=== PATIENT | male | born 1960 | race Caucasian/White ===

== ENCOUNTER 2019-01-27 18:14 | Inpatient (IN) | payer BC ==
[~2019-01-27] VITALS: Ht 188 cm; Wt 82.7 kg
[2019-01-27 20:55] VITALS: BP 95/54; PULSE 89; RESP 18
[2019-01-27 20:58] VITALS: PULSE 92
[2019-01-27 21:07] VITALS: Ht 188 cm; Wt 82.7 kg
--- NOTE | 2019-01-27 23:58 | HP ---
Date/Time of Note Date/Time of Note DATE: 01/27/19 TIME: 23:58 Assessment/Plan VTE Prophylaxis Pharmacological prophylaxis: heparin Lines/Catheters IV Catheter Type (from Nrs): Peripheral IV Assessment/Plan Assessment/Plan 58-year-old male with history of diabetes presents with abdominal pain, diarrhea, rectal bleeding presented to an outside hospital with CT showing possible colon lesion/mass PLAN GI consult for colonoscopy Consider additional abdominal imaging FOBT PPI Insulin for diabetes HPI/ROS Admit Date/Time Admit Date/Time Jan 27, 2019 at 20:38 Hx of Present Illness 58-year-old Farsi speaking male with history of type 1 diabetes who initially presented on outside hospital for abdominal pain, diarrhea, and rectal bleeding. He was transferred to [facility] for insurance reasons. At the outside facility CT shows possible colon mass/lesion. Note that part of the information was gathered from talking to patient's daughter. Patient was supposed to fly back to ER on a daily, but was canceled. He needed to be convinced to stay here by his daughter. Currently patient looks comfortable. PMH/Family/Social Past Medical History Medications Current Medications Sodium Chloride 1,000 ml @ 100 mls/hr Q10H IV ; Start 01/27/19 at 23:43; Status UNV IV Flush (NS 3 ml) 3 ml PER PROTOCOL IV ; Start 01/28/19 at 00:00; Status UNV Ondansetron HCl (Zofran Inj) 4 mg Q6H PRN IV NAUSEA/VOMITING; Start 01/28/19 at 00:00; Status UNV Acetaminophen (Tylenol Tab) 650 mg Q6H PRN PO .PAIN 1-3 OR TEMP; Start 01/28/19 at 00:00; Status UNV Acetaminophen/ Hydrocodone Bitart ([place] (5/325)) 1 tab Q6H PRN PO .PAIN 4-6; Start 01/28/19 at 00:00; Status UNV Zolpidem Tartrate (Ambien) 10 mg QHS PRN PO .INSOMNIA; Start 01/28/19 at 00:00; Status UNV Famotidine (Pepcid Iv) 20 mg Q12 IV ; Start 01/28/19 at 09:00; Status UNV Albuterol/ Ipratropium (Duoneb) 3 ml Q2H RESP THERAPY PRN HHN SHORTNESS OF BREATH; Start 01/28/19 at 00:00; Status UNV Miscellaneous Information (* Miscellaneous Pharmacy Order) Discontinue current oral sulfonylur... ONCE ONCE XX ; Start 01/28/19 at 00:00; Stop 01/28/19 at 00:01; Status UNV Diagnostic Test (Pha) (Accu-Chek) 1 ea XX ; Start 01/28/19 at 02:00; Status UNV Miscellaneous Information (* Miscellaneous Pharmacy Order) HYPOGLYCEMIA PROTOCOL w... ONCE ONCE XX ; Start 01/28/19 at 00:00; Stop 01/28/19 at 00:01; Status UNV Insulin Aspart (Novolog Insulin Pen) NOVOLOG *MILD* ALGORI... Q6 SC ; Start 01/28/19 at 00:00; Status UNV Miscellaneous Information (* Miscellaneous Pharmacy Order) Discontinue all previ... ONCE ONCE XX ; Start 01/28/19 at 00:00; Stop 01/28/19 at 00:01; Status UNV Coded Allergies: No Known Allergy (Unverified , 01/27/19) Social History Smoking Status: Current every day smoker Exam/Review of Systems Vital Signs Vitals Vital Signs Date Temp Pulse Resp B/P (MAP) Pulse Ox O2 O2 Flow FiO2 Time Delivery Rate 01/27/19 92 20:58 01/27/19 99.8 18 95/54 (68) 98 Room Air 20:55 Exam Exam Past Medical History: see hpi Past Surgical History Past Surgical Hx: other (see hpi) Family History Significant Family History: no pertinent family hx Social History Alcohol Use: other Smoking Status: Unknown if ever smoked Drug Use: other Medications Exam Eyes: PERRL ENMT: mucosa pink and moist Respiratory: normal air movement Cardiovascular: nl pulses Gastrointestinal: soft Extremities: normal pulses WALDO ROGERS MD Jan 27, 2019 23:58
[2019-01-28] VITALS (11 sets, daily range): BP systolic 90–109; BP diastolic 50–68; PULSE 66–86; RESP 18–20
[2019-01-28] MEDS ORDERED: GLUCOSE GEL 15 GRAM TUBE PO PRN ×2
[2019-01-28] MEDS ORDERED: GLUCOSE GEL 15 GRAM TUBE BUCCAL PRN
[2019-01-28] MEDS ORDERED: NACL 0.9% 3 ML SYG IV SCH
[2019-01-28] MEDS ORDERED: ONDANSETRON 4 MG INJ IV PRN
[2019-01-28] MEDS ORDERED: ALBUTEROL/IPRATROPIUM (NEB) 3 ML AMP HHN PRN
[2019-01-28] MEDS ORDERED: HYDROCODONE/APAP (5/325) TAB PO PRN
[2019-01-28] MEDS ORDERED: GLUCAGON 1 MG INJ IM PRN
[2019-01-28] MEDS ORDERED: DEXTROSE 50% 50 ML SYRINGE IV PRN ×2
[2019-01-28] MEDS: SOD CHLORIDE 0.9% 1,000 ML IV SCH ×3 (00:05→21:51)
[2019-01-28] MEDS: ZOLPIDEM 5 MG TAB PO PRN ×2 (00:34→21:54)
[2019-01-28] MEDS: ACETAMINOPHEN 325 MG TAB PO PRN (01:03)
[2019-01-28] MEDS: INSULIN ASPART [NOVOLOG] 3 ML PEN SC SCH ×5 (01:05→21:56)
[2019-01-28] MEDS: ACCU-CHEK XX SCH (02:00)
[2019-01-28] MEDS: FAMOTIDINE 20 MG INJ IV SCH ×2 (09:55→21:51)
--- NOTE | 2019-01-28 11:02 | PN ---
Date/Time of Note Date/Time of Note DATE: 01/28/19 TIME: 10:58 Assessment/Plan VTE Prophylaxis SCD applied (from Nsg): Yes Pharmacological prophylaxis: NA/contraindicated Pharm contraindication: bleeding Lines/Catheters IV Catheter Type (from Nrsg): Peripheral IV Assessment/Plan Hospital Course 1. Abdominal pain with diarrhea and rectal bleeding secondary to colon mass Mass was detected on CT abdomen at outside hospital GI consultation obtained for colonoscopy Clear diet for now 2. Diabetes Sugars currently elevate A1c at 6.7 Start Lantus and continue sliding scale Home regimen unknown 3. Acute versus chronic kidney disease Baseline unknown Continue IV fluids for now and monitor Prophylaxis: SCDs Result Diagram: 01/28/190 01/28/19 0040 Results 24hrs Laboratory Tests Test 01/28/19 00:40 01/28/19 06:20 White Blood Count 10.5 Red Blood Count 3.38 L Hemoglobin 8.1 L Hematocrit 26.7 L Mean Corpuscular Volume 79.0 L Mean Corpuscular Hemoglobin 24.0 L Mean Corpuscular Hemoglobin Concent 30.3 L Red Cell Distribution Width 16.2 H Platelet Count 326 Mean Platelet Volume 9.5 Immature Granulocytes % 0.500 H Neutrophils % 70.0 Lymphocytes % 21.6 Monocytes % 7.0 Eosinophils % 0.7 Basophils % 0.2 Nucleated Red Blood Cells % 0.0 Immature Granulocytes # 0.050 H Neutrophils # 7.3 Lymphocytes # 2.3 Monocytes # 0.7 Eosinophils # 0.1 Basophils # 0.0 Nucleated Red Blood Cells # 0.0 Sodium Level 137 Potassium Level 5.1 Chloride Level 106 Carbon Dioxide Level 23 Anion Gap 8 Blood Urea Nitrogen 16 Creatinine 1.44 H Est Glomerular Filtrat Rate mL/min 50 L Glucose Level 245 H Bedside Glucose 248 H 240 H Hemoglobin A1c 6.7 H Calcium Level 9.1 Total Bilirubin 0.1 L Direct Bilirubin 0.00 Indirect Bilirubin 0.1 Aspartate Amino Transf (AST/SGOT) 11 L Alanine Aminotransferase (ALT/SGPT) 17 Alkaline Phosphatase 81 Total Protein 6.3 Albumin 3.2 L Globulin 3.10 Albumin/Globulin Ratio 1.03 Triglycerides Level 136 Cholesterol Level 137 LDL Cholesterol, Calculated 92 HDL Cholesterol 18 L Cholesterol/HDL Ratio 7.6 Carcinoembryonic Antigen 2.2 Subjective 24 Hr Interval Summary Gastrointestinal: pain Exam/Review of Systems Exam Vitals Vital Signs Date Temp Pulse Resp B/P (MAP) Pulse Ox O2 O2 Flow FiO2 Time Delivery Rate 01/28/19 66 08:17 01/28/19 97.7 20 90/50 (63) 100 07:11 01/27/19 Room Air 20:55 Constitutional: alert, oriented Respiratory: clear to auscultation Cardiovascular: regular rate and rhythm Gastrointestinal: soft; No distended Musculoskeletal: nl extremities to inspection Results Results 24hrs Laboratory Tests Test 01/28/19 00:40 01/28/19 06:20 White Blood Count 10.5 Red Blood Count 3.38 L Hemoglobin 8.1 L Hematocrit 26.7 L Mean Corpuscular Volume 79.0 L Mean Corpuscular Hemoglobin 24.0 L Mean Corpuscular Hemoglobin Concent 30.3 L Red Cell Distribution Width 16.2 H Platelet Count 326 Mean Platelet Volume 9.5 Immature Granulocytes % 0.500 H Neutrophils % 70.0 Lymphocytes % 21.6 Monocytes % 7.0 Eosinophils % 0.7 Basophils % 0.2 Nucleated Red Blood Cells % 0.0 Immature Granulocytes # 0.050 H Neutrophils # 7.3 Lymphocytes # 2.3 Monocytes # 0.7 Eosinophils # 0.1 Basophils # 0.0 Nucleated Red Blood Cells # 0.0 Sodium Level 137 Potassium Level 5.1 Chloride Level 106 Carbon Dioxide Level 23 Anion Gap 8 Blood Urea Nitrogen 16 Creatinine 1.44 H Est Glomerular Filtrat Rate mL/min 50 L Glucose Level 245 H Bedside Glucose 248 H 240 H Hemoglobin A1c 6.7 H Calcium Level 9.1 Total Bilirubin 0.1 L Direct Bilirubin 0.00 Indirect Bilirubin 0.1 Aspartate Amino Transf (AST/SGOT) 11 L Alanine Aminotransferase (ALT/SGPT) 17 Alkaline Phosphatase 81 Total Protein 6.3 Albumin 3.2 L Globulin 3.10 Albumin/Globulin Ratio 1.03 Triglycerides Level 136 Cholesterol Level 137 LDL Cholesterol, Calculated 92 HDL Cholesterol 18 L Cholesterol/HDL Ratio 7.6 Carcinoembryonic Antigen 2.2 Medications Medication Current Medications Sodium Chloride 1,000 ml @ 100 mls/hr Q10H IV Last administered on 01/28/19at 09:56; Admin Dose 100 MLS/HR; Start 01/27/19 at 23:43 IV Flush (NS 3 ml) 3 ml PER PROTOCOL IV ; Start 01/28/19 at 00:00 Ondansetron HCl (Zofran Inj) 4 mg Q6H PRN IV NAUSEA/VOMITING; Start 01/28/19 at 00:00 Acetaminophen (Tylenol Tab) 650 mg Q6H PRN PO .PAIN 1-3 OR TEMP Last administered on 01/28/19at 01:03; Admin Dose 650 MG; Start 01/28/19 at 00:00 Acetaminophen/ Hydrocodone Bitart ([place] (5/325)) 1 tab Q6H PRN PO .PAIN 4-6; Start 01/28/19 at 00:00 Zolpidem Tartrate (Ambien) 10 mg QHS PRN PO .INSOMNIA Last administered on 01/28/19at 00:34; Admin Dose 10 MG; Start 01/28/19 at 00:00 Famotidine (Pepcid Iv) 20 mg Q12 IV Last administered on 01/28/19at 09:55; Admin Dose 20 MG; Start 01/28/19 at 09:00 Albuterol/ Ipratropium (Duoneb) 3 ml Q2H RESP THERAPY PRN HHN SHORTNESS OF BREATH; Start 01/28/19 at 00:00 Diagnostic Test (Pha) (Accu-Chek) 1 ea 02 XX ; Start 01/28/19 at 02:00 Insulin Aspart (Novolog Insulin Pen) NOVOLOG *MILD* ALGORI... Q6 SC Last administered on 01/28/19at 06:29; Admin Dose 3 UNIT; Start 01/28/19 at 00:00 Miscellaneous Information 1 ea NOTE XX ; Start 01/28/19 at 00:00 Glucose (Glutose) 15 gm Q15M PRN PO DECREASED GLUCOSE; Start 01/28/19 at 00:00 Glucose (Glutose) 22.5 gm Q15M PRN PO DECREASED GLUCOSE; Start 01/28/19 at 00:00 Dextrose (D50w Syringe) 25 ml Q15M PRN IV DECREASED GLUCOSE; Start 01/28/19 at 00:00 Dextrose (D50w Syringe) 50 ml Q15M PRN IV DECREASED GLUCOSE; Start 01/28/19 at 00:00 Glucagon (Glucagen) 1 mg Q15M PRN IM DECREASED GLUCOSE; Start 01/28/19 at 00:00 Glucose (Glutose) 15 gm Q15M PRN BUCCAL DECREASED GLUCOSE; Start 01/28/19 at 00:00 TIKI JIM Jan 28, 2019 11:02
[2019-01-28] MEDS: INSULIN GLARGINE [LANTus] (100 UNITS/ML) SYG SC SCH (12:49)
--- NOTE | 2019-01-28 13:51 | CONS ---
Assessment/Plan Assessment/Plan Hospital Course (Demo Recall) Summary Assessment and Plan: Assessment: Abdominal pain Intermittent diarrhea x1 month Abnormal imaging on noncontrast CT from [place] -Wall thickening of the hepatic flexure and transverse colon findings are suspicious for underlying mass -CEA negative Unintentional weight loss (30-40 lbs over 5 months) Microcytic hyperchromic anemia CAD- Plavix currently on hold DM Renal insufficiency Previous abdominal surgery Plan: Clear liquid diet Plan for endoscopic evaluation Wednesday Plan to start prep tomorrow Endoscopy - risks/benefits/alternatives/indications of procedure and sedation/anesthesia discussed with patient who states understanding and gives informed consent to proceed. Patient seen in collaboration with Dr. Foss CC: MAE FOSS ; Consultation Date/Type/Reason Admit Date/Time Jan 27, 2019 at 20:38 Date of Consultation: Jan 28, 2019 Type of Consult GI Reason for Consultation Abdominal pain/diarrhea/abnormal imaging Date/Time of Note DATE: 01/28/19 TIME: 13:33 Hx of Present Illness This is a 58 year old male with PMH of DM, type 2, CAD who presented to [facility] for abdominal pain and intermittent diarrhea. Pt states pain began about 2 months ago, leaves or aggravated by anything in particular, with intermittent diarrhea for the past month. Patient also notes a 30-40 pound weight loss, unintentionally over the past 5 months. [address] [facility] patient had a CT scan abdomen/pelvis without contrast in at the hepatic flexure of the colon and transverse colon, there is a focal wall thickening and adjacent fat stranding. Findings are suspicious for an underlying mass. Infection is less likely but not excluded. There are several adjacent tiny lymph nodes which are subcentimeter. Findings appear unchanged compared with 12/28/18. The right colon demonstrates stool and gas the appendix is not definitely visualized. The small bowel loops are nondilated. Stomach demonstrates some fluid. Answer to [facility] for further evaluation. Currently patient appears comfortable he is on a clear liquid diet tolerating well he denies nausea/vomiting, hematemesis, hematochezia a stool for OB has been ordered. Given CT findings we will plan to proceed with colonoscopy on Wednesday reviewed risk/benefits with patient and patient's fianc both verbalized understanding agreeable to procedure. Review of Systems: [A 12 system, review was conducted and is negative except as noted in the HPI or here.] Past Medical History Medications Current Medications Sodium Chloride 1,000 ml @ 100 mls/hr Q10H IV Last administered on 01/28/19at 09:56; Admin Dose 100 MLS/HR; Start 01/27/19 at 23:43 IV Flush (NS 3 ml) 3 ml PER PROTOCOL IV ; Start 01/28/19 at 00:00 Ondansetron HCl (Zofran Inj) 4 mg Q6H PRN IV NAUSEA/VOMITING; Start 01/28/19 at 00:00 Acetaminophen (Tylenol Tab) 650 mg Q6H PRN PO .PAIN 1-3 OR TEMP Last administered on 01/28/19at 01:03; Admin Dose 650 MG; Start 01/28/19 at 00:00 Acetaminophen/ Hydrocodone Bitart ([place] (5/325)) 1 tab Q6H PRN PO .PAIN 4-6; Start 01/28/19 at 00:00 Zolpidem Tartrate (Ambien) 10 mg QHS PRN PO .INSOMNIA Last administered on 01/28/19at 00:34; Admin Dose 10 MG; Start 01/28/19 at 00:00 Famotidine (Pepcid Iv) 20 mg Q12 IV Last administered on 01/28/19at 09:55; Admin Dose 20 MG; Start 01/28/19 at 09:00 Albuterol/ Ipratropium (Duoneb) 3 ml Q2H RESP THERAPY PRN HHN SHORTNESS OF BREATH; Start 01/28/19 at 00:00 Diagnostic Test (Pha) (Accu-Chek) 1 ea 02 XX ; Start 01/28/19 at 02:00 Insulin Aspart (Novolog Insulin Pen) NOVOLOG *MILD* ALGORI... Q6 SC Last administered on 01/28/19at 12:50; Admin Dose 3 UNIT; Start 01/28/19 at 00:00 Miscellaneous Information 1 ea NOTE XX ; Start 01/28/19 at 00:00 Glucose (Glutose) 15 gm Q15M PRN PO DECREASED GLUCOSE; Start 01/28/19 at 00:00 Glucose (Glutose) 22.5 gm Q15M PRN PO DECREASED GLUCOSE; Start 01/28/19 at 00:00 Dextrose (D50w Syringe) 25 ml Q15M PRN IV DECREASED GLUCOSE; Start 01/28/19 at 00:00 Dextrose (D50w Syringe) 50 ml Q15M PRN IV DECREASED GLUCOSE; Start 01/28/19 at 00:00 Glucagon (Glucagen) 1 mg Q15M PRN IM DECREASED GLUCOSE; Start 01/28/19 at 00:00 Glucose (Glutose) 15 gm Q15M PRN BUCCAL DECREASED GLUCOSE; Start 01/28/19 at 00:00 Insulin Glargine (Lantus) 15 units DAILY@0800 SC Last administered on 01/28/19at 12:49; Admin Dose 15 UNITS; Start 01/28/19 at 12:00 Allergies: Coded Allergies: No Known Allergy (Unverified , 01/27/19) Social History Smoking Status: Current every day smoker Exam/Review of Systems Exam Vitals Vital Signs Date Temp Pulse Resp B/P (MAP) Pulse Ox O2 O2 Flow FiO2 Time Delivery Rate 01/28/19 77 12:03 01/28/19 98.5 18 90/55 (67) 100 11:21 01/27/19 Room Air 20:55 Exam PHYSICAL EXAMINATION: GENERAL: Well developed, well nourished, alert & oriented x 3, in no acute distress SKIN: Midline scar EYES: Pupils equal reactive to light, no discharge. EARS/NOSE AND THROAT: Ears normal, nose normal, oropharynx normal NECK: Supple, no masses CHEST: Inspection within normal limits. CARDIOVASCULAR: Heart: Regular rate and rhythm RESPIRATORY: Lungs clear to auscultation GASTROINTESTINAL AND LIVER: Abdomen: Soft, non tenderness, non-distended, no hernias, no masses, no organomegaly, no ascites, no guarding, no rebound tenderness, normoactive bowel sounds. Rectal: Deferred. EXTREMITIES: No cyanosis, clubbing or edema. Results Result Diagram: 01/28/193901/28/19 0040 Results 24hrs Laboratory Tests Test 01/28/19 00:40 01/28/19 06:20 01/28/19 12:47 White Blood Count 10.5 Red Blood Count 3.38 L Hemoglobin 8.1 L Hematocrit 26.7 L Mean Corpuscular Volume 79.0 L Mean Corpuscular Hemoglobin 24.0 L Mean Corpuscular Hemoglobin Concent 30.3 L Red Cell Distribution Width 16.2 H Platelet Count 326 Mean Platelet Volume 9.5 Immature Granulocytes % 0.500 H Neutrophils % 70.0 Lymphocytes % 21.6 Monocytes % 7.0 Eosinophils % 0.7 Basophils % 0.2 Nucleated Red Blood Cells % 0.0 Immature Granulocytes # 0.050 H Neutrophils # 7.3 Lymphocytes # 2.3 Monocytes # 0.7 Eosinophils # 0.1 Basophils # 0.0 Nucleated Red Blood Cells # 0.0 Sodium Level 137 Potassium Level 5.1 Chloride Level 106 Carbon Dioxide Level 23 Anion Gap 8 Blood Urea Nitrogen 16 Creatinine 1.44 H Est Glomerular Filtrat Rate mL/min 50 L Glucose Level 245 H Bedside Glucose 248 H 240 H 252 H Hemoglobin A1c 6.7 H Calcium Level 9.1 Total Bilirubin 0.1 L Direct Bilirubin 0.00 Indirect Bilirubin 0.1 Aspartate Amino Transf (AST/SGOT) 11 L Alanine Aminotransferase (ALT/SGPT) 17 Alkaline Phosphatase 81 Total Protein 6.3 Albumin 3.2 L Globulin 3.10 Albumin/Globulin Ratio 1.03 Triglycerides Level 136 Cholesterol Level 137 LDL Cholesterol, Calculated 92 HDL Cholesterol 18 L Cholesterol/HDL Ratio 7.6 Carcinoembryonic Antigen 2.2 Medications Medication Current Medications Sodium Chloride 1,000 ml @ 100 mls/hr Q10H IV Last administered on 01/28/19at 09:56; Admin Dose 100 MLS/HR; Start 01/27/19 at 23:43 IV Flush (NS 3 ml) 3 ml PER PROTOCOL IV ; Start 01/28/19 at 00:00 Ondansetron HCl (Zofran Inj) 4 mg Q6H PRN IV NAUSEA/VOMITING; Start 01/28/19 at 00:00 Acetaminophen (Tylenol Tab) 650 mg Q6H PRN PO .PAIN 1-3 OR TEMP Last administered on 01/28/19at 01:03; Admin Dose 650 MG; Start 01/28/19 at 00:00 Acetaminophen/ Hydrocodone Bitart ([place] (5/325)) 1 tab Q6H PRN PO .PAIN 4-6; Start 01/28/19 at 00:00 Zolpidem Tartrate (Ambien) 10 mg QHS PRN PO .INSOMNIA Last administered on at 00:34; Admin Dose 10 MG; Start 01/28/19 at 00:00 Famotidine (Pepcid Iv) 20 mg Q12 IV Last administered on 01/28/19at 09:55; Admin Dose 20 MG; Start 01/28/19 at 09:00 Albuterol/ Ipratropium (Duoneb) 3 ml Q2H RESP THERAPY PRN HHN SHORTNESS OF BREATH; Start 01/28/19 at 00:00 Diagnostic Test (Pha) (Accu-Chek) 1 ea 02 XX ; Start 01/28/19 at 02:00 Insulin Aspart (Novolog Insulin Pen) NOVOLOG *MILD* ALGORI... Q6 SC Last administered on 01/28/19at 12:50; Admin Dose 3 UNIT; Start 01/28/19 at 00:00 Miscellaneous Information 1 ea NOTE XX ; Start 01/28/19 at 00:00 Glucose (Glutose) 15 gm Q15M PRN PO DECREASED GLUCOSE; Start 01/28/19 at 00:00 Glucose (Glutose) 22.5 gm Q15M PRN PO DECREASED GLUCOSE; Start 01/28/19 at 00:00 Dextrose (D50w Syringe) 25 ml Q15M PRN IV DECREASED GLUCOSE; Start 01/28/19 at 00:00 Dextrose (D50w Syringe) 50 ml Q15M PRN IV DECREASED GLUCOSE; Start 01/28/19 at 00:00 Glucagon (Glucagen) 1 mg Q15M PRN IM DECREASED GLUCOSE; Start 01/28/19 at 00:00 Glucose (Glutose) 15 gm Q15M PRN BUCCAL DECREASED GLUCOSE; Start 01/28/19 at 00:00 Insulin Glargine (Lantus) 15 units DAILY@0800 SC Last administered on 01/28/19at 12:49; Admin Dose 15 UNITS; Start 01/28/19 at 12:00 ЕЛЕНА SIERRA Jan 28, 2019 13:46
[2019-01-29] VITALS (13 sets, daily range): BP systolic 90–115; BP diastolic 52–72; PULSE 70–108; RESP 17–20
[2019-01-29] MEDS: ACCU-CHEK XX SCH (02:00)
[2019-01-29] MEDS: SOD CHLORIDE 0.9% 1,000 ML IV SCH (05:29)
[2019-01-29] MEDS: INSULIN ASPART [NOVOLOG] 3 ML PEN SC SCH ×6 (05:30→20:26)
[2019-01-29] MEDS: FAMOTIDINE 20 MG INJ IV SCH ×2 (07:34→20:27)
[2019-01-29] MEDS: INSULIN GLARGINE [LANTus] (100 UNITS/ML) SYG SC SCH (07:42)
[2019-01-29] MEDS ORDERED: INSULIN GLARGINE [LANTus] (100 UNITS/ML) SYG SC SCH (08:00)
--- NOTE | 2019-01-29 14:06 | PN ---
Date/Time of Note Date/Time of Note DATE: 01/29/19 TIME: 13:59 Assessment/Plan VTE Prophylaxis Risk score (from Ns)>0 risk: 1 SCD applied (from Nsg): Yes Pharmacological prophylaxis: other (scds) Lines/Catheters IV Catheter Type (from Nrs): [place] Lock Urinary Cath still in place: No Assessment/Plan Hospital Course Summary Assessment and Plan: Assessment: Abdominal pain Intermittent diarrhea x1 month Abnormal imaging on noncontrast CT from [place] -Wall thickening of the hepatic flexure and transverse colon findings are suspicious for underlying mass -CEA negative Unintentional weight loss (30-40 lbs over 5 months) Microcytic hyperchromic anemia CAD- Plavix currently on hold DM Renal insufficiency Previous abdominal surgery Plan: Clear liquid diet today NPO after 01/30/19 0800 Colonoscopy tomorrow Endoscopy - risks/benefits/alternatives/indications of procedure and sedati on/anesthesia discussed with patient who states understanding and gives informed consent to proceed. Patient seen in collaboration with Dr. Mon[place] Subjective: Course reviewed with nursing staff Patient interviewed and examined All labs, imaging and other results reviewed The patient resting in bed, appears comfortable Discussed plan for colonoscopy tomorrow, reviewed risks/benefits of sedation and colonoscopy Patient verbalized understanding and is agreeable PHYSICAL EXAMINATION: GENERAL:Alert & oriented x 3, in no acute distress SKIN: Midline scar EYES: Pupils equal reactive to light, no discharge. EARS/NOSE AND THROAT: Ears normal, nose normal, oropharynx normal NECK: Supple, no masses CHEST: Inspection within normal limits. CARDIOVASCULAR: Heart: Regular rate and rhythm RESPIRATORY: Lungs clear to auscultation GASTROINTESTINAL AND LIVER: Abdomen: Soft, generalized abd tenderness, non- distended, no hernias, no masses, no organomegaly, no ascites, no guarding, no rebound tenderness, normoactive bowel sounds. Rectal: Deferred. EXTREMITIES: No cyanosis, clubbing or edema. Result Diagram: 01/29/19 0459 01/29/19 0459 Results 24hrs Laboratory Tests Test 01/28/19 17:04 01/28/19 21:55 01/29/19 04:59 01/29/19 05:27 Bedside Glucose 207 104 134 White Blood Count 10.1 Red Blood Count 3.35 L Hemoglobin 8.1 L Hematocrit 26.6 L Mean Corpuscular Volume 79.4 L Mean Corpuscular 24.2 L Hemoglobin Mean Corpuscular 30.5 L Hemoglobin Concent Red Cell Distribution 15.9 H Width Platelet Count 345 Mean Platelet Volume 10.2 Immature Granulocytes % 0.500 H Neutrophils % 68.2 Lymphocytes % 21.6 Monocytes % 8.0 Eosinophils % 1.4 Basophils % 0.3 Nucleated Red Blood 0.0 Cells % Immature Granulocytes # 0.050 H Neutrophils # 6.9 Lymphocytes # 2.2 Monocytes # 0.8 Eosinophils # 0.1 Basophils # 0.0 Nucleated Red Blood 0.0 Cells # Sodium Level 139 Potassium Level 3.8 Chloride Level 108 Carbon Dioxide Level 24 Anion Gap 7 Blood Urea Nitrogen 13 Creatinine 1.24 Est Glomerular Filtrat 60 Rate mL/min Glucose Level 97 # Calcium Level 9.2 Phosphorus Level 4.4 Magnesium Level 1.8 Test 01/29/19 07:33 01/29/19 12:20 Bedside Glucose 142 239 H Exam/Review of Systems Exam Vitals Vital Signs Date Temp Pulse Resp B/P (MAP) Pulse Ox O2 O2 Flow FiO2 Time Delivery Rate 01/29/19 79 12:25 01/29/19 98.2 17 108/52 99 11:32 (70) 01/27/19 Room Air 20:55 Intake and Output 01/28/19 01/28/19 01/29/19 1515:00 23:00 07:00 IntakeIntake Total 1600 ml 800 ml BalanceBalance 1600 ml 800 ml Results Results 24hrs Laboratory Tests Test 01/28/19 17:04 01/28/19 21:55 01/29/19 04:59 01/29/19 05:27 Bedside Glucose 207 104 134 White Blood Count 10.1 Red Blood Count 3.35 L Hemoglobin 8.1 L Hematocrit 26.6 L Mean Corpuscular Volume 79.4 L Mean Corpuscular 24.2 L Hemoglobin Mean Corpuscular 30.5 L Hemoglobin Concent Red Cell Distribution 15.9 H Width Platelet Count 345 Mean Platelet Volume 10.2 Immature Granulocytes % 0.500 H Neutrophils % 68.2 Lymphocytes % 21.6 Monocytes % 8.0 Eosinophils % 1.4 Basophils % 0.3 Nucleated Red Blood 0.0 Cells % Immature Granulocytes # 0.050 H Neutrophils # 6.9 Lymphocytes # 2.2 Monocytes # 0.8 Eosinophils # 0.1 Basophils # 0.0 Nucleated Red Blood 0.0 Cells # Sodium Level 139 Potassium Level 3.8 Chloride Level 108 Carbon Dioxide Level 24 Anion Gap 7 Blood Urea Nitrogen 13 Creatinine 1.24 Est Glomerular Filtrat 60 Rate mL/min Glucose Level 97 # Calcium Level 9.2 Phosphorus Level 4.4 Magnesium Level 1.8 Test 01/29/19 07:33 01/29/19 12:20 Bedside Glucose 142 239 H Medications Medication Current Medications IV Flush (NS 3 ml) 3 ml PER PROTOCOL IV ; Start 01/28/19 at 00:00 Ondansetron HCl (Zofran Inj) 4 mg Q6H PRN IV NAUSEA/VOMITING; Start 01/28/19 at 00:00 Acetaminophen (Tylenol Tab) 650 mg Q6H PRN PO .PAIN 1-3 OR TEMP Last administered on 01/28/19at 01:03; Admin Dose 650 MG; Start 01/28/19 at 00:00 Acetaminophen/ Hydrocodone Bitart ([place] (5/325)) 1 tab Q6H PRN PO .PAIN 4-6; Start 01/28/19 at 00:00 Zolpidem Tartrate (Ambien) 10 mg QHS PRN PO .INSOMNIA Last administered on 01/28/19at 21:54; Admin Dose 10 MG; Start 01/28/19 at 00:00 Famotidine (Pepcid Iv) 20 mg Q12 IV Last administered on 01/29/19at 07:34; Admin Dose 20 MG; Start 01/28/19 at 09:00 Albuterol/ Ipratropium (Duoneb) 3 ml Q2H RESP THERAPY PRN HHN SHORTNESS OF BREATH; Start 01/28/19 at 00:00 Diagnostic Test (Pha) (Accu-Chek) 1 ea 02 XX ; Start 01/28/19 at 02:00 Miscellaneous Information 1 ea NOTE XX ; Start 01/28/19 at 00:00 Glucose (Glutose) 15 gm Q15M PRN PO DECREASED GLUCOSE; Start 01/28/19 at 00:00 Glucose (Glutose) 22.5 gm Q15M PRN PO DECREASED GLUCOSE; Start 01/28/19 at 00:00 Dextrose (D50w Syringe) 25 ml Q15M PRN IV DECREASED GLUCOSE; Start 01/28/19 at 00:00 Dextrose (D50w Syringe) 50 ml Q15M PRN IV DECREASED GLUCOSE; Start 01/28/19 at 00:00 Glucagon (Glucagen) 1 mg Q15M PRN IM DECREASED GLUCOSE; Start 01/28/19 at 00:00 Glucose (Glutose) 15 gm Q15M PRN BUCCAL DECREASED GLUCOSE; Start 01/28/19 at 00:00 Insulin Glargine (Lantus) 15 units DAILY@0800 SC Last administered on 01/29/19at 07:42; Admin Dose 15 UNITS; Start 01/28/19 at 12:00 Insulin Aspart (Novolog Insulin Pen) NOVOLOG *MODERATE* ALGORITHM WITH MEALS BEDTIME SC Last administered on 01/29/19at 12:45; Admin Dose 3 UNIT; Start 01/29/19 at 13:00 ЕЛЕНА SIERRA Jan 29, 2019 14:06
[2019-01-29] MEDS ORDERED: BISACODYL (EC) 5 MG TAB PO ONE (14:30)
--- NOTE | 2019-01-29 17:19 | PN ---
Date/Time of Note Date/Time of Note DATE: 01/29/19 TIME: 17:16 Assessment/Plan VTE Prophylaxis Risk score (from Ns)>0 risk: 1 SCD applied (from Ns): Yes Pharmacological prophylaxis: NA/contraindicated Pharm contraindication: surgical contra Lines/Catheters IV C[facility]ter [facility] (from [facility] Saline Lock Urinary Cath still in place: No Assessment/Plan Hospital Course 1. Abdominal pain with diarrhea and rectal bleeding secondary to colon mass Mass was detected on CT abdomen at outside hospital GI consultation appreciated, colonoscopy tomorrow 2. Diabetes Sugars currently stable A1c at 6.7 Continue Lantus and continue sliding scale Home regimen unknown 3. Prerenal ASAEL Renal function improved with fluids Baseline creatinine unknown Status post fluids Prophylaxis: SCDs DC planning: Colonoscopy planned for tomorrow, patient may require elza- colectomy during this hospitalization Result Diagram: 01/29/19 0459 01/29/19 0459 Results 24hrs Laboratory Tests Test 01/28/19 21:55 01/29/19 04:59 01/29/19 05:27 01/29/19 07:33 Bedside Glucose 104 134 142 White Blood Count 10.1 Red Blood Count 3.35 L Hemoglobin 8.1 L Hematocrit 26.6 L Mean Corpuscular Volume 79.4 L Mean Corpuscular 24.2 L Hemoglobin Mean Corpuscular 30.5 L Hemoglobin Concent Red Cell Distribution 15.9 H Width Platelet Count 345 Mean Platelet Volume 10.2 Immature Granulocytes % 0.500 H Neutrophils % 68.2 Lymphocytes % 21.6 Monocytes % 8.0 Eosinophils % 1.4 Basophils % 0.3 Nucleated Red Blood 0.0 Cells % Immature Granulocytes # 0.050 H Neutrophils # 6.9 Lymphocytes # 2.2 Monocytes # 0.8 Eosinophils # 0.1 Basophils # 0.0 Nucleated Red Blood 0.0 Cells # Sodium Level 139 Potassium Level 3.8 Chloride Level 108 Carbon Dioxide Level 24 Anion Gap 7 Blood Urea Nitrogen 13 Creatinine 1.24 Est Glomerular Filtrat 60 Rate mL/min Glucose Level 97 # Calcium Level 9.2 Phosphorus Level 4.4 Magnesium Level 1.8 Test 01/29/19 12:20 01/29/19 16:59 Bedside Glucose 239 H 187 Subjective 24 Hr Interval Summary Constitutional: no complaints Exam/Review of Systems Exam Vitals Vital Signs Date Temp Pulse Resp B/P (MAP) Pulse Ox O2 O2 Flow FiO2 Time Delivery Rate 01/29/19 75 16:03 01/29/19 98.1 17 98/59 (72) 100 15:46 01/27/19 Room Air 20:55 Intake and Output 01/28/19 01/28/19 01/29/19 1515:00 23:00 07:00 IntakeIntake Total 1600 ml 800 ml BalanceBalance 1600 ml 800 ml Constitutional: alert, oriented Respiratory: clear to auscultation Cardiovascular: regular rate and rhythm Gastrointestinal: soft; No distended Musculoskeletal: nl extremities to inspection Results Results 24hrs Laboratory Tests Test 01/28/19 21:55 01/29/19 04:59 01/29/19 05:27 01/29/19 07:33 Bedside Glucose 104 134 142 White Blood Count 10.1 Red Blood Count 3.35 L Hemoglobin 8.1 L Hematocrit 26.6 L Mean Corpuscular Volume 79.4 L Mean Corpuscular 24.2 L Hemoglobin Mean Corpuscular 30.5 L Hemoglobin Concent Red Cell Distribution 15.9 H Width Platelet Count 345 Mean Platelet Volume 10.2 Immature Granulocytes % 0.500 H Neutrophils % 68.2 Lymphocytes % 21.6 Monocytes % 8.0 Eosinophils % 1.4 Basophils % 0.3 Nucleated Red Blood 0.0 Cells % Immature Granulocytes # 0.050 H Neutrophils # 6.9 Lymphocytes # 2.2 Monocytes # 0.8 Eosinophils # 0.1 Basophils # 0.0 Nucleated Red Blood 0.0 Cells # Sodium Level 139 Potassium Level 3.8 Chloride Level 108 Carbon Dioxide Level 24 Anion Gap 7 Blood Urea Nitrogen 13 Creatinine 1.24 Est Glomerular Filtrat 60 Rate mL/min Glucose Level 97 # Calcium Level 9.2 Phosphorus Level 4.4 Magnesium Level 1.8 Test 01/29/19 12:20 01/29/19 16:59 Bedside Glucose 239 H 187 Medications Medication Current Medications IV Flush (NS 3 ml) 3 ml PER PROTOCOL IV ; Start 01/28/19 at 00:00 Ondansetron HCl (Zofran Inj) 4 mg Q6H PRN IV NAUSEA/VOMITING; Start 01/28/19 at 00:00 Acetaminophen (Tylenol Tab) 650 mg Q6H PRN PO .PAIN 1-3 OR TEMP Last adminis tered on 01/28/19at 01:03; Admin Dose 650 MG; Start 01/28/19 at 00:00 Acetaminophen/ Hydrocodone Bitart ([place] (5/325)) 1 tab Q6H PRN PO .PAIN 4-6; Start 01/28/19 at 00:00 Zolpidem Tartrate (Ambien) 10 mg QHS PRN PO .INSOMNIA Last administered on 01/28/19at 21:54; Admin Dose 10 MG; Start 01/28/19 at 00:00 Famotidine (Pepcid Iv) 20 mg Q12 IV Last administered on 01/29/19at 07:34; Admin Dose 20 MG; Start 01/28/19 at 09:00 Albuterol/ Ipratropium (Duoneb) 3 ml Q2H RESP THERAPY PRN HHN SHORTNESS OF BREATH; Start 01/28/19 at 00:00 Diagnostic Test (Pha) (Accu-Chek) 1 ea 02 XX ; Start 01/28/19 at 02:00 Miscellaneous Information 1 ea NOTE XX ; Start 01/28/19 at 00:00 Glucose (Glutose) 15 gm Q15M PRN PO DECREASED GLUCOSE; Start 01/28/19 at 00:00 Glucose (Glutose) 22.5 gm Q15M PRN PO DECREASED GLUCOSE; Start 01/28/19 at 00:00 Dextrose (D50w Syringe) 25 ml Q15M PRN IV DECREASED GLUCOSE; Start 01/28/19 at 00:00 Dextrose (D50w Syringe) 50 ml Q15M PRN IV DECREASED GLUCOSE; Start 01/28/19 at 00:00 Glucagon (Glucagen) 1 mg Q15M PRN IM DECREASED GLUCOSE; Start 01/28/19 at 00:00 Glucose (Glutose) 15 gm Q15M PRN BUCCAL DECREASED GLUCOSE; Start 01/28/19 at 00:00 Insulin Glargine (Lantus) 15 units DAILY@0800 SC Last administered on 01/29/19at 07:42; Admin Dose 15 UNITS; Start 01/28/19 at 12:00 Insulin Aspart (Novolog Insulin Pen) NOVOLOG *MODERATE* ALGORITHM WITH MEALS BEDTIME SC Last administered on 01/29/19at 12:45; Admin Dose 3 UNIT; Start 01/29/19 at 13:00 Magnesium Citrate (Citroma) 300 ml ONCE ONCE PO ; Start 01/29/19 at 17:30; Stop 01/29/19 at 17:31 Polyethylene Glycol (Miralax) 119 gm ONCE ONCE PO ; Start 01/29/19 at 18:30; Stop 01/29/19 at 18:31 Polyethylene Glycol (Miralax) 119 gm 2ND DOSE (GI PREP) ONCE PO ; Start 01/30/19 at 06:00; Stop 01/30/19 at 06:01 Bisacodyl (Dulcolax) 10 mg 2ND DOSE (GI PREP) ONCE PO ; Start 01/30/19 at 08:00; Stop 01/30/19 at 08:01 TIKI JIM Jan 29, 2019 17:19
[2019-01-29] MEDS ORDERED: MAGNESIUM CITRATE 300 ML BTL PO ONE (17:30)
[2019-01-29] MEDS ORDERED: INSULIN ASPART [NOVOLOG] 3 ML PEN SC SCH (18:00)
[2019-01-29] MEDS ORDERED: POLYETHYLENE GLYCOL 3350 119 GM POWDER PO ONE (18:30)
[2019-01-30] VITALS (31 sets, daily range): BP systolic 90–108; BP diastolic 45–69; PULSE 50–117; RESP 14–20
[2019-01-30] MEDS: ZOLPIDEM 5 MG TAB PO PRN (00:44)
[2019-01-30] MEDS: ACCU-CHEK XX SCH (02:00)
[2019-01-30] MEDS ORDERED: POLYETHYLENE GLYCOL 3350 119 GM POWDER PO ONE (06:00)
[2019-01-30] MEDS: INSULIN GLARGINE [LANTus] (100 UNITS/ML) SYG SC SCH (08:00)
[2019-01-30] MEDS ORDERED: BISACODYL (EC) 5 MG TAB PO ONE (08:00)
[2019-01-30] MEDS: INSULIN ASPART [NOVOLOG] 3 ML PEN SC SCH ×4 (08:04→20:35)
[2019-01-30] MEDS: FAMOTIDINE 20 MG INJ IV SCH ×2 (08:41→20:17)
--- NOTE | 2019-01-30 11:03 | PREAC ---
Date/Time of Note Date/Time of Note DATE: 01/30/19 TIME: 11:00 Anesthesia Eval and Record Evaluation Time Pre-Procedure Interview DATE: 01/30/19 TIME: 11:00 Age 58 Sex male NPO: 8 hrs Preoperative diagnosis Possible colon mass Planned procedure Colonoscopy Past Medical History Cardio: HTN, CAD, PTCA/Stent Endo: Diabetes Pulm: Smoking Hx Renal: CKD Meds Anticoagulation: No (plavix d/c'd) Beta Hansel within 24 hr: No Reason Beta Hansel not given: Pt. not on B-Hansel (d/c'd on hospital admission) Current Medications IV Flush (NS 3 ml) 3 ml PER PROTOCOL IV ; Start 01/28/19 at 00:00 Ondansetron HCl (Zofran Inj) 4 mg Q6H PRN IV NAUSEA/VOMITING; Start 01/28/19 at 00:00 Acetaminophen (Tylenol Tab) 650 mg Q6H PRN PO .PAIN 1-3 OR TEMP Last administered on 01/28/19at 01:03; Admin Dose 650 MG; Start 01/28/19 at 00:00 Acetaminophen/ Hydrocodone Bitart ([place] (5/325)) 1 tab Q6H PRN PO .PAIN 4-6; Start 01/28/19 at 00:00 Zolpidem Tartrate (Ambien) 10 mg QHS PRN PO .INSOMNIA Last administered on 01/30/19at 00:44; Admin Dose 10 MG; Start 01/28/19 at 00:00 Famotidine (Pepcid Iv) 20 mg Q12 IV Last administered on 01/30/19at 08:41; Admin Dose 20 MG; Start 01/28/19 at 09:00 Albuterol/ Ipratropium (Duoneb) 3 ml Q2H RESP THERAPY PRN HHN SHORTNESS OF BREATH; Start 01/28/19 at 00:00 Diagnostic Test (Pha) (Accu-Chek) 1 ea 02 XX ; Start 01/28/19 at 02:00 Miscellaneous Information 1 ea NOTE XX ; Start 01/28/19 at 00:00 Glucose (Glutose) 15 gm Q15M PRN PO DECREASED GLUCOSE; Start 01/28/19 at 00:00 Glucose (Glutose) 22.5 gm Q15M PRN PO DECREASED GLUCOSE; Start 01/28/19 at 00:00 Dextrose (D50w Syringe) 25 ml Q15M PRN IV DECREASED GLUCOSE; Start 01/28/19 at 00:00 Dextrose (D50w Syringe) 50 ml Q15M PRN IV DECREASED GLUCOSE; Start 01/28/19 at 00:00 Glucagon (Glucagen) 1 mg Q15M PRN IM DECREASED GLUCOSE; Start 01/28/19 at 00:00 Glucose (Glutose) 15 gm Q15M PRN BUCCAL DECREASED GLUCOSE; Start 01/28/19 at 00:00 Insulin Glargine (Lantus) 15 units DAILY@0800 SC Last administered on 01/30/19at 08:00; Admin Dose 15 UNITS; Start 01/28/19 at 12:00 Insulin Aspart (Novolog Insulin Pen) NOVOLOG *MODERATE* ALGORITHM WITH MEALS BEDTIME SC Last administered on 01/30/19at 08:04; Admin Dose 4 UNIT; Start 01/29/19 at 13:00 Meds reviewed: Yes Allergies Coded Allergies: No Known Allergy (Unverified , 01/27/19) Allergies Reviewed: Yes Labs/Studies Labs Reviewed: Reviewed by anesthesiologist Result Diagram: 01/29/19 0459 01/30/19 0514 Laboratory Tests 01/30/19 05:14 test: N/A Pre-procedure Exam Last vitals Vital Signs Date Temp Pulse Resp B/P (MAP) Pulse Ox O2 O2 Flow FiO2 Time Delivery Rate 01/30/19 73 08:01 01/30/19 97.8 18 99/55 (70) 100 07:19 01/30/19 Room Air 00:07 ASA Physical Status ASA physical status: 3 Planned Anesthetic General/MAC: MAC Pre-operative Attestations Prior to commencing anesthesia and surgery, the patient was re-evaluated, there was verification of: *The patient's identity *The results of appropriate recent lab work and preoperative vital signs *The above evaluation not changing prior to induction *Anesthetic plan, risk benefits, alternative and complications discussed with patient/family; questions answered; patient/family understands, accepts and wishes to proceed. ANGELLA GALARZA CRNA Jan 30, 2019 11:03
--- NOTE | 2019-01-30 14:00 | PN ---
Date/Time of Note Date/Time of Note DATE: 01/30/19 TIME: 13:59 Assessment/Plan VTE Prophylaxis Risk score (from Nsg)>0 risk: 2 SCD applied (from Nsg): Yes Pharmacological prophylaxis: heparin Lines/Catheters IV Catheter Type (from Nrsg): Saline Lock Urinary Cath still in place: No Assessment/Plan Hospital Course 1. Abdominal pain with diarrhea and rectal bleeding secondary to colon mass Mass was detected on CT abdomen at outside hospital GI consultation appreciated, colonoscopy todayt 2. Diabetes Sugars currently stable A1c at 6.7 Continue Lantus and continue sliding scale Home regimen unknown 3. Prerenal ASAEL Renal function improved with fluids Baseline creatinine unknown Status post fluids Prophylaxis: SCDs DC planning: Colonoscopy planned for today, patient may require elza-colectomy during this hospitalization Result Diagram: 01/29/19 0459 01/30/19 0514 Results 24hrs Laboratory Tests Test 01/29/19 16:59 01/29/19 20:26 01/30/19 05:14 01/30/19 07:54 Bedside Glucose 187 180 201 Sodium Level 139 Potassium Level 4.4 Chloride Level 107 Carbon Dioxide Level 24 Anion Gap 8 Blood Urea Nitrogen 11 Creatinine 1.20 Est Glomerular Filtrat > 60 Rate mL/min Glucose Level 159 Calcium Level 9.2 Test 01/30/19 11:46 Bedside Glucose 211 Subjective 24 Hr Interval Summary Free Text/Dictation Patient comfortable Awaiting endoscopy Exam/Review of Systems Exam Vitals Vital Signs Date Temp Pulse Resp B/P (MAP) Pulse Ox O2 O2 Flow FiO2 Time Delivery Rate 01/30/19 66 12:01 01/30/19 98.4 18 100/61 99 11:21 (74) 01/30/19 Room Air 00:07 Intake and Output 01/29/19 01/29/19 01/30/19 1515:00 23:00 07:00 IntakeIntake Total 1000 ml BalanceBalance 1000 ml Constitutional: alert, oriented, well developed Psych: no complaints, nl mood/affect Head: normocephalic, atraumatic Eyes: nl conjunctiva, EOMI, nl lids, nl sclera, PERRL ENMT: nl external ears & nose, nl lips & teeth, nl nasal mucosa & septum Neck: supple, non-tender Respiratory: clear to auscultation, normal air movement Cardiovascular: regular rate and rhythm, nl pulses Gastrointestinal: soft, nl liver, spleen, non-tender Musculoskeletal: nl extremities to inspection, nl gait and stance Extremities: normal pulses Neurological: [employer]ATEGY II-XII intact, nl mental status, nl speech, nl strength Skin: nl turgor; No rash or lesions Lymph: nl lymph nodes Results Results 24hrs Laboratory Tests Test 01/29/19 16:59 01/29/19 20:26 01/30/19 05:14 01/30/19 07:54 Bedside Glucose 187 180 201 Sodium Level 139 Potassium Level 4.4 Chloride Level 107 Carbon Dioxide Level 24 Anion Gap 8 Blood Urea Nitrogen 11 Creatinine 1.20 Est Glomerular Filtrat > 60 Rate mL/min Glucose Level 159 Calcium Level 9.2 Test 01/30/19 11:46 Bedside Glucose 211 Medications Medication Current Medications IV Flush (NS 3 ml) 3 ml PER PROTOCOL IV ; Start 01/28/19 at 00:00 Ondansetron HCl (Zofran Inj) 4 mg Q6H PRN IV NAUSEA/VOMITING; Start 01/28/19 at 00:00 Acetaminophen (Tylenol Tab) 650 mg Q6H PRN PO .PAIN 1-3 OR TEMP Last administered on 01/28/19at 01:03; Admin Dose 650 MG; Start 01/28/19 at 00:00 Acetaminophen/ Hydrocodone Bitart ([place] (5/325)) 1 tab Q6H PRN PO .PAIN 4-6; Start 01/28/19 at 00:00 Zolpidem Tartrate (Ambien) 10 mg QHS PRN PO .INSOMNIA Last administered on 01/30/19at 00:44; Admin Dose 10 MG; Start 01/28/19 at 00:00 Famotidine (Pepcid Iv) 20 mg Q12 IV Last administered on 01/30/19at 08:41; Admin Dose 20 MG; Start 01/28/19 at 09:00 Albuterol/ Ipratropium (Duoneb) 3 ml Q2H RESP THERAPY PRN HHN SHORTNESS OF BREATH; Start 01/28/19 at 00:00 Diagnostic Test (Pha) (Accu-Chek) 1 ea 02 XX ; Start 01/28/19 at 02:00 Miscellaneous Information 1 ea NOTE XX ; Start 01/28/19 at 00:00 Glucose (Glutose) 15 gm Q15M PRN PO DECREASED GLUCOSE; Start 01/28/19 at 00:00 Glucose (Glutose) 22.5 gm Q15M PRN PO DECREASED GLUCOSE; Start 01/28/19 at 00:00 Dextrose (D50w Syringe) 25 ml Q15M PRN IV DECREASED GLUCOSE; Start 01/28/19 at 00:00 Dextrose (D50w Syringe) 50 ml Q15M PRN IV DECREASED GLUCOSE; Start 01/28/19 at 00:00 Glucagon (Glucagen) 1 mg Q15M PRN IM DECREASED GLUCOSE; Start 01/28/19 at 00:00 Glucose (Glutose) 15 gm Q15M PRN BUCCAL DECREASED GLUCOSE; Start 01/28/19 at 00:00 Insulin Glargine (Lantus) 15 units DAILY@0800 SC Last administered on 01/30/19at 08:00; Admin Dose 15 UNITS; Start 01/28/19 at 12:00 Insulin Aspart (Novolog Insulin Pen) NOVOLOG *MODERATE* ALGORITHM WITH MEALS BEDTIME SC Last administered on 01/30/19at 08:04; Admin Dose 4 UNIT; Start 01/29/19 at 13:00 YOSELYN GILL MD Jan 30, 2019 14:00
--- NOTE | 2019-01-30 14:51 | PREAC ---
Date/Time of Note Date/Time of Note DATE: 01/30/19 TIME: 14:50 Anesthesia Eval and Record Evaluation Time Pre-Procedure Interview DATE: 01/30/19 TIME: 14:50 Age 58 Sex male NPO: 8 hrs Preoperative diagnosis Possible colon mass Planned procedure Colonoscopy Past Medical History Past Medical History: Includes Cardio: HTN, CAD, PTCA/Stent Endo: Diabetes Pulm: Smoking Hx Surgery & Anesthesia Issues No known issue Meds Anticoagulation: No Beta Hansel within 24 hr: No Reason Beta Hansel not given: Pt. not on B-Hansel Current Medications IV Flush (NS 3 ml) 3 ml PER PROTOCOL IV ; Start 01/28/19 at 00:00 Ondansetron HCl (Zofran Inj) 4 mg Q6H PRN IV NAUSEA/VOMITING; Start 01/28/19 at 00:00 Acetaminophen (Tylenol Tab) 650 mg Q6H PRN PO .PAIN 1-3 OR TEMP Last administered on 01/28/19at 01:03; Admin Dose 650 MG; Start 01/28/19 at 00:00 Acetaminophen/ Hydrocodone Bitart ([place] (5/325)) 1 tab Q6H PRN PO .PAIN 4-6; Start 01/28/19 at 00:00 Zolpidem Tartrate (Ambien) 10 mg QHS PRN PO .INSOMNIA Last administered on 01/30/19at 00:44; Admin Dose 10 MG; Start 01/28/19 at 00:00 Famotidine (Pepcid Iv) 20 mg Q12 IV Last administered on 01/30/19at 08:41; Admin Dose 20 MG; Start 01/28/19 at 09:00 Albuterol/ Ipratropium (Duoneb) 3 ml Q2H RESP THERAPY PRN HHN SHORTNESS OF BREATH; Start 01/28/19 at 00:00 Diagnostic Test (Pha) (Accu-Chek) 1 ea 02 XX ; Start 01/28/19 at 02:00 Miscellaneous Information 1 ea NOTE XX ; Start 01/28/19 at 00:00 Glucose (Glutose) 15 gm Q15M PRN PO DECREASED GLUCOSE; Start 01/28/19 at 00:00 Glucose (Glutose) 22.5 gm Q15M PRN PO DECREASED GLUCOSE; Start 01/28/19 at 00:00 Dextrose (D50w Syringe) 25 ml Q15M PRN IV DECREASED GLUCOSE; Start 01/28/19 at 00:00 Dextrose (D50w Syringe) 50 ml Q15M PRN IV DECREASED GLUCOSE; Start 01/28/19 at 00:00 Glucagon (Glucagen) 1 mg Q15M PRN IM DECREASED GLUCOSE; Start 01/28/19 at 00:00 Glucose (Glutose) 15 gm Q15M PRN BUCCAL DECREASED GLUCOSE; Start 01/28/19 at 00:00 Insulin Glargine (Lantus) 15 units DAILY@0800 SC Last administered on 01/30/19at 08:00; Admin Dose 15 UNITS; Start 01/28/19 at 12:00 Insulin Aspart (Novolog Insulin Pen) NOVOLOG *MODERATE* ALGORITHM WITH MEALS BEDTIME SC Last administered on 01/30/19at 08:04; Admin Dose 4 UNIT; Start 01/29/19 at 13:00 Meds reviewed: Yes Allergies Coded Allergies: No Known Allergy (Unverified , 01/27/19) Allergies Reviewed: Yes Labs/Studies Labs Reviewed: Reviewed by anesthesiologist Result Diagram: 01/29/19 0459 01/30/19 0514 Laboratory Tests 01/30/19 05:14 test: N/A Pre-procedure Exam Last vitals Vital Signs Date Temp Pulse Resp B/P (MAP) Pulse Ox O2 O2 Flow FiO2 Time Delivery Rate 01/30/19 97.7 85 16 104/69 100 Room Air 14:30 (81) Airway: Adequate mouth opening Mallampati: Mallampati II Teeth: Normal Lung: Normal Heart: Normal ASA Physical Status ASA physical status: 3 Emergency: None Planned Anesthetic General/MAC: MAC Pre-operative Attestations Prior to commencing anesthesia and surgery, the patient was re-evaluated, there was verification of: *The patient's identity *The results of appropriate recent lab work and preoperative vital signs *The above evaluation not changing prior to induction *Anesthetic plan, risk benefits, alternative and complications discussed with patient/family; questions answered; patient/family understands, accepts and wishes to proceed. FELIPE KIM Jan 30, 2019 14:51
[2019-01-30] MEDS ORDERED: LIDOCAINE 2% (SDV) 5 ML INJ ONE (15:06)
[2019-01-30] MEDS ORDERED: PROPOFOL 40 ML ONE (15:06)
--- NOTE | 2019-01-30 15:18 | HPN ---
Date/Time of Note Date/Time of Note DATE: 01/30/19 TIME: 15:17 Interval H&P Admission Note Pt. seen H&P reviewed: No system changes MAE FOSS Jan 30, 2019 15:18
[2019-01-30] MEDS ORDERED: INSULIN ASPART [NOVOLOG] 3 ML PEN SC ONE (15:30)
[2019-01-30] MEDS ORDERED: HYDROmorphONE 1 MG/5 ML IV SYRINGE IV PRN (15:30)
[2019-01-30] MEDS ORDERED: ONDANSETRON 4 MG INJ IV PRN (15:30)
--- NOTE | 2019-01-30 15:54 | PAC ---
Date/Time of Note Date/Time of Note DATE: 01/30/19 TIME: 15:53 Post-Anesthesia Notes Post-Anesthesia Note Last documented vital signs Vital Signs Date Temp Pulse Resp B/P (MAP) Pulse Ox O2 O2 Flow FiO2 Time Delivery Rate 01/30/19 97.7 85 16 104/69 100 Room Air 14:30 (81) Activity: WNL Respiratory function: WNL Cardiovascular function: WNL Mental status: Baseline Pain reasonably controlled: Yes Hydration appropriate: Yes Nausea/Vomiting absent: Yes Comments BP: 98/50 HR: 69 RR: 15 T: 98 SaO2: 100% JUAN MARTÍNEZ MD Jan 30, 2019 15:54
[2019-01-30] MEDS ORDERED: EPHEDrine 25 MG/5 ML SYG ONE (16:27)
[2019-01-30] MEDS ORDERED: PHENYLephrine (100 MCG/ML) 10ML SYG ONE (16:27)
[2019-01-30] MEDS ORDERED: EPHEDrine SULFATE 50 MG/5 ML SYG IV PRN (16:30)
[2019-01-30] MEDS: ACETAMINOPHEN 325 MG TAB PO PRN (17:56)
[2019-01-30] MEDS: HYDROmorphONE 1 MG/ML SYG IV PRN (18:55)
[2019-01-31] VITALS (9 sets, daily range): BP systolic 91–103; BP diastolic 50–63; PULSE 69–97; RESP 17–20
[2019-01-31] MEDS: ZOLPIDEM 5 MG TAB PO PRN (00:58)
[2019-01-31] MEDS: ACCU-CHEK XX SCH (03:20)
[2019-01-31] MEDS: HYDROmorphONE 1 MG/ML SYG IV PRN (03:27)
[2019-01-31] MEDS: INSULIN ASPART [NOVOLOG] 3 ML PEN SC SCH ×4 (07:59→20:52)
[2019-01-31] MEDS: FAMOTIDINE 20 MG INJ IV SCH (08:04)
[2019-01-31] MEDS: INSULIN GLARGINE [LANTus] (100 UNITS/ML) SYG SC SCH (08:07)
--- NOTE | 2019-01-31 12:19 | PN ---
Date/Time of Note Date/Time of Note DATE: 01/31/19 TIME: 12:12 Assessment/Plan VTE Prophylaxis Risk score (from Ns)>0 risk: 1 SCD applied (from Ns): No SCD contraindicated: other (scds) Pharmacological prophylaxis: other (scds) Lines/Catheters IV [facility]ter Type (from [facility]): Peripheral IV Urinary Cath still in place: No Assessment/Plan Hospital Course Summary Assessment and Plan: Assessment: Abdominal pain Intermittent diarrhea x1 month Abnormal imaging on noncontrast CT from [place] -Wall thickening of the hepatic flexure and transverse colon findings are s uspicious for underlying mass -CEA negative Colonoscopy 01/30/19 Mass in the right colonproximal ascending colon Unable to transversepartial bowel obstruction Colon mass likely malignancy. Noted in the proximal transverse colon/ Tattoo placed for surgical evaluation/follow-up Colon mass bx: Adenocarcinoma, well-differentiated, with focal surface ulceration. One fragment shows changes suggestive of residual tubulovillous adenoma with high grade Unintentional weight loss (30-40 lbs over 5 months) Microcytic hyperchromic anemia CAD- Plavix currently on hold DM Renal insufficiency Previous abdominal surgery Plan: Continue clear liquid diet Recommend surgery/Onc consult No further GI work-up we will sign off, but will be available upon reconsult as needed Patient seen in collaboration with Dr. Monaco Subjective: Course reviewed with nursing staff Patient interviewed and examined All labs, imaging and other results reviewed Pt without over night events Currently no c/o abd pain, nausea o vomiting He is tolerating clear liquid diet well Discussed results of colonoscopy and bx results with patient PHYSICAL EXAMINATION: GENERAL:Alert & oriented x 3, in no acute distress SKIN: Midline scar EYES: Pupils equal reactive to light, no discharge. EARS/NOSE AND THROAT: Ears normal, nose normal, oropharynx normal NECK: Supple, no masses CHEST: Inspection within normal limits. CARDIOVASCULAR: Heart: Regular rate and rhythm RESPIRATORY: Lungs clear to auscultation GASTROINTESTINAL AND LIVER: Abdomen: Soft, generalized abd tenderness, non- distended, no hernias, no masses, no organomegaly, no ascites, no guarding, no rebound tenderness, normoactive bowel sounds. Rectal: Deferred. EXTREMITIES: No cyanosis, clubbing or edema. Result Diagram: 01/31/19 0950 01/31/19 0950 Results 24hrs Laboratory Tests Test 01/30/19 15:11 01/30/19 17:11 01/30/19 20:32 01/31/19 03:21 Bedside Glucose 172 153 223 H 183 Test 01/31/19 07:59 01/31/19 09:50 01/31/19 11:48 Bedside Glucose 95 118 White Blood Count 8.6 Red Blood Count 3.44 L Hemoglobin 8.2 L Hematocrit 26.5 L Mean Corpuscular Volume 77.0 L Mean Corpuscular 23.8 L Hemoglobin Mean Corpuscular 30.9 L Hemoglobin Concent Red Cell Distribution 15.9 H Width Platelet Count 333 Mean Platelet Volume 9.8 Immature Granulocytes % 0.300 Neutrophils % 75.3 Lymphocytes % 16.8 Monocytes % 6.5 Eosinophils % 1.0 Basophils % 0.1 Nucleated Red Blood 0.0 Cells % Immature Granulocytes # 0.030 Neutrophils # 6.5 Lymphocytes # 1.5 Monocytes # 0.6 Eosinophils # 0.1 Basophils # 0.0 Nucleated Red Blood 0.0 Cells # Sodium Level 139 Potassium Level 4.3 Chloride Level 106 Carbon Dioxide Level 23 Anion Gap 10 Blood Urea Nitrogen 10 Creatinine 1.27 H Est Glomerular Filtrat 58 L Rate mL/min Glucose Level 128 Calcium Level 9.0 Iron Level 26 L Total Iron Binding 278 Capacity Percent Iron Saturation 9 L Ferritin 86.5 Exam/Review of Systems Exam Vitals Vital Signs Date Temp Pulse Resp B/P (MAP) Pulse Ox O2 O2 Flow FiO2 Time Delivery Rate 01/31/19 98.5 88 18 103/63 98 11:24 (76) 01/31/19 Room Air 04:00 Intake and Output 01/30/19 01/30/19 01/31/19 1515:00 23:00 07:00 IntakeIntake Total 360 ml 320 ml BalanceBalance 360 ml 320 ml Results Results 24hrs Laboratory Tests Test 01/30/19 15:11 01/30/19 17:11 01/30/19 20:32 01/31/19 03:21 Bedside Glucose 172 153 223 H 183 Test 01/31/19 07:59 01/31/19 09:50 01/31/19 11:48 Bedside Glucose 95 118 White Blood Count 8.6 Red Blood Count 3.44 L Hemoglobin 8.2 L Hematocrit 26.5 L Mean Corpuscular Volume 77.0 L Mean Corpuscular 23.8 L Hemoglobin Mean Corpuscular 30.9 L Hemoglobin Concent Red Cell Distribution 15.9 H Width Platelet Count 333 Mean Platelet Volume 9.8 Immature Granulocytes % 0.300 Neutrophils % 75.3 Lymphocytes % 16.8 Monocytes % 6.5 Eosinophils % 1.0 Basophils % 0.1 Nucleated Red Blood 0.0 Cells % Immature Granulocytes # 0.030 Neutrophils # 6.5 Lymphocytes # 1.5 Monocytes # 0.6 Eosinophils # 0.1 Basophils # 0.0 Nucleated Red Blood 0.0 Cells # Sodium Level 139 Potassium Level 4.3 Chloride Level 106 Carbon Dioxide Level 23 Anion Gap 10 Blood Urea Nitrogen 10 Creatinine 1.27 H Est Glomerular Filtrat 58 L Rate mL/min Glucose Level 128 Calcium Level 9.0 Iron Level 26 L Total Iron Binding 278 Capacity Percent Iron Saturation 9 L Ferritin 86.5 Medications Medication Current Medications IV Flush (NS 3 ml) 3 ml PER PROTOCOL IV ; Start 01/28/19 at 00:00 Ondansetron HCl (Zofran Inj) 4 mg Q6H PRN IV NAUSEA/VOMITING; Start 01/28/19 at 00:00 Acetaminophen (Tylenol Tab) 650 mg Q6H PRN PO .PAIN 1-3 OR TEMP Last administered on 01/28/19at 01:03; Admin Dose 650 MG; Start 01/28/19 at 00:00 Acetaminophen/ Hydrocodone Bitart ([place] (5/325)) 1 tab Q6H PRN PO .PAIN 4-6; Start 01/28/19 at 00:00 Zolpidem Tartrate (Ambien) 10 mg QHS PRN PO .INSOMNIA Last administered on 01/31/19at 00:58; Admin Dose 10 MG; Start 01/28/19 at 00:00 Famotidine (Pepcid Iv) 20 mg Q12 IV Last administered on 01/31/19at 08:04; Admin Dose 20 MG; Start 01/28/19 at 09:00 Albuterol/ Ipratropium (Duoneb) 3 ml Q2H RESP THERAPY PRN HHN SHORTNESS OF BREATH; Start 01/28/19 at 00:00 Diagnostic Test (Pha) (Accu-Chek) 1 ea 02 XX Last administered on 01/31/19at 03:20; Admin Dose 1 EA; Start 01/28/19 at 02:00 Miscellaneous Information 1 ea NOTE XX ; Start 01/28/19 at 00:00 Glucose (Glutose) 15 gm Q15M PRN PO DECREASED GLUCOSE; Start 01/28/19 at 00:00 Glucose (Glutose) 22.5 gm Q15M PRN PO DECREASED GLUCOSE; Start 01/28/19 at 00:00 Dextrose (D50w Syringe) 25 ml Q15M PRN IV DECREASED GLUCOSE; Start 01/28/19 at 00:00 Dextrose (D50w Syringe) 50 ml Q15M PRN IV DECREASED GLUCOSE; Start 01/28/19 at 00:00 Glucagon (Glucagen) 1 mg Q15M PRN IM DECREASED GLUCOSE; Start 01/28/19 at 00:00 Glucose (Glutose) 15 gm Q15M PRN BUCCAL DECREASED GLUCOSE; Start 01/28/19 at 00:00 Insulin Glargine (Lantus) 15 units DAILY@0800 SC Last administered on 01/31/19 08:07; Admin Dose 15 UNITS; Start 01/28/19 at 12:00 Insulin Aspart (Novolog Insulin Pen) NOVOLOG *MODERATE* ALGORITHM WITH MEALS BEDTIME SC Last administered on 01/30/19at 20:35; Admin Dose 2 UNIT; Start 01/29/19 at 13:00 Hydromorphone HCl (Dilaudid) 1 mg Q6H PRN IV SEVERE PAIN LEVEL 7-10 Last administered on 01/31/19at 03:27; Admin Dose 1 MG; Start 01/30/19 at 19:00 Ferric Sodium Gluconate Complex 125 mg/Sodium Chloride 110 ml @ 110 mls/hr DAILY@1300 IVPB ; Start 01/31/19 at 13:00; Stop 02/04/19 at 13:59 ЕЛЕНА SIERRA Jan 31, 2019 12:19
[2019-01-31] MEDS: SOD FERRIC GLUC COMPLX 125 MG in SOD CHLORIDE 0.9% 100 ML IVPB SCH (12:44)
--- NOTE | 2019-01-31 14:48 | PN ---
Date/Time of Note Date/Time of Note DATE: 01/31/19 TIME: 14:44 Assessment/Plan VTE Prophylaxis Risk score (from Ns)>0 risk: 1 SCD applied (from Ns): Yes Pharmacological prophylaxis: heparin Lines/Catheters IV Catheter Type (from Nrsg): Peripheral IV Urinary Cath still in place: No Assessment/Plan Hospital Course 58 yo male with DM who presented with hematochezia. 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 Iron deficiency anemia: - IV iron Diabetes Sugars currently stable A1c at 6.7 Continue Lantus and continue sliding scale Home regimen unknown CKD II: - stable Prophylaxis: SCDs DC planning: Pending management plan of colon cancer Result Diagram: 01/31/19 0950 01/31/19 0950 Results 24hrs Laboratory Tests Test 01/30/19 15:11 01/30/19 17:11 01/30/19 20:32 01/31/19 03:21 Bedside Glucose 172 153 223 H 183 Test 01/31/19 07:59 01/31/19 09:50 01/31/19 11:48 Bedside Glucose 95 118 White Blood Count 8.6 Red Blood Count 3.44 L Hemoglobin 8.2 L Hematocrit 26.5 L Mean Corpuscular Volume 77.0 L Mean Corpuscular 23.8 L Hemoglobin Mean Corpuscular 30.9 L Hemoglobin Concent Red Cell Distribution 15.9 H Width Platelet Count 333 Mean Platelet Volume 9.8 Immature Granulocytes % 0.300 Neutrophils % 75.3 Lymphocytes % 16.8 Monocytes % 6.5 Eosinophils % 1.0 Basophils % 0.1 Nucleated Red Blood 0.0 Cells % Immature Granulocytes # 0.030 Neutrophils # 6.5 Lymphocytes # 1.5 Monocytes # 0.6 Eosinophils # 0.1 Basophils # 0.0 Nucleated Red Blood 0.0 Cells # Sodium Level 139 Potassium Level 4.3 Chloride Level 106 Carbon Dioxide Level 23 Anion Gap 10 Blood Urea Nitrogen 10 Creatinine 1.27 H Est Glomerular Filtrat 58 L Rate mL/min Glucose Level 128 Calcium Level 9.0 Iron Level 26 L Total Iron Binding 278 Capacity Percent Iron Saturation 9 L Ferritin 86.5 Subjective 24 Hr Interval Summary Free Text/Dictation Discussed dx of cancer with him. He is sad but anxious to hear of next steps No pain Exam/Review of Systems Exam Vitals Vital Signs Date Temp Pulse Resp B/P (MAP) Pulse Ox O2 O2 Flow FiO2 Time Delivery Rate 01/31/19 90 12:01 01/31/19 98.5 18 103/63 98 11:24 (76) 01/31/19 Room Air 04:00 Intake and Output 01/30/19 01/30/19 01/31/19 1515:00 23:00 07:00 IntakeIntake Total 360 ml 320 ml BalanceBalance 360 ml 320 ml Constitutional: alert, oriented, well developed Psych: no complaints, nl mood/affect Head: normocephalic, atraumatic Eyes: nl conjunctiva, EOMI, nl lids, nl sclera, PERRL ENMT: nl external ears & nose, nl lips & teeth, nl nasal mucosa & septum Neck: supple, non-tender Respiratory: clear to auscultation, normal air movement Cardiovascular: regular rate and rhythm, nl pulses Gastrointestinal: soft, nl liver, spleen, non-tender Musculoskeletal: nl extremities to inspection, nl gait and stance Extremities: normal pulses 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, nl mental status, nl speech, nl strength Skin: nl turgor; No rash or lesions Lymph: nl lymph nodes Results Results 24hrs Laboratory Tests Test 01/30/19 15:11 01/30/19 17:11 01/30/19 20:32 01/31/19 03:21 Bedside Glucose 172 153 223 H 183 Test 01/31/19 07:59 01/31/19 09:50 01/31/19 11:48 Bedside Glucose 95 118 White Blood Count 8.6 Red Blood Count 3.44 L Hemoglobin 8.2 L Hematocrit 26.5 L Mean Corpuscular Volume 77.0 L Mean Corpuscular 23.8 L Hemoglobin Mean Corpuscular 30.9 L Hemoglobin Concent Red Cell Distribution 15.9 H Width Platelet Count 333 Mean Platelet Volume 9.8 Immature Granulocytes % 0.300 Neutrophils % 75.3 Lymphocytes % 16.8 Monocytes % 6.5 Eosinophils % 1.0 Basophils % 0.1 Nucleated Red Blood 0.0 Cells % Immature Granulocytes # 0.030 Neutrophils # 6.5 Lymphocytes # 1.5 Monocytes # 0.6 Eosinophils # 0.1 Basophils # 0.0 Nucleated Red Blood 0.0 Cells # Sodium Level 139 Potassium Level 4.3 Chloride Level 106 Carbon Dioxide Level 23 Anion Gap 10 Blood Urea Nitrogen 10 Creatinine 1.27 H Est Glomerular Filtrat 58 L Rate mL/min Glucose Level 128 Calcium Level 9.0 Iron Level 26 L Total Iron Binding 278 Capacity Percent Iron Saturation 9 L Ferritin 86.5 Medications Medication Current Medications IV Flush (NS 3 ml) 3 ml PER PROTOCOL IV ; Start 01/28/19 at 00:00 Ondansetron HCl (Zofran Inj) 4 mg Q6H PRN IV NAUSEA/VOMITING; Start 01/28/19 at 00:00 Acetaminophen (Tylenol Tab) 650 mg Q6H PRN PO .PAIN 1-3 OR TEMP Last administered on 01/28/19at 01:03; Admin Dose 650 MG; Start 01/28/19 at 00:00 Acetaminophen/ Hydrocodone Bitart ([place] (5/325)) 1 tab Q6H PRN PO .PAIN 4-6; Start 01/28/19 at 00:00 Zolpidem Tartrate (Ambien) 10 mg QHS PRN PO .INSOMNIA Last administered on 01/31/19at 00:58; Admin Dose 10 MG; Start 01/28/19 at 00:00 Famotidine (Pepcid Iv) 20 mg Q12 IV Last administered on 01/31/19at 08:04; Admin Dose 20 MG; Start 01/28/19 at 09:00 Albuterol/ Ipratropium (Duoneb) 3 ml Q2H RESP THERAPY PRN HHN SHORTNESS OF BREATH; Start 01/28/19 at 00:00 Diagnostic Test (Pha) (Accu-Chek) 1 ea 02 XX Last administered on 01/31/19at 03:20; Admin Dose 1 EA; Start 01/28/19 at 02:00 Miscellaneous Information 1 ea NOTE XX ; Start 01/28/19 at 00:00 Glucose (Glutose) 15 gm Q15M PRN PO DECREASED GLUCOSE; Start 01/28/19 at 00:00 Glucose (Glutose) 22.5 gm Q15M PRN PO DECREASED GLUCOSE; Start 01/28/19 at 00:00 Dextrose (D50w Syringe) 25 ml Q15M PRN IV DECREASED GLUCOSE; Start 01/28/19 at 00:00 Dextrose (D50w Syringe) 50 ml Q15M PRN IV DECREASED GLUCOSE; Start 01/28/19 at 00:00 Glucagon (Glucagen) 1 mg Q15M PRN IM DECREASED GLUCOSE; Start 01/28/19 at 00:00 Glucose (Glutose) 15 gm Q15M PRN BUCCAL DECREASED GLUCOSE; Start 01/28/19 at 00:00 Insulin Glargine (Lantus) 15 units DAILY@0800 SC Last administered on 01/31/19at 08:07; Admin Dose 15 UNITS; Start 01/28/19 at 12:00 Insulin Aspart (Novolog Insulin Pen) NOVOLOG *MODERATE* ALGORITHM WITH MEALS BEDTIME SC Last administered on 01/30/19at 20:35; Admin Dose 2 UNIT; Start 01/29/19 at 13:00 Hydromorphone HCl (Dilaudid) 1 mg Q6H PRN IV SEVERE PAIN LEVEL 7-10 Last administered on 01/31/19at 03:27; Admin Dose 1 MG; Start 01/30/19 at 19:00 Ferric Sodium Gluconate Complex 125 mg/Sodium Chloride 110 ml @ 110 mls/hr DAILY@1300 IVPB Last administered on 01/31/19at 12:44; Admin Dose 110 MLS/HR; Start 01/31/19 at 13:00; Stop 02/04/19 at 13:59 YOSELYN GILL MD Jan 31, 2019 14:48
[2019-01-31] MEDS: FAMOTIDINE 20 MG TAB PO SCH (20:49)
[2019-02-01 02:00] VITALS: BP 95/57; PULSE 86; RESP 18
[2019-02-01] MEDS: ACCU-CHEK XX SCH (02:00)
[2019-02-01] MEDS: ZOLPIDEM 5 MG TAB PO PRN (02:15)
--- NOTE | 2019-02-01 02:27 | CONS ---
Assessment/Plan Assessment/Plan Assessment/Plan (Daily) 58-year-old male with lower GI heme positive stool and now diagnosed with mass in the right colon ascending colon versus hepatic flexure with biopsy-proven adenocarcinoma. Patient will need right hemicolectomy. We will discuss tomorrow with his daughters present for a better understanding of his past surgical history and to coordinate timing of colon resection. Consultation Date/Type/Reason Admit Date/Time Jan 27, 2019 at 20:38 Date of Consultation: Feb 01, 2019 Type of Consult General surgery consult Reason for Consultation Right-sided colonic mass Requesting Provider: YOSELYN GILL MD Date/Time of Note DATE: 02/01/19 TIME: 02:24 Hx of Present Illness Patient 58-year-old male who was admitted to hospital with bleeding per rectum. Patient has had past laparotomy details are unknown due to language difficulty. Patient was noted on CT to have suspicion of mass in the right; and underwent colonoscopy 2 days ago which showed a mass in the ascending colon with biopsy proven adenocarcinoma Currently the patient is stable in no acute distress mild tenderness in right side abdomen he is passing gas Past Medical History Medications Current Medications IV Flush (NS 3 ml) 3 ml PER PROTOCOL IV ; Start 01/28/19 at 00:00 Ondansetron HCl (Zofran Inj) 4 mg Q6H PRN IV NAUSEA/VOMITING; Start 01/28/19 at 00:00 Acetaminophen (Tylenol Tab) 650 mg Q6H PRN PO .PAIN 1-3 OR TEMP Last administered on 01/28/19at 01:03; Admin Dose 650 MG; Start 01/28/19 at 00:00 Acetaminophen/ Hydrocodone Bitart ([place] (5/325)) 1 tab Q6H PRN PO .PAIN 4-6; Start 01/28/19 at 00:00 Zolpidem Tartrate (Ambien) 10 mg QHS PRN PO .INSOMNIA Last administered on 02/01/19at 02:15; Admin Dose 10 MG; Start 01/28/19 at 00:00 Albuterol/ Ipratropium (Duoneb) 3 ml Q2H RESP THERAPY PRN HHN SHORTNESS OF BREATH; Start 01/28/19 at 00:00 Diagnostic Test (Pha) (Accu-Chek) 1 ea 02 XX Last administered on 01/31/19at 03:20; Admin Dose 1 EA; Start 01/28/19 at 02:00 Miscellaneous Information 1 ea NOTE XX ; Start 01/28/19 at 00:00 Glucose (Glutose) 15 gm Q15M PRN PO DECREASED GLUCOSE; Start 01/28/19 at 00:00 Glucose (Glutose) 22.5 gm Q15M PRN PO DECREASED GLUCOSE; Start 01/28/19 at 00:00 Dextrose (D50w Syringe) 25 ml Q15M PRN IV DECREASED GLUCOSE; Start 01/28/19 at 00:00 Dextrose (D50w Syringe) 50 ml Q15M PRN IV DECREASED GLUCOSE; Start 01/28/19 at 00:00 Glucagon (Glucagen) 1 mg Q15M PRN IM DECREASED GLUCOSE; Start 01/28/19 at 00:00 Glucose (Glutose) 15 gm Q15M PRN BUCCAL DECREASED GLUCOSE; Start 01/28/19 at 00 :00 Insulin Glargine (Lantus) 15 units DAILY@0800 SC Last administered on 01/31/19at 08:07; Admin Dose 15 UNITS; Start 01/28/19 at 12:00 Insulin Aspart (Novolog Insulin Pen) NOVOLOG *MODERATE* ALGORITHM WITH MEALS BEDTIME SC Last administered on 01/31/19at 20:52; Admin Dose 3 UNIT; Start 01/29/19 at 13:00 Hydromorphone HCl (Dilaudid) 1 mg Q6H PRN IV SEVERE PAIN LEVEL 7-10 Last administered on 01/31/19at 03:27; Admin Dose 1 MG; Start 01/30/19 at 19:00 Ferric Sodium Gluconate Complex 125 mg/Sodium Chloride 110 ml @ 110 mls/hr DAILY@1300 IVPB Last administered on 01/31/19at 12:44; Admin Dose 110 MLS/HR; Start 01/31/19 at 13:00; Stop 02/04/19 at 13:59 Famotidine (Pepcid) 20 mg BID PO Last administered on 01/31/19at 20:49; Admin Dose 20 MG; Start 01/31/19 at 21:00 Allergies: Coded Allergies: No Known Allergy (Unverified , 01/27/19) Social History Smoking Status: Current every day smoker Exam/Review of Systems Exam Vitals Vital Signs Date Temp Pulse Resp B/P (MAP) Pulse Ox O2 O2 Flow FiO2 Time Delivery Rate 01/31/19 97.8 70 18 97/56 (70 98 20:15 01/31/19 Room Air 04:00 Intake and Output 01/31/19 01/31/19 02/01/19 1515:00 23:00 07:00 IntakeIntake Total 110 ml 1140 ml BalanceBalance 110 ml 1140 ml Exam Awake and alert difficulty conversing is patient's Mongolian is significantly limited. Denies acute abdominal pain. HEENT pupils equal react light sclerae anicteric. Lungs clear to auscultation. Heart regular rate and rhythm without gallops murmurs or rubs normal S1-S2. Abdomen well-healed midline incision without palpable masses nondistended flat abdomen Results Result Diagram: 01/31/19 0950 01/31/19 0950 Results 24hrs Laboratory Tests Test 01/31/19 03:21 01/31/19 07:59 01/31/19 09:50 01/31/19 11:48 Bedside Glucose 183 95 118 White Blood Count 8.6 Red Blood Count 3.44 L Hemoglobin 8.2 L Hematocrit 26.5 L Mean Corpuscular Volume 77.0 L Mean Corpuscular 23.8 L Hemoglobin Mean Corpuscular 30.9 L Hemoglobin Concent Red Cell Distribution 15.9 H Width Platelet Count 333 Mean Platelet Volume 9.8 Immature Granulocytes % 0.300 Neutrophils % 75.3 Lymphocytes % 16.8 Monocytes % 6.5 Eosinophils % 1.0 Basophils % 0.1 Nucleated Red Blood 0.0 Cells % Immature Granulocytes # 0.030 Neutrophils # 6.5 Lymphocytes # 1.5 Monocytes # 0.6 Eosinophils # 0.1 Basophils # 0.0 Nucleated Red Blood 0.0 Cells # Sodium Level 139 Potassium Level 4.3 Chloride Level 106 Carbon Dioxide Level 23 Anion Gap 10 Blood Urea Nitrogen 10 Creatinine 1.27 H Est Glomerular Filtrat 58 L Rate mL/min Glucose Level 128 Calcium Level 9.0 Iron Level 26 L Total Iron Binding 278 Capacity Percent Iron Saturation 9 L Ferritin 86.5 Test 01/31/19 17:29 01/31/19 20:48 Bedside Glucose 160 280 H Medications Medication Current Medications IV Flush (NS 3 ml) 3 ml PER PROTOCOL IV ; Start 01/28/19 at 00:00 Ondansetron HCl (Zofran Inj) 4 mg Q6H PRN IV NAUSEA/VOMITING; Start 01/28/19 at 00:00 Acetaminophen (Tylenol Tab) 650 mg Q6H PRN PO .PAIN 1-3 OR TEMP Last administered on 01/28/19at 01:03; Admin Dose 650 MG; Start 01/28/19 at 00:00 Acetaminophen/ Hydrocodone Bitart ([place] (5/325)) 1 tab Q6H PRN PO .PAIN 4-6; Start 01/28/19 at 00:00 Zolpidem Tartrate (Ambien) 10 mg QHS PRN PO .INSOMNIA Last administered on 02/01/19 02:15; Admin Dose 10 MG; Start 01/28/19 at 00:00 Albuterol/ Ipratropium (Duoneb) 3 ml Q2H RESP THERAPY PRN HHN SHORTNESS OF B REATH; Start 01/28/19 at 00:00 Diagnostic Test (Pha) (Accu-Chek) 1 ea 02 XX Last administered on 01/31/19at 03:20; Admin Dose 1 EA; Start 01/28/19 at 02:00 Miscellaneous Information 1 ea NOTE XX ; Start 01/28/19 at 00:00 Glucose (Glutose) 15 gm Q15M PRN PO DECREASED GLUCOSE; Start 01/28/19 at 00:00 Glucose (Glutose) 22.5 gm Q15M PRN PO DECREASED GLUCOSE; Start 01/28/19 at 00:00 Dextrose (D50w Syringe) 25 ml Q15M PRN IV DECREASED GLUCOSE; Start 01/28/19 at 00:00 Dextrose (D50w Syringe) 50 ml Q15M PRN IV DECREASED GLUCOSE; Start 01/28/19 at 00:00 Glucagon (Glucagen) 1 mg Q15M PRN IM DECREASED GLUCOSE; Start 01/28/19 at 00:00 Glucose (Glutose) 15 gm Q15M PRN BUCCAL DECREASED GLUCOSE; Start 01/28/19 at 00:00 Insulin Glargine (Lantus) 15 units DAILY@0800 SC Last administered on 01/31/19at 08:07; Admin Dose 15 UNITS; Start 01/28/19 at 12:00 Insulin Aspart (Novolog Insulin Pen) NOVOLOG *MODERATE* ALGORITHM WITH MEALS BEDTIME SC Last administered on 01/31/19at 20:52; Admin Dose 3 UNIT; Start 01/29/19 at 13:00 Hydromorphone HCl (Dilaudid) 1 mg Q6H PRN IV SEVERE PAIN LEVEL 7-10 Last administered on 01/31/19at 03:27; Admin Dose 1 MG; Start 01/30/19 at 19:00 Ferric Sodium Gluconate Complex 125 mg/Sodium Chloride 110 ml @ 110 mls/hr DAILY@1300 IVPB Last administered on 01/31/19at 12:44; Admin Dose 110 MLS/HR; Start 01/31/19 at 13:00; Stop 02/04/19 at 13:59 Famotidine (Pepcid) 20 mg BID PO Last administered on 01/31/19at 20:49; Admin Dose 20 MG; Start 01/31/19 at 21:00 WALDO BEACH MD Feb 01, 2019 02:27
[2019-02-01 07:35] VITALS: BP 90/50; PULSE 78; RESP 18
[2019-02-01] MEDS: FAMOTIDINE 20 MG TAB PO SCH ×2 (08:07→20:53)
[2019-02-01] MEDS: INSULIN ASPART [NOVOLOG] 3 ML PEN SC SCH ×5 (08:09→20:57)
[2019-02-01] MEDS: INSULIN GLARGINE [LANTus] (100 UNITS/ML) SYG SC SCH (08:40)
--- NOTE | 2019-02-01 12:36 | CONS ---
Assessment/Plan Assessment/Plan Hospital Course (Demo Recall) 58 yo with newly diagnosed colon adenoca -needs staging with CT CAP -if no evidence of distant disease, pt can proceed with surgery. he has been see by Dr Allen -cont IV iron for iron deficiency anemia Consultation Date/Type/Reason Admit Date/Time Jan 27, 2019 at 20:38 Date/Time of Note DATE: 02/01/19 TIME: 12:36 Hx of Present Illness 58 yo admitted with history of diabetes presents with abdominal pain, diarrhea, rectal bleeding presented to an outside hospital with CT showing possible colon lesion/mass. Imaging from [place] was without contrast: -Wall thickening of the hepatic flexure and transverse colon findings are suspicious for underlying mass CEA is not elevated He underwent colonoscopy here revealing: Adenocarcinoma, well-differentiated, with focal surface ulceration. Pt has not had colonoscopy in past Currently denies any N/V/distension/abdo pain Eyes: no complaints ENT: no complaints Respiratory: no complaints Cardiovascular: no complaints Gastrointestinal: no complaints Genitourinary: no complaints Musculoskeletal: no complaints Skin: no complaints Neurologic: no complaints Endocrine: no complaints Past Medical History Medications Current Medications IV Flush (NS 3 ml) 3 ml PER PROTOCOL IV ; Start 01/28/19 at 00:00 Ondansetron HCl (Zofran Inj) 4 mg Q6H PRN IV NAUSEA/VOMITING; Start 01/28/19 at 00:00 Acetaminophen (Tylenol Tab) 650 mg Q6H PRN PO .PAIN 1-3 OR TEMP Last administe red on 01/28/19at 01:03; Admin Dose 650 MG; Start 01/28/19 at 00:00 Acetaminophen/ Hydrocodone Bitart ([place] (5/325)) 1 tab Q6H PRN PO .PAIN 4-6; Start 01/28/19 at 00:00 Zolpidem Tartrate (Ambien) 10 mg QHS PRN PO .INSOMNIA Last administered on 02/01/19at 02:15; Admin Dose 10 MG; Start 01/28/19 at 00:00 Albuterol/ Ipratropium (Duoneb) 3 ml Q2H RESP THERAPY PRN HHN SHORTNESS OF BREATH; Start 01/28/19 at 00:00 Diagnostic Test (Pha) (Accu-Chek) 1 ea 02 XX Last administered on 01/31/19at 03:20; Admin Dose 1 EA; Start 01/28/19 at 02:00 Miscellaneous Information 1 ea NOTE XX ; Start 01/28/19 at 00:00 Glucose (Glutose) 15 gm Q15M PRN PO DECREASED GLUCOSE; Start 01/28/19 at 00:00 Glucose (Glutose) 22.5 gm Q15M PRN PO DECREASED GLUCOSE; Start 01/28/19 at 00:00 Dextrose (D50w Syringe) 25 ml Q15M PRN IV DECREASED GLUCOSE; Start 01/28/19 at 00:00 Dextrose (D50w Syringe) 50 ml Q15M PRN IV DECREASED GLUCOSE; Start 01/28/19 at 00:00 Glucagon (Glucagen) 1 mg Q15M PRN IM DECREASED GLUCOSE; Start 01/28/19 at 00:00 Glucose (Glutose) 15 gm Q15M PRN BUCCAL DECREASED GLUCOSE; Start 01/28/19 at 00:00 Insulin Aspart (Novolog Insulin Pen) NOVOLOG *MODERATE* ALGORITHM WITH MEALS BEDTIME SC Last administered on 02/01/19at 08:09; Admin Dose 4 UNIT; Start 01/29/19 at 13:00 Hydromorphone HCl (Dilaudid) 1 mg Q6H PRN IV SEVERE PAIN LEVEL 7-10 Last administered on 01/31/19at 03:27; Admin Dose 1 MG; Start 01/30/19 at 19:00 Ferric Sodium Gluconate Complex 125 mg/Sodium Chloride 110 ml @ 110 mls/hr DAILY@1300 IVPB Last administered on 01/31/19at 12:44; Admin Dose 110 MLS/HR; Start 01/31/19 at 13:00; Stop 02/04/19 at 13:59 Famotidine (Pepcid) 20 mg BID PO Last administered on 02/01/19at 08:07; Admin Dose 20 MG; Start 01/31/19 at 21:00 Insulin Glargine (Lantus) 20 units DAILY@0800 SC Last administered on 02/01/19at 08:40; Admin Dose 20 UNITS; Start 02/01/19 at 08:00 Allergies: Coded Allergies: No Known Allergy (Unverified , 01/27/19) Social History Smoking Status: Current every day smoker Exam/Review of Systems Exam Vitals Vital Signs Date Temp Pulse Resp B/P (MAP) Pulse Ox O2 O2 Flow FiO2 Time Delivery Rate 02/01/19 98.4 78 18 90/50 (63) 98 Room Air 07:35 Intake and Output 01/31/19 01/31/19 02/01/19 1515:00 23:00 07:00 IntakeIntake Total 110 ml 1140 ml BalanceBalance 110 ml 1140 ml Constitutional: alert, oriented, frail Psych: no complaints, nl mood/affect Head: normocephalic, atraumatic Respiratory: clear to auscultation, normal air movement Cardiovascular: regular rate and rhythm, nl pulses Gastrointestinal: soft, nl liver, spleen, non-tender Musculoskeletal: nl extremities to inspection, nl gait and stance Neurological: RACK CARRIER II-XII intact, nl mental status, nl speech, nl strength Results Result Diagram: 01/31/19 0950 01/31/19 0950 Results 24hrs Laboratory Tests Test 01/31/19 17:29 01/31/19 20:48 02/01/19 02:12 02/01/19 08:06 Bedside Glucose 160 280 H 234 H 195 Medications Medication Current Medications IV Flush (NS 3 ml) 3 ml PER PROTOCOL IV ; Start 01/28/19 at 00:00 Ondansetron HCl (Zofran Inj) 4 mg Q6H PRN IV NAUSEA/VOMITING; Start 01/28/19 at 00:00 Acetaminophen (Tylenol Tab) 650 mg Q6H PRN PO .PAIN 1-3 OR TEMP Last administered on 01/28/19at 01:03; Admin Dose 650 MG; Start 01/28/19 at 00:00 Acetaminophen/ Hydrocodone Bitart ([place] (5/325)) 1 tab Q6H PRN PO .PAIN 4-6; Start 01/28/19 at 00:00 Zolpidem Tartrate (Ambien) 10 mg QHS PRN PO .INSOMNIA Last administered on 02/01/19at 02:15; Admin Dose 10 MG; Start 01/28/19 at 00:00 Albuterol/ Ipratropium (Duoneb) 3 ml Q2H RESP THERAPY PRN HHN SHORTNESS OF BREATH; Start 01/28/19 at 00:00 Diagnostic Test (Pha) (Accu-Chek) 1 ea 02 XX Last administered on 01/31/19at 03:20; Admin Dose 1 EA; Start 01/28/19 at 02:00 Miscellaneous Information 1 ea NOTE XX ; Start 01/28/19 at 00:00 Glucose (Glutose) 15 gm Q15M PRN PO DECREASED GLUCOSE; Start 01/28/19 at 00:00 Glucose (Glutose) 22.5 gm Q15M PRN PO DECREASED GLUCOSE; Start 01/28/19 at 00:00 Dextrose (D50w Syringe) 25 ml Q15M PRN IV DECREASED GLUCOSE; Start 01/28/19 at 00:00 Dextrose (D50w Syringe) 50 ml Q15M PRN IV DECREASED GLUCOSE; Start 01/28/19 at 00:00 Glucagon (Glucagen) 1 mg Q15M PRN IM DECREASED GLUCOSE; Start 01/28/19 at 00:00 Glucose (Glutose) 15 gm Q15M PRN BUCCAL DECREASED GLUCOSE; Start 01/28/19 at 00:00 Insulin Aspart (Novolog Insulin Pen) NOVOLOG *MODERATE* ALGORITHM WITH MEALS BEDTIME SC Last administered on 02/01/19 08:09; Admin Dose 4 UNIT; Start 01/29/19 at 13:00 Hydromorphone HCl (Dilaudid) 1 mg Q6H PRN IV SEVERE PAIN LEVEL 7-10 Last administered on 01/31/19 03:27; Admin Dose 1 MG; Start 01/30/19 at 19:00 Ferric Sodium Gluconate Complex 125 mg/Sodium Chloride 110 ml @ 110 mls/hr DAILY@1300 IVPB Last administered on 01/31/19at 12:44; Admin Dose 110 MLS/HR; Start 01/31/19 at 13:00; Stop 02/04/19 at 13:59 Famotidine (Pepcid) 20 mg BID PO Last administered on 02/01/19 08:07; Admin Dose 20 MG; Start 01/31/19 at 21:00 Insulin Glargine (Lantus) 20 units DAILY@0800 SC Last administered on 02/01/19 08:40; Admin Dose 20 UNITS; Start 02/01/19 at 08:00 DOMENICO ABBASI Feb 01, 2019 12:36
--- NOTE | 2019-02-01 13:03 | PN ---
Date/Time of Note Date/Time of Note DATE: 02/01/19 TIME: 13:02 Assessment/Plan VTE Prophylaxis Risk score (from Ns)>0 risk: 1 SCD applied (from Ns): Yes Pharmacological prophylaxis: heparin Lines/Catheters IV Catheter Type (from Nrsg): Peripheral IV Urinary Cath still in place: No Assessment/Plan Hospital Course 58 yo male with DM who presented with hematochezia. Workup has revealed colon adenocarcinoma Colon adenocarcinoma: - s/p colonoscopy - Dr Mark to see patient today - General surgery Dr Allen for hemicolectomy Iron deficiency anemia: - IV iron Diabetes Sugars currently stable A1c at 6.7 Continue Lantus and continue sliding scale Home regimen unknown CKD II: - stable Prophylaxis: SCDs DC planning: Pending management plan of colon cancer Result Diagram: 01/31/19 0950 01/31/19 0950 Results 24hrs Laboratory Tests Test 01/31/19 17:29 01/31/19 20:48 02/01/19 02:12 02/01/19 08:06 Bedside Glucose 160 280 H 234 H 195 Subjective 24 Hr Interval Summary Free Text/Dictation No change to clinical status Has many questions regarding cancer care that I am unable to answer. Amadeo Allen and Jas on board Exam/Review of Systems Exam Vitals Vital Signs Date Temp Pulse Resp B/P (MAP) Pulse Ox O2 O2 Flow FiO2 Time Delivery Rate 02/01/19 98.4 78 18 90/50 (63) 98 Room Air 07:35 Intake and Output 01/31/19 01/31/19 02/01/19 1515:00 23:00 07:00 IntakeIntake Total 110 ml 1140 ml BalanceBalance 110 ml 1140 ml Constitutional: alert, oriented, well developed Psych: no complaints, nl mood/affect Head: normocephalic, atraumatic Eyes: nl conjunctiva, EOMI, nl lids, nl sclera, PERRL ENMT: nl external ears & nose, nl lips & teeth, nl nasal mucosa & septum Neck: supple, non-tender Respiratory: clear to auscultation, normal air movement Cardiovascular: regular rate and rhythm, nl pulses Gastrointestinal: soft, nl liver, spleen, non-tender Musculoskeletal: nl extremities to inspection, nl gait and stance Extremities: normal pulses Neurological: 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 PLANT OPERATOR II-XII intact, nl mental status, nl speech, nl strength Skin: nl turgor; No rash or lesions Lymph: nl lymph nodes Results Results 24hrs Laboratory Tests Test 01/31/19 17:29 01/31/19 20:48 02/01/19 02:12 02/01/19 08:06 Bedside Glucose 160 280 H 234 H 195 Medications Medication Current Medications IV Flush (NS 3 ml) 3 ml PER PROTOCOL IV ; Start 01/28/19 at 00:00 Ondansetron HCl (Zofran Inj) 4 mg Q6H PRN IV NAUSEA/VOMITING; Start 01/28/19 at 00:00 Acetaminophen (Tylenol Tab) 650 mg Q6H PRN PO .PAIN 1-3 OR TEMP Last administered on 01/28/19at 01:03; Admin Dose 650 MG; Start 01/28/19 at 00:00 Acetaminophen/ Hydrocodone Bitart ([place] (5/325)) 1 tab Q6H PRN PO .PAIN 4-6; Start 01/28/19 at 00:00 Zolpidem Tartrate (Ambien) 10 mg QHS PRN PO .INSOMNIA Last administered on 02/01/19at 02:15; Admin Dose 10 MG; Start 01/28/19 at 00:00 Albuterol/ Ipratropium (Duoneb) 3 ml Q2H RESP THERAPY PRN HHN SHORTNESS OF BREATH; Start 01/28/19 at 00:00 Diagnostic Test (Pha) (Accu-Chek) 1 ea 02 XX Last administered on 01/31/19at 03:20; Admin Dose 1 EA; Start 01/28/19 at 02:00 Miscellaneous Information 1 ea NOTE XX ; Start 01/28/19 at 00:00 Glucose (Glutose) 15 gm Q15M PRN PO DECREASED GLUCOSE; Start 01/28/19 at 00:00 Glucose (Glutose) 22.5 gm Q15M PRN PO DECREASED GLUCOSE; Start 01/28/19 at 00:00 Dextrose (D50w Syringe) 25 ml Q15M PRN IV DECREASED GLUCOSE; Start 01/28/19 at 00:00 Dextrose (D50w Syringe) 50 ml Q15M PRN IV DECREASED GLUCOSE; Start 01/28/19 at 00:00 Glucagon (Glucagen) 1 mg Q15M PRN IM DECREASED GLUCOSE; Start 01/28/19 at 00:00 Glucose (Glutose) 15 gm Q15M PRN BUCCAL DECREASED GLUCOSE; Start 01/28/19 at 00:00 Insulin Aspart (Novolog Insulin Pen) NOVOLOG *MODERATE* ALGORITHM WITH MEALS BEDTIME SC Last administered on 02/01/19 08:09; Admin Dose 4 UNIT; Start 01/29/19 at 13:00 Hydromorphone HCl (Dilaudid) 1 mg Q6H PRN IV SEVERE PAIN LEVEL 7-10 Last administered on 01/31/19 03:27; Admin Dose 1 MG; Start 01/30/19 at 19:00 Ferric Sodium Gluconate Complex 125 mg/Sodium Chloride 110 ml @ 110 mls/hr DAILY@1300 IVPB Last administered on 01/31/19 12:44; Admin Dose 110 MLS/HR; Start 01/31/19 at 13:00; Stop 02/04/19 at 13:59 Famotidine (Pepcid) 20 mg BID PO Last administered on 02/01/19at 08:07; Admin Dose 20 MG; Start 01/31/19 at 21:00 Insulin Glargine (Lantus) 20 units DAILY@0800 SC Last administered on 02/01/19at 08:40; Admin Dose 20 UNITS; Start 02/01/19 at 08:00 Barium Sulfate (Readi-Cat 2 ( [employer] )) 900 ml GIVE PRIOR TO CT ONCE PO ; Start 02/01/19 at 14:00; Stop 02/01/19 at 14:01 YOSELYN GILL MD Feb 01, 2019 13:03
[2019-02-01] MEDS: SOD FERRIC GLUC COMPLX 125 MG in SOD CHLORIDE 0.9% 100 ML IVPB SCH (13:56)
[2019-02-01] MEDS ORDERED: BARIUM SULF 2% 450 ML BTL (BERRY SMOOTHIE) PO ONE (14:00)
[2019-02-01 14:14] VITALS: BP 94/48; PULSE 89; RESP 18
[2019-02-01] MEDS ORDERED: SOD CHLORIDE 0.9% 100 ML ONE (17:23)
[2019-02-01] MEDS ORDERED: IODIXANOL LOCM 100 ML BTL ONE (17:23)
[2019-02-01 20:44] VITALS: BP 101/62; PULSE 94; RESP 18
[2019-02-02] MEDS: ACCU-CHEK XX SCH (02:00)
[2019-02-02] MEDS: ZOLPIDEM 5 MG TAB PO PRN ×2 (02:14→23:57)
[2019-02-02 02:34] VITALS: BP 99/58; PULSE 78; RESP 18
[2019-02-02 07:36] VITALS: BP 96/60; PULSE 57; RESP 18
[2019-02-02] MEDS: FAMOTIDINE 20 MG TAB PO SCH ×2 (08:22→20:35)
[2019-02-02] MEDS: INSULIN ASPART [NOVOLOG] 3 ML PEN SC SCH ×5 (08:25→20:37)
[2019-02-02] MEDS: INSULIN GLARGINE [LANTus] (100 UNITS/ML) SYG SC SCH (08:26)
[2019-02-02] MEDS ORDERED: IODIXANOL LOCM 100 ML BTL ONE (10:41)
[2019-02-02] MEDS ORDERED: SOD CHLORIDE 0.9% 100 ML ONE (10:41)
[2019-02-02] MEDS: SOD FERRIC GLUC COMPLX 125 MG in SOD CHLORIDE 0.9% 100 ML IVPB SCH (12:22)
--- NOTE | 2019-02-02 13:42 | PN ---
Date/Time of Note Date/Time of Note DATE: 02/02/19 TIME: 13:41 Assessment/Plan VTE Prophylaxis Risk score (from Nsg)>0 risk: 1 SCD applied (from Nsg): Yes Pharmacological prophylaxis: heparin Lines/Catheters IV Catheter Type (from Nrsg): Peripheral IV Urinary Cath still in place: No Assessment/Plan Hospital Course 58 yo male with DM who presented with hematochezia. Workup has revealed colon adenocarcinoma Colon adenocarcinoma: - Bone scan to evaluate bone lesion on CT - s/p colonoscopy - Dr Mark to see patient today - General surgery Dr Allen for hemicolectomy Iron deficiency anemia: - IV iron Diabetes Sugars currently stable A1c at 6.7 Continue Lantus and continue sliding scale Home regimen unknown CKD II: - stable Prophylaxis: SCDs DC planning: Pending management plan of colon cancer Result Diagram: 01/31/19 0950 01/31/19 0950 Results 24hrs Laboratory Tests Test 02/01/19 17:29 02/01/19 20:53 02/02/19 02:16 02/02/19 08:22 Bedside Glucose 111 238 H 177 193 Test 02/02/19 13:12 Bedside Glucose 389 H Subjective 24 Hr Interval Summary Free Text/Dictation CT results reviewed, local colon lesion, possible bone lesion Patient no symptoms. Frustrated to still be hospitalized without plan Exam/Review of Systems Exam Vitals Vital Signs Date Temp Pulse Resp B/P (MAP) Pulse Ox O2 O2 Flow FiO2 Time Delivery Rate 02/02/19 98.4 57 18 96/60 (72) 97 07:36 02/01/19 Room Air 14:14 Intake and Output 02/01/19 02/01/19 02/02/19 1515:00 23:00 07:00 IntakeIntake Total 470 ml 100 ml BalanceBalance 470 ml 100 ml Constitutional: alert, oriented, well developed Psych: no complaints, nl mood/affect Head: normocephalic, atraumatic Eyes: nl conjunctiva, EOMI, nl lids, nl sclera, PERRL ENMT: nl external ears & nose, nl lips & teeth, nl nasal mucosa & septum Neck: supple, non-tender Respiratory: clear to auscultation, normal air movement Cardiovascular: regular rate and rhythm, nl pulses Gastrointestinal: soft, nl liver, spleen, non-tender Musculoskeletal: nl extremities to inspection, nl gait and stance Extremities: normal pulses Neurological: 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 NURSERY WORKER II-XII intact, nl mental status, nl speech, nl strength Skin: nl turgor; No rash or lesions Lymph: nl lymph nodes Results Results 24hrs Laboratory Tests Test 02/01/19 17:29 02/01/19 20:53 02/02/19 02:16 02/02/19 08:22 Bedside Glucose 111 238 H 177 193 Test 02/02/19 13:12 Bedside Glucose 389 H Medications Medication Current Medications IV Flush (NS 3 ml) 3 ml PER PROTOCOL IV ; Start 01/28/19 at 00:00 Ondansetron HCl (Zofran Inj) 4 mg Q6H PRN IV NAUSEA/VOMITING; Start 01/28/19 at 00:00 Acetaminophen (Tylenol Tab) 650 mg Q6H PRN PO .PAIN 1-3 OR TEMP Last administe red on 01/28/19at 01:03; Admin Dose 650 MG; Start 01/28/19 at 00:00 Acetaminophen/ Hydrocodone Bitart ([place] (5/325)) 1 tab Q6H PRN PO .PAIN 4-6; Start 01/28/19 at 00:00 Zolpidem Tartrate (Ambien) 10 mg QHS PRN PO .INSOMNIA Last administered on 02/02/19at 02:14; Admin Dose 10 MG; Start 01/28/19 at 00:00 Albuterol/ Ipratropium (Duoneb) 3 ml Q2H RESP THERAPY PRN HHN SHORTNESS OF BREATH; Start 01/28/19 at 00:00 Miscellaneous Information 1 ea NOTE XX ; Start 01/28/19 at 00:00 Glucose (Glutose) 15 gm Q15M PRN PO DECREASED GLUCOSE; Start 01/28/19 at 00:00 Glucose (Glutose) 22.5 gm Q15M PRN PO DECREASED GLUCOSE; Start 01/28/19 at 00:00 Dextrose (D50w Syringe) 25 ml Q15M PRN IV DECREASED GLUCOSE; Start 01/28/19 at 00:00 Dextrose (D50w Syringe) 50 ml Q15M PRN IV DECREASED GLUCOSE; Start 01/28/19 at 00:00 Glucagon (Glucagen) 1 mg Q15M PRN IM DECREASED GLUCOSE; Start 01/28/19 at 00:00 Glucose (Glutose) 15 gm Q15M PRN BUCCAL DECREASED GLUCOSE; Start 01/28/19 at 00:00 Insulin Aspart (Novolog Insulin Pen) NOVOLOG *MODERATE* ALGORITHM WITH MEALS BEDTIME SC Last administered on 02/02/19 08:25; Admin Dose 4 UNIT; Start 01/29/19 at 13:00 Hydromorphone HCl (Dilaudid) 1 mg Q6H PRN IV SEVERE PAIN LEVEL 7-10 Last administered on 01/31/19 03:27; Admin Dose 1 MG; Start 01/30/19 at 19:00 Ferric Sodium Gluconate Complex 125 mg/Sodium Chloride 110 ml @ 110 mls/hr DAILY@1300 IVPB Last administered on 02/02/19 12:22; Admin Dose 110 MLS/HR; Start 01/31/19 at 13:00; Stop 02/04/19 at 13:59 Famotidine (Pepcid) 20 mg BID PO Last administered on 02/02/19 08:22; Admin Dose 20 MG; Start 01/31/19 at 21:00 Insulin Glargine (Lantus) 20 units DAILY@0800 SC Last administered on 02/02/19 08:26; Admin Dose 20 UNITS; Start 02/01/19 at 08:00 YOSELYN GILL MD Feb 02, 2019 13:42
[2019-02-02 15:38] VITALS: BP 93/52; PULSE 79; RESP 16
[2019-02-02 19:59] VITALS: BP 108/62; PULSE 90; RESP 16
[2019-02-03 02:15] VITALS: BP 95/58; PULSE 79; RESP 16
[2019-02-03 07:27] VITALS: BP 97/60; PULSE 77; RESP 18
[2019-02-03] MEDS: INSULIN ASPART [NOVOLOG] 3 ML PEN SC SCH ×7 (07:59→21:00)
[2019-02-03] MEDS: INSULIN GLARGINE [LANTus] (100 UNITS/ML) SYG SC SCH (08:00)
[2019-02-03] MEDS: FAMOTIDINE 20 MG TAB PO SCH ×2 (08:01→21:14)
[2019-02-03] MEDS: HYDROmorphONE 1 MG/ML SYG IV PRN (08:06)
--- NOTE | 2019-02-03 13:22 | CONS ---
Assessment/Plan Assessment/Plan Hospital Course (Demo Recall) 58 yo with newly diagnosed colon adenoca -CT chest shows 4 mm noncalcified nodule in the right apex, which is nonspecific. -CT AP: Irregular bowel wall thickening / mass with adjacent stranding of the distal transverse colon, compatible with given history of colon cancer. Shotty periaortic lymph nodes. The largest is an 11 mm node with normal fatty hilum, suggestive of reactive etiology. Small nonspecific peripherally sclerotic lesion in the left iliac bone measuring 6 mm. Consider further evaluation with nuclear medicine bone scan versus attention on follow-up. -bone scan negative for mets -await final assessment from surgery on when surgery will be scheduled -cont IV iron for iron deficiency anemia Consultation Date/Type/Reason Admit Date/Time Jan 27, 2019 at 20:38 Initial Consult Date 02/01/19 Requesting Provider: YOSELYN GILL MD Date/Time of Note DATE: 02/03/19 TIME: 13:20 24 HR Interval Summary Free Text/Dictation no complaints just completed bone scan Constitutional: no complaints Exam/Review of Systems Exam Vitals Vital Signs Date Temp Pulse Resp B/P (MAP) Pulse Ox O2 O2 Flow FiO2 Time Delivery Rate 02/03/19 98.4 77 18 97/60 (72) 97 07:27 02/01/19 Room Air 14:14 Intake and Output 02/02/19 02/02/19 02/03/19 1515:00 23:00 07:00 IntakeIntake Total 1070 ml 480 ml 600 ml BalanceBalance 1070 ml 480 ml 600 ml Constitutional: alert Psych: no complaints, nl mood/affect Head: normocephalic, atraumatic Eyes: nl conjunctiva, EOMI, nl lids, nl sclera, PERRL Gastrointestinal: soft, nl liver, spleen, non-tender Musculoskeletal: nl extremities to inspection, nl gait and stance Results Result Diagram: 01/31/19 0950 01/31/19 0950 Results 24hrs Laboratory Tests Test 02/02/19 17:39 02/02/19 20:36 02/03/19 07:54 02/03/19 12:55 Bedside Glucose 197 159 152 309 H Medications Medication Current Medications IV Flush (NS 3 ml) 3 ml PER PROTOCOL IV ; Start 01/28/19 at 00:00 Ondansetron HCl (Zofran Inj) 4 mg Q6H PRN IV NAUSEA/VOMITING; Start 01/28/19 at 00:00 Acetaminophen (Tylenol Tab) 650 mg Q6H PRN PO .PAIN 1-3 OR TEMP Last administered on 01/28/19at 01:03; Admin Dose 650 MG; Start 01/28/19 at 00:00 Acetaminophen/ Hydrocodone Bitart ([place] (5/325)) 1 tab Q6H PRN PO .PAIN 4-6; Start 01/28/19 at 00:00 Zolpidem Tartrate (Ambien) 10 mg QHS PRN PO .INSOMNIA Last administered on 02/02/19at 23:57; Admin Dose 10 MG; Start 01/28/19 at 00:00 Albuterol/ Ipratropium (Duoneb) 3 ml Q2H RESP THERAPY PRN HHN SHORTNESS OF BREATH; Start 01/28/19 at 00:00 Miscellaneous Information 1 ea NOTE XX ; Start 01/28/19 at 00:00 Glucose (Glutose) 15 gm Q15M PRN PO DECREASED GLUCOSE; Start 01/28/19 at 00:00 Glucose (Glutose) 22.5 gm Q15M PRN PO DECREASED GLUCOSE; Start 01/28/19 at 00:00 Dextrose (D50w Syringe) 25 ml Q15M PRN IV DECREASED GLUCOSE; Start 01/28/19 at 00:00 Dextrose (D50w Syringe) 50 ml Q15M PRN IV DECREASED GLUCOSE; Start 01/28/19 at 00:00 Glucagon (Glucagen) 1 mg Q15M PRN IM DECREASED GLUCOSE; Start 01/28/19 at 00:00 Glucose (Glutose) 15 gm Q15M PRN BUCCAL DECREASED GLUCOSE; Start 01/28/19 at 00:00 Insulin Aspart (Novolog Insulin Pen) NOVOLOG *MODERATE* ALGORITHM WITH MEALS BEDTIME SC Last administered on 02/03/19at 12:57; Admin Dose 10 UNIT; Start 01/29/19 at 13:00 Hydromorphone HCl (Dilaudid) 1 mg Q6H PRN IV SEVERE PAIN LEVEL 7-10 Last administered on 02/03/19 08:06; Admin Dose 1 MG; Start 01/30/19 at 19:00 Ferric Sodium Gluconate Complex 125 mg/Sodium Chloride 110 ml @ 110 mls/hr DAILY@1300 IVPB Last administered on 02/02/19 12:22; Admin Dose 110 MLS/HR; Start 01/31/19 at 13:00; Stop 02/04/19 at 13:59 Famotidine (Pepcid) 20 mg BID PO Last administered on 02/03/19 08:01; Admin Dose 20 MG; Start 01/31/19 at 21:00 Insulin Glargine (Lantus) 20 units DAILY@0800 SC Last administered on 02/03/19 08:00; Admin Dose 20 UNITS; Start 02/01/19 at 08:00 Insulin Aspart (Novolog Insulin Pen) 6 unit WITH MEALS SC Last administered on 02/03/19 12:58; Admin Dose 6 UNIT; Start 02/02/19 at 18:00 DOMENICO ABBASI Feb 03, 2019 13:22
[2019-02-03 13:57] VITALS: BP 95/57; PULSE 88; RESP 18
[2019-02-03] MEDS: SOD FERRIC GLUC COMPLX 125 MG in SOD CHLORIDE 0.9% 100 ML IVPB SCH (14:02)
--- NOTE | 2019-02-03 15:58 | PN ---
Date/Time of Note Date/Time of Note DATE: 02/03/19 TIME: 15:56 Assessment/Plan VTE Prophylaxis Risk score (from Ns)>0 risk: 1 SCD applied (from Ns): Yes Pharmacological prophylaxis: heparin Lines/Catheters IV Catheter Type (from Nrsg): Peripheral IV Urinary Cath still in place: No Assessment/Plan Hospital Course 58 yo male with DM who presented with hematochezia. Workup has revealed colon adenocarcinoma Colon adenocarcinoma: - Bone scan negative for mets - s/p colonoscopy with path showing adenocarcinoma - Dr Mark following - General surgery Dr Allen for hemicolectomy Iron deficiency anemia: - IV iron Diabetes Sugars currently stable A1c at 6.7 Continue Lantus and continue sliding scale Home regimen unknown CKD II: - stable Prophylaxis: SCDs DC planning: Pending management plan of colon cancer. He has moved out of his home and planning to fly to [place] when discharged. He is hoping to have surgery prior to discharge Result Diagram: 01/31/19 0950 01/31/19 0950 Results 24hrs Laboratory Tests Test 02/02/19 17:39 02/02/19 20:36 02/03/19 07:54 02/03/19 12:55 Bedside Glucose 197 159 152 309 H Subjective 24 Hr Interval Summary Free Text/Dictation Bone scan negative, no mets AC thrombosis from IV Patinet doing well. I offered him discharge with follow up with surgery as an outpatient. He says he has moved out of his house in anticipation of moving back to [facility] and has nowhere to go back to. He is hoping he can have the surgery performed here and wants to stay inpatient until it can be done given he has no home now. Exam/Review of Systems Exam Vitals Vital Signs Date Temp Pulse Resp B/P (MAP) Pulse Ox O2 O2 Flow FiO2 Time Delivery Rate 02/03/19 98.5 88 18 95/57 (70) 98 13:57 02/01/19 Room Air 14:14 Intake and Output 02/02/19 02/02/19 02/03/19 1515:00 23:00 07:00 IntakeIntake Total 1070 ml 480 ml 600 ml BalanceBalance 1070 ml 480 ml 600 ml Constitutional: alert, oriented, well developed Psych: no complaints, nl mood/affect Head: normocephalic, atraumatic Eyes: nl conjunctiva, EOMI, nl lids, nl sclera, PERRL ENMT: nl external ears & nose, nl lips & teeth, nl nasal mucosa & septum Neck: supple, non-tender Respiratory: clear to auscultation, normal air movement Cardiovascular: regular rate and rhythm, nl pulses Gastrointestinal: soft, nl liver, spleen, non-tender Musculoskeletal: nl extremities to inspection, nl gait and stance Extremities: normal pulses Neurological: 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 CLIPPER II-XII 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, nl mental status, nl speech, nl strength Skin: nl turgor; No rash or lesions Lymph: nl lymph nodes Results Results 24hrs Laboratory Tests Test 02/02/19 17:39 02/02/19 20:36 02/03/19 07:54 02/03/19 12:55 Bedside Glucose 197 159 152 309 H Medications Medication Current Medications IV Flush (NS 3 ml) 3 ml PER PROTOCOL IV ; Start 01/28/19 at 00:00 Ondansetron HCl (Zofran Inj) 4 mg Q6H PRN IV NAUSEA/VOMITING; Start 01/28/19 at 00:00 Acetaminophen (Tylenol Tab) 650 mg Q6H PRN PO .PAIN 1-3 OR TEMP Last administered on 01/28/19at 01:03; Admin Dose 650 MG; Start 01/28/19 at 00:00 Acetaminophen/ Hydrocodone Bitart ([place] (5/325)) 1 tab Q6H PRN PO .PAIN 4-6; Start 01/28/19 at 00:00 Zolpidem Tartrate (Ambien) 10 mg QHS PRN PO .INSOMNIA Last administered on 02/02/19at 23:57; Admin Dose 10 MG; Start 01/28/19 at 00:00 Albuterol/ Ipratropium (Duoneb) 3 ml Q2H RESP THERAPY PRN HHN SHORTNESS OF BREATH; Start 01/28/19 at 00:00 Miscellaneous Information 1 ea NOTE XX ; Start 01/28/19 at 00:00 Glucose (Glutose) 15 gm Q15M PRN PO DECREASED GLUCOSE; Start 01/28/19 at 00:00 Glucose (Glutose) 22.5 gm Q15M PRN PO DECREASED GLUCOSE; Start 01/28/19 at 00:00 Dextrose (D50w Syringe) 25 ml Q15M PRN IV DECREASED GLUCOSE; Start 01/28/19 at 00:00 Dextrose (D50w Syringe) 50 ml Q15M PRN IV DECREASED GLUCOSE; Start 01/28/19 at 00:00 Glucagon (Glucagen) 1 mg Q15M PRN IM DECREASED GLUCOSE; Start 01/28/19 at 00:00 Glucose (Glutose) 15 gm Q15M PRN BUCCAL DECREASED GLUCOSE; Start 01/28/19 at 00:00 Insulin Aspart (Novolog Insulin Pen) NOVOLOG *MODERATE* ALGORITHM WITH MEALS BEDTIME SC Last administered on 02/03/19 12:57; Admin Dose 10 UNIT; Start 01/29/19 at 13:00 Hydromorphone HCl (Dilaudid) 1 mg Q6H PRN IV SEVERE PAIN LEVEL 7-10 Last administered on 02/03/19 08:06; Admin Dose 1 MG; Start 01/30/19 at 19:00 Ferric Sodium Gluconate Complex 125 mg/Sodium Chloride 110 ml @ 110 mls/hr DAILY@1300 IVPB Last administered on 02/03/19 14:02; Admin Dose 110 MLS/HR; Start 01/31/19 at 13:00; Stop 02/04/19 at 13:59 Famotidine (Pepcid) 20 mg BID PO Last administered on 02/03/19 08:01; Admin Dose 20 MG; Start 01/31/19 at 21:00 Insulin Glargine (Lantus) 20 units DAILY@0800 SC Last administered on 02/03/19 08:00; Admin Dose 20 UNITS; Start 02/01/19 at 08:00 Insulin Aspart (Novolog Insulin Pen) 6 unit WITH MEALS SC Last administered on 02/03/19 12:58; Admin Dose 6 UNIT; Start 02/02/19 at 18:00 YOSELYN GILL MD Feb 03, 2019 15:58
[2019-02-03 19:28] VITALS: BP 122/52; PULSE 82; RESP 18
[2019-02-03] MEDS ORDERED: HYDROmorphONE 1 MG/ML SYG IM PRN (21:00)
[2019-02-03] MEDS: ZOLPIDEM 5 MG TAB PO PRN (23:53)
[2019-02-04 01:32] VITALS: BP 98/53; PULSE 77; RESP 18
[2019-02-04 07:21] VITALS: BP 88/51; PULSE 74; RESP 16
[2019-02-04] MEDS: INSULIN GLARGINE [LANTus] (100 UNITS/ML) SYG SC SCH (08:46)
[2019-02-04] MEDS: FAMOTIDINE 20 MG TAB PO SCH ×2 (08:47→20:32)
[2019-02-04] MEDS: INSULIN ASPART [NOVOLOG] 3 ML PEN SC SCH ×7 (08:47→20:32)
--- NOTE | 2019-02-04 13:30 | PN ---
Date/Time of Note Date/Time of Note DATE: 02/04/19 TIME: 13:28 Assessment/Plan VTE Prophylaxis Risk score (from Nsg)>0 risk: 1 SCD applied (from Nsg): Yes Pharmacological prophylaxis: heparin Lines/Catheters IV Catheter Type (from Nrsg): Peripheral IV Urinary Cath still in place: No Assessment/Plan Hospital Course 58 yo male with DM who presented with hematochezia. Workup has revealed colon adenocarcinoma Colon adenocarcinoma: - Bone scan negative for mets - s/p colonoscopy with path showing adenocarcinoma - Dr Mark following - General surgery Dr Taveras has agreed to take the case (Dr Allen out of town) - Patient has no home to go to, planning to return to [facility]. I am worried about his ability to follow up so am keeping him in house until surgery can be arranged Iron deficiency anemia: - IV iron Diabetes - Basal/bolus insulin CKD II: - stable Prophylaxis: SCDs DC planning: Pending management plan of colon cancer. He has moved out of his home and planning to fly to [facility] when discharged. He is hoping to have surgery prior to discharge Result Diagram: 01/31/19 0950 01/31/19 0950 Results 24hrs Laboratory Tests Test 02/03/19 17:51 02/03/19 21:13 02/04/19 08:24 02/04/19 12:14 Bedside Glucose 109 114 168 299 H Subjective 24 Hr Interval Summary Free Text/Dictation No change to clinical status Again says he has no where to go at discharge. Awaiting surgical plan. Dr Allen out of town. Dr Taveras has agreed to see the patient Exam/Review of Systems Exam Vitals Vital Signs Date Temp Pulse Resp B/P (MAP) Pulse Ox O2 O2 Flow FiO2 Time Delivery Rate 02/04/19 98.4 74 16 88/51 (63) 100 07:21 02/01/19 Room Air 14:14 Intake and Output 02/03/19 02/03/19 02/04/19 1515:00 23:00 07:00 IntakeIntake Total 590 ml 360 ml BalanceBalance 590 ml 360 ml Constitutional: alert, oriented, well developed Psych: no complaints, nl mood/affect Head: normocephalic, atraumatic Eyes: nl conjunctiva, EOMI, nl lids, nl sclera, PERRL ENMT: nl external ears & nose, nl lips & teeth, nl nasal mucosa & septum Neck: supple, non-tender Respiratory: clear to auscultation, normal air movement Cardiovascular: regular rate and rhythm, nl pulses Gastrointestinal: soft, nl liver, spleen, non-tender Musculoskeletal: nl extremities to inspection, nl gait and stance Extremities: normal pulses Neurological: 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 IN BEAT ADJUSTER II-XII 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, nl mental status, nl speech, nl strength Skin: nl turgor; No rash or lesions Lymph: nl lymph nodes Results Results 24hrs Laboratory Tests Test 02/03/19 17:51 02/03/19 21:13 02/04/19 08:24 02/04/19 12:14 Bedside Glucose 109 114 168 299 H Medications Medication Current Medications IV Flush (NS 3 ml) 3 ml PER PROTOCOL IV ; Start 01/28/19 at 00:00 Ondansetron HCl (Zofran Inj) 4 mg Q6H PRN IV NAUSEA/VOMITING; Start 01/28/19 at 00:00 Acetaminophen (Tylenol Tab) 650 mg Q6H PRN PO .PAIN 1-3 OR TEMP Last administered on 01/28/19at 01:03; Admin Dose 650 MG; Start 01/28/19 at 00:00 Acetaminophen/ Hydrocodone Bitart ([place] (5/325)) 1 tab Q6H PRN PO .PAIN 4-6; Start 01/28/19 at 00:00 Zolpidem Tartrate (Ambien) 10 mg QHS PRN PO .INSOMNIA Last administered on 02/03/19at 23:53; Admin Dose 10 MG; Start 01/28/19 at 00:00 Albuterol/ Ipratropium (Duoneb) 3 ml Q2H RESP THERAPY PRN HHN SHORTNESS OF BREATH; Start 01/28/19 at 00:00 Miscellaneous Information 1 ea NOTE XX ; Start 01/28/19 at 00:00 Glucose (Glutose) 15 gm Q15M PRN PO DECREASED GLUCOSE; Start 01/28/19 at 00:00 Glucose (Glutose) 22.5 gm Q15M PRN PO DECREASED GLUCOSE; Start 01/28/19 at 00:00 Dextrose (D50w Syringe) 25 ml Q15M PRN IV DECREASED GLUCOSE; Start 01/28/19 at 00:00 Dextrose (D50w Syringe) 50 ml Q15M PRN IV DECREASED GLUCOSE; Start 01/28/19 at 00:00 Glucagon (Glucagen) 1 mg Q15M PRN IM DECREASED GLUCOSE; Start 01/28/19 at 00:00 Glucose (Glutose) 15 gm Q15M PRN BUCCAL DECREASED GLUCOSE; Start 01/28/19 at 00:00 Insulin Aspart (Novolog Insulin Pen) NOVOLOG *MODERATE* ALGORITHM WITH MEALS BEDTIME SC Last administered on 02/04/19 12:49; Admin Dose 8 UNIT; Start 01/29/19 at 13:00 Hydromorphone HCl (Dilaudid) 1 mg Q6H PRN IV SEVERE PAIN LEVEL 7-10 Last administered on 02/03/19 08:06; Admin Dose 1 MG; Start 01/30/19 at 19:00 Ferric Sodium Gluconate Complex 125 mg/Sodium Chloride 110 ml @ 110 mls/hr DAILY@1300 IVPB Last administered on 02/03/19 14:02; Admin Dose 110 MLS/HR; Start 01/31/19 at 13:00; Stop 02/04/19 at 13:59 Famotidine (Pepcid) 20 mg BID PO Last administered on 02/04/19 08:47; Admin Dose 20 MG; Start 01/31/19 at 21:00 Insulin Glargine (Lantus) 20 units DAILY@0800 SC Last administered on 02/04/19 08:46; Admin Dose 20 UNITS; Start 02/01/19 at 08:00 Insulin Aspart (Novolog Insulin Pen) 6 unit WITH MEALS SC Last administered on 02/04/19 12:50; Admin Dose 6 UNIT; Start 02/02/19 at 18:00 Hydromorphone HCl (Dilaudid) 1 mg Q6H PRN IM SEVERE PAIN LEVEL 7-10 Last administered on 02/03/19 21:15; Admin Dose 1 MG; Start 02/03/19 at 21:00 YOSELYN GILL MD Feb 04, 2019 13:30
[2019-02-04] MEDS: SOD FERRIC GLUC COMPLX 125 MG in SOD CHLORIDE 0.9% 100 ML IVPB SCH (13:39)
[2019-02-04] MEDS: HYDROmorphONE 1 MG/ML SYG IV PRN ×2 (13:41→20:38)
[2019-02-04 14:49] VITALS: BP 93/55; PULSE 80; RESP 16
[2019-02-04 20:00] VITALS: BP 93/57; PULSE 66; RESP 18
[2019-02-05] MEDS: ZOLPIDEM 5 MG TAB PO PRN (00:14)
[2019-02-05 02:00] VITALS: BP 104/59; PULSE 66; RESP 16
[2019-02-05 07:53] VITALS: BP 111/53; PULSE 66; RESP 16
[2019-02-05] MEDS: INSULIN ASPART [NOVOLOG] 3 ML PEN SC SCH ×7 (08:20→21:00)
[2019-02-05] MEDS: INSULIN GLARGINE [LANTus] (100 UNITS/ML) SYG SC SCH (08:22)
[2019-02-05] MEDS: FAMOTIDINE 20 MG TAB PO SCH ×2 (08:22→20:54)
[2019-02-05] MEDS: HYDROmorphONE 1 MG/ML SYG IV PRN ×2 (11:08→18:02)
[2019-02-05 13:57] VITALS: BP 106/60; PULSE 94; RESP 16
--- NOTE | 2019-02-05 15:40 | PN ---
Date/Time of Note Date/Time of Note DATE: 02/05/19 TIME: 15:39 Assessment/Plan VTE Prophylaxis Risk score (from Nsg)>0 risk: 1 SCD applied (from Nsg): Yes Pharmacological prophylaxis: heparin Lines/Catheters IV Catheter Type (from Nrsg): [place] Urinary Cath still in place: No Assessment/Plan Hospital Course 58 yo male with DM who presented with hematochezia. Workup has revealed colon adenocarcinoma Colon adenocarcinoma: - Bone scan negative for mets - s/p colonoscopy with path showing adenocarcinoma - Dr Mark following - General surgery Dr Taveras has agreed to take the case (Dr Allen out of town) - Patient has no home to go to, planning to return to [facility]. I am worried about his ability to follow up so am keeping him in house until surgery can be arranged Iron deficiency anemia: - IV iron Diabetes - Basal/bolus insulin CKD II: - stable Prophylaxis: SCDs DC planning: Pending surgical management plan of colon cancer. He has moved out of his home and planning to fly to [place] when discharged. I hope to arrange surgery for him prior to discharge as I am doubtful of his ability to follow up as an outpatient Results 24hrs Laboratory Tests Test 02/04/19 18:00 02/04/19 20:32 02/05/19 08:13 02/05/19 12:32 Bedside Glucose 170 146 167 150 Subjective 24 Hr Interval Summary Free Text/Dictation No change to clinical status Awaiting surgical plan Exam/Review of Systems Exam Vitals Vital Signs Date Temp Pulse Resp B/P (MAP) Pulse Ox O2 O2 Flow FiO2 Time Delivery Rate 02/05/19 98.1 94 16 106/60 99 13:57 (75) 02/05/19 Room Air 02:00 Intake and Output 02/04/19 02/04/19 02/05/19 1515:00 23:00 07:00 IntakeIntake Total 1100 ml 720 ml BalanceBalance 1100 ml 720 ml Constitutional: alert, oriented, well developed Psych: no complaints, nl mood/affect Head: normocephalic, atraumatic Eyes: nl conjunctiva, EOMI, nl lids, nl sclera, PERRL ENMT: nl external ears & nose, nl lips & teeth, nl nasal mucosa & septum Neck: supple, non-tender Respiratory: clear to auscultation, normal air movement Cardiovascular: regular rate and rhythm, nl pulses Gastrointestinal: soft, nl liver, spleen, non-tender Musculoskeletal: nl extremities to inspection, nl gait and stance Extremities: normal pulses Neurological: 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 II-XII 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, nl mental status, nl speech, nl strength Skin: nl turgor; No rash or lesions Lymph: nl lymph nodes Results Results 24hrs Laboratory Tests Test 02/04/19 18:00 02/04/19 20:32 02/05/19 08:13 02/05/19 12:32 Bedside Glucose 170 146 167 150 Medications Medication Current Medications IV Flush (NS 3 ml) 3 ml PER PROTOCOL IV ; Start 01/28/19 at 00:00 Ondansetron HCl (Zofran Inj) 4 mg Q6H PRN IV NAUSEA/VOMITING; Start 01/28/19 at 00:00 Acetaminophen (Tylenol Tab) 650 mg Q6H PRN PO .PAIN 1-3 OR TEMP Last administered on 01/28/19at 01:03; Admin Dose 650 MG; Start 01/28/19 at 00:00 Acetaminophen/ Hydrocodone Bitart ([place] (5/325)) 1 tab Q6H PRN PO .PAIN 4-6; Start 01/28/19 at 00:00 Zolpidem Tartrate (Ambien) 10 mg QHS PRN PO .INSOMNIA Last administered on 02/05/19at 00:14; Admin Dose 10 MG; Start 01/28/19 at 00:00 Albuterol/ Ipratropium (Duoneb) 3 ml Q2H RESP THERAPY PRN HHN SHORTNESS OF BREATH; Start 01/28/19 at 00:00 Miscellaneous Information 1 ea NOTE XX ; Start 01/28/19 at 00:00 Glucose (Glutose) 15 gm Q15M PRN PO DECREASED GLUCOSE; Start 01/28/19 at 00:00 Glucose (Glutose) 22.5 gm Q15M PRN PO DECREASED GLUCOSE; Start 01/28/19 at 00:00 Dextrose (D50w Syringe) 25 ml Q15M PRN IV DECREASED GLUCOSE; Start 01/28/19 at 00:00 Dextrose (D50w Syringe) 50 ml Q15M PRN IV DECREASED GLUCOSE; Start 01/28/19 at 00:00 Glucagon (Glucagen) 1 mg Q15M PRN IM DECREASED GLUCOSE; Start 01/28/19 at 00:00 Glucose (Glutose) 15 gm Q15M PRN BUCCAL DECREASED GLUCOSE; Start 01/28/19 at 00:00 Insulin Aspart (Novolog Insulin Pen) NOVOLOG *MODERATE* ALGORITHM WITH MEALS BEDTIME SC Last administered on 02/05/19 12:48; Admin Dose 2 UNIT; Start 01/29/19 at 13:00 Hydromorphone HCl (Dilaudid) 1 mg Q6H PRN IV SEVERE PAIN LEVEL 7-10 Last administered on 02/05/19 11:08; Admin Dose 1 MG; Start 01/30/19 at 19:00 Famotidine (Pepcid) 20 mg BID PO Last administered on 02/05/19 08:22; Admin Dose 20 MG; Start 01/31/19 at 21:00 Insulin Glargine (Lantus) 20 units DAILY@0800 SC Last administered on 02/05/19 08:22; Admin Dose 20 UNITS; Start 02/01/19 at 08:00 Hydromorphone HCl (Dilaudid) 1 mg Q6H PRN IM SEVERE PAIN LEVEL 7-10 Last administered on 02/03/19 21:15; Admin Dose 1 MG; Start 02/03/19 at 21:00 Insulin Aspart (Novolog Insulin Pen) 8 unit WITH MEALS SC Last administered on 02/05/19 12:49; Admin Dose 8 UNIT; Start 02/04/19 at 18:00 YOSELYN GILL MD Feb 05, 2019 15:40
--- NOTE | 2019-02-05 16:10 | CONS ---
Assessment/Plan Assessment/Plan Hospital Course (Demo Recall) 1. 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 The patient was tattooed. Shotty lymph nodes. Previous surgeon unable to coordinate surgery therefore a secondary consult was obtained. Patient with history of ex lap due to bowel obstruction will make this more difficult operation. -Medical/cardiac optimization -Surgical resection will be scheduled 2. 40 pound weight loss secondary to above 3. Diabetes mellitus type 2 -Nutrition medication optimization 4. Hypertension -Nutrition medication optimization 5. Coronary artery disease with history of Plavix and aspirin -Cardiac evaluation and optimization 6. Iron deficiency anemia secondary to above -Iron transfusion per hematology -As above Thank you very much for consulting me in this patient's care, Consultation Date/Type/Reason Admit Date/Time Jan 27, 2019 at 20:38 Date of Consultation: Feb 05, 2019 Type of Consult Minimally invasive general surgical (initial technology consultant surgeon unavailable) Reason for Consultation Colon cancer Requesting Provider: YOSELYN GILL MD Date/Time of Note DATE: 02/05/19 TIME: 16:08 Hx of Present Illness Yosi Salgado is a 58yo male with multiple comorbidities who had initially presented to [facility] for anemia and positive guaiac and occasional diarrhea he also has occasional pain that began about 2 months ago. He has lost 40 pounds, unintentionally over the past 5 months. At [facility] patient had a CT scan abdomen/pelvis without contrast in at the hepatic flexure of the colon and transverse colon, there is a focal wall thickening and adjacent fat stranding. There are several adjacent tiny lymph nodes which are subcentimeter. Findings appear unchanged compared with 12/28/18. The small bowel loops are nondilated. Patient was transferred to [facility] for further evaluation due to insurance capitation. Denies nausea/vomiting, hematemesis, hematochezia, dysuria, headache, visual or neurologic changes. No chest pain or shortness of breath. No cough. Patient was seen by surgeon director of online education however they are unable to coordinate time and secondary consult is obtained. CT scan February 01 identified: 1. Irregular bowel wall thickening / mass with adjacent stranding of the distal transverse colon, compatible with given history of colon cancer. 2. Shotty periaortic lymph nodes. The largest is an 11 mm node with normal fatty hilum, suggestive of reactive etiology. However, attention on follow-up is recommended. 3. Small nonspecific peripherally sclerotic lesion in the left iliac bone measuring 6 mm. Consider further evaluation with nuclear medicine bone scan versus attention on follow-up. CT chest: 4 mm noncalcified nodule in the right apex, which is nonspecific. Follow-up chest CT as per oncologic protocol is recommended. Partial visualization of previously described irregular circumferential mass of the distal transverse colon, extending to the splenic flexure. There is extension into the gastrohepatic ligament effacing the fat planes with the greater curvature of the stomach. Cholelithiasis. CEA negative Colonoscopy 01/30/19: Mass in the right colonproximal ascending colon Unable to transversepartial bowel obstruction Colon mass likely malignancy. Noted in the proximal transverse colon/ Tattoo placed for surgical evaluation/follow-up Path: Adenocarcinoma, well-differentiated, with focal surface ulceration. One fragment shows changes suggestive of residual tubulovillous adenoma with high grade 12 point review of system is otherwise negative unless addressed in chart Past Medical History DM, type 2 CAD History of bowel obstruction questionable bezoar Arthritis lower extremity History of smoking Hypertension Splenic disorder Recent Plavix and Aspirin use Iron deficiency anemia Hemoccult positive Medications Current Medications IV Flush (NS 3 ml) 3 ml PER PROTOCOL IV ; Start 01/28/19 at 00:00 Ondansetron HCl (Zofran Inj) 4 mg Q6H PRN IV NAUSEA/VOMITING; Start 01/28/19 at 00:00 Acetaminophen (Tylenol Tab) 650 mg Q6H PRN PO .PAIN 1-3 OR TEMP Last administered on 01/28/19at 01:03; Admin Dose 650 MG; Start 01/28/19 at 00:00 Acetaminophen/ Hydrocodone Bitart ([place] (5/325)) 1 tab Q6H PRN PO .PAIN 4-6; Start 01/28/19 at 00:00 Zolpidem Tartrate (Ambien) 10 mg QHS PRN PO .INSOMNIA Last administered on 02/05/19at 00:14; Admin Dose 10 MG; Start 01/28/19 at 00:00 Albuterol/ Ipratropium (Duoneb) 3 ml Q2H RESP THERAPY PRN HHN SHORTNESS OF BREATH; Start 01/28/19 at 00:00 Miscellaneous Information 1 ea NOTE XX ; Start 01/28/19 at 00:00 Glucose (Glutose) 15 gm Q15M PRN PO DECREASED GLUCOSE; Start 01/28/19 at 00:00 Glucose (Glutose) 22.5 gm Q15M PRN PO DECREASED GLUCOSE; Start 01/28/19 at 00:00 Dextrose (D50w Syringe) 25 ml Q15M PRN IV DECREASED GLUCOSE; Start 01/28/19 at 00:00 Dextrose (D50w Syringe) 50 ml Q15M PRN IV DECREASED GLUCOSE; Start 01/28/19 at 00:00 Glucagon (Glucagen) 1 mg Q15M PRN IM DECREASED GLUCOSE; Start 01/28/19 at 00:00 Glucose (Glutose) 15 gm Q15M PRN BUCCAL DECREASED GLUCOSE; Start 01/28/19 at 00:00 Insulin Aspart (Novolog Insulin Pen) NOVOLOG *MODERATE* ALGORITHM WITH MEALS BEDTIME SC Last administered on 02/05/19at 12:48; Admin Dose 2 UNIT; Start 01/29/19 at 13:00 Hydromorphone HCl (Dilaudid) 1 mg Q6H PRN IV SEVERE PAIN LEVEL 7-10 Last administered on 02/05/19at 11:08; Admin Dose 1 MG; Start 01/30/19 at 19:00 Famotidine (Pepcid) 20 mg BID PO Last administered on 02/05/19at 08:22; Admin Dose 20 MG; Start 01/31/19 at 21:00 Hydromorphone HCl (Dilaudid) 1 mg Q6H PRN IM SEVERE PAIN LEVEL 7-10 Last administered on 02/03/19at 21:15; Admin Dose 1 MG; Start 02/03/19 at 21:00 Insulin Aspart (Novolog Insulin Pen) 8 unit WITH MEALS SC Last administered on 02/05/19at 12:49; Admin Dose 8 UNIT; Start 02/04/19 at 18:00 Insulin Glargine (Lantus) 25 units DAILY@0800 SC ; Start 02/06/19 at 08:00 Allergies: Coded Allergies: No Known Allergy (Unverified , 01/27/19) Past Surgical History Exploratory laparotomy for bowel obstruction 12 years ago in [facility] Family History Significant Family History: no pertinent family hx Social History Alcohol Use: rarely Smoking Status: Current every day smoker Drug Use: none Exam/Review of Systems Exam Vitals Vital Signs Date Temp Pulse Resp B/P (MAP) Pulse Ox O2 O2 Flow FiO2 Time Delivery Rate 02/05/19 98.1 94 16 106/60 99 13:57 (75) 02/05/19 Room Air 02:00 Intake and Output 02/04/19 02/04/19 02/05/19 1414:59 22:59 06:59 IntakeIntake Total 1100 ml 720 ml BalanceBalance 1100 ml 720 ml Constitutional: alert, oriented; No distress Psych: nl mood/affect; No anxiety Head: normocephalic, atraumatic Eyes: nl conjunctiva, EOMI, PERRL; No icteric ENMT: nl external ears & nose, mucosa pink and moist Neck: non-tender; No jvd Respiratory: normal air movement; No congested cough, No labored breathing Cardiovascular: regular rate and rhythm; No edema Gastrointestinal: soft, non-tender; No distended, No rebound or guarding Genitourinary - Male: nl scrotum Musculoskeletal: nl extremities to inspection, nl gait and stance; No joint tenderness Extremities: normal pulses; No calf tenderness, No edema Neurological: nl mental status, nl speech, nl strength Skin: nl turgor; No rash or lesions Lymph: nl lymph nodes Results Results 24hrs Laboratory Tests Test 02/04/19 18:00 02/04/19 20:32 02/05/19 08:13 02/05/19 12:32 Bedside Glucose 170 146 167 150 Medications Medication Current Medications IV Flush (NS 3 ml) 3 ml PER PROTOCOL IV ; Start 01/28/19 at 00:00 Ondansetron HCl (Zofran Inj) 4 mg Q6H PRN IV NAUSEA/VOMITING; Start 01/28/19 at 00:00 Acetaminophen (Tylenol Tab) 650 mg Q6H PRN PO .PAIN 1-3 OR TEMP Last administered on 01/28/19at 01:03; Admin Dose 650 MG; Start 01/28/19 at 00:00 Acetaminophen/ Hydrocodone Bitart ([place] (5/325)) 1 tab Q6H PRN PO .PAIN 4-6; Start 01/28/19 at 00:00 Zolpidem Tartrate (Ambien) 10 mg QHS PRN PO .INSOMNIA Last administered on 02/05/19at 00:14; Admin Dose 10 MG; Start 01/28/19 at 00:00 Albuterol/ Ipratropium (Duoneb) 3 ml Q2H RESP THERAPY PRN HHN SHORTNESS OF BREATH; Start 01/28/19 at 00:00 Miscellaneous Information 1 ea NOTE XX ; Start 01/28/19 at 00:00 Glucose (Glutose) 15 gm Q15M PRN PO DECREASED GLUCOSE; Start 01/28/19 at 00:00 Glucose (Glutose) 22.5 gm Q15M PRN PO DECREASED GLUCOSE; Start 01/28/19 at 00:00 Dextrose (D50w Syringe) 25 ml Q15M PRN IV DECREASED GLUCOSE; Start 01/28/19 at 00:00 Dextrose (D50w Syringe) 50 ml Q15M PRN IV DECREASED GLUCOSE; Start 01/28/19 at 00:00 Glucagon (Glucagen) 1 mg Q15M PRN IM DECREASED GLUCOSE; Start 01/28/19 at 00:00 Glucose (Glutose) 15 gm Q15M PRN BUCCAL DECREASED GLUCOSE; Start 01/28/19 at 00:00 Insulin Aspart (Novolog Insulin Pen) NOVOLOG *MODERATE* ALGORITHM WITH MEALS BEDTIME SC Last administered on 02/05/19at 12:48; Admin Dose 2 UNIT; Start 01/29/19 at 13:00 Hydromorphone HCl (Dilaudid) 1 mg Q6H PRN IV SEVERE PAIN LEVEL 7-10 Last administered on 02/05/19at 11:08; Admin Dose 1 MG; Start 01/30/19 at 19:00 Famotidine (Pepcid) 20 mg BID PO Last administered on 02/05/19 08:22; Admin Dose 20 MG; Start 01/31/19 at 21:00 Hydromorphone HCl (Dilaudid) 1 mg Q6H PRN IM SEVERE PAIN LEVEL 7-10 Last administered on 02/03/19at 21:15; Admin Dose 1 MG; Start 02/03/19 at 21:00 Insulin Aspart (Novolog Insulin Pen) 8 unit WITH MEALS SC Last administered on 02/05/19at 12:49; Admin Dose 8 UNIT; Start 02/04/19 at 18:00 Insulin Glargine (Lantus) 25 units DAILY@0800 SC ; Start 02/06/19 at 08:00 CARLYN WALDEN MD Feb 05, 2019 16:10
--- NOTE | 2019-02-05 18:55 | CONS ---
DATE OF ADMISSION: 01/27/2019 DATE OF CONSULTATION: 02/05/2019 TYPE OF CONSULTATION: Cardiology. REASON FOR CONSULTATION: Preoperative evaluation prior to colectomy. REQUESTING PHYSICIAN: Vance Stoddard MD HISTORY OF PRESENT ILLNESS: Mr. Salgado is a 58-year-old male with a history of diabetes mellitus who initially presented on 01/27/2019 with complaints of abdominal pain, diarrhea, rectal bleeding. The patient initially went to outside hospital at [facility], where the patient had initi al evaluation with hypertension, dyslipidemia, diabetes mellitus on insulin, coronary artery disease on Plavix, ongoing tobacco usage, who initially presented with complaints of abdominal pain, loose st ools, rectal bleeding. The patient initially had presented to outside hospital at [place], where he had a temperature of 98.1, blood pressure 97/57, pulse 133, respiratory rate 20, satting 98%. The [facility]'s labs notable for sodium 138, potassium not listed, chloride 97, creatinine 1.71, hemoglobin 9 .2. The patient had an abdominopelvic CT done and reveals possible underlying mass and adjacent tiny lymph nodes. The patient was thereafter transferred to [facility] due to insuranc e reasons. Since arrival at [facility], the patient has been counseled by the GI s drew and underwent an endoscopy, findings of mass in the right-sided colon and underwent biopsy wi th biopsy returning positive for adenocarcinoma well differentiated, is being seen by the hematology/ oncology services and has been consulted by surgery with plans for surgical resection of the patient' s mass. Given the patient's multiple cardiac risk factors and possible placement of a prior stent, a cardiology consult was requested. PAST MEDICAL HISTORY: As above in HPI with per chart biopsy, the patient appeared to have most recen t catheterization in 04/2017 and possibly a stent placed in 07/2016. MEDICATIONS CURRENTLY IN HOSPITAL: 1. Insulin. 2. Dilaudid. 3. Pepcid 20 mg p.o. b.i.d. 4. Tylenol p.r.n. 5. [place] p.r.n. ALLERGIES: NO KNOWN DRUG ALLERGIES. SOCIAL HISTORY: Ongoing tobacco usage. No EtOH or illicit drug use. FAMILY HISTORY: No history of sudden cardiac or early CAD. REVIEW OF SYSTEMS: As above in HPI. CONSTITUTIONAL: No fevers, chills. PULMONARY: No current shortness of breath. CARDIOVASCULAR: No current chest pain. GASTROINTESTINAL: No vomiting. Abdominal pain. GENITOURINARY: No hematuria. MUSCULOSKELETAL: Degenerative joint disease. PSYCHIATRIC: No documented psych history. NEUROLOGIC: No documented history of CVA. PHYSICAL EXAMINATION VITAL SIGNS: Temperature 98.1, blood pressure 106/60, pulse 94, respiratory rate 16, satting 98%. GENERAL: The patient is alert, awake, complaining of abdominal pain. NECK: JVP approximately is 8 to 9 cm of water. CHEST: Fair air movement throughout. HEART: Regular rate and rhythm. Normal S1, S2, I/ systolic murmur, nondisplaced PMI. ABDOMEN: Positive bowel sounds, soft, diffuse tenderness to palpation. EXTREMITIES: No significant pitting edema, 1+ pulses bilateral posterior tibial. LABORATORY DATA: Most recent BMP from 01/31/2019: Sodium 139, potassium 4.3, creatinine 1.27. In a ddition from 01/31/2019: White blood cell count of 8.6, hemoglobin 8.2, platelet count of 333. IMAGING STUDIES: Chest CT from 02/02/2019 revealing noncalcified nodular in right apex of the lungs, possibly ____ from previously described ____ in distal colon described on abdominal CT. A venous ul trasound revealed thrombosed of left basilic vein and left upper arm, antecubital fossa and bone scan revealed negative whole body bone scan, no evidence of neoplastic disease. ELECTROCARDIOGRAM: There were no electrocardiograms for my review at this time. IMPRESSION: 1. Preoperative evaluation in a patient prior to colectomy that has multiple cardiac risk factors an d possible prior stent apparently placed approximately 2 to 3 years prior. 2. Hypotension, borderline. 3. History of possible prior stent placements 2 to 3 years prior per chart biopsy. 4. Dyslipidemia. 5. Adenocarcinoma of the colon, newly diagnosed. 6. Abdominal pain secondary to adenocarcinoma of the colon. 7. Diabetes mellitus. 8. Anemia. 9. Renal failure insufficiency. RECOMMENDATIONS: 1. At this time, we would check baseline EKG now and repeat EKG in morning to assess for any abnorma lities and thereafter changes. 2. Send troponins q.6 x2 to assure the patient has not had any recent coronary syndromes in anticipa tion of upcoming surgery. 3. Check 2D echo for this patient's ejection fraction, wall motion, rule any major abnormalities. 4. We are going to attempt to obtain the patient's cath report from [facility] most rece ntly to further assess the patient's current anatomy and we will consider stress test in the morning to further assess possibility of any obstructive coronary artery disease in this patient with a histo ry of prior possible stents and multiple cardiac risk factors and ongoing tobacco usage. Thank you for allowing me to take part in the care of this patient. I will continue to follow him ve ry closely with you with further recommendations will be made as the patient progresses through his [facility] clinical course. Dictated By: KAYLEIGH ORDOÑEZ/TOM Conf#: [id number] DID#: [id number] CC: CARLYN WALDEN MD; VANCE STODDARD MD; GUADALUPE SOLOMON;*EndCC*
[2019-02-05 19:48] VITALS: BP 91/53; PULSE 87; RESP 18
[2019-02-06] MEDS: HYDROmorphONE 1 MG/ML SYG IV PRN ×4 (00:08→22:34)
[2019-02-06] MEDS: ZOLPIDEM 5 MG TAB PO PRN (00:08)
[2019-02-06 01:37] VITALS: BP 92/50; PULSE 81; RESP 18
[2019-02-06 07:23] VITALS: BP 92/53; PULSE 72; RESP 16
[2019-02-06] MEDS: INSULIN ASPART [NOVOLOG] 3 ML PEN SC SCH ×7 (08:00→20:41)
[2019-02-06] MEDS: FAMOTIDINE 20 MG TAB PO SCH ×2 (08:17→20:39)
[2019-02-06] MEDS: INSULIN GLARGINE [LANTus] (100 UNITS/ML) SYG SC SCH (08:22)
[2019-02-06] MEDS ORDERED: REGADENOSON 0.4 MG/5 ML SYG ONE (11:47)
--- NOTE | 2019-02-06 12:12 | CONS ---
Assessment/Plan Assessment/Plan Hospital Course (Demo Recall) IMPRESSION: 1. Preoperative evaluation in a patient prior to colectomy that has multiple cardiac risk factors and possible prior stent apparently placed approximately 2 to 3 years prior.-neg trop x 2 2. Hypotension, borderline.-ongoing today 3. History of possible prior stent placements 2 to 3 years prior per chart biopsy. 4. Dyslipidemia. 5. Adenocarcinoma of the colon, newly diagnosed. 6. Abdominal pain secondary to adenocarcinoma of the colon. 7. Diabetes mellitus. 8. Anemia. 9. Renal failure insufficiency. Recc: -Preop lexiscan today -Contiue all othr supportive/medical care Consultation Date/Type/Reason Admit Date/Time Jan 27, 2019 at 20:38 Initial Consult Date 02/05/19 Type of Consult Cardiology Reason for Consultation preop Requesting Provider: YOSELYN GILL MD Date/Time of Note DATE: 02/06/19 TIME: 12:10 Exam/Review of Systems Vital Signs Vitals Vital Signs Date Temp Pulse Resp B/P (MAP) Pulse Ox O2 O2 Flow FiO2 Time Delivery Rate 02/06/19 98.5 72 16 92/53 (66) 99 07:23 02/05/19 Room Air 02:00 Intake and Output 02/05/19 02/05/19 02/06/19 1414:59 22:59 06:59 IntakeIntake Total 920 ml 560 ml 800 ml BalanceBalance 920 ml 560 ml 800 ml Exam Exam Review of Systems: CONSTITUTIONAL: No fevers, chills. PULMONARY: No sob CARDIOVASCULAR: No chest pain/palpitations GASTROINTESTINAL: No nausea/vomiting. GENITOURINARY: No hematuria/dysuria. MUSCULOSKELETAL: No myagias/arthalgias. PSYCHIATRIC: The patient denies depression. NEUROLOGIC: No weakness Psych: no complaints Head: normocephalic ENMT: mucosa pink and moist Neck: supple, jvd Respiratory: diminished breath sounds Cardiovascular: regular rate and rhythm Gastrointestinal: soft, non-tender Musculoskeletal: muscle tone (normal) Extremities: edema (none) Neurological: other (No focal deficits) Labs Result Diagram: 02/06/19 0509 02/06/19 0509 Results 24hrs Laboratory Tests Test 02/05/19 12:32 02/05/19 17:40 02/05/19 18:22 02/05/19 20:53 Bedside Glucose 150 206 76 Troponin I < 0.012 Test 02/06/19 01:01 02/06/19 05:09 02/06/19 07:47 Troponin I < 0.012 < 0.012 White Blood Count 7.1 Red Blood Count 3.45 L Hemoglobin 8.5 L Hematocrit 27.5 L Mean Corpuscular 79.7 L Volume Mean Corpuscular 24.6 L Hemoglobin Mean Corpuscular 30.9 L Hemoglobin Concent Red Cell 16.5 H Distribution Width Platelet Count 338 Mean Platelet Volume 10.2 Immature 0.600 H Granulocytes % Neutrophils % 60.3 Lymphocytes % 28.7 Monocytes % 7.6 Eosinophils % 2.5 Basophils % 0.3 Nucleated Red Blood 0.0 Cells % Immature 0.040 H Granulocytes # Neutrophils # 4.3 Lymphocytes # 2.0 Monocytes # 0.5 Eosinophils # 0.2 Basophils # 0.0 Nucleated Red Blood 0.0 Cells # Sodium Level 138 Potassium Level 4.6 Chloride Level 102 Carbon Dioxide Level 26 Anion Gap 10 Blood Urea Nitrogen 14 Creatinine 1.14 Est Glomerular > 60 Filtrat Rate mL/min Glucose Level 217 Calcium Level 9.4 Triglycerides Level 171 H Cholesterol Level 141 LDL Cholesterol, 85 Calculated HDL Cholesterol 22 L Cholesterol/HDL 6.4 Ratio Bedside Glucose 192 Medications Medications Current Medications IV Flush (NS 3 ml) 3 ml PER PROTOCOL IV ; Start 01/28/19 at 00:00 Ondansetron HCl (Zofran Inj) 4 mg Q6H PRN IV NAUSEA/VOMITING; Start 01/28/19 at 00:00 Acetaminophen (Tylenol Tab) 650 mg Q6H PRN PO .PAIN 1-3 OR TEMP Last administered on 01/28/19at 01:03; Admin Dose 650 MG; Start 01/28/19 at 00:00 Acetaminophen/ Hydrocodone Bitart ([place] (5/325)) 1 tab Q6H PRN PO .PAIN 4-6; Start 01/28/19 at 00:00 Zolpidem Tartrate (Ambien) 10 mg QHS PRN PO .INSOMNIA Last administered on 02/06/19at 00:08; Admin Dose 10 MG; Start 01/28/19 at 00:00 Albuterol/ Ipratropium (Duoneb) 3 ml Q2H RESP THERAPY PRN HHN SHORTNESS OF BREATH; Start 01/28/19 at 00:00 Miscellaneous Information 1 ea NOTE XX ; Start 01/28/19 at 00:00 Glucose (Glutose) 15 gm Q15M PRN PO DECREASED GLUCOSE; Start 01/28/19 at 00:00 Glucose (Glutose) 22.5 gm Q15M PRN PO DECREASED GLUCOSE; Start 01/28/19 at 00:00 Dextrose (D50w Syringe) 25 ml Q15M PRN IV DECREASED GLUCOSE; Start 01/28/19 at 0 0:00 Dextrose (D50w Syringe) 50 ml Q15M PRN IV DECREASED GLUCOSE; Start 01/28/19 at 00:00 Glucagon (Glucagen) 1 mg Q15M PRN IM DECREASED GLUCOSE; Start 01/28/19 at 00:00 Glucose (Glutose) 15 gm Q15M PRN BUCCAL DECREASED GLUCOSE; Start 01/28/19 at 00:00 Insulin Aspart (Novolog Insulin Pen) NOVOLOG *MODERATE* ALGORITHM WITH MEALS BEDTIME SC Last administered on 02/06/19 08:20; Admin Dose 4 UNIT; Start 01/29/19 at 13:00 Hydromorphone HCl (Dilaudid) 1 mg Q6H PRN IV SEVERE PAIN LEVEL 7-10 Last adm inistered on 02/06/19at 00:08; Admin Dose 1 MG; Start 01/30/19 at 19:00 Famotidine (Pepcid) 20 mg BID PO Last administered on 02/05/19at 20:54; Admin Dose 20 MG; Start 01/31/19 at 21:00 Hydromorphone HCl (Dilaudid) 1 mg Q6H PRN IM SEVERE PAIN LEVEL 7-10 Last administered on 02/03/19at 21:15; Admin Dose 1 MG; Start 02/03/19 at 21:00 Insulin Aspart (Novolog Insulin Pen) 8 unit WITH MEALS SC Last administered on 02/05/19 18:18; Admin Dose 8 UNIT; Start 02/04/19 at 18:00 Insulin Glargine (Lantus) 25 units DAILY@0800 SC Last administered on 02/06/19at 08:22; Admin Dose 25 UNITS; Start 02/06/19 at 08:00 KAYLEIGH MARTINEZ 11, 2019 12:12
[2019-02-06 13:51] VITALS: BP 98/62; PULSE 87; RESP 16
--- NOTE | 2019-02-06 14:05 | CONS ---
Assessment/Plan Assessment/Plan Hospital Course (Demo Recall) 58 yo with newly diagnosed colon adenoca -CT chest shows 4 mm noncalcified nodule in the right apex, which is nonspecific. -CT AP: Irregular bowel wall thickening / mass with adjacent stranding of the distal transverse colon, compatible with given history of colon cancer. Shotty periaortic lymph nodes. The largest is an 11 mm node with normal fatty hilum, suggestive of reactive etiology. Small nonspecific peripherally sclerotic lesion in the left iliac bone measuring 6 mm. -bone scan negative for mets -await final assessment from surgery on when surgery will be scheduled. Dr Taveras is now seeing the patient and planning underway for surgery -cont IV iron for iron deficiency anemia -pt undergoing cardiac clearance w/u prior to surgery Consultation Date/Type/Reason Admit Date/Time Jan 27, 2019 at 20:38 Initial Consult Date 02/01/19 Requesting Provider: YOSELYN GILL MD Date/Time of Note DATE: 02/06/19 TIME: 14:05 24 HR Interval Summary Constitutional: improved Exam/Review of Systems Exam Vitals Vital Signs Date Temp Pulse Resp B/P (MAP) Pulse Ox O2 O2 Flow FiO2 Time Delivery Rate 02/06/19 98.4 87 16 98/62 (74) 100 13:51 02/05/19 Room Air 02:00 Intake and Output 02/05/19 02/05/19 02/06/19 1414:59 22:59 06:59 IntakeIntake Total 920 ml 560 ml 800 ml BalanceBalance 920 ml 560 ml 800 ml Constitutional: alert, oriented, well developed Psych: no complaints, nl mood/affect Head: normocephalic, atraumatic Eyes: nl conjunctiva, EOMI, nl lids, nl sclera, PERRL Respiratory: normal air movement Musculoskeletal: nl extremities to inspection Results Result Diagram: 02/06/19 0509 02/06/19 0509 Results 24hrs Laboratory Tests Test 02/05/19 17:40 02/05/19 18:22 02/05/19 20:53 02/06/19 01:01 Bedside Glucose 206 76 Troponin I < 0.012 < 0.012 Test 02/06/19 05:09 02/06/19 07:47 02/06/19 13:26 White Blood Count 7.1 Red Blood Count 3.45 L Hemoglobin 8.5 L Hematocrit 27.5 L Mean Corpuscular 79.7 L Volume Mean Corpuscular 24.6 L Hemoglobin Mean Corpuscular 30.9 L Hemoglobin Concent Red Cell 16.5 H Distribution Width Platelet Count 338 Mean Platelet Volume 10.2 Immature 0.600 H Granulocytes % Neutrophils % 60.3 Lymphocytes % 28.7 Monocytes % 7.6 Eosinophils % 2.5 Basophils % 0.3 Nucleated Red Blood 0.0 Cells % Immature 0.040 H Granulocytes # Neutrophils # 4.3 Lymphocytes # 2.0 Monocytes # 0.5 Eosinophils # 0.2 Basophils # 0.0 Nucleated Red Blood 0.0 Cells # Sodium Level 138 Potassium Level 4.6 Chloride Level 102 Carbon Dioxide Level 26 Anion Gap 10 Blood Urea Nitrogen 14 Creatinine 1.14 Est Glomerular > 60 Filtrat Rate mL/min Glucose Level 217 Calcium Level 9.4 Troponin I < 0.012 Triglycerides Level 171 H Cholesterol Level 141 LDL Cholesterol, 85 Calculated HDL Cholesterol 22 L Cholesterol/HDL 6.4 Ratio Bedside Glucose 192 117 Medications Medication Current Medications IV Flush (NS 3 ml) 3 ml PER PROTOCOL IV ; Start 01/28/19 at 00:00 Ondansetron HCl (Zofran Inj) 4 mg Q6H PRN IV NAUSEA/VOMITING; Start 01/28/19 at 00:00 Acetaminophen (Tylenol Tab) 650 mg Q6H PRN PO .PAIN 1-3 OR TEMP Last administered on 01/28/19at 01:03; Admin Dose 650 MG; Start 01/28/19 at 00:00 Acetaminophen/ Hydrocodone Bitart ([place] (5/325)) 1 tab Q6H PRN PO .PAIN 4-6; Start 01/28/19 at 00:00 Zolpidem Tartrate (Ambien) 10 mg QHS PRN PO .INSOMNIA Last administered on 02/06/19at 00:08; Admin Dose 10 MG; Start 01/28/19 at 00:00 Albuterol/ Ipratropium (Duoneb) 3 ml Q2H RESP THERAPY PRN HHN SHORTNESS OF BREATH; Start 01/28/19 at 00:00 Miscellaneous Information 1 ea NOTE XX ; Start 01/28/19 at 00:00 Glucose (Glutose) 15 gm Q15M PRN PO DECREASED GLUCOSE; Start 01/28/19 at 00:00 Glucose (Glutose) 22.5 gm Q15M PRN PO DECREASED GLUCOSE; Start 01/28/19 at 00:00 Dextrose (D50w Syringe) 25 ml Q15M PRN IV DECREASED GLUCOSE; Start 01/28/19 at 00:00 Dextrose (D50w Syringe) 50 ml Q15M PRN IV DECREASED GLUCOSE; Start 01/28/19 at 00:00 Glucagon (Glucagen) 1 mg Q15M PRN IM DECREASED GLUCOSE; Start 01/28/19 at 00:00 Glucose (Glutose) 15 gm Q15M PRN BUCCAL DECREASED GLUCOSE; Start 01/28/19 at 00:00 Insulin Aspart (Novolog Insulin Pen) NOVOLOG *MODERATE* ALGORITHM WITH MEALS BEDTIME SC Last administered on 02/06/19 08:20; Admin Dose 4 UNIT; Start 01/29/19 at 13:00 Hydromorphone HCl (Dilaudid) 1 mg Q6H PRN IV SEVERE PAIN LEVEL 7-10 Last administered on 02/06/19 13:38; Admin Dose 1 MG; Start 01/30/19 at 19:00 Famotidine (Pepcid) 20 mg BID PO Last administered on 02/05/19 20:54; Admin Dose 20 MG; Start 01/31/19 at 21:00 Hydromorphone HCl (Dilaudid) 1 mg Q6H PRN IM SEVERE PAIN LEVEL 7-10 Last administered on 02/03/19 21:15; Admin Dose 1 MG; Start 02/03/19 at 21:00 Insulin Aspart (Novolog Insulin Pen) 8 unit WITH MEALS SC Last administered on 02/06/19 13:34; Admin Dose 8 UNIT; Start 02/04/19 at 18:00 Insulin Glargine (Lantus) 25 units DAILY@0800 SC Last administered on 02/06/19 08:22; Admin Dose 25 UNITS; Start 02/06/19 at 08:00 DOMENICO ABBASI 11, 2019 14:05
--- NOTE | 2019-02-06 15:34 | PN ---
Date/Time of Note Date/Time of Note DATE: 02/06/19 TIME: 15:33 Assessment/Plan VTE Prophylaxis Risk score (from Ns)>0 risk: 1 [place] [facility] Pharmacological prophylaxis: NA/contraindicated Pharm contraindication: surgical contra Lines/Catheters [facility] Saline Lock Urinary Cath still in place: No Assessment/Plan Hospital Course 58 yo male with DM who presented with hematochezia. Workup has revealed colon adenocarcinoma Colon adenocarcinoma: - Bone scan negative for mets - s/p colonoscopy with path showing adenocarcinoma - Dr Mark following - General surgery Dr Taveras has agreed to take the case (Dr Allen out of town) - Patient has no home to go to, planning to return to [facility] Iron deficiency anemia: - IV iron Diabetes - Basal/bolus insulin CKD II: - stable Prophylaxis: SCDs DC planning: Pending surgical management plan of colon cancer. He has moved out of his home and planning to fly to [place] when discharged. Patient requires surgery prior to DC Result Diagram: 02/06/19 0509 02/06/19 0509 Results 24hrs Laboratory Tests Test 02/05/19 17:40 02/05/19 18:22 02/05/19 20:53 02/06/19 01:01 Bedside Glucose 206 76 Troponin I < 0.012 < 0.012 Test 02/06/19 05:09 02/06/19 07:47 02/06/19 13:26 White Blood Count 7.1 Red Blood Count 3.45 L Hemoglobin 8.5 L Hematocrit 27.5 L Mean Corpuscular 79.7 L Volume Mean Corpuscular 24.6 L Hemoglobin Mean Corpuscular 30.9 L Hemoglobin Concent Red Cell 16.5 H Distribution Width Platelet Count 338 Mean Platelet Volume 10.2 Immature 0.600 H Granulocytes % Neutrophils % 60.3 Lymphocytes % 28.7 Monocytes % 7.6 Eosinophils % 2.5 Basophils % 0.3 Nucleated Red Blood 0.0 Cells % Immature 0.040 H Granulocytes # Neutrophils # 4.3 Lymphocytes # 2.0 Monocytes # 0.5 Eosinophils # 0.2 Basophils # 0.0 Nucleated Red Blood 0.0 Cells # Sodium Level 138 Potassium Level 4.6 Chloride Level 102 Carbon Dioxide Level 26 Anion Gap 10 Blood Urea Nitrogen 14 Creatinine 1.14 Est Glomerular > 60 Filtrat Rate mL/min Glucose Level 217 Calcium Level 9.4 Troponin I < 0.012 Triglycerides Level 171 H Cholesterol Level 141 LDL Cholesterol, 85 Calculated HDL Cholesterol 22 L Cholesterol/HDL 6.4 Ratio Bedside Glucose 192 117 Subjective 24 Hr Interval Summary Constitutional: no complaints Exam/Review of Systems Exam Vitals Vital Signs Date Temp Pulse Resp B/P (MAP) Pulse Ox O2 O2 Flow FiO2 Time Delivery Rate 02/06/19 98.4 87 16 98/62 (74) 100 13:51 02/05/19 Room Air 02:00 Intake and Output 02/05/19 02/05/19 02/06/19 1515:00 23:00 07:00 IntakeIntake Total 1160 ml 320 ml 800 ml BalanceBalance 1160 ml 320 ml 800 ml Constitutional: alert, oriented Respiratory: clear to auscultation Cardiovascular: regular rate and rhythm Gastrointestinal: soft; No distended Musculoskeletal: nl extremities to inspection Results Results 24hrs Laboratory Tests Test 02/05/19 17:40 02/05/19 18:22 02/05/19 20:53 02/06/19 01:01 Bedside Glucose 206 76 Troponin I < 0.012 < 0.012 Test 02/06/19 05:09 02/06/19 07:47 02/06/19 13:26 White Blood Count 7.1 Red Blood Count 3.45 L Hemoglobin 8.5 L Hematocrit 27.5 L Mean Corpuscular 79.7 L Volume Mean Corpuscular 24.6 L Hemoglobin Mean Corpuscular 30.9 L Hemoglobin Concent Red Cell 16.5 H Distribution Width Platelet Count 338 Mean Platelet Volume 10.2 Immature 0.600 H Granulocytes % Neutrophils % 60.3 Lymphocytes % 28.7 Monocytes % 7.6 Eosinophils % 2.5 Basophils % 0.3 Nucleated Red Blood 0.0 Cells % Immature 0.040 H Granulocytes # Neutrophils # 4.3 Lymphocytes # 2.0 Monocytes # 0.5 Eosinophils # 0.2 Basophils # 0.0 Nucleated Red Blood 0.0 Cells # Sodium Level 138 Potassium Level 4.6 Chloride Level 102 Carbon Dioxide Level 26 Anion Gap 10 Blood Urea Nitrogen 14 Creatinine 1.14 Est Glomerular > 60 Filtrat Rate mL/min Glucose Level 217 Calcium Level 9.4 Troponin I < 0.012 Triglycerides Level 171 H Cholesterol Level 141 LDL Cholesterol, 85 Calculated HDL Cholesterol 22 L Cholesterol/HDL 6.4 Ratio Bedside Glucose 192 117 Medications Medication Current Medications IV Flush (NS 3 ml) 3 ml PER PROTOCOL IV ; Start 01/28/19 at 00:00 Ondansetron HCl (Zofran Inj) 4 mg Q6H PRN IV NAUSEA/VOMITING; Start 01/28/19 at 00:00 Acetaminophen (Tylenol Tab) 650 mg Q6H PRN PO .PAIN 1-3 OR TEMP Last administered on 01/28/19at 01:03; Admin Dose 650 MG; Start 01/28/19 at 00:00 Acetaminophen/ Hydrocodone Bitart ([place] (5/325)) 1 tab Q6H PRN PO .PAIN 4-6; Start 01/28/19 at 00:00 Zolpidem Tartrate (Ambien) 10 mg QHS PRN PO .INSOMNIA Last administered on 02/06/19at 00:08; Admin Dose 10 MG; Start 01/28/19 at 00:00 Albuterol/ Ipratropium (Duoneb) 3 ml Q2H RESP THERAPY PRN HHN SHORTNESS OF BREATH; Start 01/28/19 at 00:00 Miscellaneous Information 1 ea NOTE XX ; Start 01/28/19 at 00:00 Glucose (Glutose) 15 gm Q15M PRN PO DECREASED GLUCOSE; Start 01/28/19 at 00:00 Glucose (Glutose) 22.5 gm Q15M PRN PO DECREASED GLUCOSE; Start 01/28/19 at 00:00 Dextrose (D50w Syringe) 25 ml Q15M PRN IV DECREASED GLUCOSE; Start 01/28/19 at 00:00 Dextrose (D50w Syringe) 50 ml Q15M PRN IV DECREASED GLUCOSE; Start 01/28/19 at 00:00 Glucagon (Glucagen) 1 mg Q15M PRN IM DECREASED GLUCOSE; Start 01/28/19 at 00:00 Glucose (Glutose) 15 gm Q15M PRN BUCCAL DECREASED GLUCOSE; Start 01/28/19 at 00:00 Insulin Aspart (Novolog Insulin Pen) NOVOLOG *MODERATE* ALGORITHM WITH MEALS BEDTIME SC Last administered on 02/06/19at 08:20; Admin Dose 4 UNIT; Start 01/29/19 at 13:00 Hydromorphone HCl (Dilaudid) 1 mg Q6H PRN IV SEVERE PAIN LEVEL 7-10 Last administered on 02/06/19at 13:38; Admin Dose 1 MG; Start 01/30/19 at 19:00 Famotidine (Pepcid) 20 mg BID PO Last administered on 02/05/19 20:54; Admin Dose 20 MG; Start 01/31/19 at 21:00 Hydromorphone HCl (Dilaudid) 1 mg Q6H PRN IM SEVERE PAIN LEVEL 7-10 Last administered on 02/03/19 21:15; Admin Dose 1 MG; Start 02/03/19 at 21:00 Insulin Aspart (Novolog Insulin Pen) 8 unit WITH MEALS SC Last administered on 02/06/19 13:34; Admin Dose 8 UNIT; Start 02/04/19 at 18:00 Insulin Glargine (Lantus) 25 units DAILY@0800 SC Last administered on 02/06/19 08:22; Admin Dose 25 UNITS; Start 02/06/19 at 08:00 TIKI JIM Feb 06, 2019 15:34
--- NOTE | 2019-02-06 16:48 | CARRPT ---
DATE OF PROCEDURE: 02/06/2019 REASON FOR STRESS TESTING: Preoperative. BASELINE VITAL SIGNS AND ELECTROCARDIOGRAM: Pulse 71, blood pressure 90/60. Electrocardiogram was n ormal sinus rhythm, rate of 71, normal axis and intervals with T-wave inversion isolated to lead aVL. PROCEDURE: The patient underwent standard Lexiscan infusion protocol over 10 seconds followed by rad iotracer. The patient's test was stopped at the completion of protocol. Maximal achieved blood pres sure during the test 92/57. Maximum heart rate during the test 104. ELECTROCARDIOGRAM FINDINGS: The patient does not have any new Lexiscan-induced ST or T-wave changes from baseline abnormalities. No documented PVCs. SYMPTOMS: The patient had no complaints of chest pain or shortness of breath during the stress testi ng. IMPRESSION: 1. No Lexiscan-induced ST or T-wave changes from baseline abnormalities or diagnostic cardiac ischem ia. 2. No complaints of chest pain or shortness of breath during the stress test. 3. No documented premature ventricular contractions during the stress test. 4. Report of nuclear images to follow in separate dictation. Dictated By: KAYLEIGH ORDOÑEZ/TOM Conf#: [id number] DID#: [id number] CC: GUADALUPE SOLOMON; YOSELYN GILL MD;*[facility]*
--- NOTE | 2019-02-06 16:52 | PN ---
Date/Time of Note Date/Time of Note DATE: 02/06/19 TIME: 16:49 Assessment/Plan Lines/Catheters IV Catheter Type (from [facility]): Saline Lock Hyman in Place (from [facility]): No Assessment/Plan Chief Complaint/Hosp Course 1. Transverse colon adenocarcinoma on CT distal however on colonoscopy and CT from [place] proximal. The mass was tattooed. Shotty lymph nodes. Previous surgeon unable to coordinate surgery therefore a secondary consult was obtained. Patient with history of ex lap due to bowel obstruction will make this more difficult operation. -Medical/cardiac optimization in process -Surgical resection tomorrow afternoon if patient cleared to proceed -Barry today 2. 40 pound weight loss secondary to above 3. Diabetes mellitus type 2 -Nutrition medication optimization 4. Hypertension -Nutrition medication optimization 5. Coronary artery disease with history of Plavix and aspirin -Cardiac evaluation and optimization 6. Iron deficiency anemia secondary to above -Iron transfusion per hematology -As above Thank you, Subjective 24 Hr Interval Summary Min pain. Difficult bowel functions. No cp/sob. No cough. No significant bloating. No velasquez/visual or neuro changes. No dysuria. No cough. No sz. Cardiac w/u in process. Exam/Review of Systems Vital Signs Vitals Vital Signs Date Temp Pulse Resp B/P (MAP) Pulse Ox O2 O2 Flow FiO2 Time Delivery Rate 02/06/19 98.4 87 16 98/62 (74) 100 13:51 02/05/19 Room Air 02:00 Intake and Output 02/05/19 02/05/19 02/06/19 1515:00 23:00 07:00 IntakeIntake Total 1160 ml 320 ml 800 ml BalanceBalance 1160 ml 320 ml 800 ml Exam Free Text/Dictation Constitutional: alert, oriented; No distress Psych: nl mood/affect; No anxiety Head: normocephalic, atraumatic Eyes: nl conjunctiva, EOMI, PERRL; No icteric ENMT: nl external ears & nose, mucosa pink and moist Neck: non-tender; No jvd Respiratory: normal air movement; No congested cough, No labored breathing Cardiovascular: regular rate and rhythm; No edema Gastrointestinal: soft, non-tender; No distended, No rebound or guarding Genitourinary - Male: nl scrotum Musculoskeletal: nl extremities to inspection, nl gait and stance; No joint tenderness Extremities: normal pulses; No calf tenderness, No edema Neurological: nl mental status, nl speech, nl strength Skin: nl turgor; No rash or lesions Lymph: nl lymph nodes Results Result Diagram: 02/06/19 0509 02/06/19 0509 CARLYN WALDEN MD Feb 06, 2019 16:51
[2019-02-06] MEDS ORDERED: PEG/ELECTROLYTES 4L BTL PO ONE (17:00)
--- NOTE | 2019-02-06 17:24 | RADRPT ---
Echocardiogram Report Patient Name: PATITO MERRILLatient ID: [id number] : 1960 (58y 6m)Study Date: 02/06/2019 10:55:56 AM Gender: MAccession #: [id number] Tech: Chantel Hammonds [facility] Location: [facility] Ref.Physician: KAYLEIGH ARGUELLO Height(Cm): BSA: Weight(Kg): Quality: AdequateAccount #: Procedures: Echocardiographic Report: Transthoracic echocardiogram with complete 2D, M-Mode, and doppler examination. Indications: Pre-op. Measurements: 2D/M Mode Doppler Measurement Value Normal Range Measurement Value Normal Range LVIDd 2D 4.6 [ 4.2 - 5.8 ] cm AV Peak Antolin 1.5 [ 100.0 - 170.0 ] cm/sec LVIDs 2D 2.6 [ 2.5 - 4.0 ] cm AV Peak PG 9.0 [ 2.0 - 9.0 ] mmHg LVPWd 2D 1.3 [ 0.6 - 1.0 ] cm LVOT Peak Antolin 1.1 [ 70.0 - 110.0 ] cm/sec IVSd 2D 1.2 [ 0.6 - 1.0 ] cm LVOT Peak PG 5.0 [ 2.0 - 6.0 ] mmHg IVS/LVPW 2D 0.9 ratio MV E Peak Antolin 0.8 [ 60.0 - 130.0 ] cm/sec AoR Diam 2D 3.3 [ 2.6 - 3.4 ] cm MV A Peak Antolin 1.0 [ 100.0 - 120.0 ] cm/sec LA/Ao 2D 1 ratio MV E/A 0.8 [ 0.8 - 1.5 ] ratio LA Dimen 2D 3.2 [ 3.0 - 4.0 ] cm MV Decel Time 229 [ 104 - 258 ] msec Lat E` Antolin 0.1 [ 10.0 - 15.0 ] cm/sec MV E/A 0.8 [ 0.8 - 1.5 ] ratio TR Peak Antolin 1.9 [ 100.0 - 280.0 ] cm/sec TR Peak PG 14.0 mmHg RVSP 17.0 [ 10.0 - 36.0 ] mmHg RA Pressure 3.0 mmHg Findings: Left Ventricle: Normal left ventricular systolic function. Normal left ventricular cavity size. Mild concentric left ventricular hypertrophy. Ejection fraction is visually estimated at 55-60 %. Tissue Doppler/Mitral Doppler indices are consistent with impaired relaxation (Stage I diastolic dysfunction). Right Ventricle: Normal right ventricular size. Normal right ventricular systolic function. Left Atrium: The left atrium is normal in size. Right Atrium: The right atrium is normal in size. Mitral Valve: Mitral valve leaflets appear mildly thickened. Mild mitral annular calcification. Trace mitral regurgitation. Aortic Valve: Normal appearance of the aortic valve. No significant aortic stenosis or insufficiency. Tricuspid Valve: Normal appearance of the tricuspid valve. Estimated peak PA systolic pressure 17 mmHg. There is trace tricuspid regurgitation. Pulmonic Valve: Normal pulmonic valve appearance. Pericardium: Normal pericardium with no significant pericardial effusion. Aorta: Normal aortic root. IVC: Normal size and normal respiratory collapse consistent with normal right atrial pressure. Conclusions: Normal left ventricular systolic function. Normal left ventricular cavity size. Mild concentric left ventricular hypertrophy. Ejection fraction is visually estimated at 55-60 %. Tissue Doppler/Mitral Doppler indices are consistent with impaired relaxation (Stage I diastolic dysfunction). Mitral valve leaflets appear mildly thickened. Mild mitral annular calcification. Trace mitral regurgitation. Normal appearance of the tricuspid valve. Estimated peak PA systolic pressure 17 mmHg. There is trace tricuspid regurgitation. Electronically Signed By: Kayleigh Arguello 2019-02-06 17:23:27 PDT
--- NOTE | 2019-02-06 17:34 | PREAC ---
Date/Time of Note Date/Time of Note DATE: 02/06/19 TIME: 17:34 Anesthesia Eval and Record Evaluation Time Pre-Procedure Interview DATE: 02/06/19 TIME: 17:34 Age 58 Sex male NPO: 8 hrs Preoperative diagnosis COLON CA Planned procedure LAPAROSCOPIC PARTIAL COLECTMY Past Medical History Past Medical History: Includes Cardio: HTN, Dyslipidemia, CAD, PTCA/Stent Endo: Diabetes Pulm: Smoking Hx Surgery & Anesthesia Issues No known issue Meds Anticoagulation: No Beta Hansel within 24 hr: No Reason Beta Hansel not given: Pt. not on B-Hansel Current Medications IV Flush (NS 3 ml) 3 ml PER PROTOCOL IV ; Start 01/28/19 at 00:00 Ondansetron HCl (Zofran Inj) 4 mg Q6H PRN IV NAUSEA/VOMITING; Start 01/28/19 at 00:00 Acetaminophen (Tylenol Tab) 650 mg Q6H PRN PO .PAIN 1-3 OR TEMP Last administ ered on 01/28/19at 01:03; Admin Dose 650 MG; Start 01/28/19 at 00:00 Acetaminophen/ Hydrocodone Bitart ([place] (5/325)) 1 tab Q6H PRN PO .PAIN 4-6; Start 01/28/19 at 00:00 Zolpidem Tartrate (Ambien) 10 mg QHS PRN PO .INSOMNIA Last administered on 02/06/19at 00:08; Admin Dose 10 MG; Start 01/28/19 at 00:00 Albuterol/ Ipratropium (Duoneb) 3 ml Q2H RESP THERAPY PRN HHN SHORTNESS OF BREATH; Start 01/28/19 at 00:00 Miscellaneous Information 1 ea NOTE XX ; Start 01/28/19 at 00:00 Glucose (Glutose) 15 gm Q15M PRN PO DECREASED GLUCOSE; Start 01/28/19 at 00:00 Glucose (Glutose) 22.5 gm Q15M PRN PO DECREASED GLUCOSE; Start 01/28/19 at 00:00 Dextrose (D50w Syringe) 25 ml Q15M PRN IV DECREASED GLUCOSE; Start 01/28/19 at 00:00 Dextrose (D50w Syringe) 50 ml Q15M PRN IV DECREASED GLUCOSE; Start 01/28/19 at 00:00 Glucagon (Glucagen) 1 mg Q15M PRN IM DECREASED GLUCOSE; Start 01/28/19 at 00:00 Glucose (Glutose) 15 gm Q15M PRN BUCCAL DECREASED GLUCOSE; Start 01/28/19 at 00:00 Insulin Aspart (Novolog Insulin Pen) NOVOLOG *MODERATE* ALGORITHM WITH MEALS BEDTIME SC Last administered on 02/06/19at 08:20; Admin Dose 4 UNIT; Start 01/29/19 at 13:00 Famotidine (Pepcid) 20 mg BID PO Last administered on 02/05/19at 20:54; Admin Dose 20 MG; Start 01/31/19 at 21:00 Insulin Aspart (Novolog Insulin Pen) 8 unit WITH MEALS SC Last administered on 02/06/19at 13:34; Admin Dose 8 UNIT; Start 02/04/19 at 18:00 Insulin Glargine (Lantus) 25 units DAILY@0800 SC Last administered on 02/06/19at 08:22; Admin Dose 25 UNITS; Start 02/06/19 at 08:00 Hydromorphone HCl (Dilaudid) 1 mg Q4H PRN IV SEVERE PAIN LEVEL 7-10; Start at 17:00 Meds reviewed: Yes Allergies Coded Allergies: No Known Allergy (Unverified , 01/27/19) Allergies Reviewed: Yes Labs/Studies Labs Reviewed: Reviewed by anesthesiologist Result Diagram: 02/06/19 0509 02/06/19 0509 Laboratory Tests 02/06/19 05:09 test: N/A Studies: ECG (SR), Other ( No Lexiscan-induced ST or T-wave changes from baseline abnormalities or diagnostic cardiac ischemia.) Pre-procedure Exam Last vitals Vital Signs Date Temp Pulse Resp B/P (MAP) Pulse Ox O2 O2 Flow FiO2 Time Delivery Rate 02/06/19 98.4 87 16 98/62 (74) 100 13:51 02/05/19 Room Air 02:00 Airway: Adequate mouth opening Mallampati: Mallampati II Teeth: Normal Lung: Normal Heart: Normal ASA Physical Status ASA physical status: 3 Emergency: None Planned Anesthetic General/MAC: ETT Pre-operative Attestations Prior to commencing anesthesia and surgery, the patient was re-evaluated, there was verification of: *The patient's identity *The results of appropriate recent lab work and preoperative vital signs *The above evaluation not changing prior to induction *Anesthetic plan, risk benefits, alternative and complications discussed with patient/family; questions answered; patient/family understands, accepts and wishes to proceed. FELIPE KIM Feb 06, 2019 17:34
--- NOTE | 2019-02-06 18:35 | RADRPT ---
Vent Rate: 77 bpm RR Interval: 0 msec OK Interval: 158 msec QRS Duration: 72 msec QT Interval: 372 msec QTC Interval: 420 msec P-R-T [place]: 50 - 54 - 61 degrees Normal sinus rhythm Normal ECG Electronically Signed By: Braeden Arguello
[2019-02-06 19:27] VITALS: BP 109/63; PULSE 85; RESP 18
[2019-02-06 19:32] VITALS: BP 144/63; PULSE 67; RESP 19
[2019-02-07] VITALS (21 sets, daily range): BP systolic 100–136; BP diastolic 55–79; PULSE 71–105; RESP 11–22
[2019-02-07] MEDS: ZOLPIDEM 5 MG TAB PO PRN (01:14)
[2019-02-07] MEDS ORDERED: SEVOFLURANE 15 MIN ONE (07:00)
[2019-02-07] MEDS ORDERED: ROCURONIUM 50 MG INJ ONE ×2 (07:00→15:32)
[2019-02-07] MEDS ORDERED: EPHEDrine SULFATE 50 MG/5 ML SYG ONE (07:00)
[2019-02-07] MEDS: FAMOTIDINE 20 MG TAB PO SCH ×2 (07:47→21:00)
[2019-02-07] MEDS: INSULIN GLARGINE [LANTus] (100 UNITS/ML) SYG SC SCH (08:00)
[2019-02-07] MEDS: INSULIN ASPART [NOVOLOG] 3 ML PEN SC SCH ×7 (08:00→21:00)
[2019-02-07] MEDS: HYDROmorphONE 1 MG/ML SYG IV PRN ×2 (09:30→14:16)
--- NOTE | 2019-02-07 09:40 | CONS ---
Consult Date/Type/Reason Admit Date/Time Jan 27, 2019 at 20:38 Initial Consult Date 02/05/19 Requesting Provider: YOSELYN GILL MD Date/Time of Note DATE: 02/07/19 TIME: 09:38 Subjective NO acute events - SPECT normal - surgery today at 3 pm. NO CP now. ROS: No fever, no chills, no nausea, no vomiting, no diarrhea/constipation No recent weight changes No chest pain, no PND, no orthopnea No dizziness, blurred vision No thirst, no heat or cold intolerance Objective Vitals Vital Signs Date Temp Pulse Resp B/P (MAP) Pulse Ox O2 O2 Flow FiO2 Time Delivery Rate 02/07/19 99.2 71 18 100/55 98 07:30 (70) 02/05/19 Room Air 02:00 Intake and Output 02/06/19 02/06/19 02/07/19 1515:00 23:00 07:00 IntakeIntake Total 440 ml 360 ml BalanceBalance 440 ml 360 ml Exam General: WN/WD/NAD, AOx 3 HEENT: Unicetric/atraumatic/EOMI (follows commands) NECK: JVD elevated, no thyromegaly Lymph: no lymphadenopathy HEART: regular with no S3, II/ systolic murmur at apex LUNGS: Coarse sounds ABD: soft, NT, ND, +BS : Intact Neuro: non focal SKIN: chronic changes EXT: trace edema Results/Medications Result Diagram: 02/06/19 0509 02/06/19 0509 Results 24 hrs Laboratory Tests Test 02/06/19 13:26 02/06/19 17:50 02/06/19 20:40 02/07/19 07:57 Bedside Glucose 117 199 145 122 Medications Current Medications IV Flush (NS 3 ml) 3 ml PER PROTOCOL IV ; Start 01/28/19 at 00:00 Ondansetron HCl (Zofran Inj) 4 mg Q6H PRN IV NAUSEA/VOMITING; Start 01/28/19 at 00:00 Acetaminophen (Tylenol Tab) 650 mg Q6H PRN PO .PAIN 1-3 OR TEMP Last administered on 01/28/19at 01:03; Admin Dose 650 MG; Start 01/28/19 at 00:00 Acetaminophen/ Hydrocodone Bitart ([place] (5/325)) 1 tab Q6H PRN PO .PAIN 4-6; Start 01/28/19 at 00:00 Zolpidem Tartrate (Ambien) 10 mg QHS PRN PO .INSOMNIA Last administered on 02/07/19at 01:14; Admin Dose 10 MG; Start 01/28/19 at 00:00 Albuterol/ Ipratropium (Duoneb) 3 ml Q2H RESP THERAPY PRN HHN SHORTNESS OF BREATH; Start 01/28/19 at 00:00 Miscellaneous Information 1 ea NOTE XX ; Start 01/28/19 at 00:00 Glucose (Glutose) 15 gm Q15M PRN PO DECREASED GLUCOSE; Start 01/28/19 at 00:00 Glucose (Glutose) 22.5 gm Q15M PRN PO DECREASED GLUCOSE; Start 01/28/19 at 00:00 Dextrose (D50w Syringe) 25 ml Q15M PRN IV DECREASED GLUCOSE; Start 01/28/19 at 00:00 Dextrose (D50w Syringe) 50 ml Q15M PRN IV DECREASED GLUCOSE; Start 01/28/19 at 00:00 Glucagon (Glucagen) 1 mg Q15M PRN IM DECREASED GLUCOSE; Start 01/28/19 at 00:00 Glucose (Glutose) 15 gm Q15M PRN BUCCAL DECREASED GLUCOSE; Start 01/28/19 at 00:00 Famotidine (Pepcid) 20 mg BID PO Last administered on 02/06/19at 20:39; Admin Dose 20 MG; Start 01/31/19 at 21:00 Insulin Aspart (Novolog Insulin Pen) 8 unit WITH MEALS SC Last administered on 02/06/19at 17:58; Admin Dose 8 UNIT; Start 02/04/19 at 18:00 Insulin Glargine (Lantus) 25 units DAILY@0800 SC Last administered on 02/06/19at 08:22; Admin Dose 25 UNITS; Start 02/06/19 at 08:00 Hydromorphone HCl (Dilaudid) 1 mg Q4H PRN IV SEVERE PAIN LEVEL 7-10 Last administered on 02/07/19at 09:30; Admin Dose 1 MG; Start 02/06/19 at 17:00 Insulin Aspart (Novolog Insulin Pen) NOVOLOG *MODERATE* ALGORITHM Q4 SC ; Start 02/07/19 at 09:00 Imaging 1. Preoperative evaluation in a patient prior to colectomy that has multiple cardiac risk factors and possible prior stent apparently placed approximately 2 to 3 years prior.-neg trop x 2 - NEGATIVE STRESS TEST now 2. Hypotension, borderline.-ongoing today - better 3. History of possible prior stent placements 2 to 3 years prior per chart biopsy. On meds. 4. Dyslipidemia. 5. Adenocarcinoma of the colon, newly diagnosed. 6. Abdominal pain secondary to adenocarcinoma of the colon. SURGERY today. 7. Diabetes mellitus. 8. Anemia. 9. Renal failure insufficiency - cr better at 1.14. KESHIA LUCAS MD Feb 07, 2019 09:39
[2019-02-07] MEDS: SOD CHLORIDE 0.9% 1,000 ML IV SCH ×2 (10:13→20:00)
--- NOTE | 2019-02-07 12:09 | PN ---
Date/Time of Note Date/Time of Note DATE: 02/07/19 TIME: 12:03 Assessment/Plan Lines/Catheters IV Catheter Type (from [facility]): Peripheral IV Hyman in Place (from [facility]): No Assessment/Plan Chief Complaint/Hosp Course 1. Transverse colon adenocarcinoma on CT distal however on colonoscopy and CT from [place] proximal. The mass was tattooed. Shotty lymph nodes. Previous surgeon unable to coordinate surgery therefore a secondary consult was obtained. Patient with history of ex lap due to bowel obstruction will make this more difficult operation. -Medical/cardiac optimization in process -Surgical resection today 2. 40 pound weight loss secondary to above 3. Diabetes mellitus type 2 -Nutrition medication optimization 4. Hypertension -Nutrition medication optimization 5. Coronary artery disease with history of Plavix and aspirin -Cardiac evaluation and optimization 6. Iron deficiency anemia secondary to above -Iron transfusion per hematology -As above Thank you. Patient seen and examined in collaboration with Dr. Homar Taveras. Subjective 24 Hr Interval Summary No fevers, chills, sob, congested cough, cp, palpitations, velasquez, dizziness, n/v/d/dysuria. Exam/Review of Systems Vital Signs Vitals Vital Signs Date Temp Pulse Resp B/P (MAP) Pulse Ox O2 O2 Flow FiO2 Time Delivery Rate 02/07/19 99.2 71 18 100/55 98 07:30 (70) 02/05/19 Room Air 02:00 Intake and Output 02/06/19 02/06/19 02/07/19 1515:00 23:00 07:00 IntakeIntake Total 440 ml 360 ml BalanceBalance 440 ml 360 ml Exam Free Text/Dictation Constitutional: alert, oriented; No distress Psych: nl mood/affect; No anxiety Head: normocephalic, atraumatic Eyes: nl conjunctiva, EOMI, PERRL; No icteric ENMT: nl external ears & nose, mucosa pink and moist Neck: non-tender; No jvd Respiratory: normal air movement; No congested cough, No labored breathing Cardiovascular: regular rate and rhythm; No edema Gastrointestinal: soft, non-tender; No distended, No rebound or guarding Genitourinary - Male: nl scrotum Musculoskeletal: nl extremities to inspection, nl gait and stance; No joint tenderness Extremities: normal pulses; No calf tenderness, No edema Neurological: nl mental status, nl speech, nl strength Skin: nl turgor; No rash or lesions Lymph: nl lymph nodes Results Result Diagram: 02/07/19 1540 02/06/19 0509 GIBRAN GUO NP Feb 07, 2019 12:09
--- NOTE | 2019-02-07 13:34 | PN ---
Date/Time of Note Date/Time of Note DATE: 02/07/19 TIME: 13:32 Assessment/Plan VTE Prophylaxis Risk score (from Nsg)>0 risk: 1 SCD applied (from Nsg): Yes Pharmacological prophylaxis: NA/contraindicated Pharm contraindication: surgical contra Lines/Catheters IV Catheter Type (from Nrsg): Peripheral IV Urinary Cath still in place: No Assessment/Plan Hospital Course 58 yo male with DM who presented with hematochezia. Workup has revealed colon adenocarcinoma Colon adenocarcinoma: - Bone scan negative for mets - s/p colonoscopy with path showing adenocarcinoma - Dr Mark following - General surgery Dr Taveras has agreed to take the case (Dr Allen out of town), surgery planned for today Iron deficiency anemia: - IV iron Diabetes - Basal/bolus insulin CKD II: - stable Prophylaxis: SCDs DC planning: Surgery today Result Diagram: 02/06/19 0509 02/06/19 0509 Results 24hrs Laboratory Tests Test 02/06/19 17:50 02/06/19 20:40 02/07/19 07:57 02/07/19 11:53 Bedside Glucose 199 145 122 156 Subjective 24 Hr Interval Summary Constitutional: no complaints Exam/Review of Systems Exam Vitals Vital Signs Date Temp Pulse Resp B/P (MAP) Pulse Ox O2 O2 Flow FiO2 Time Delivery Rate 02/07/19 99.2 71 18 100/55 98 07:30 (70) 02/05/19 Room Air 02:00 Intake and Output 02/06/19 02/06/19 02/07/19 1515:00 23:00 07:00 IntakeIntake Total 440 ml 360 ml BalanceBalance 440 ml 360 ml Constitutional: alert, oriented Respiratory: clear to auscultation Cardiovascular: regular rate and rhythm Gastrointestinal: soft; No distended Musculoskeletal: nl extremities to inspection Results Results 24hrs Laboratory Tests Test 02/06/19 17:50 02/06/19 20:40 02/07/19 07:57 02/07/19 11:53 Bedside Glucose 199 145 122 156 Medications Medication Current Medications IV Flush (NS 3 ml) 3 ml PER PROTOCOL IV ; Start 01/28/19 at 00:00 Ondansetron HCl (Zofran Inj) 4 mg Q6H PRN IV NAUSEA/VOMITING; Start 01/28/19 at 00:00 Acetaminophen (Tylenol Tab) 650 mg Q6H PRN PO .PAIN 1-3 OR TEMP Last administered on 01/28/19 01:03; Admin Dose 650 MG; Start 01/28/19 at 00:00 Acetaminophen/ Hydrocodone Bitart ([place] (5/325)) 1 tab Q6H PRN PO .PAIN 4-6; Start 01/28/19 at 00:00 Zolpidem Tartrate (Ambien) 10 mg QHS PRN PO .INSOMNIA Last administered on 02/07/19at 01:14; Admin Dose 10 MG; Start 01/28/19 at 00:00 Albuterol/ Ipratropium (Duoneb) 3 ml Q2H RESP THERAPY PRN HHN SHORTNESS OF BREATH; Start 01/28/19 at 00:00 Miscellaneous Information 1 ea NOTE XX ; Start 01/28/19 at 00:00 Glucose (Glutose) 15 gm Q15M PRN PO DECREASED GLUCOSE; Start 01/28/19 at 00:00 Glucose (Glutose) 22.5 gm Q15M PRN PO DECREASED GLUCOSE; Start 01/28/19 at 00:00 Dextrose (D50w Syringe) 25 ml Q15M PRN IV DECREASED GLUCOSE; Start 01/28/19 at 00:00 Dextrose (D50w Syringe) 50 ml Q15M PRN IV DECREASED GLUCOSE; Start 01/28/19 at 00:00 Glucagon (Glucagen) 1 mg Q15M PRN IM DECREASED GLUCOSE; Start 01/28/19 at 00:00 Glucose (Glutose) 15 gm Q15M PRN BUCCAL DECREASED GLUCOSE; Start 01/28/19 at 00:00 Famotidine (Pepcid) 20 mg BID PO Last administered on 02/06/19at 20:39; Admin Dose 20 MG; Start 01/31/19 at 21:00 Insulin Aspart (Novolog Insulin Pen) 8 unit WITH MEALS SC Last administered on 02/06/19 17:58; Admin Dose 8 UNIT; Start 02/04/19 at 18:00 Insulin Glargine (Lantus) 25 units DAILY@0800 SC Last administered on 02/06/19 08:22; Admin Dose 25 UNITS; Start 02/06/19 at 08:00 Hydromorphone HCl (Dilaudid) 1 mg Q4H PRN IV SEVERE PAIN LEVEL 7-10 Last administered on 3/12/19at 09:30; Admin Dose 1 MG; Start 02/06/19 at 17:00 Insulin Aspart (Novolog Insulin Pen) NOVOLOG *MODERATE* ALGORITHM Q4 SC ; Start 02/07/19 at 09:00 Sodium Chloride 1,000 ml @ 100 mls/hr Q10H IV Last administered on 02/07/19at 10:13; Admin Dose 100 MLS/HR; Start 02/07/19 at 10:00 TIKI JIM Feb 07, 2019 13:34
--- NOTE | 2019-02-07 14:36 | CONS ---
Assessment/Plan Assessment/Plan Hospital Course (Demo Recall) 58 yo with newly diagnosed colon adenoca -CT chest shows 4 mm noncalcified nodule in the right apex, which is nonspecific. -CT AP: Irregular bowel wall thickening / mass with adjacent stranding of the distal transverse colon, compatible with given history of colon cancer. Shotty periaortic lymph nodes. The largest is an 11 mm node with normal fatty hilum, suggestive of reactive etiology. Small nonspecific peripherally sclerotic lesion in the left iliac bone measuring 6 mm. -bone scan negative for mets -cont IV iron for iron deficiency anemia -pt undergoing cardiac clearance w/u prior to surgery -further oncologic recommendations will be based on surgical path results Consultation Date/Type/Reason Admit Date/Time Jan 27, 2019 at 20:38 Initial Consult Date 02/05/19 Type of Consult oncology Reason for Consultation colon cancer Requesting Provider: YOSELYN GILL MD Date/Time of Note DATE: 02/07/19 TIME: 14:33 24 HR Interval Summary Free Text/Dictation surgery scheduled for today Exam/Review of Systems Exam Vitals Vital Signs Date Temp Pulse Resp B/P (MAP) Pulse Ox O2 O2 Flow FiO2 Time Delivery Rate 02/07/19 99.2 71 18 100/55 98 07:30 (70) 02/05/19 Room Air 02:00 Intake and Output 02/06/19 02/06/19 02/07/19 1515:00 23:00 07:00 IntakeIntake Total 440 ml 360 ml BalanceBalance 440 ml 360 ml Constitutional: alert, oriented Psych: no complaints Head: normocephalic Eyes: nl conjunctiva ENMT: nl external ears & nose Neck: supple Respiratory: clear to auscultation Cardiovascular: regular rate and rhythm Gastrointestinal: soft Musculoskeletal: nl extremities to inspection Extremities: normal pulses Results Result Diagram: 02/06/19 0509 02/06/19 0509 Results 24hrs Laboratory Tests Test 02/06/19 17:50 02/06/19 20:40 02/07/19 07:57 02/07/19 11:53 Bedside Glucose 199 145 122 156 Medications Medication Current Medications IV Flush (NS 3 ml) 3 ml PER PROTOCOL IV ; Start 01/28/19 at 00:00 Ondansetron HCl (Zofran Inj) 4 mg Q6H PRN IV NAUSEA/VOMITING; Start 01/28/19 at 00:00 Acetaminophen (Tylenol Tab) 650 mg Q6H PRN PO .PAIN 1-3 OR TEMP Last administered on 01/28/19at 01:03; Admin Dose 650 MG; Start 01/28/19 at 00:00 Acetaminophen/ Hydrocodone Bitart ([place] (5/325)) 1 tab Q6H PRN PO .PAIN 4-6; Start 01/28/19 at 00:00 Zolpidem Tartrate (Ambien) 10 mg QHS PRN PO .INSOMNIA Last administered on 02/07/19at 01:14; Admin Dose 10 MG; Start 01/28/19 at 00:00 Albuterol/ Ipratropium (Duoneb) 3 ml Q2H RESP THERAPY PRN HHN SHORTNESS OF BREATH; Start 01/28/19 at 00:00 Miscellaneous Information 1 ea NOTE XX ; Start 01/28/19 at 00:00 Glucose (Glutose) 15 gm Q15M PRN PO DECREASED GLUCOSE; Start 01/28/19 at 00:00 Glucose (Glutose) 22.5 gm Q15M PRN PO DECREASED GLUCOSE; Start 01/28/19 at 00:00 Dextrose (D50w Syringe) 25 ml Q15M PRN IV DECREASED GLUCOSE; Start 01/28/19 at 00:00 Dextrose (D50w Syringe) 50 ml Q15M PRN IV DECREASED GLUCOSE; Start 01/28/19 at 00:00 Glucagon (Glucagen) 1 mg Q15M PRN IM DECREASED GLUCOSE; Start 01/28/19 at 00:00 Glucose (Glutose) 15 gm Q15M PRN BUCCAL DECREASED GLUCOSE; Start 01/28/19 at 00:00 Famotidine (Pepcid) 20 mg BID PO Last administered on 02/06/19at 20:39; Admin Dose 20 MG; Start 01/31/19 at 21:00 Insulin Aspart (Novolog Insulin Pen) 8 unit WITH MEALS SC Last administered on 02/06/19at 17:58; Admin Dose 8 UNIT; Start 02/04/19 at 18:00 Insulin Glargine (Lantus) 25 units DAILY@0800 SC Last administered on 02/06/19at 08:22; Admin Dose 25 UNITS; Start 02/06/19 at 08:00 Hydromorphone HCl (Dilaudid) 1 mg Q4H PRN IV SEVERE PAIN LEVEL 7-10 Last administered on 02/07/19at 14:16; Admin Dose 1 MG; Start 02/06/19 at 17:00 Insulin Aspart (Novolog Insulin Pen) NOVOLOG *MODERATE* ALGORITHM Q4 SC ; Start 02/07/19 at 09:00 Sodium Chloride 1,000 ml @ 100 mls/hr Q10H IV Last administered on 02/07/19at 10:13; Admin Dose 100 MLS/HR; Start 02/07/19 at 10:00 GUIDO DAS M.D. Feb 07, 2019 14:36
[2019-02-07] MEDS ORDERED: LIDOCAINE 1% (MPF) 30 ML INJ ONE (15:12)
[2019-02-07] MEDS ORDERED: BUPIVACAINE 0.5%/EPI (SDV) 30 ML INJ ONE (15:12)
--- NOTE | 2019-02-07 15:25 | PREAC ---
Date/Time of Note Date/Time of Note DATE: 02/07/19 TIME: 15:22 Anesthesia Eval and Record Evaluation Time Pre-Procedure Interview DATE: 02/07/19 TIME: 15:22 Age 58 Sex male NPO: 8 hrs Preoperative diagnosis Colon Cancer Planned procedure Laparoscopic vs Open partial Colectomy Past Medical History Past Medical History: Includes Cardio: Dyslipidemia Endo: Diabetes Surgery & Anesthesia Issues No known issue Meds Anticoagulation: No Beta Hansel within 24 hr: No Reason Beta Hansel not given: Pt. not on B-Hansel Current Medications IV Flush (NS 3 ml) 3 ml PER PROTOCOL IV ; Start 01/28/19 at 00:00 Ondansetron HCl (Zofran Inj) 4 mg Q6H PRN IV NAUSEA/VOMITING; Start 01/28/19 at 00:00 Acetaminophen (Tylenol Tab) 650 mg Q6H PRN PO .PAIN 1-3 OR TEMP Last administered on 01/28/19at 01:03; Admin Dose 650 MG; Start 01/28/19 at 00:00 Acetaminophen/ Hydrocodone Bitart ([place] (5/325)) 1 tab Q6H PRN PO .PAIN 4-6; Start 01/28/19 at 00:00 Zolpidem Tartrate (Ambien) 10 mg QHS PRN PO .INSOMNIA Last administered on 02/07/19at 01:14; Admin Dose 10 MG; Start 01/28/19 at 00:00 Albuterol/ Ipratropium (Duoneb) 3 ml Q2H RESP THERAPY PRN HHN SHORTNESS OF BREATH; Start 01/28/19 at 00:00 Miscellaneous Information 1 ea NOTE XX ; Start 01/28/19 at 00:00 Glucose (Glutose) 15 gm Q15M PRN PO DECREASED GLUCOSE; Start 01/28/19 at 00:00 Glucose (Glutose) 22.5 gm Q15M PRN PO DECREASED GLUCOSE; Start 01/28/19 at 00:00 Dextrose (D50w Syringe) 25 ml Q15M PRN IV DECREASED GLUCOSE; Start 01/28/19 at 00:00 Dextrose (D50w Syringe) 50 ml Q15M PRN IV DECREASED GLUCOSE; Start 01/28/19 at 00:00 Glucagon (Glucagen) 1 mg Q15M PRN IM DECREASED GLUCOSE; Start 01/28/19 at 00:00 Glucose (Glutose) 15 gm Q15M PRN BUCCAL DECREASED GLUCOSE; Start 01/28/19 at 00:00 Famotidine (Pepcid) 20 mg BID PO Last administered on 02/06/19at 20:39; Admin Dose 20 MG; Start 01/31/19 at 21:00 Insulin Aspart (Novolog Insulin Pen) 8 unit WITH MEALS SC Last administered on 02/06/19at 17:58; Admin Dose 8 UNIT; Start 02/04/19 at 18:00 Insulin Glargine (Lantus) 25 units DAILY@0800 SC Last administered on 02/06/19at 08:22; Admin Dose 25 UNITS; Start 02/06/19 at 08:00 Hydromorphone HCl (Dilaudid) 1 mg Q4H PRN IV SEVERE PAIN LEVEL 7-10 Last administered on 02/07/19at 14:16; Admin Dose 1 MG; Start 02/06/19 at 17:00 Insulin Aspart (Novolog Insulin Pen) NOVOLOG *MODERATE* ALGORITHM Q4 SC ; Start 02/07/19 at 09:00 Sodium Chloride 1,000 ml @ 100 mls/hr Q10H IV Last administered on 02/07/19at 10:13; Admin Dose 100 MLS/HR; Start 02/07/19 at 10:00 Meds reviewed: Yes Allergies Coded Allergies: No Known Allergy (Unverified , 01/27/19) Allergies Reviewed: Yes Labs/Studies Labs Reviewed: Reviewed by anesthesiologist Result Diagram: 02/06/19 0509 02/06/19 0509 test: N/A Studies: ECG (n/a), CXR (n/a) Pre-procedure Exam Last vitals Vital Signs Date Temp Pulse Resp B/P (MAP) Pulse Ox O2 O2 Flow FiO2 Time Delivery Rate 02/07/19 99.2 71 18 100/55 98 07:30 (70) 02/05/19 Room Air 02:00 Airway: Adequate mouth opening, Adequate thyromental dist Mallampati: Mallampati II Teeth: Normal Lung: Normal Heart: Normal ASA Physical Status ASA physical status: 3 Emergency: None Planned Anesthetic General/MAC: ETT Neuraxial: Spinal, Epidural Nerve block: TAP (bilateral) Planned Pain Management Sub-arachniod narcotics, Single shot nerve block, Parenteral pain med Pre-operative Attestations Prior to commencing anesthesia and surgery, the patient was re-evaluated, there was verification of: *The patient's identity *The results of appropriate recent lab work and preoperative vital signs *The above evaluation not changing prior to induction *Anesthetic plan, risk benefits, alternative and complications discussed with patient/family; questions answered; patient/family understands, accepts and wishes to proceed. SARA AVILES MD Feb 07, 2019 15:25
[2019-02-07] MEDS ORDERED: MIDAZOLAM 1 MG/ML 2 ML INJ ONE (15:32)
[2019-02-07] MEDS ORDERED: PROPOFOL 20 ML ONE (15:32)
[2019-02-07] MEDS ORDERED: CEFAZOLIN 1 GM INJ ONE (15:32)
[2019-02-07] MEDS ORDERED: FENTAnyl 50 MCG/ML VIAL ONE (15:32)
[2019-02-07] MEDS ORDERED: PHENYLephrine (100 MCG/ML) 5ML SYG ONE (16:25)
[2019-02-07] MEDS ORDERED: ROPIVACAINE 0.2% 20 ML VIAL ONE (17:09)
[2019-02-07] MEDS ORDERED: metroNIDAZOLE 500 MG/NS (PMX) 100 ML IVPB ONE (17:26)
[2019-02-07] MEDS ORDERED: ACETAMINOPHEN 325 MG TAB PO PRN (18:30)
[2019-02-07] MEDS: metroNIDAZOLE 500 MG/NS (PMX) 100 ML IVPB SCH (18:30)
[2019-02-07] MEDS: CEFAZOLIN 2 GM/50 ML (PMX) 50 ML IVPB SCH (18:30)
[2019-02-07] MEDS ORDERED: morphine 2 MG INJ IV PRN ×5 (18:30→21:00)
[2019-02-07] MEDS ORDERED: morphine SULFATE/PF (10 MG/10 ML) INJ ONE (18:46)
[2019-02-07] MEDS ORDERED: HYDROmorphONE 0.5 MG/0.5 ML SYG IV PRN ×4 (19:00→21:00)
[2019-02-07] MEDS ORDERED: NALBUPHINE HCL (10 MG/1 ML) INJ IV PRN ×2 (19:00→21:00)
[2019-02-07] MEDS ORDERED: ONDANSETRON 4 MG INJ IV PRN ×3 (19:00→21:00)
[2019-02-07] MEDS ORDERED: DIPHENHYDRAMINE 50 MG INJ IV PRN ×3 (19:00→21:00)
[2019-02-07] MEDS ORDERED: NALOXONE (0.4 MG/ML) INJ IV PRN ×2 (19:00→21:00)
[2019-02-07] MEDS ORDERED: ALBUMIN HUMAN 5% 250 ML ONE ×2 (19:52→20:23)
[2019-02-07] MEDS ORDERED: ALBUMIN HUMAN 5% 250 ML IV PRN (21:00)
[2019-02-07] MEDS ORDERED: KETOROLAC 15 MG INJ IV PRN (21:00)
[2019-02-07] MEDS ORDERED: HYDROmorphONE 1 MG/5 ML IV SYRINGE IV PRN ×3 (21:00)
[2019-02-07] MEDS ORDERED: EPHEDrine SULFATE 50 MG/5 ML SYG IV PRN (21:00)
[2019-02-07] MEDS ORDERED: LABETALOL HCL 20MG INJ IV PRN (21:00)
[2019-02-07] MEDS ORDERED: HYDROCODONE/APAP (5/325) TAB PO PRN (21:00)
[2019-02-07] MEDS ORDERED: ZOLPIDEM 5 MG TAB PO PRN (21:00)
[2019-02-07] MEDS ORDERED: MEPERIDINE 25 MG INJ IV PRN (21:00)
[2019-02-07] MEDS ORDERED: FENTAnyl 50 MCG/ML VIAL IV PRN ×3 (21:00)
[2019-02-07] MEDS ORDERED: ACETAMINOPHEN 500 MG TAB PO PRN (21:00)
[2019-02-07] MEDS ORDERED: METOCLOPRAMIDE 10 MG INJ IV PRN (21:00)
[2019-02-07] MEDS ORDERED: TRIMETHOBENZAMIDE 100 MG/ML VIAL IM PRN (21:00)
[2019-02-07] MEDS ORDERED: KETOROLAC 30 MG INJ IV PRN (21:00)
[2019-02-07] MEDS ORDERED: METOCLOPRAMIDE 10 MG INJ ONE (21:11)
[2019-02-07] MEDS ORDERED: SUGAMMADEX SODIUM 200 MG/2 ML VIAL IV ONE (21:11)
[2019-02-07] MEDS ORDERED: ONDANSETRON 4 MG INJ ONE (21:11)
[2019-02-07] MEDS ORDERED: DEXAMETHASONE 4 MG/ML 5 ML INJ ONE (21:11)
[2019-02-07] MEDS ORDERED: ROPIVACAINE 0.5 % 30 ML VIAL ONE (21:20)
--- NOTE | 2019-02-07 22:05 | PAC ---
Date/Time of Note Date/Time of Note DATE: 02/07/19 TIME: 22:04 Post-Anesthesia Notes Post-Anesthesia Note Last documented vital signs Vital Signs Date Temp Pulse Resp B/P (MAP) Pulse Ox O2 O2 Flow FiO2 Time Delivery Rate 02/07/19 97.8 91 18 107/60 100 Face Mask 8 L 21:57 (79) 02/07/19 71 18 100/55 98 07:30 (70) 02/05/19 Room Air 02:00 Activity: WNL Respiratory function: WNL Cardiovascular function: WNL Mental status: Baseline Pain reasonably controlled: Yes Hydration appropriate: Yes Nausea/Vomiting absent: Yes SARA AVILES MD Feb 07, 2019 22:05
--- NOTE | 2019-02-07 22:10 | OPR ---
Date/Time of Note Date/Time of Note DATE: 02/07/19 TIME: 21:48 Operative Report Procedure Date: Feb 07, 2019 Preoperative Diagnosis 1. Transverse colon adenocarcinoma 2. Previous history of bowel resection of unknown etiology Postoperative Diagnosis 1. Transverse colon adenocarcinoma 2. Significant upper abdominal adhesions 3. Previous small bowel resection with primary anastomosis (antecolic over the cancer) and gastrojejunostomy 4. Ventral incisional French cheese type hernia Operation/Procedure Performed 1. Laparoscopic converted to open transverse colectomy 2. Splenic mobilization 3. Extensive lysis of adhesions 4. Very difficult operation, modifier 22 5. Implantation of biologic over the anastomosis below the gastrojejunostomy 6. Revision of previous scar 7. Primary repair of ventral incisional French cheese type hernia 8. Local anesthetic injection, [id number] Surgeon Carlyn Taveras MD Online Marketer Carla Agee NP Anesthesia Type: general (And local) Anesthesiologist: SARA AVILES MD Estimated Blood Loss: 150 - 200 ml's Transfusion 2 units packed red blood cells +500 mL's of 5% albumin +5 L of crystalloid Specimen Transverse colon with suture proximal Ventral scar Grafts/Implants Burn matrix 10 x 15 cm xenograft biologic, ACell Tubes/Drains 19 Cypriot Freddy Complications none Pt Condition Post Procedure: stable Disposition: PACU Indications Per notes. Patient with new diagnosis of colon cancer found after anemia and colonoscopy and CT scan. On-call surgeon unable to attend to patient and therefore I was asked to take care of the patient. Different CTs and the colonoscopy had mentioned the lesion to be on different sides of the transverse colon. Risks include but are not limited to bleeding, infection, abscess, seroma, leak, damage to intestines or any intra-abdominal/intrapelvic structures, hernia formation, chronic pain, need for re-operations or further surgeries, RI, stroke, PE, DVT, pneumonia, organ failures, or even . Procedure Description Patient was brought into the operating room, placed supine on the operating table, SCDs were placed, both arms were tucked, all pressure points were well- padded, preoperative antibiotics administered, and after induction of anesthesia, patient was placed in the lithotomy. Hyman was inserted. Patient was then prepped and draped in usual sterile fashion, and timeout was performed. Incision was made in the right upper quadrant, and using an Optiview port and 5 mm 0 scope abdomen was safely entered and insufflated to 15 mmHg with CO2. Laparoscopy was performed and no injuries were identified. There were significant adhesions in the upper abdomen. Under direct visualization 2 more fives were placed in the right lower and left lower quadrants. No tattoo ink was identified. No mass was identified. However there was fullness in left upper quadrant. Investigation identified small bowel resection in mid abdomen with primary anastomosis. There was also significant adhesions of small bowel to the left upper quadrant to the liver and possible stomach. The liver was plastered to the abdominal wall. Local anesthetic injection was performed at all surgical sites initially. Extensive lysis of adhesions was undertaken laparoscopically however I was not being very successful to identify the structures easily and decision was made to convert to open. Midline incision was made and the previous scar was fully excised since it was large thickened and abnormal. Abdomen was entered. Further extensive lysis of adhesions were performed and I was able to identify that patient also had a gastrojejunostomy with a loop of bowel brought antecolic and anastomosis to the stomach. I was able to separate the omentum and small bowel from each other from the colon. I made sure to preserve the gastrojejunostomy throughout the surgery. I was able to separate the colon that was underneath the gastrojejunostomy from the loop of jejunum on both sides. The colon was mobilized on both sides off of the wall along the left descending and right ascending colon. Hepatic flexure was gently and meticulously mobilized with care taken not to injure the duodenum or any vasculature. Splenic mobilization was much more difficult due to the significant adhesions. This was the area where the mass was also identified within the colon. Very meticulous tedious and gentle dissection was taken to separate the colon from the small bowel and from the spleen preserving all structures. Posterior stomach was also plastered on the colon and the area of the mass and this was very gently shaved off using blunt dissection. Several of the short gastrics had to be taken using LigaSure to be able to free up enough space and identified the structures. Once again this dissection was very tedious difficult and not long. After fully identifying all structures and fully mobilizing the transverse colon left and right colon with the flexures. Mass was identified to be large about half to two th[address] of the transverse colon. Decision was made to proceed with transverse colectomy. The mesentery was divided using LigaSure middle colic was taken using LigaSure as well. Colon was transected and distal ascending and mid descending and the specimen was fully mobilized and exteriorized. Suture was placed proximally. There was redundant sigmoid colon which was mobilized to be able to bring the left colon retrocrural gastr ojejunostomy and to do a staple [id number] colonic anastomosis. Stay sutures were placed posteriorly. Crotch suture was placed. Anastomosis was made with a 75 blue load stapler. Open end was closed with a TA blue 60 followed by a 3-year-old Lembert silk sutures. Possible internal hernia defect at this site were closed with silk sutures however to further secure the area and help with healing 10 x 15 cm xenograft biologic was placed over the anastomosis and posterior to the gastrojejunostomy. FloSeal was placed in left upper and right upper quadrants and there was complete hemostasis. Abdomen was irrigated with 5 L of warm water to clear suctioning fluid. There was no omentum left. Part of omentum was also excised using LigaSure and sent to pathology. Abdominal wall fascia was closed with #1 looped PDS sutures and also the hernia was were repaired primarily. Wound was thoroughly irrigated and interrupted 2-0 Vicryl subcutaneous sutures were placed to close off space. Skin francie were applied. Betadine was applied. Dressing was placed. All counts were correct and the end of the operation 2. Patient was extubated and transferred to recovery room in stable condition. Copies To: CC: KAYLEIGH MARTINEZ; KESHIA LUCAS MD; WALDO BEACH MD; YOSELYN GILL MD; TIKI JIM; DOMENICO ABBASI; GUIDO DAS M.D. ; CARLYN TAVERAS MD Feb 07, 2019 22:09
[2019-02-07] MEDS: FENTAnyl 2MCG/ML-ROPIV 0.2% 100 ML BAG EPI SCH (23:07)
[2019-02-08] VITALS (8 sets, daily range): BP systolic 90–108; BP diastolic 56–65; PULSE 78–97; RESP 16–19
[2019-02-08] MEDS: SOD CHLORIDE 0.9% 1,000 ML IV SCH ×2 (00:38→12:28)
[2019-02-08] MEDS: INSULIN ASPART [NOVOLOG] 3 ML PEN SC SCH ×9 (01:08→21:00)
[2019-02-08] MEDS: CEFAZOLIN 2 GM/50 ML (PMX) 50 ML IVPB SCH ×2 (01:09→10:03)
[2019-02-08] MEDS: ONDANSETRON 4 MG INJ IV PRN ×2 (01:31→18:58)
[2019-02-08] MEDS: metroNIDAZOLE 500 MG/NS (PMX) 100 ML IVPB SCH ×2 (01:42→12:25)
--- NOTE | 2019-02-08 08:16 | PN ---
"Date/Time of Note Date/Time of Note DATE: 02/08/19 TIME: 08:10 Assessment/Plan Lines/Catheters IV Catheter Type (from Nrs): Saline Lock Pérez in Place (from Nrs): Yes Assessment/Plan Chief Complaint/Hosp Course 1. Transverse colon adenocarcinoma, Previous small bowel resection with primary anastomosis (antecolic over the cancer) and gastrojejunostomy; Ventral incisional Panamanian cheese type hernia: s/p Laparoscopic converted to open transverse colectomy, Revision of previous scar, Primary repair of ventral incisional Panamanian cheese type hernia 02/07/19 -IS -ambulate once off epidural -ice pack to abdominal wall -npo and ngt to liws until bowel function -incision site local care -follow path -kamala drain 2. 40 pound weight loss secondary to above 3. Diabetes mellitus type 2 -Nutrition medication optimization 4. Hypertension -Nutrition medication optimization 5. Coronary artery disease with history of Plavix and aspirin -Cardiac evaluation and optimization 6. Iron deficiency anemia secondary to above -Iron transfusion per hematology -As above Thank you. Patient seen and examined in collaboration with Dr. Homar Taveras. Subjective 24 Hr Interval Summary S/p transverse colectomy yesterday. Feels ok. Pain/discomfort tolerable. Currently on epidural. No fevers, chills, sob, congested cough, cp, palpitations, velasquez, dizziness, n/v/d/dysuria. Exam/Review of Systems Vital Signs Vitals Vital Signs Date Temp Pulse Resp B/P (MAP) Pulse Ox O2 O2 Flow FiO2 Time Delivery Rate 02/08/19 97.8 83 18 90/58 (69) 97 Room Air 07:43 02/07/19 2.0 22:45 Intake and Output 02/07/19 02/07/19 02/08/19 1515:00 23:00 07:00 IntakeIntake Total 6900 ml 1450 ml OutputOutput Total 950 ml 25 ml BalanceBalance 5950 ml 1425 ml Exam Free Text/Dictation Constitutional: alert, oriented; No distress Psych: nl mood/affect; No anxiety Head: normocephalic, atraumatic Eyes: nl conjunctiva, EOMI, PERRL; No icteric ENMT: nl external ears & nose, mucosa pink and moist, ngt Neck: non-tender; No jvd Respiratory: normal air movement; No congested cough, No labored breathing Cardiovascular: regular rate and rhythm; No edema Gastrointestinal: soft, tender (jayden-incisional: midline staple line: dry, no erythema, scant drainage | KAMALA: serosang) No distended, No rebound or guarding Genitourinary - Male: nl scrotum, pérez Musculoskeletal: nl extremities to inspection, nl gait and stance; No joint tenderness Extremities: normal pulses; No calf tenderness, No edema Neurological: nl mental status, nl speech, nl strength Skin: nl turgor; No rash or lesions Lymph: nl lymph nodes Results Result Diagram: 02/08/19 0427 02/08/19 0427 GIBRAN GUO NP Feb 08, 2019 08:15"
[2019-02-08] MEDS: CELECOXIB 200 MG CAP PO SCH (09:00)
[2019-02-08] MEDS: FAMOTIDINE 20 MG INJ IV SCH (09:43)
[2019-02-08] MEDS: INSULIN GLARGINE [LANTus] (100 UNITS/ML) SYG SC SCH (09:47)
[2019-02-08] MEDS: FENTAnyl 2MCG/ML-ROPIV 0.2% 100 ML BAG EPI SCH ×2 (10:03→21:36)
--- NOTE | 2019-02-08 10:50 | OPPN ---
Date/Time of Note Date/Time of Note DATE: 02/08/19 TIME: 10:44 Anesthesia Follow up Anesthesia Follow up Last documented vital signs Vital Signs Date Temp Pulse Resp B/P (MAP) Pulse Ox O2 O2 Flow FiO2 Time Delivery Rate 02/08/19 97.8 83 18 90/58 (69) 97 Room Air 07:43 02/07/19 2.0 22:45 Respiratory function: WNL Cardiovascular function: WNL Comments POD#1 Patient is a 58 yr old with Hs of recently Dx AdenoCA of Transverse Colon, went under GETA yesterday for Laparoscopic to Open Transverse Colectomy and Lysis of Adhesion. Low Thoracic Epidural Catheter placed for post op pain management as well as Bilateral TAP block was done at the end of the surgery. Patient has a Hx of DM, HTN but otherwise stable. He moves all extremity and no weakness reported, His vital signs have been stable, he is afebrile and his pain is well controlled. Epidural infusion is running at 7cc/hr. Plan to continue the Epidural infusion at the same rate. Patient can be ambulated, pls hold the infusion an hour prior to ambulation and restart after patient is back to bed. SARA AVILES MD Feb 08, 2019 10:50
--- NOTE | 2019-02-08 14:48 | CONS ---
Assessment/Plan Assessment/Plan Hospital Course (Demo Recall) IMPRESSION: 1. Preoperative evaluation in a patient prior to colectomy that has multiple cardiac risk factors and possible prior stent apparently placed approximately 2 to 3 years prior.-neg trop x 2. Now POD#1 s/p surgery 2. Hypotension, borderline.-ongoing today 3. History of possible prior stent placements 2 to 3 years prior per chart biopsy. 4. Dyslipidemia. 5. Adenocarcinoma of the colon, newly diagnosed. 6. Abdominal pain secondary to adenocarcinoma of the colon. 7. Diabetes mellitus. 8. Anemia. 9. Renal failure insufficiency. Recc: -Follow BP/volume status clsoely -routine post-op care -pain control -Follow BS Consultation Date/Type/Reason Admit Date/Time Jan 27, 2019 at 20:38 Initial Consult Date 02/05/19 Type of Consult Cardiology Reason for Consultation HTN Requesting Provider: YOSELYN GILL MD Date/Time of Note DATE: 02/08/19 TIME: 14:45 Exam/Review of Systems Vital Signs Vitals Vital Signs Date Temp Pulse Resp B/P (MAP) Pulse Ox O2 O2 Flow FiO2 Time Delivery Rate 02/08/19 97.8 79 16 93/56 (68) 98 Room Air 13:19 02/07/19 2.0 22:45 Intake and Output 02/07/19 02/07/19 02/08/19 1515:00 23:00 07:00 IntakeIntake Total 6900 ml 1450 ml OutputOutput Total 950 ml 25 ml BalanceBalance 5950 ml 1425 ml Exam Exam Review of Systems: CONSTITUTIONAL: No fevers, chills. PULMONARY: No sob CARDIOVASCULAR: No chest pain/palpitations GASTROINTESTINAL: No nausea/vomiting. GENITOURINARY: No hematuria/dysuria. MUSCULOSKELETAL: No myagias/arthalgias. PSYCHIATRIC: The patient denies depression. NEUROLOGIC: No weakness Constitutional: alert Psych: no complaints ENMT: other (NGT in place) Neck: supple, jvd (9 cm water) Respiratory: diminished breath sounds (at bases/B) Cardiovascular: regular rate and rhythm Gastrointestinal: soft, surgical scars (midline incision well healing) Musculoskeletal: muscle tone (normal) Extremities: edema (none) Neurological: other (No focal deficits) Labs Result Diagram: 02/08/1942602/08/19426 Results 24hrs Laboratory Tests Test 02/07/19 15:40 02/07/19 18:51 02/07/19 22:27 02/07/19 22:30 Platelet Count 339 Prothrombin Time 13.7 Prothrombin Time 1.1 Ratio INR International 1.04 Normalized Ratio Activated 38.2 H Partial Thrombopl ast Time Thrombin Time 14.2 Blood Gas Blood arterial Specimen Source Arterial Blood 02/07/2019 7:02:5 Date Drawn 3 PM Arterial Blood pH 7.307 L (Temp corrected) Arterial Blood 42.5 pCO2 (Temp correct) Arterial Blood 195.6 H pO2 (Temp corrected) Arterial Blood 20.8 L HCO3 Arterial Blood -5.3 L Base Excess Arterial Blood 98.9 H Oxygen Saturation Priyank Test N/A Arterial Blood A-Line Gas Puncture Site Arterial 0.2 Blood Carboxyhemo globin Arterial Blood 0.2 Methemoglobin Blood Gas A-a O2 474.9 H Differential Oxyhemoglobin 98.5 Percent Blood Gas 37.0 Temperature Blood Gas VENT - AC Modality FiO2 100.0 Blood Gas R Renea Notified Whom Blood Gas 02/07/2019 7:18:0 Notified Time 4 PM Bedside Glucose 176 Urine Color STRAW Urine Clarity CLEAR Urine pH 6.0 Urine Specific 1.008 [place] Urine Ketones NEGATIVE Urine Nitrite NEGATIVE Urine Bilirubin NEGATIVE Urine NEGATIVE Urobilinogen Urine Leukocyte NEGATIVE Esterase Urine Hemoglobin NEGATIVE Urine Glucose 1+ H Urine Total NEGATIVE Protein Test 02/08/19 00:42 02/08/19 04:27 02/08/19 05:30 02/08/19 09:26 Bedside Glucose 241 H 271 H 270 H White Blood Count 10.7 # Red Blood Count 4.06 L Hemoglobin 10.1 L Hematocrit 32.9 L Mean Corpuscular 81.0 L Volume Mean Corpuscular 24.9 L Hemoglobin Mean Corpuscular 30.7 L Hemoglobin Concen t Red Cell 16.5 H Distribution Width Platelet Count 313 Mean Platelet 10.3 Volume Immature 0.500 H Granulocytes % Neutrophils % 91.0 H Lymphocytes % 6.1 L Monocytes % 2.3 Eosinophils % 0.0 Basophils % 0.1 Nucleated Red 0.0 Blood Cells % Immature 0.050 H Granulocytes # Neutrophils # 9.7 H Lymphocytes # 0.7 L Monocytes # 0.3 Eosinophils # 0.0 Basophils # 0.0 Nucleated Red 0.0 Blood Cells # Sodium Level 136 Potassium Level 4.8 Chloride Level 103 Carbon Dioxide 21 Level Anion Gap 12 Blood Urea 13 Nitrogen Creatinine 1.01 Est Glomerular > 60 Filtrat Rate mL/min Glucose Level 266 H Calcium Level 8.2 L Test 02/08/19 13:00 Bedside Glucose 228 H Medications Medications Current Medications IV Flush (NS 3 ml) 3 ml PER PROTOCOL IV ; Start 01/28/19 at 00:00 Zolpidem Tartrate (Ambien) 10 mg QHS PRN PO .INSOMNIA Last administered on 02/07/19at 01:14; Admin Dose 10 MG; Start 01/28/19 at 00:00 Albuterol/ Ipratropium (Duoneb) 3 ml Q2H RESP THERAPY PRN HHN SHORTNESS OF BREATH; Start 01/28/19 at 00:00 Miscellaneous Information 1 ea NOTE XX ; Start 01/28/19 at 00:00 Glucose (Glutose) 15 gm Q15M PRN PO DECREASED GLUCOSE; Start 01/28/19 at 00:00 Glucose (Glutose) 22.5 gm Q15M PRN PO DECREASED GLUCOSE; Start 01/28/19 at 00:00 Dextrose (D50w Syringe) 25 ml Q15M PRN IV DECREASED GLUCOSE; Start 01/28/19 at 00:00 Dextrose (D50w Syringe) 50 ml Q15M PRN IV DECREASED GLUCOSE; Start 01/28/19 at 00:00 Glucagon (Glucagen) 1 mg Q15M PRN IM DECREASED GLUCOSE; Start 01/28/19 at 00:00 Glucose (Glutose) 15 gm Q15M PRN BUCCAL DECREASED GLUCOSE; Start 01/28/19 at 00:00 Insulin Aspart (Novolog Insulin Pen) 8 unit WITH MEALS SC Last administered on 02/06/19at 17:58; Admin Dose 8 UNIT; Start 02/04/19 at 18:00 Insulin Glargine (Lantus) 25 units DAILY@0800 SC Last administered on 02/08/19at 09:47; Admin Dose 25 UNITS; Start 02/06/19 at 08:00 Hydromorphone HCl (Dilaudid) 1 mg Q4H PRN IV SEVERE PAIN LEVEL 7-10 Last administered on 02/07/19at 14:16; Admin Dose 1 MG; Start 02/06/19 at 17:00 Insulin Aspart (Novolog Insulin Pen) NOVOLOG *MODERATE* ALGORITHM Q4 SC Last administered on 02/08/19at 13:08; Admin Dose 6 UNIT; Start 02/07/19 at 09:00 Sodium Chloride 1,000 ml @ 100 mls/hr Q10H IV Last administered on 02/08/19at 12:28; Admin Dose 100 MLS/HR; Start 02/07/19 at 10:00 Cefazolin Sodium/ Dextrose 50 ml @ 100 mls/hr Q8H IVPB Last administered on at 10:03; Admin Dose 100 MLS/HR; Start 02/07/19 at 18:30; Stop 02/08/19 at 18:29 Metronidazole 100 ml @ 100 mls/hr Q8H IVPB Last administered on 02/08/19at 12:25; Admin Dose 100 MLS/HR; Start 02/07/19 at 18:30; Stop 02/08/19 at 18:29 Morphine Sulfate (morphine) 2 mg Q2H PRN IV breakthrough pain; Start 02/07/19 at 18:30 Acetaminophen/ Hydrocodone Bitart (Jennings (5/325)) 1 tab Q6H PRN PO PAIN LEVEL 6-10; Start 02/07/19 at 18:30 Acetaminophen (Tylenol Tab) 650 mg Q6H PRN PO MILD PAIN(1-3)OR ELEVATED TEMP; Start 02/07/19 at 18:30 Ibuprofen (Motrin) 600 mg Q6H PRN PO PAIN LEVEL 1-5; Start 02/07/19 at 18:30 Ondansetron HCl (Zofran Inj) 4 mg Q6H PRN IV NAUSEA AND/OR VOMITING Last administered on 02/08/19at 01:31; Admin Dose 4 MG; Start 02/07/19 at 18:30 Hydromorphone HCl (Dilaudid) 0.2 mg Q2H PRN IV .PAIN 1-5; Start 02/07/19 at 19:00; Stop 02/08/19 at 19:37 Hydromorphone HCl (Dilaudid) 0.4 mg Q2H PRN IV .PAIN 6-10; Start 02/07/19 at 19:00; Stop 02/08/19 at 19:37 Morphine Sulfate (morphine) 2 mg Q2H PRN IV .PAIN 1-5; Start 02/07/19 at 19:00; Stop 02/08/19 at 19:37 Morphine Sulfate (morphine) 4 mg Q2H PRN IV .PAIN 6-10; Start 02/07/19 at 19:00; Stop 02/08/19 at 19:37 Diphenhydramine HCl (Benadryl) 25 mg Q4H PRN IV .PRURITUS; Start 02/07/19 at 19:00; Stop 02/08/19 at 19:37 Nalbuphine HCl (Nubain) 10 mg Q4H PRN IV .PRURITUS; Start 02/07/19 at 19:00; Stop 02/08/19 at 19:37 Ondansetron HCl (Zofran Inj) 4 mg Q6H PRN IV .NAUSEA/VOMITING; Start 02/07/19 at 19:00; Stop 02/08/19 at 19:37 Naloxone HCl (Narcan) 0.2 mg Q2M PRN IV .RESP RATE; Start 02/07/19 at 19:00; Stop 02/08/19 at 19:37 Fentanyl/ Ropivacaine 100 ml CONT EPIDURAL EPI Last administered on 02/08/19at 10:03; Admin Dose 100 ML; Start 02/07/19 at 19:00 Hydromorphone HCl (Dilaudid) 0.2 mg Q2H PRN IV .PAIN 1-5; Start 02/07/19 at 21:00; Stop 02/08/19 at 22:22 Hydromorphone HCl (Dilaudid) 0.4 mg Q2H PRN IV .PAIN 6-10; Start 02/07/19 at 21:00; Stop 02/08/19 at 22:22 Ketorolac Tromethamine (Toradol) 15 mg Q6H PRN IV .PAIN 6-10; Start 02/07/19 at 21:00; Stop 02/08/19 at 21:00 Celecoxib (Celebrex) 200 mg DAILY PO ; Start 02/08/19 at 09:00; Stop 02/10/19 at 09:01 Acetaminophen (Tylenol Tab) 500 mg Q4H PRN PO .PAIN 1-3; Start 02/07/19 at 21:00; Stop 02/08/19 at 22:22 Acetaminophen/ Hydrocodone Bitart (Jennings (5/325)) 1 tab Q4H PRN PO .PAIN 4-6; Start 02/07/19 at 21:00; Stop 02/08/19 at 22:22 Trimethobenzamide HCl (Tigan) 200 mg Q6H PRN IM .NAUSEA/VOMITING; Start 02/07/19 at 21:00; Stop 02/08/19 at 22:22 Zolpidem Tartrate (Ambien) 5 mg HS MAY REPEAT X 1 PRN PO .INSOMNIA; Start 02/07/19 at 21:00; Stop 02/08/19 at 22:22 Miscellaneous Information (* Miscellaneous Pharmacy Order) DURAMORPH: 5 MG EPIDU... GIVEN NEURAXIAL XX ; Start 02/07/19 at 21:00 Famotidine (Pepcid Iv) 20 mg DAILY IV Last administered on 02/08/19at 09:43; Admin Dose 20 MG; Start 02/08/19 at 09:00 KAYLEIGH MARTINEZ Feb 08, 2019 14:48
--- NOTE | 2019-02-08 16:45 | CONS ---
Assessment/Plan Assessment/Plan Hospital Course (Demo Recall) 58 yo with newly diagnosed colon adenoca -CT chest shows 4 mm noncalcified nodule in the right apex, which is nonspecific. -CT AP: Irregular bowel wall thickening / mass with adjacent stranding of the distal transverse colon, compatible with given history of colon cancer. Shotty periaortic lymph nodes. The largest is an 11 mm node with normal fatty hilum, suggestive of reactive etiology. Small nonspecific peripherally sclerotic lesion in the left iliac bone measuring 6 mm. -bone scan negative for mets -he is s/p surgery: per notes this revealed previous small bowel resection with primary anastomosis (antecolic over the cancer) and gastrojejunostomy; Ventral incisional [place] cheese type hernia: s/p Laparoscopic converted to open transverse colectomy, Revision of previous scar, Primary repair of ventral incisional [place] cheese type hernia 02/07/19 -once we have pathology and stage, can determine if pt will need adjuvant chemo Consultation Date/Type/Reason Admit Date/Time Jan 27, 2019 at 20:38 Initial Consult Date 02/01/19 Requesting Provider: YOSELYN GILL MD Date/Time of Note DATE: 02/08/19 TIME: 16:42 24 HR Interval Summary Free Text/Dictation pt s/p surgery no complaints at present Exam/Review of Systems Exam Vitals Vital Signs Date Temp Pulse Resp B/P (MAP) Pulse Ox O2 O2 Flow FiO2 Time Delivery Rate 02/08/19 97.8 79 16 93/56 (68) 98 Room Air 13:19 02/07/19 2.0 22:45 Intake and Output 02/07/19 02/07/19 02/08/19 1515:00 23:00 07:00 IntakeIntake Total 6900 ml 1450 ml OutputOutput Total 950 ml 25 ml BalanceBalance 5950 ml 1425 ml Constitutional: alert, oriented, well developed Psych: no complaints, nl mood/affect Head: normocephalic, atraumatic Eyes: nl conjunctiva, EOMI, nl lids, nl sclera, PERRL ENMT: other (NGT) Respiratory: normal air movement Gastrointestinal: surgical scars Extremities: normal pulses Neurological: PILE DRIVING SETTER II-XII intact, nl mental status, nl speech, nl strength Results Result Diagram: 02/08/1942602/08/19426 Results 24hrs Laboratory Tests Test 02/07/19 18:51 02/07/19 22:27 02/07/19 22:30 02/08/19 00:42 Blood Gas Blood arterial Specimen Source Arterial Blood 02/07/2019 7:02:5 Date Drawn 3 PM Arterial Blood pH 7.307 L (Temp corrected) Arterial Blood 42.5 pCO2 (Temp correct) Arterial Blood 195.6 H pO2 (Temp corrected) Arterial Blood 20.8 L HCO3 Arterial Blood -5.3 L Base Excess Arterial Blood 98.9 H Oxygen Saturation Priyank Test N/A Arterial Blood A-Line Gas Puncture Site Arterial 0.2 Blood Carboxyhemo globin Arterial Blood 0.2 Methemoglobin Blood Gas A-a O2 474.9 H Differential Oxyhemoglobin 98.5 Percent Blood Gas 37.0 Temperature Blood Gas VENT - AC Modality FiO2 100.0 [facility] Not[facility] Whom Blood Gas 02/07/2019 7:18:0 Notified Time 4 PM Bedside Glucose 176 241 H Urine Color STRAW Urine Clarity CLEAR Urine pH 6.0 Urine Specific 1.008 [place] Urine Ketones NEGATIVE Urine Nitrite NEGATIVE Urine Bilirubin NEGATIVE Urine NEGATIVE Urobilinogen Urine Leukocyte NEGATIVE Esterase Urine Hemoglobin NEGATIVE Urine Glucose 1+ H Urine Total NEGATIVE Protein Test 02/08/19 04:27 02/08/19 05:30 02/08/19 09:26 02/08/19 13:00 White Blood Count 10.7 # Red Blood Count 4.06 L Hemoglobin 10.1 L Hematocrit 32.9 L Mean Corpuscular 81.0 L Volume Mean Corpuscular 24.9 L Hemoglobin Mean Corpuscular 30.7 L Hemoglobin Concen t Red Cell 16.5 H Distribution Width Platelet Count 313 Mean Platelet 10.3 Volume Immature 0.500 H Granulocytes % Neutrophils % 91.0 H Lymphocytes % 6.1 L Monocytes % 2.3 Eosinophils % 0.0 Basophils % 0.1 Nucleated Red 0.0 Blood Cells % Immature 0.050 H Granulocytes # Neutrophils # 9.7 H Lymphocytes # 0.7 L Monocytes # 0.3 Eosinophils # 0.0 Basophils # 0.0 Nucleated Red 0.0 Blood Cells # Sodium Level 136 Potassium Level 4.8 Chloride Level 103 Carbon Dioxide 21 Level Anion Gap 12 Blood Urea 13 Nitrogen Creatinine 1.01 Est Glomerular > 60 Filtrat Rate mL/min Glucose Level 266 H Calcium Level 8.2 L Bedside Glucose 271 H 270 H 228 H Medications Medication Current Medications IV Flush (NS 3 ml) 3 ml PER PROTOCOL IV ; Start 01/28/19 at 00:00 Zolpidem Tartrate (Ambien) 10 mg QHS PRN PO .INSOMNIA Last administered on 02/07/19at 01:14; Admin Dose 10 MG; Start 01/28/19 at 00:00 Albuterol/ Ipratropium (Duoneb) 3 ml Q2H RESP THERAPY PRN HHN SHORTNESS OF BREATH; Start 01/28/19 at 00:00 Miscellaneous Information 1 ea NOTE XX ; Start 01/28/19 at 00:00 Glucose (Glutose) 15 gm Q15M PRN PO DECREASED GLUCOSE; Start 01/28/19 at 00:00 Glucose (Glutose) 22.5 gm Q15M PRN PO DECREASED GLUCOSE; Start 01/28/19 at 00:00 Dextrose (D50w Syringe) 25 ml Q15M PRN IV DECREASED GLUCOSE; Start 01/28/19 at 00:00 Dextrose (D50w Syringe) 50 ml Q15M PRN IV DECREASED GLUCOSE; Start 01/28/19 at 00:00 Glucagon (Glucagen) 1 mg Q15M PRN IM DECREASED GLUCOSE; Start 01/28/19 at 00:00 Glucose (Glutose) 15 gm Q15M PRN BUCCAL DECREASED GLUCOSE; Start 01/28/19 at 00:00 Insulin Aspart (Novolog Insulin Pen) 8 unit WITH MEALS SC Last administered on 02/06/19at 17:58; Admin Dose 8 UNIT; Start 02/04/19 at 18:00 Insulin Glargine (Lantus) 25 units DAILY@0800 SC Last administered on 02/08/19at 09:47; Admin Dose 25 UNITS; Start 02/06/19 at 08:00 Hydromorphone HCl (Dilaudid) 1 mg Q4H PRN IV SEVERE PAIN LEVEL 7-10 Last administered on 02/07/19at 14:16; Admin Dose 1 MG; Start 02/06/19 at 17:00 Insulin Aspart (Novolog Insulin Pen) NOVOLOG *MODERATE* ALGORITHM Q4 SC Last administered on 02/08/19at 13:08; Admin Dose 6 UNIT; Start 02/07/19 at 09:00 Sodium Chloride 1,000 ml @ 100 mls/hr Q10H IV Last administered on 02/08/19at 12:28; Admin Dose 100 MLS/HR; Start 02/07/19 at 10:00 Cefazolin Sodium/ Dextrose 50 ml @ 100 mls/hr Q8H IVPB Last administered on 02/08/19at 10:03; Admin Dose 100 MLS/HR; Start 02/07/19 at 18:30; Stop 02/08/19 at 18:29 Metronidazole 100 ml @ 100 mls/hr Q8H IVPB Last administered on 02/08/19at 12:25; Admin Dose 100 MLS/HR; Start 02/07/19 at 18:30; Stop 02/08/19 at 18:29 Morphine Sulfate (morphine) 2 mg Q2H PRN IV breakthrough pain; Start 02/07/19 at 18:30 Acetaminophen/ Hydrocodone Bitart ([place] (5/325)) 1 tab Q6H PRN PO PAIN LEVEL 6-10; Start 02/07/19 at 18:30 Acetaminophen (Tylenol Tab) 650 mg Q6H PRN PO MILD PAIN(1-3)OR ELEVATED TEMP; Start 02/07/19 at 18:30 Ibuprofen (Motrin) 600 mg Q6H PRN PO PAIN LEVEL 1-5; Start 02/07/19 at 18:30 Ondansetron HCl (Zofran Inj) 4 mg Q6H PRN IV NAUSEA AND/OR VOMITING Last administered on 02/08/19at 01:31; Admin Dose 4 MG; Start 02/07/19 at 18:30 Hydromorphone HCl (Dilaudid) 0.2 mg Q2H PRN IV .PAIN 1-5; Start 02/07/19 at 19:00; Stop 02/08/19 at 19:37 Hydromorphone HCl (Dilaudid) 0.4 mg Q2H PRN IV .PAIN 6-10; Start 02/07/19 at 19:00; Stop 02/08/19 at 19:37 Morphine Sulfate (morphine) 2 mg Q2H PRN IV .PAIN 1-5; Start 02/07/19 at 19:00; Stop 02/08/19 at 19:37 Morphine Sulfate (morphine) 4 mg Q2H PRN IV .PAIN 6-10; Start 02/07/19 at 19:00; Stop 02/08/19 at 19:37 Diphenhydramine HCl (Benadryl) 25 mg Q4H PRN IV .PRURITUS; Start 02/07/19 at 19:00; Stop 02/08/19 at 19:37 Nalbuphine HCl (Nubain) 10 mg Q4H PRN IV .PRURITUS; Start 02/07/19 at 19:00; Stop 02/08/19 at 19:37 Ondansetron HCl (Zofran Inj) 4 mg Q6H PRN IV .NAUSEA/VOMITING; Start 02/07/19 at 19:00; Stop 02/08/19 at 19:37 Naloxone HCl (Narcan) 0.2 mg Q2M PRN IV .RESP RATE; Start 02/07/19 at 19:00; Stop 02/08/19 at 19:37 Fentanyl/ Ropivacaine 100 ml CONT EPIDURAL EPI Last administered on 02/08/19at 10:03; Admin Dose 100 ML; Start 02/07/19 at 19:00 Hydromorphone HCl (Dilaudid) 0.2 mg Q2H PRN IV .PAIN 1-5; Start 02/07/19 at 21:00; Stop 02/08/19 at 22:22 Hydromorphone HCl (Dilaudid) 0.4 mg Q2H PRN IV .PAIN 6-10; Start 02/07/19 at 21:00; Stop 02/08/19 at 22:22 Ketorolac Tromethamine (Toradol) 15 mg Q6H PRN IV .PAIN 6-10; Start 02/07/19 at 21:00; Stop 02/08/19 at 21:00 Celecoxib (Celebrex) 200 mg DAILY PO ; Start 02/08/19 at 09:00; Stop 02/10/19 at 09:01 Acetaminophen (Tylenol Tab) 500 mg Q4H PRN PO .PAIN 1-3; Start 02/07/19 at 21:0 0; Stop 02/08/19 at 22:22 Acetaminophen/ Hydrocodone Bitart ([place] (5/325)) 1 tab Q4H PRN PO .PAIN 4-6; Start 02/07/19 at 21:00; Stop 02/08/19 at 22:22 Trimethobenzamide HCl (Tigan) 200 mg Q6H PRN IM .NAUSEA/VOMITING; Start 02/07/19 at 21:00; Stop 02/08/19 at 22:22 Zolpidem Tartrate (Ambien) 5 mg HS MAY REPEAT X 1 PRN PO .INSOMNIA; Start 02/07/19 at 21:00; Stop 02/08/19 at 22:22 Miscellaneous Information (* Miscellaneous Pharmacy Order) DURAMORPH: 5 MG EPIDU... GIVEN NEURAXIAL XX ; Start 02/07/19 at 21:00 Famotidine (Pepcid Iv) 20 mg DAILY IV Last administered on 02/08/19at 09:43; Admin Dose 20 MG; Start 02/08/19 at 09:00 DOMENICO ABBASI Feb 08, 2019 16:44
--- NOTE | 2019-02-08 19:08 | PN ---
Date/Time of Note Date/Time of Note DATE: 02/08/19 TIME: 19:05 Assessment/Plan VTE Prophylaxis Risk score (from [facility])>0 risk: 6 SCD applied (from [facility]): Yes Pharmacological prophylaxis: NA/contraindicated Pharm contraindication: surgical contra Lines/Catheters IV Catheter Type (from [facility]): Saline Lock Assessment/Plan Hospital Course 58 yo male with DM who presented with hematochezia. Workup has revealed colon adenocarcinoma Colon adenocarcinoma: - Bone scan negative for mets - s/p colonoscopy with path showing adenocarcinoma - Dr Mark following -Status post Laparoscopic converted to open transverse colectomy postop day #[address] Taveras Iron deficiency anemia: - IV iron Diabetes - Basal/bolus insulin CKD II: - stable Prophylaxis: SCDs DC planning: Patient is postop day #1, continue postop care, plan is for ultimate DC to home Result Diagram: 02/08/1942602/08/19426 Results 24hrs Laboratory Tests Test 02/07/19 22:27 02/07/19 22:30 02/08/19 00:42 02/08/19 04:27 Bedside Glucose 176 241 H Urine Color STRAW Urine Clarity CLEAR Urine pH 6.0 Urine Specific 1.008 [place] Urine Ketones NEGATIVE Urine Nitrite NEGATIVE Urine Bilirubin NEGATIVE Urine Urobilinogen NEGATIVE Urine Leukocyte NEGATIVE Esterase Urine Hemoglobin NEGATIVE Urine Glucose 1+ H Urine Total Protein NEGATIVE White Blood Count 10.7 # Red Blood Count 4.06 L Hemoglobin 10.1 L Hematocrit 32.9 L Mean Corpuscular 81.0 L Volume Mean Corpuscular 24.9 L Hemoglobin Mean Corpuscular 30.7 L Hemoglobin Concent Red Cell 16.5 H Distribution Width Platelet Count 313 Mean Platelet Volume 10.3 Immature 0.500 H Granulocytes % Neutrophils % 91.0 H Lymphocytes % 6.1 L Monocytes % 2.3 Eosinophils % 0.0 Basophils % 0.1 Nucleated Red Blood 0.0 Cells % Immature 0.050 H Granulocytes # Neutrophils # 9.7 H Lymphocytes # 0.7 L Monocytes # 0.3 Eosinophils # 0.0 Basophils # 0.0 Nucleated Red Blood 0.0 Cells # Sodium Level 136 Potassium Level 4.8 Chloride Level 103 Carbon Dioxide Level 21 Anion Gap 12 Blood Urea Nitrogen 13 Creatinine 1.01 Est Glomerular > 60 Filtrat Rate mL/min Glucose Level 266 H Calcium Level 8.2 L Test 02/08/19 05:30 02/08/19 09:26 02/08/19 13:00 02/08/19 16:54 Bedside Glucose 271 H 270 H 228 H 189 Subjective 24 Hr Interval Summary Gastrointestinal: pain Exam/Review of Systems Exam Vitals Vital Signs Date Temp Pulse Resp B/P (MAP) Pulse Ox O2 O2 Flow FiO2 Time Delivery Rate 02/08/19 14 17:18 02/08/19 97.8 79 93/56 (68) 98 Room Air 13:19 02/07/19 2.0 22:45 Intake and Output 02/07/19 02/07/19 02/08/19 1515:00 23:00 07:00 IntakeIntake Total 6900 ml 1450 ml OutputOutput Total 950 ml 25 ml BalanceBalance 5950 ml 1425 ml Constitutional: alert, oriented Respiratory: clear to auscultation Cardiovascular: regular rate and rhythm Gastrointestinal: soft; No distended Musculoskeletal: nl extremities to inspection Results Results 24hrs Laboratory Tests Test 02/07/19 22:27 02/07/19 22:30 02/08/19 00:42 02/08/19 04:27 Bedside Glucose 176 241 H Urine Color STRAW Urine Clarity CLEAR Urine pH 6.0 Urine Specific 1.008 [place] Urine Ketones NEGATIVE Urine Nitrite NEGATIVE Urine Bilirubin NEGATIVE Urine Urobilinogen NEGATIVE Urine Leukocyte NEGATIVE Esterase Urine Hemoglobin NEGATIVE Urine Glucose 1+ H Urine Total Protein NEGATIVE White Blood Count 10.7 # Red Blood Count 4.06 L Hemoglobin 10.1 L Hematocrit 32.9 L Mean Corpuscular 81.0 L Volume Mean Corpuscular 24.9 L Hemoglobin Mean Corpuscular 30.7 L Hemoglobin Concent Red Cell 16.5 H Distribution Width Platelet Count 313 Mean Platelet Volume 10.3 Immature 0.500 H Granulocytes % Neutrophils % 91.0 H Lymphocytes % 6.1 L Monocytes % 2.3 Eosinophils % 0.0 Basophils % 0.1 Nucleated Red Blood 0.0 Cells % Immature 0.050 H Granulocytes # Neutrophils # 9.7 H Lymphocytes # 0.7 L Monocytes # 0.3 Eosinophils # 0.0 Basophils # 0.0 Nucleated Red Blood 0.0 Cells # Sodium Level 136 Potassium Level 4.8 Chloride Level 103 Carbon Dioxide Level 21 Anion Gap 12 Blood Urea Nitrogen 13 Creatinine 1.01 Est Glomerular > 60 Filtrat Rate mL/min Glucose Level 266 H Calcium Level 8.2 L Test 02/08/19 05:30 02/08/19 09:26 02/08/19 13:00 02/08/19 16:54 Bedside Glucose 271 H 270 H 228 H 189 Medications Medication Current Medications IV Flush (NS 3 ml) 3 ml PER PROTOCOL IV ; Start 01/28/19 at 00:00 Zolpidem Tartrate (Ambien) 10 mg QHS PRN PO .INSOMNIA Last administered on 02/07/19at 01:14; Admin Dose 10 MG; Start 01/28/19 at 00:00 Albuterol/ Ipratropium (Duoneb) 3 ml Q2H RESP THERAPY PRN HHN SHORTNESS OF BREATH; Start 01/28/19 at 00:00 Miscellaneous Information 1 ea NOTE XX ; Start 01/28/19 at 00:00 Glucose (Glutose) 15 gm Q15M PRN PO DECREASED GLUCOSE; Start 01/28/19 at 00:00 Glucose (Glutose) 22.5 gm Q15M PRN PO DECREASED GLUCOSE; Start 01/28/19 at 00:00 Dextrose (D50w Syringe) 25 ml Q15M PRN IV DECREASED GLUCOSE; Start 01/28/19 at 00:00 Dextrose (D50w Syringe) 50 ml Q15M PRN IV DECREASED GLUCOSE; Start 01/28/19 at 00:00 Glucagon (Glucagen) 1 mg Q15M PRN IM DECREASED GLUCOSE; Start 01/28/19 at 00:00 Glucose (Glutose) 15 gm Q15M PRN BUCCAL DECREASED GLUCOSE; Start 01/28/19 at 00:00 Insulin Aspart (Novolog Insulin Pen) 8 unit WITH MEALS SC Last administered on 02/06/19at 17:58; Admin Dose 8 UNIT; Start 02/04/19 at 18:00 Insulin Glargine (Lantus) 25 units DAILY@0800 SC Last administered on 02/08/19at 09:47; Admin Dose 25 UNITS; Start 02/06/19 at 08:00 Hydromorphone HCl (Dilaudid) 1 mg Q4H PRN IV SEVERE PAIN LEVEL 7-10 Last administered on 02/07/19at 14:16; Admin Dose 1 MG; Start 02/06/19 at 17:00 Insulin Aspart (Novolog Insulin Pen) NOVOLOG *MODERATE* ALGORITHM Q4 SC Last administered on 02/08/19at 17:02; Admin Dose 4 UNIT; Start 02/07/19 at 09:00 Sodium Chloride 1,000 ml @ 100 mls/hr Q10H IV Last administered on 02/08/19at 12:28; Admin Dose 100 MLS/HR; Start 02/07/19 at 10:00 Morphine Sulfate (morphine) 2 mg Q2H PRN IV breakthrough pain; Start 02/07/19 at 18:30 Acetaminophen/ Hydrocodone Bitart ([place] (5/325)) 1 tab Q6H PRN PO PAIN LEVEL 6-10; Start 02/07/19 at 18:30 Acetaminophen (Tylenol Tab) 650 mg Q6H PRN PO MILD PAIN(1-3)OR ELEVATED TEMP; Start 02/07/19 at 18:30 Ibuprofen (Motrin) 600 mg Q6H PRN PO PAIN LEVEL 1-5; Start 02/07/19 at 18:30 Ondansetron HCl (Zofran Inj) 4 mg Q6H PRN IV NAUSEA AND/OR VOMITING Last admini stered on 02/08/19at 18:58; Admin Dose 4 MG; Start 02/07/19 at 18:30 Hydromorphone HCl (Dilaudid) 0.2 mg Q2H PRN IV .PAIN 1-5; Start 02/07/19 at 19:00; Stop 02/08/19 at 19:37 Hydromorphone HCl (Dilaudid) 0.4 mg Q2H PRN IV .PAIN 6-10; Start 02/07/19 at 19:00; Stop 02/08/19 at 19:37 Morphine Sulfate (morphine) 2 mg Q2H PRN IV .PAIN 1-5; Start 02/07/19 at 19:00; Stop 02/08/19 at 19:37 Morphine Sulfate (morphine) 4 mg Q2H PRN IV .PAIN 6-10; Start 02/07/19 at 19:00; Stop 02/08/19 at 19:37 Diphenhydramine HCl (Benadryl) 25 mg Q4H PRN IV .PRURITUS; Start 02/07/19 at 19:00; Stop 02/08/19 at 19:37 Nalbuphine HCl (Nubain) 10 mg Q4H PRN IV .PRURITUS; Start 02/07/19 at 19:00; Stop 02/08/19 at 19:37 Ondansetron HCl (Zofran Inj) 4 mg Q6H PRN IV .NAUSEA/VOMITING; Start 02/07/19 at 19:00; Stop 02/08/19 at 19:37 Naloxone HCl (Narcan) 0.2 mg Q2M PRN IV .RESP RATE; Start 02/07/19 at 19:00; Stop 02/08/19 at 19:37 Fentanyl/ Ropivacaine 100 ml CONT EPIDURAL EPI Last administered on 02/08/19at 10:03; Admin Dose 100 ML; Start 02/07/19 at 19:00 Hydromorphone HCl (Dilaudid) 0.2 mg Q2H PRN IV .PAIN 1-5; Start 02/07/19 at 21:00; Stop 02/08/19 at 22:22 Hydromorphone HCl (Dilaudid) 0.4 mg Q2H PRN IV .PAIN 6-10; Start 02/07/19 at 21:00; Stop 02/08/19 at 22:22 Ketorolac Tromethamine (Toradol) 15 mg Q6H PRN IV .PAIN 6-10; Start 02/07/19 at 21:00; Stop 02/08/19 at 21:00 Celecoxib (Celebrex) 200 mg DAILY PO ; Start 02/08/19 at 09:00; Stop 02/10/19 at 09:01 Acetaminophen (Tylenol Tab) 500 mg Q4H PRN PO .PAIN 1-3; Start 02/07/19 at 21:00; Stop 02/08/19 at 22:22 Acetaminophen/ Hydrocodone Bitart ([place] (5/325)) 1 tab Q4H PRN PO .PAIN 4-6; Start 02/07/19 at 21:00; Stop 02/08/19 at 22:22 Trimethobenzamide HCl (Tigan) 200 mg Q6H PRN IM .NAUSEA/VOMITING; Start 02/07/19 at 21:00; Stop 02/08/19 at 22:22 Zolpidem Tartrate (Ambien) 5 mg HS MAY REPEAT X 1 PRN PO .INSOMNIA; Start 02/07/19 at 21:00; Stop 02/08/19 at 22:22 Miscellaneous Information (* Miscellaneous Pharmacy Order) DURAMORPH: 5 MG EPID U... GIVEN NEURAXIAL XX ; Start 02/07/19 at 21:00 Famotidine (Pepcid Iv) 20 mg DAILY IV Last administered on 02/08/19at 09:43; Admin Dose 20 MG; Start 02/08/19 at 09:00 Phenol (Chloraseptic Throat [place]) 2 spray Q2H PRN MT SORE THROAT; Start 02/08/19 at 17:30 TIKI JIM Feb 08, 2019 19:08
[2019-02-08] MEDS: PHENOL 1.4% SOLN 180 ML BTL MT PRN (19:36)
[2019-02-08] MEDS: HYDROmorphONE 1 MG/ML SYG IV PRN (22:23)
[2019-02-09] MEDS: INSULIN ASPART [NOVOLOG] 3 ML PEN SC SCH ×9 (00:36→20:37)
[2019-02-09] MEDS: SOD CHLORIDE 0.9% 1,000 ML IV SCH ×2 (00:36→10:17)
[2019-02-09 02:40] VITALS: BP 100/60; PULSE 75; RESP 20
[2019-02-09] MEDS: HYDROmorphONE 1 MG/ML SYG IV PRN (05:09)
[2019-02-09 07:44] VITALS: BP 130/77; PULSE 78; RESP 20
[2019-02-09] MEDS: CELECOXIB 200 MG CAP PO SCH (07:58)
[2019-02-09] MEDS: FAMOTIDINE 20 MG INJ IV SCH (08:18)
[2019-02-09] MEDS: HYDROmorphONE 0.5 MG/0.5 ML SYG IV PRN ×3 (08:45→17:38)
--- NOTE | 2019-02-09 10:02 | OPPN ---
Date/Time of Note Date/Time of Note DATE: 02/09/19 TIME: 09:59 Anesthesia Follow up Anesthesia Follow up Last documented vital signs Vital Signs Date Temp Pulse Resp B/P (MAP) Pulse Ox O2 O2 Flow FiO2 Time Delivery Rate 02/09/19 98.0 78 20 130/77 97 Room Air 07:44 (94) 02/07/19 2.0 22:45 Respiratory function: WNL Cardiovascular function: WNL Comments POD#2 Patient is a 58 yr old with Hs of recently Dx AdenoCA of Transverse Colon, went under GETA yesterday for Laparoscopic to Open Transverse Colectomy and Lysis of Adhesion. Low Thoracic Epidural Catheter placed for post op pain management as well as Bilateral TAP block was done at the end of the surgery. Patient has a Hx of DM, HTN but otherwise stable. He moves all extremity and no weakness reported, His vital signs have been stable, he is afebrile. He started having Pain from middle of the night, he was given 12 CC of Epidural Bolus and the Epidural infusion was increased to 10cc/hr. Will continue the Epidural infusion and will follow up. Epidural Catheter is intact and dressing is clean. SARA AVILES MD Feb 09, 2019 10:02
[2019-02-09] MEDS ORDERED: NALOXONE (0.4 MG/ML) INJ IV PRN (10:30)
[2019-02-09] MEDS ORDERED: FENTAnyl 2MCG/ML-ROPIV 0.2% 100 ML BAG EPI SCH (10:30)
[2019-02-09] MEDS: FENTAnyl 2MCG/ML-ROPIV 0.2% 100 ML BAG EPI SCH ×2 (10:53→21:17)
[2019-02-09] MEDS: ONDANSETRON 4 MG INJ IV PRN (12:08)
[2019-02-09] MEDS: INSULIN GLARGINE [LANTus] (100 UNITS/ML) SYG SC SCH (12:35)
--- NOTE | 2019-02-09 12:37 | PN ---
Date/Time of Note Date/Time of Note DATE: 02/09/19 TIME: 12:36 Assessment/Plan VTE Prophylaxis Risk score (from Nsg)>0 risk: 8 SCD applied (from Nsg): Yes Pharmacological prophylaxis: heparin Lines/Catheters IV Catheter Type (from Nrsg): Saline Lock Urinary Cath still in place: Yes Reason Cath still needed: urinary retention Assessment/Plan Hospital Course 58 yo male with DM who presented with hematochezia. Workup has revealed colon adenocarcinoma. No w s/p open hemicolectomy POD 2 Colon adenocarcinoma: - Bone scan negative for mets - s/p colonoscopy with path showing adenocarcinoma - Dr Mark following - Hemicolectomy performed 02/07 Iron deficiency anemia: - IV iron Diabetes - Basal/bolus insulin CKD II: - stable Prophylaxis: SCDs DC planning: Likely to home pending surgery clearance Result Diagram: 02/08/19 0427 02/08/19 0427 Results 24hrs Laboratory Tests Test 02/08/19 13:00 02/08/19 16:54 02/08/19 21:29 02/09/19 00:36 Bedside Glucose 228 H 189 154 134 Test 02/09/19 05:21 02/09/19 08:16 Bedside Glucose 129 135 Subjective 24 Hr Interval Summary Free Text/Dictation Still with epidural infusion, pain controlled at this time No BM or gas Exam/Review of Systems Exam Vitals Vital Signs Date Temp Pulse Resp B/P (MAP) Pulse Ox O2 O2 Flow FiO2 Time Delivery Rate 02/09/19 98.0 78 20 130/77 97 Room Air 07:44 (94) 02/07/19 2.0 22:45 Intake and Output 02/08/19 02/08/19 02/09/19 1515:00 23:00 07:00 IntakeIntake Total 850 ml 500 ml 1350 ml OutputOutput Total 900 ml 300 ml 2210 ml BalanceBalance -50 ml 200 ml -860 ml Constitutional: alert, oriented, well developed Psych: no complaints, nl mood/affect Head: normocephalic, atraumatic Eyes: nl conjunctiva, EOMI, nl lids, nl sclera, PERRL ENMT: nl external ears & nose, nl lips & teeth, nl nasal mucosa & septum Neck: supple, non-tender Respiratory: clear to auscultation, normal air movement Cardiovascular: regular rate and rhythm, nl pulses Gastrointestinal: soft, nl liver, spleen, non-tender Musculoskeletal: nl extremities to inspection, nl gait and stance Extremities: normal pulses Neurological: GRANULATOR II-XII intact, nl mental status, nl speech, nl strength Skin: nl turgor; No rash or lesions Lymph: nl lymph nodes Results Results 24hrs Laboratory Tests Test 02/08/19 13:00 02/08/19 16:54 02/08/19 21:29 02/09/19 00:36 Bedside Glucose 228 H 189 154 134 Test 02/09/19 05:21 02/09/19 08:16 Bedside Glucose 129 135 Medications Medication Current Medications IV Flush (NS 3 ml) 3 ml PER PROTOCOL IV ; Start 01/28/19 at 00:00 Zolpidem Tartrate (Ambien) 10 mg QHS PRN PO .INSOMNIA Last administered on 02/07/19at 01:14; Admin Dose 10 MG; Start 01/28/19 at 00:00 Albuterol/ Ipratropium (Duoneb) 3 ml Q2H RESP THERAPY PRN HHN SHORTNESS OF BREATH; Start 01/28/19 at 00:00 Miscellaneous Information 1 ea NOTE XX ; Start 01/28/19 at 00:00 Glucose (Glutose) 15 gm Q15M PRN PO DECREASED GLUCOSE; Start 01/28/19 at 00:00 Glucose (Glutose) 22.5 gm Q15M PRN PO DECREASED GLUCOSE; Start 01/28/19 at 00:00 Dextrose (D50w Syringe) 25 ml Q15M PRN IV DECREASED GLUCOSE; Start 01/28/19 at 00:00 Dextrose (D50w Syringe) 50 ml Q15M PRN IV DECREASED GLUCOSE; Start 01/28/19 at 00:00 Glucagon (Glucagen) 1 mg Q15M PRN IM DECREASED GLUCOSE; Start 01/28/19 at 00:00 Glucose (Glutose) 15 gm Q15M PRN BUCCAL DECREASED GLUCOSE; Start 01/28/19 at 00:00 Insulin Aspart (Novolog Insulin Pen) 8 unit WITH MEALS SC Last administered on 02/06/19at 17:58; Admin Dose 8 UNIT; Start 02/04/19 at 18:00 Insulin Glargine (Lantus) 25 units DAILY@0800 SC Last administered on 02/08/19at 09:47; Admin Dose 25 UNITS; Start 02/06/19 at 08:00 Hydromorphone HCl (Dilaudid) 1 mg Q4H PRN IV SEVERE PAIN LEVEL 7-10 Last administered on 02/09/19at 05:09; Admin Dose 1 MG; Start 02/06/19 at 17:00 Insulin Aspart (Novolog Insulin Pen) NOVOLOG *MODERATE* ALGORITHM Q4 SC Last administered on 02/08/19at 17:02; Admin Dose 4 UNIT; Start 02/07/19 at 09:00 Sodium Chloride 1,000 ml @ 50 mls/hr Q20H IV Last administered on 02/09/19at 10:17; Admin Dose 100 MLS/HR; Start 02/07/19 at 10:00 Morphine Sulfate (morphine) 2 mg Q2H PRN IV breakthrough pain; Start 02/07/19 at 18:30 Acetaminophen/ Hydrocodone Bitart ([place] (5/325)) 1 tab Q6H PRN PO PAIN LEVEL 6-10; Start 02/07/19 at 18:30 Acetaminophen (Tylenol Tab) 650 mg Q6H PRN PO MILD PAIN(1-3)OR ELEVATED TEMP; Start 02/07/19 at 18:30 Ibuprofen (Motrin) 600 mg Q6H PRN PO PAIN LEVEL 1-5; Start 02/07/19 at 18:30 Ondansetron HCl (Zofran Inj) 4 mg Q6H PRN IV NAUSEA AND/OR VOMITING Last administered on 02/09/19at 12:08; Admin Dose 4 MG; Start 02/07/19 at 18:30 Fentanyl/ Ropivacaine 100 ml CONT EPIDURAL EPI Last administered on 02/09/19at 10:53; Admin Dose 100 ML; Start 02/07/19 at 19:00 Celecoxib (Celebrex) 200 mg DAILY PO ; Start 02/08/19 at 09:00; Stop 02/10/19 at 09:01 Miscellaneous Information (* Miscellaneous Pharmacy Order) DURAMORPH: 5 MG EPIDU... GIVEN NEURAXIAL XX ; Start 02/07/19 at 21:00 Famotidine (Pepcid Iv) 20 mg DAILY IV Last administered on 02/09/19at 08:18; Admin Dose 20 MG; Start 02/08/19 at 09:00 Phenol (Chloraseptic Throat [place]) 2 spray Q2H PRN MT SORE THROAT Last administered on 02/08/19at 19:36; Admin Dose 2 SPRAY; Start 02/08/19 at 17:30 Hydromorphone HCl (Dilaudid) 0.4 mg Q10MIN PRN IV SEVERE PAIN LEVEL 7-10 Last administered on 02/09/19at 08:45; Admin Dose 0.4 MG; Start 02/09/19 at 08:30 Naloxone HCl (Narcan) 0.2 mg Q2M PRN IV .RESP RATE; Start 02/09/19 at 10:30 YOSELYN GILL MD Feb 09, 2019 12:37
--- NOTE | 2019-02-09 13:10 | CONS ---
Assessment/Plan Assessment/Plan Hospital Course (Demo Recall) IMPRESSION: 1. Preoperative evaluation in a patient prior to colectomy that has multiple cardiac risk factors and possible prior stent apparently placed approximately 2 to 3 years prior.-neg trop x 2. Now POD#1 s/p surgery 2. Hypotension, borderline.-ongoing today 3. History of possible prior stent placements 2 to 3 years prior per chart biopsy. 4. Dyslipidemia. 5. Adenocarcinoma of the colon, newly diagnosed. 6. Abdominal pain secondary to adenocarcinoma of the colon. 7. Diabetes mellitus. 8. Anemia. 9. Renal failure insufficiency. Recc: -Follow BP/volume status clsoely -routine post-op care -pain control -Follow BS -Follow NGT output Consultation Date/Type/Reason Admit Date/Time Jan 27, 2019 at 20:38 Initial Consult Date 02/05/19 Type of Consult Cardiology Reason for Consultation preop Requesting Provider: YOSELYN GILL MD Date/Time of Note DATE: 02/09/19 TIME: 13:09 Exam/Review of Systems Vital Signs Vitals Vital Signs Date Temp Pulse Resp B/P (MAP) Pulse Ox O2 O2 Flow FiO2 Time Delivery Rate 02/09/19 20 09:00 02/09/19 98.0 78 130/77 97 Room Air 07:44 (94) 02/07/19 2.0 22:45 Intake and Output 02/08/19 02/08/19 02/09/19 1515:00 23:00 07:00 IntakeIntake Total 850 ml 500 ml 1350 ml OutputOutput Total 900 ml 300 ml 2210 ml BalanceBalance -50 ml 200 ml -860 ml Exam Exam Review of Systems: CONSTITUTIONAL: No fevers, chills. PULMONARY: No sob CARDIOVASCULAR: No chest pain/palpitations GASTROINTESTINAL: mild abd pain GENITOURINARY: No hematuria/dysuria. MUSCULOSKELETAL: No myagias/arthalgias. PSYCHIATRIC: The patient denies depression. NEUROLOGIC: No weakness Constitutional: alert Psych: no complaints Head: normocephalic ENMT: other (NG tube in place) Neck: supple, jvd (8 cm water) Respiratory: clear to auscultation Cardiovascular: regular rate and rhythm Gastrointestinal: soft, other (covered by dressing) Musculoskeletal: muscle tone (normal) Extremities: edema (none) Neurological: other (No focal deficits) Labs Result Diagram: 02/08/19 0427 02/08/19 0427 Results 24hrs Laboratory Tests Test 02/08/19 16:54 02/08/19 21:29 02/09/19 00:36 02/09/19 05:21 Bedside Glucose 189 154 134 129 Test 02/09/19 08:16 02/09/19 12:29 Bedside Glucose 135 140 Medications Medications Current Medications IV Flush (NS 3 ml) 3 ml PER PROTOCOL IV ; Start 01/28/19 at 00:00 Zolpidem Tartrate (Ambien) 10 mg QHS PRN PO .INSOMNIA Last administered on 02/07/19at 01:14; Admin Dose 10 MG; Start 01/28/19 at 00:00 Albuterol/ Ipratropium (Duoneb) 3 ml Q2H RESP THERAPY PRN HHN SHORTNESS OF BREATH; Start 01/28/19 at 00:00 Miscellaneous Information 1 ea NOTE XX ; Start 01/28/19 at 00:00 Glucose (Glutose) 15 gm Q15M PRN PO DECREASED GLUCOSE; Start 01/28/19 at 00:00 Glucose (Glutose) 22.5 gm Q15M PRN PO DECREASED GLUCOSE; Start 01/28/19 at 00:00 Dextrose (D50w Syringe) 25 ml Q15M PRN IV DECREASED GLUCOSE; Start 01/28/19 at 00:00 Dextrose (D50w Syringe) 50 ml Q15M PRN IV DECREASED GLUCOSE; Start 01/28/19 at 00:00 Glucagon (Glucagen) 1 mg Q15M PRN IM DECREASED GLUCOSE; Start 01/28/19 at 00:00 Glucose (Glutose) 15 gm Q15M PRN BUCCAL DECREASED GLUCOSE; Start 01/28/19 at 00:00 Insulin Aspart (Novolog Insulin Pen) 8 unit WITH MEALS SC Last administered on 02/06/19at 17:58; Admin Dose 8 UNIT; Start 02/04/19 at 18:00 Insulin Glargine (Lantus) 25 units DAILY@0800 SC Last administered on 02/09/19at 12:35; Admin Dose 25 UNITS; Start 02/06/19 at 08:00 Hydromorphone HCl (Dilaudid) 1 mg Q4H PRN IV SEVERE PAIN LEVEL 7-10 Last administered on 02/09/19at 05:09; Admin Dose 1 MG; Start 02/06/19 at 17:00 Insulin Aspart (Novolog Insulin Pen) NOVOLOG *MODERATE* ALGORITHM Q4 SC Last administered on 02/08/19at 17:02; Admin Dose 4 UNIT; Start 02/07/19 at 09:00 Sodium Chloride 1,000 ml @ 50 mls/hr Q20H IV Last administered on 02/09/19at 10:17; Admin Dose 100 MLS/HR; Start 02/07/19 at 10:00 Morphine Sulfate (morphine) 2 mg Q2H PRN IV breakthrough pain; Start 02/07/19 at 18:30 Acetaminophen/ Hydrocodone Bitart ([place] (5/325)) 1 tab Q6H PRN PO PAIN LEVEL 6-10; Start 02/07/19 at 18:30 Acetaminophen (Tylenol Tab) 650 mg Q6H PRN PO MILD PAIN(1-3)OR ELEVATED TEMP; Start 02/07/19 at 18:30 Ibuprofen (Motrin) 600 mg Q6H PRN PO PAIN LEVEL 1-5; Start 02/07/19 at 18:30 Ondansetron HCl (Zofran Inj) 4 mg Q6H PRN IV NAUSEA AND/OR VOMITING Last administered on 02/09/19at 12:08; Admin Dose 4 MG; Start 02/07/19 at 18:30 Fentanyl/ Ropivacaine 100 ml CONT EPIDURAL EPI Last administered on 02/09/19at 10:53; Admin Dose 100 ML; Start 02/07/19 at 19:00 Celecoxib (Celebrex) 200 mg DAILY PO ; Start 02/08/19 at 09:00; Stop 02/10/19 at 09:01 Miscellaneous Information (* Miscellaneous Pharmacy Order) DURAMORPH: 5 MG EPIDU... GIVEN NEURAXIAL XX ; Start 02/07/19 at 21:00 Phenol (Chloraseptic Throat [place]) 2 spray Q2H PRN MT SORE THROAT Last administered on 02/08/19at 19:36; Admin Dose 2 SPRAY; Start 02/08/19 at 17:30 Hydromorphone HCl (Dilaudid) 0.4 mg Q10MIN PRN IV SEVERE PAIN LEVEL 7-10 Last administered on 02/09/19at 08:45; Admin Dose 0.4 MG; Start 02/09/19 at 08:30 Naloxone HCl (Narcan) 0.2 mg Q2M PRN IV .RESP RATE; Start 02/09/19 at 10:30 KAYLEIGH MARTINEZ Feb 09, 2019 13:10
--- NOTE | 2019-02-09 13:59 | PN ---
"Date/Time of Note Date/Time of Note DATE: 02/09/19 TIME: 13:55 Assessment/Plan Lines/Catheters IV Catheter Type (from Nrs): Saline Lock Pérez in Place (from Nrs): Yes Assessment/Plan Chief Complaint/Hosp Course 1. Transverse colon adenocarcinoma, Previous small bowel resection with primary anastomosis (antecolic over the cancer) and gastrojejunostomy; Ventral incisional [place] cheese type hernia: s/p Laparoscopic converted to open transverse colectomy, Revision of previous scar, Primary repair of ventral incisional [place] cheese type hernia 02/07/19; currently on epidural: No bowel function as of yet- possible ileus -IS -ambulate as able -ice pack to abdominal wall -continue npo and ngt to liws until bowel function -incision site local care -follow path -kamala drain -wean off epidural and start nonnarcotic analgesics as able 2. 40 pound weight loss secondary to above 3. Diabetes mellitus type 2 -Nutrition medication optimization 4. Hypertension -Nutrition medication optimization 5. Coronary artery disease with history of Plavix and aspirin -Cardiac evaluation and optimization 6. Iron deficiency anemia secondary to above -Iron transfusion per hematology -As above Thank you. Patient seen and examined in collaboration with Dr. Homar Taveras. Subjective 24 Hr Interval Summary Severe abdominal pain overnight. Given epidural bolus. Epidural ongoing. + NG output. No bowel function as of yet. KAMALA drain with large serosanguineous drainage. No fevers, chills, sob, congested cough, cp, palpitations, velasquez, dizziness, nausea, vomiting, diarrhea, dysuria. Exam/Review of Systems Vital Signs Vitals Vital Signs Date Temp Pulse Resp B/P (MAP) Pulse Ox O2 O2 Flow FiO2 Time Delivery Rate 02/09/19 20 09:00 02/09/19 98.0 78 130/77 97 Room Air 07:44 (94) 02/07/19 2.0 22:45 Intake and Output 02/08/19 02/08/19 02/09/19 1515:00 23:00 07:00 IntakeIntake Total 850 ml 500 ml 1350 ml OutputOutput Total 900 ml 300 ml 2210 ml BalanceBalance -50 ml 200 ml -860 ml Exam Free Text/Dictation Constitutional: alert, oriented; No distress Psych: nl mood/affect; No anxiety Head: normocephalic, atraumatic Eyes: nl conjunctiva, EOMI, PERRL; No icteric ENMT: nl external ears & nose, mucosa pink and moist, ngt Neck: non-tender; No jvd Respiratory: normal air movement; No congested cough, No labored breathing Cardiovascular: regular rate and rhythm; No edema Gastrointestinal: soft, tender (jayden-incisional: midline staple line: dry, no erythema, scant drainage | KAMALA: serosang) No distended, No rebound or guarding Genitourinary - Male: nl scrotum, pérez Musculoskeletal: nl extremities to inspection, nl gait and stance; No joint tenderness Extremities: normal pulses; No calf tenderness, No edema Neurological: nl mental status, nl speech, nl strength Skin: nl turgor; No rash or lesions Lymph: nl lymph nodes Results Result Diagram: 02/08/1942602/08/19426 GIBRAN GUO NP Feb 09, 2019 13:59"
[2019-02-09 14:24] VITALS: BP 122/76; PULSE 76; RESP 18
[2019-02-09 20:31] VITALS: BP 112/71; PULSE 77; RESP 20
[2019-02-10] MEDS: HYDROmorphONE 0.5 MG/0.5 ML SYG IV PRN (00:06)
[2019-02-10] MEDS: INSULIN ASPART [NOVOLOG] 3 ML PEN SC SCH ×9 (01:00→21:00)
[2019-02-10 02:21] VITALS: BP 118/72; PULSE 72; RESP 17
[2019-02-10] MEDS: SOD CHLORIDE 0.9% 1,000 ML IV SCH ×2 (03:11→21:26)
[2019-02-10] MEDS: FENTAnyl 2MCG/ML-ROPIV 0.2% 100 ML BAG EPI SCH ×2 (07:48→18:57)
[2019-02-10] MEDS: CELECOXIB 200 MG CAP PO SCH (07:57)
[2019-02-10 08:13] VITALS: BP 113/62; PULSE 98; RESP 18
--- NOTE | 2019-02-10 08:22 | PN ---
"Date/Time of Note Date/Time of Note DATE: 02/10/19 TIME: 08:22 Assessment/Plan Lines/Catheters IV Catheter Type (from Nrs): Saline Lock Pérez in Place (from Nrs): Yes Assessment/Plan Chief Complaint/Hosp Course 1. Transverse colon adenocarcinoma, Previous small bowel resection with primary anastomosis (antecolic over the cancer) and gastrojejunostomy; Ventral incisional [place] cheese type hernia: s/p Laparoscopic converted to open transverse colectomy, Revision of previous scar, Primary repair of ventral incisional [place] cheese type hernia 02/07/19; currently on epidural: No bowel function as of yet- possible ileus -IS -ambulate w nursing as able -ice pack to abdominal wall -continue npo and ngt to liws until bowel function -incision site local care -follow path -kamala drain -wean off epidural and start nonnarcotic analgesics as able> per anesthesiology 2. 40 pound weight loss secondary to above 3. Diabetes mellitus type 2 -Nutrition medication optimization 4. Hypertension -Nutrition medication optimization 5. Coronary artery disease with history of Plavix and aspirin -Cardiac evaluation and optimization 6. Iron deficiency anemia secondary to above -Iron transfusion per hematology -As above Thank you. Patient seen and examined in collaboration with Dr. Homar Taveras. Subjective 24 Hr Interval Summary No bowel fxn as of yet. Continues on epidural. Large ng output. No fevers, chills, sob, congested cough, cp, palpitations, velasquez, dizziness, n/v/d/dysuria. Exam/Review of Systems Vital Signs Vitals Vital Signs Date Temp Pulse Resp B/P (MAP) Pulse Ox O2 O2 Flow FiO2 Time Delivery Rate 02/10/19 98.2 98 18 113/62 93 Room Air 08:13 (79) 02/07/19 2.0 22:45 Intake and Output 02/09/19 02/09/19 02/10/19 1515:00 23:00 07:00 IntakeIntake Total 550 ml 410 ml 690 ml OutputOutput Total 50 ml 1630 ml 1700 ml BalanceBalance 500 ml -1220 ml -1010 ml Exam Free Text/Dictation Constitutional: alert, oriented; No distress Psych: nl mood/affect; No anxiety Head: normocephalic, atraumatic Eyes: nl conjunctiva, EOMI, PERRL; No icteric ENMT: nl external ears & nose, mucosa pink and moist, ngt Neck: non-tender; No jvd Respiratory: normal air movement; No congested cough, No labored breathing Cardiovascular: regular rate and rhythm; No edema Gastrointestinal: soft, tender (jayden-incisional: midline staple line: dry, no erythema, scant drainage | KAMALA: serous) No distended, No rebound or guarding Genitourinary - Male: nl scrotum, pérez Musculoskeletal: nl extremities to inspection, nl gait and stance; No joint tenderness Extremities: normal pulses; No calf tenderness, No edema Neurological: nl mental status, nl speech, nl strength Skin: nl turgor; No rash or lesions Lymph: nl lymph nodes Results Result Diagram: 02/10/19 0424 02/10/19 0425 GIBRAN GUO NP Feb 10, 2019 08:22"
[2019-02-10] MEDS: INSULIN GLARGINE [LANTus] (100 UNITS/ML) SYG SC SCH (09:42)
--- NOTE | 2019-02-10 10:11 | OPPN ---
Date/Time of Note Date/Time of Note DATE: 02/10/19 TIME: 10:09 Anesthesia Follow up Anesthesia Follow up Last documented vital signs Vital Signs Date Temp Pulse Resp B/P (MAP) Pulse Ox O2 O2 Flow FiO2 Time Delivery Rate 02/10/19 20 09:00 02/10/19 98.2 98 113/62 93 Room Air 08:13 (79) 02/07/19 2.0 22:45 Respiratory function: WNL Cardiovascular function: WNL Comments POD#3 Patient is a 58 yr old with Hs of recently Dx AdenoCA of Transverse Colon, went under GETA yesterday for Laparoscopic to Open Transverse Colectomy and Lysis of Adhesion. Low Thoracic Epidural Catheter placed for post op pain management as well as Bilateral TAP block was done at the end of the surgery. Patient has a Hx of DM, HTN but otherwise stable. He moves all extremity and no weakness reported, His vital signs have been stable, he is afebrile. His pain is well controlled yesterday only one dose of diluadid was given for breakthrough pain. The Epidural infusion was increased to 11cc/hr. Will continue the Epidural infusion and will follow up. Recommended to DC the [place], also ambulate him more. He was instructed to use Spirometry more often. Epidural Catheter is intact and dressing is clean. Will follow. SARA AVILES MD Feb 10, 2019 10:11
--- NOTE | 2019-02-10 12:31 | PN ---
Date/Time of Note Date/Time of Note DATE: 02/10/19 TIME: 12:29 Assessment/Plan VTE Prophylaxis Risk score (from Nsg)>0 risk: 2 SCD applied (from Ns): Yes Pharmacological prophylaxis: heparin Lines/Catheters IV Catheter Type (from Nrsg): Saline Lock Urinary Cath still in place: Yes Reason Cath still needed: urinary retention Assessment/Plan Hospital Course 58 yo male with DM who presented with hematochezia. Workup has revealed colon adenocarcinoma. No w s/p open hemicolectomy POD 2 Colon adenocarcinoma: - Bone scan negative for mets - s/p colonoscopy with path showing adenocarcinoma - Dr Mark following s/p colectomy - Hemicolectomy performed 02/07. Periop management per surgery - Await return of bowel function - epidural/pain managmeent per anesthesia - IV fluids while NPO Iron deficiency anemia: - IV iron Diabetes - Basal/bolus insulin CKD II: - stable Prophylaxis: SCDs DC planning: Likely to home pending surgery clearance Result Diagram: 02/10/19 0424 02/10/19 0425 Results 24hrs Laboratory Tests Test 02/09/19 17:24 02/09/19 20:36 02/10/19 01:32 02/10/19 04:24 Bedside Glucose 141 108 100 White Blood Count 8.8 Red Blood Count 3.69 L Hemoglobin 9.3 L Hematocrit 29.7 L Mean Corpuscular 80.5 L Volume Mean Corpuscular 25.2 L Hemoglobin Mean Corpuscular 31.3 L Hemoglobin Concent Red Cell 16.8 H Distribution Width Platelet Count 291 Mean Platelet Volume 10.1 Immature 0.700 H Granulocytes % Neutrophils % 70.3 Lymphocytes % 22.8 Monocytes % 5.0 Eosinophils % 1.0 Basophils % 0.2 Nucleated Red Blood 0.0 Cells % Immature 0.060 H Granulocytes # Neutrophils # 6.2 Lymphocytes # 2.0 Monocytes # 0.4 Eosinophils # 0.1 Basophils # 0.0 Nucleated Red Blood 0.0 Cells # Test 02/10/19 04:25 02/10/19 04:52 02/10/19 08:43 02/10/19 10:11 Sodium Level 138 Potassium Level 4.0 Chloride Level 106 Carbon Dioxide Level 23 Anion Gap 9 Blood Urea Nitrogen 11 Creatinine 1.07 Est Glomerular > 60 Filtrat Rate mL/min Glucose Level 95 # Calcium Level 8.7 Bedside Glucose 92 108 111 Subjective 24 Hr Interval Summary Free Text/Dictation No pain No flatus or BM yet Still with NG and epidrual Exam/Review of Systems Exam Vitals Vital Signs Date Temp Pulse Resp B/P (MAP) Pulse Ox O2 O2 Flow FiO2 Time Delivery Rate 02/10/19 20 09:00 02/10/19 98.2 98 113/62 93 Room Air 08:13 (79) 02/07/19 2.0 22:45 Intake and Output 02/09/19 02/09/19 02/10/19 1515:00 23:00 07:00 IntakeIntake Total 550 ml 410 ml 690 ml OutputOutput Total 50 ml 1630 ml 1700 ml BalanceBalance 500 ml -1220 ml -1010 ml Exam Well appearing no distress AOx3 NG tube RRR Breathign comfortably GONZALES drain scant output Midline incision c/d/i Results Results 24hrs Laboratory Tests Test 02/09/19 17:24 02/09/19 20:36 02/10/19 01:32 02/10/19 04:24 Bedside Glucose 141 108 100 White Blood Count 8.8 Red Blood Count 3.69 L Hemoglobin 9.3 L Hematocrit 29.7 L Mean Corpuscular 80.5 L Volume Mean Corpuscular 25.2 L Hemoglobin Mean Corpuscular 31.3 L Hemoglobin Concent Red Cell 16.8 H Distribution Width Platelet Count 291 Mean Platelet Volume 10.1 Immature 0.700 H Granulocytes % Neutrophils % 70.3 Lymphocytes % 22.8 Monocytes % 5.0 Eosinophils % 1.0 Basophils % 0.2 Nucleated Red Blood 0.0 Cells % Immature 0.060 H Granulocytes # Neutrophils # 6.2 Lymphocytes # 2.0 Monocytes # 0.4 Eosinophils # 0.1 Basophils # 0.0 Nucleated Red Blood 0.0 Cells # Test 02/10/19 04:25 02/10/19 04:52 02/10/19 08:43 02/10/19 10:11 Sodium Level 138 Potassium Level 4.0 Chloride Level 106 Carbon Dioxide Level 23 Anion Gap 9 Blood Urea Nitrogen 11 Creatinine 1.07 Est Glomerular > 60 Filtrat Rate mL/min Glucose Level 95 # Calcium Level 8.7 Bedside Glucose 92 108 111 Medications Medication Current Medications IV Flush (NS 3 ml) 3 ml PER PROTOCOL IV ; Start 01/28/19 at 00:00 Zolpidem Tartrate (Ambien) 10 mg QHS PRN PO .INSOMNIA Last administered on 02/07/19at 01:14; Admin Dose 10 MG; Start 01/28/19 at 00:00 Albuterol/ Ipratropium (Duoneb) 3 ml Q2H RESP THERAPY PRN HHN SHORTNESS OF BREATH; Start 01/28/19 at 00:00 Miscellaneous Information 1 ea NOTE XX ; Start 01/28/19 at 00:00 Glucose (Glutose) 15 gm Q15M PRN PO DECREASED GLUCOSE; Start 01/28/19 at 00:00 Glucose (Glutose) 22.5 gm Q15M PRN PO DECREASED GLUCOSE; Start 01/28/19 at 00:00 Dextrose (D50w Syringe) 25 ml Q15M PRN IV DECREASED GLUCOSE; Start 01/28/19 at 00:00 Dextrose (D50w Syringe) 50 ml Q15M PRN IV DECREASED GLUCOSE; Start 01/28/19 at 00:00 Glucagon (Glucagen) 1 mg Q15M PRN IM DECREASED GLUCOSE; Start 01/28/19 at 00:00 Glucose (Glutose) 15 gm Q15M PRN BUCCAL DECREASED GLUCOSE; Start 01/28/19 at 00:00 Insulin Aspart (Novolog Insulin Pen) 8 unit WITH MEALS SC Last administered on 02/06/19at 17:58; Admin Dose 8 UNIT; Start 02/04/19 at 18:00 Insulin Glargine (Lantus) 25 units DAILY@0800 SC Last administered on 02/10/19at 09:42; Admin Dose 25 UNITS; Start 02/06/19 at 08:00 Hydromorphone HCl (Dilaudid) 1 mg Q4H PRN IV SEVERE PAIN LEVEL 7-10 Last administered on 02/09/19 05:09; Admin Dose 1 MG; Start 02/06/19 at 17:00 Insulin Aspart (Novolog Insulin Pen) NOVOLOG *MODERATE* ALGORITHM Q4 SC Last administered on 02/08/19 17:02; Admin Dose 4 UNIT; Start 02/07/19 at 09:00 Sodium Chloride 1,000 ml @ 50 mls/hr Q20H IV Last administered on 02/10/19at 03:11; Admin Dose 50 MLS/HR; Start 02/07/19 at 10:00 Morphine Sulfate (morphine) 2 mg Q2H PRN IV breakthrough pain; Start 02/07/19 at 18:30 Acetaminophen/ Hydrocodone Bitart ([place] (5/325)) 1 tab Q6H PRN PO PAIN LEVEL 6-10; Start 02/07/19 at 18:30 Acetaminophen (Tylenol Tab) 650 mg Q6H PRN PO MILD PAIN(1-3)OR ELEVATED TEMP; Start 02/07/19 at 18:30 Ibuprofen (Motrin) 600 mg Q6H PRN PO PAIN LEVEL 1-5; Start 02/07/19 at 18:30 Ondansetron HCl (Zofran Inj) 4 mg Q6H PRN IV NAUSEA AND/OR VOMITING Last administered on 02/09/19at 12:08; Admin Dose 4 MG; Start 02/07/19 at 18:30 Fentanyl/ Ropivacaine 100 ml CONT EPIDURAL EPI Last administered on 02/10/19at 07:48; Admin Dose 100 ML; Start 02/07/19 at 19:00 Miscellaneous Information (* Miscellaneous Pharmacy Order) DURAMORPH: 5 MG EPIDU... GIVEN NEURAXIAL XX ; Start 02/07/19 at 21:00 Phenol (Chloraseptic Throat [place]) 2 spray Q2H PRN MT SORE THROAT Last administered on 02/08/19at 19:36; Admin Dose 2 SPRAY; Start 02/08/19 at 17:30 Hydromorphone HCl (Dilaudid) 0.4 mg Q10MIN PRN IV SEVERE PAIN LEVEL 7-10 Last administered on 02/10/19at 00:06; Admin Dose 0.4 MG; Start 02/09/19 at 08:30 Naloxone HCl (Narcan) 0.2 mg Q2M PRN IV .RESP RATE; Start 02/09/19 at 10:30 YOSELYN GILL MD Feb 10, 2019 12:31
--- NOTE | 2019-02-10 13:52 | CONS ---
Assessment/Plan Assessment/Plan Hospital Course (Demo Recall) 58 yo with newly diagnosed colon adenoca -CT chest shows 4 mm noncalcified nodule in the right apex, which is nonspecific. -CT AP: Irregular bowel wall thickening / mass with adjacent stranding of the distal transverse colon, compatible with given history of colon cancer. Shotty periaortic lymph nodes. The largest is an 11 mm node with normal fatty hilum, suggestive of reactive etiology. Small nonspecific peripherally sclerotic lesion in the left iliac bone measuring 6 mm. -bone scan negative for mets -he is s/p surgery: per notes this revealed previous small bowel resection with primary anastomosis (antecolic over the cancer) and gastrojejunostomy; Ventral incisional [place] cheese type hernia: s/p Laparoscopic converted to open transverse colectomy, Revision of previous scar, Primary repair of ventral incisional [place] cheese type hernia 02/07/19 -once we have pathology and stage, can determine if pt will need adjuvant chemo will follow periodically until path is back Consultation Date/Type/Reason Admit Date/Time Jan 27, 2019 at 20:38 Initial Consult Date 02/01/19 Requesting Provider: YOSELYN GILL MD Date/Time of Note DATE: 02/10/19 TIME: 13:50 24 HR Interval Summary Free Text/Dictation recovering from surgery Exam/Review of Systems Exam Vitals Vital Signs Date Temp Pulse Resp B/P (MAP) Pulse Ox O2 O2 Flow FiO2 Time Delivery Rate 02/10/19 20 13:00 02/10/19 98.2 98 113/62 93 Room Air 08:13 (79) 02/07/19 2.0 22:45 Intake and Output 02/09/19 02/09/19 02/10/19 1515:00 23:00 07:00 IntakeIntake Total 550 ml 410 ml 690 ml OutputOutput Total 50 ml 1630 ml 1700 ml BalanceBalance 500 ml -1220 ml -1010 ml Results Result Diagram: 02/10/19 0424 02/10/19 0425 Results 24hrs Laboratory Tests Test 02/09/19 17:24 02/09/19 20:36 02/10/19 01:32 02/10/19 04:24 Bedside Glucose 141 108 100 White Blood Count 8.8 Red Blood Count 3.69 L Hemoglobin 9.3 L Hematocrit 29.7 L Mean Corpuscular 80.5 L Volume Mean Corpuscular 25.2 L Hemoglobin Mean Corpuscular 31.3 L Hemoglobin Concent Red Cell 16.8 H Distribution Width Platelet Count 291 Mean Platelet Volume 10.1 Immature 0.700 H Granulocytes % Neutrophils % 70.3 Lymphocytes % 22.8 Monocytes % 5.0 Eosinophils % 1.0 Basophils % 0.2 Nucleated Red Blood 0.0 Cells % Immature 0.060 H Granulocytes # Neutrophils # 6.2 Lymphocytes # 2.0 Monocytes # 0.4 Eosinophils # 0.1 Basophils # 0.0 Nucleated Red Blood 0.0 Cells # Test 02/10/19 04:25 02/10/19 04:52 02/10/19 08:43 02/10/19 10:11 Sodium Level 138 Potassium Level 4.0 Chloride Level 106 Carbon Dioxide Level 23 Anion Gap 9 Blood Urea Nitrogen 11 Creatinine 1.07 Est Glomerular > 60 Filtrat Rate mL/min Glucose Level 95 # Calcium Level 8.7 Bedside Glucose 92 108 111 Test 02/10/19 12:28 Bedside Glucose 113 Medications Medication Current Medications IV Flush (NS 3 ml) 3 ml PER PROTOCOL IV ; Start 01/28/19 at 00:00 Zolpidem Tartrate (Ambien) 10 mg QHS PRN PO .INSOMNIA Last administered on 02/07/19at 01:14; Admin Dose 10 MG; Start 01/28/19 at 00:00 Albuterol/ Ipratropium (Duoneb) 3 ml Q2H RESP THERAPY PRN HHN SHORTNESS OF BREATH; Start 01/28/19 at 00:00 Miscellaneous Information 1 ea NOTE XX ; Start 01/28/19 at 00:00 Glucose (Glutose) 15 gm Q15M PRN PO DECREASED GLUCOSE; Start 01/28/19 at 00:00 Glucose (Glutose) 22.5 gm Q15M PRN PO DECREASED GLUCOSE; Start 01/28/19 at 00:00 Dextrose (D50w Syringe) 25 ml Q15M PRN IV DECREASED GLUCOSE; Start 01/28/19 at 00:00 Dextrose (D50w Syringe) 50 ml Q15M PRN IV DECREASED GLUCOSE; Start 01/28/19 at 00:00 Glucagon (Glucagen) 1 mg Q15M PRN IM DECREASED GLUCOSE; Start 01/28/19 at 00:00 Glucose (Glutose) 15 gm Q15M PRN BUCCAL DECREASED GLUCOSE; Start 01/28/19 at 00:00 Insulin Aspart (Novolog Insulin Pen) 8 unit WITH MEALS SC Last administered on 02/06/19 17:58; Admin Dose 8 UNIT; Start 02/04/19 at 18:00 Insulin Glargine (Lantus) 25 units DAILY@0800 SC Last administered on 02/10/19 09:42; Admin Dose 25 UNITS; Start 02/06/19 at 08:00 Hydromorphone HCl (Dilaudid) 1 mg Q4H PRN IV SEVERE PAIN LEVEL 7-10 Last administered on 02/09/19 05:09; Admin Dose 1 MG; Start 02/06/19 at 17:00 Insulin Aspart (Novolog Insulin Pen) NOVOLOG *MODERATE* ALGORITHM Q4 SC Last administered on 02/08/19 17:02; Admin Dose 4 UNIT; Start 02/07/19 at 09:00 Sodium Chloride 1,000 ml @ 50 mls/hr Q20H IV Last administered on 02/10/19 03:11; Admin Dose 50 MLS/HR; Start 02/07/19 at 10:00 Morphine Sulfate (morphine) 2 mg Q2H PRN IV breakthrough pain; Start 02/07/19 at 18:30 Acetaminophen/ Hydrocodone Bitart ([place] (5/325)) 1 tab Q6H PRN PO PAIN LEVEL 6-10; Start 02/07/19 at 18:30 Acetaminophen (Tylenol Tab) 650 mg Q6H PRN PO MILD PAIN(1-3)OR ELEVATED TEMP; Start 02/07/19 at 18:30 Ibuprofen (Motrin) 600 mg Q6H PRN PO PAIN LEVEL 1-5; Start 02/07/19 at 18:30 Ondansetron HCl (Zofran Inj) 4 mg Q6H PRN IV NAUSEA AND/OR VOMITING Last administered on 02/09/19 12:08; Admin Dose 4 MG; Start 02/07/19 at 18:30 Miscellaneous Information (* Miscellaneous Pharmacy Order) DURAMORPH: 5 MG EPIDU... GIVEN NEURAXIAL XX ; Start 02/07/19 at 21:00 Phenol (Chloraseptic Throat [place]) 2 spray Q2H PRN MT SORE THROAT Last administered on 02/08/19at 19:36; Admin Dose 2 SPRAY; Start 02/08/19 at 17:30 Hydromorphone HCl (Dilaudid) 0.4 mg Q10MIN PRN IV SEVERE PAIN LEVEL 7-10 Last administered on 02/10/19at 00:06; Admin Dose 0.4 MG; Start 02/09/19 at 08:30 Naloxone HCl (Narcan) 0.2 mg Q2M PRN IV .RESP RATE; Start 02/09/19 at 10:30 Fentanyl/ Ropivacaine 100 ml CONT EPIDURAL EPI ; Start 02/10/19 at 10:15 DOMENICO ABBASI Feb 10, 2019 13:52
[2019-02-10 14:59] VITALS: BP 116/75; PULSE 96; RESP 18
--- NOTE | 2019-02-10 16:33 | CONS ---
Assessment/Plan Assessment/Plan Hospital Course (Demo Recall) IMPRESSION: 1. Preoperative evaluation in a patient prior to colectomy that has multiple cardiac risk factors and possible prior stent apparently placed approximately 2 to 3 years prior.-neg trop x 2. Now POD#1 s/p surgery 2. Hypotension, borderline.-ongoing today 3. History of possible prior stent placements 2 to 3 years prior per chart biopsy. 4. Dyslipidemia. 5. Adenocarcinoma of the colon, newly diagnosed. 6. Abdominal pain secondary to adenocarcinoma of the colon. 7. Diabetes mellitus. 8. Anemia. 9. Renal failure insufficiency. Recc: -Follow BP/volume status clsoely -routine post-op care -pain control -Follow BS -Follow NGT output -Oncology following and awaiting pathology Consultation Date/Type/Reason Admit Date/Time Jan 27, 2019 at 20:38 Initial Consult Date 02/05/19 Type of Consult Cardiology Reason for Consultation Preop Requesting Provider: YOSELYN GILL MD Date/Time of Note DATE: 02/10/19 TIME: 16:31 Exam/Review of Systems Vital Signs Vitals Vital Signs Date Temp Pulse Resp B/P (MAP) Pulse Ox O2 O2 Flow FiO2 Time Delivery Rate 02/10/19 98.0 96 18 116/75 90 Room Air 14:59 (89) 02/07/19 2.0 22:45 Intake and Output 02/09/19 02/09/19 02/10/19 1515:00 23:00 07:00 IntakeIntake Total 550 ml 410 ml 690 ml OutputOutput Total 50 ml 1630 ml 1700 ml BalanceBalance 500 ml -1220 ml -1010 ml Exam Exam Review of Systems: CONSTITUTIONAL: No fevers, chills. PULMONARY: No sob CARDIOVASCULAR: No chest pain/palpitations GASTROINTESTINAL: No nausea/vomiting. GENITOURINARY: No hematuria/dysuria. MUSCULOSKELETAL: No myagias/arthalgias. PSYCHIATRIC: The patient denies depression. NEUROLOGIC: No weakness Constitutional: alert Psych: no complaints Head: normocephalic ENMT: mucosa pink and moist Neck: supple, jvd (9cm water) Respiratory: diminished breath sounds Cardiovascular: regular rate and rhythm Gastrointestinal: soft, non-tender, other (covered by dressing) Musculoskeletal: muscle tone (normal) Extremities: edema (none) Neurological: other (No focal deficits) Labs Result Diagram: 02/10/19 0424 02/10/19 0425 Results 24hrs Laboratory Tests Test 02/09/19 17:24 02/09/19 20:36 02/10/19 01:32 02/10/19 04:24 Bedside Glucose 141 108 100 White Blood Count 8.8 Red Blood Count 3.69 L Hemoglobin 9.3 L Hematocrit 29.7 L Mean Corpuscular 80.5 L Volume Mean Corpuscular 25.2 L Hemoglobin Mean Corpuscular 31.3 L Hemoglobin Concent Red Cell 16.8 H Distribution Width Platelet Count 291 Mean Platelet Volume 10.1 Immature 0.700 H Granulocytes % Neutrophils % 70.3 Lymphocytes % 22.8 Monocytes % 5.0 Eosinophils % 1.0 Basophils % 0.2 Nucleated Red Blood 0.0 Cells % Immature 0.060 H Granulocytes # Neutrophils # 6.2 Lymphocytes # 2.0 Monocytes # 0.4 Eosinophils # 0.1 Basophils # 0.0 Nucleated Red Blood 0.0 Cells # Test 02/10/19 04:25 02/10/19 04:52 02/10/19 08:43 02/10/19 10:11 Sodium Level 138 Potassium Level 4.0 Chloride Level 106 Carbon Dioxide Level 23 Anion Gap 9 Blood Urea Nitrogen 11 Creatinine 1.07 Est Glomerular > 60 Filtrat Rate mL/min Glucose Level 95 # Calcium Level 8.7 Bedside Glucose 92 108 111 Test 02/10/19 12:28 Bedside Glucose 113 Medications Medications Current Medications IV Flush (NS 3 ml) 3 ml PER PROTOCOL IV ; Start 01/28/19 at 00:00 Zolpidem Tartrate (Ambien) 10 mg QHS PRN PO .INSOMNIA Last administered on 02/07/19at 01:14; Admin Dose 10 MG; Start 01/28/19 at 00:00 Albuterol/ Ipratropium (Duoneb) 3 ml Q2H RESP THERAPY PRN HHN SHORTNESS OF BREATH; Start 01/28/19 at 00:00 Miscellaneous Information 1 ea NOTE XX ; Start 01/28/19 at 00:00 Glucose (Glutose) 15 gm Q15M PRN PO DECREASED GLUCOSE; Start 01/28/19 at 00:00 Glucose (Glutose) 22.5 gm Q15M PRN PO DECREASED GLUCOSE; Start 01/28/19 at 00:00 Dextrose (D50w Syringe) 25 ml Q15M PRN IV DECREASED GLUCOSE; Start 01/28/19 at 00:00 Dextrose (D50w Syringe) 50 ml Q15M PRN IV DECREASED GLUCOSE; Start 01/28/19 at 00:00 Glucagon (Glucagen) 1 mg Q15M PRN IM DECREASED GLUCOSE; Start 01/28/19 at 00:00 Glucose (Glutose) 15 gm Q15M PRN BUCCAL DECREASED GLUCOSE; Start 01/28/19 at 00:00 Insulin Aspart (Novolog Insulin Pen) 8 unit WITH MEALS SC Last administered on 02/06/19at 17:58; Admin Dose 8 UNIT; Start 02/04/19 at 18:00 Insulin Glargine (Lantus) 25 units DAILY@0800 SC Last administered on 02/10/19 09:42; Admin Dose 25 UNITS; Start 02/06/19 at 08:00 Hydromorphone HCl (Dilaudid) 1 mg Q4H PRN IV SEVERE PAIN LEVEL 7-10 Last administered on 02/09/19 05:09; Admin Dose 1 MG; Start 02/06/19 at 17:00 Insulin Aspart (Novolog Insulin Pen) NOVOLOG *MODERATE* ALGORITHM Q4 SC Last administered on 02/08/19at 17:02; Admin Dose 4 UNIT; Start 02/07/19 at 09:00 Sodium Chloride 1,000 ml @ 50 mls/hr Q20H IV Last administered on 02/10/19at 03:11; Admin Dose 50 MLS/HR; Start 02/07/19 at 10:00 Morphine Sulfate (morphine) 2 mg Q2H PRN IV breakthrough pain; Start 02/07/19 at 18:30 Acetaminophen/ Hydrocodone Bitart ([place] (5/325)) 1 tab Q6H PRN PO PAIN LEVEL 6-10; Start 02/07/19 at 18:30 Acetaminophen (Tylenol Tab) 650 mg Q6H PRN PO MILD PAIN(1-3)OR ELEVATED TEMP; Start 02/07/19 at 18:30 Ibuprofen (Motrin) 600 mg Q6H PRN PO PAIN LEVEL 1-5; Start 02/07/19 at 18:30 Ondansetron HCl (Zofran Inj) 4 mg Q6H PRN IV NAUSEA AND/OR VOMITING Last administered on 02/09/19at 12:08; Admin Dose 4 MG; Start 02/07/19 at 18:30 Miscellaneous Information (* Miscellaneous Pharmacy Order) DURAMORPH: 5 MG EPIDU... GIVEN NEURAXIAL XX ; Start 02/07/19 at 21:00 Phenol (Chloraseptic Throat [place]) 2 spray Q2H PRN MT SORE THROAT Last administered on 02/08/19at 19:36; Admin Dose 2 SPRAY; Start 02/08/19 at 17:30 Hydromorphone HCl (Dilaudid) 0.4 mg Q10MIN PRN IV SEVERE PAIN LEVEL 7-10 Last administered on 02/10/19at 00:06; Admin Dose 0.4 MG; Start 02/09/19 at 08:30 Naloxone HCl (Narcan) 0.2 mg Q2M PRN IV .RESP RATE; Start 02/09/19 at 10:30 Fentanyl/ Ropivacaine 100 ml CONT EPIDURAL EPI ; Start 02/10/19 at 10:15 Zolpidem Tartrate (Ambien) 5 mg HS PRN PO INSOMNIA; Start 02/10/19 at 16:00 AKYLEIGH MARTINEZ Feb 10, 2019 16:33
[2019-02-10 19:50] VITALS: BP 109/81; PULSE 80; RESP 20
[2019-02-10] MEDS: ZOLPIDEM 5 MG TAB PO PRN (21:25)
[2019-02-10] MEDS: ONDANSETRON 4 MG INJ IV PRN ×2 (23:42→23:50)
[2019-02-10] MEDS: PHENOL 1.4% SOLN 180 ML BTL MT PRN (23:50)
[2019-02-11] MEDS: HYDROmorphONE 1 MG/ML SYG IV PRN ×5 (00:44→23:08)
[2019-02-11] MEDS: INSULIN ASPART [NOVOLOG] 3 ML PEN SC SCH ×9 (01:00→21:00)
[2019-02-11 02:30] VITALS: BP 119/74; PULSE 84; RESP 20
[2019-02-11] MEDS: FENTAnyl 2MCG/ML-ROPIV 0.2% 100 ML BAG EPI SCH ×3 (02:41→19:59)
[2019-02-11] MEDS: ONDANSETRON 4 MG INJ IV PRN ×2 (05:41→17:40)
[2019-02-11 08:00] VITALS: BP 116/75; PULSE 84; RESP 18
--- NOTE | 2019-02-11 13:36 | CONS ---
Consult Date/Type/Reason Admit Date/Time Jan 27, 2019 at 20:38 Initial Consult Date 02/05/19 Requesting Provider: YOSELYN GILL MD Date/Time of Note DATE: 02/11/19 TIME: 13:31 Subjective NO acute events - BP in good range - No CP. Tolerated well - NGT in - con't supportive RX. ROS: No fever, no chills, no nausea, no vomiting, abd post op No recent weight changes No chest pain, no PND, no orthopnea No dizziness, blurred vision No thirst, no heat or cold intolerance Objective Vitals Vital Signs Date Temp Pulse Resp B/P (MAP) Pulse Ox O2 O2 Flow FiO2 Time Delivery Rate 02/11/19 98.3 84 18 116/75 98 Room Air 08:00 (89) 02/07/19 2.0 22:45 Intake and Output 02/10/19 02/10/19 02/11/19 1515:00 23:00 07:00 IntakeIntake Total 900 ml 400 ml OutputOutput Total 720 ml 890 ml 1140 ml BalanceBalance -720 ml 10 ml -740 ml Exam General: WN/WD/NAD, AOx 203 HEENT: Unicetric/atraumatic/EOMI ( follows commands) - NGT in NECK: JVD elevated, no thyromegaly Lymph: no lymphadenopathy HEART: regular with no S3, II/ systolic murmur at apex LUNGS: Coarse sounds ABD: post op : Intact Neuro: non focal SKIN: chronic changes EXT: trace edema Results/Medications Result Diagram: 02/10/19 0424 02/10/19 0425 Results 24 hrs Laboratory Tests Test 02/10/19 17:54 02/10/19 21:26 02/11/19 01:27 02/11/19 05:59 Bedside Glucose 84 77 103 91 Test 02/11/19 08:45 Bedside Glucose 75 Medications Current Medications IV Flush (NS 3 ml) 3 ml PER PROTOCOL IV ; Start 01/28/19 at 00:00 Zolpidem Tartrate (Ambien) 10 mg QHS PRN PO .INSOMNIA Last administered on 02/07/19at 01:14; Admin Dose 10 MG; Start 01/28/19 at 00:00 Albuterol/ Ipratropium (Duoneb) 3 ml Q2H RESP THERAPY PRN HHN SHORTNESS OF BREATH; Start 01/28/19 at 00:00 Miscellaneous Information 1 ea NOTE XX ; Start 01/28/19 at 00:00 Glucose (Glutose) 15 gm Q15M PRN PO DECREASED GLUCOSE; Start 01/28/19 at 00:00 Glucose (Glutose) 22.5 gm Q15M PRN PO DECREASED GLUCOSE; Start 01/28/19 at 00:00 Dextrose (D50w Syringe) 25 ml Q15M PRN IV DECREASED GLUCOSE; Start 01/28/19 at 00:00 Dextrose (D50w Syringe) 50 ml Q15M PRN IV DECREASED GLUCOSE; Start 01/28/19 at 00:00 Glucagon (Glucagen) 1 mg Q15M PRN IM DECREASED GLUCOSE; Start 01/28/19 at 00:00 Glucose (Glutose) 15 gm Q15M PRN BUCCAL DECREASED GLUCOSE; Start 01/28/19 at 00:00 Insulin Aspart (Novolog Insulin Pen) 8 unit WITH MEALS SC Last administered on 02/06/19at 17:58; Admin Dose 8 UNIT; Start 02/04/19 at 18:00 Hydromorphone HCl (Dilaudid) 1 mg Q4H PRN IV SEVERE PAIN LEVEL 7-10 Last administered on 02/11/19at 12:44; Admin Dose 1 MG; Start 02/06/19 at 17:00 Insulin Aspart (Novolog Insulin Pen) NOVOLOG *MODERATE* ALGORITHM Q4 SC Last administered on 02/08/19at 17:02; Admin Dose 4 UNIT; Start 02/07/19 at 09:00 Sodium Chloride 1,000 ml @ 50 mls/hr Q20H IV Last administered on 02/10/19at 21:26; Admin Dose 50 MLS/HR; Start 02/07/19 at 10:00 Morphine Sulfate (morphine) 2 mg Q2H PRN IV breakthrough pain; Start 02/07/19 at 18:30 Acetaminophen/ Hydrocodone Bitart ([place] (5/325)) 1 tab Q6H PRN PO PAIN LEVEL 6-10; Start 02/07/19 at 18:30 Acetaminophen (Tylenol Tab) 650 mg Q6H PRN PO MILD PAIN(1-3)OR ELEVATED TEMP; Start 02/07/19 at 18:30 Ibuprofen (Motrin) 600 mg Q6H PRN PO PAIN LEVEL 1-5; Start 02/07/19 at 18:30 Ondansetron HCl (Zofran Inj) 4 mg Q6H PRN IV NAUSEA AND/OR VOMITING Last administered on 02/11/19at 05:41; Admin Dose 4 MG; Start 02/07/19 at 18:30 Miscellaneous Information (* Miscellaneous Pharmacy Order) DURAMORPH: 5 MG EPIDU... GIVEN NEURAXIAL XX ; Start 02/07/19 at 21:00 Phenol (Chloraseptic Throat [place]) 2 spray Q2H PRN MT SORE THROAT Last administered on 02/10/19at 23:50; Admin Dose 2 SPRAY; Start 02/08/19 at 17:30 Hydromorphone HCl (Dilaudid) 0.4 mg Q10MIN PRN IV SEVERE PAIN LEVEL 7-10 Last administered on 02/10/19at 00:06; Admin Dose 0.4 MG; Start 02/09/19 at 08:30 Naloxone HCl (Narcan) 0.2 mg Q2M PRN IV .RESP RATE; Start 02/09/19 at 10:30 Fentanyl/ Ropivacaine 100 ml CONT EPIDURAL EPI Last administered on 02/11/19at 11:08; Admin Dose 100 ML; Start 02/10/19 at 10:15 Zolpidem Tartrate (Ambien) 5 mg HS PRN PO INSOMNIA Last administered on 02/10/19at 21:25; Admin Dose 5 MG; Start 02/10/19 at 16:00 Insulin Glargine (Lantus) 15 units DAILY@0800 SC ; Start 02/12/19 at 08:00 Assessment/Plan Hospital Course (Demo Recall) 1. Preoperative evaluation in a patient prior to colectomy that has multiple cardiac risk factors and possible prior stent apparently placed approximately 2 to 3 years prior.-neg trop x 2. Doing well post op. 2. Low BP - better now, OK to hydrate as needed. 3. History of possible prior stent placements 2 to 3 years prior per chart biopsy. Tolerated procedure well. 4. Dyslipidemia. 5. Adenocarcinoma of the colon, newly diagnosed - post resection. 6. Abdominal pain secondary to adenocarcinoma of the colon. 7. Diabetes mellitus- on meds. 8. Anemia. 9. Renal failure insufficiency- CR 1.07 - will follow. KESHIA LUCAS MD Feb 11, 2019 13:36
[2019-02-11 14:30] VITALS: BP 108/60; PULSE 83; RESP 18
--- NOTE | 2019-02-11 14:47 | OPPN ---
Date/Time of Note Date/Time of Note DATE: 02/11/19 TIME: 14:44 Anesthesia Follow up Anesthesia Follow up Last documented vital signs Vital Signs Date Temp Pulse Resp B/P (MAP) Pulse Ox O2 O2 Flow FiO2 Time Delivery Rate 02/11/19 98.2 83 18 108/60 98 Room Air 14:30 (76) 02/07/19 2.0 22:45 Respiratory function: WNL Cardiovascular function: WNL Comments POD#4 Patient is a 58 yr old with Hs of recently Dx AdenoCA of Transverse Colon, went under GETA yesterday for Laparoscopic to Open Transverse Colectomy and Lysis of Adhesion. Low Thoracic Epidural Catheter placed for post op pain management as well as Bilateral TAP block was done at the end of the surgery. Patient has a Hx of DM, HTN but otherwise stable. He moves all extremity and no weakness reported, His vital signs have been stable, he is afebrile. His pain is well controlled yesterday only one dose of diluadid was given for breakthrough pain. The Epidural infusion running at 11cc/hr. Will continue the Epidural infusion and will follow up. Recommended to DC the [place], also ambulate him more. He was instructed to use Spirometry more often. Epidural Catheter is intact and dressing is clean. Will follow. Plan Epidural Catheter will DC as soon as the patient would have bowel motility to avoid potential side effects of using narcotic for pain control after the Epidural taken out. SARA AVILES MD Feb 11, 2019 14:47
--- NOTE | 2019-02-11 15:57 | PN ---
Date/Time of Note Date/Time of Note DATE: 02/11/19 TIME: 15:55 Assessment/Plan VTE Prophylaxis Risk score (from Nsg)>0 risk: 5 SCD applied (from Ns): Yes Pharmacological prophylaxis: NA/contraindicated Pharm contraindication: low risk/ambulating Lines/Catheters IV Catheter Type (from Nrsg): Saline Lock Urinary Cath still in place: Yes Reason Cath still needed: urinary retention Assessment/Plan Assessment/Plan 58 yo male with DM who presented with hematochezia. Workup has revealed colon adenocarcinoma. No w s/p open hemicolectomy POD 2 Colon adenocarcinoma: - Bone scan negative for mets - s/p colonoscopy with path showing adenocarcinoma - Dr Mark following s/p colectomy - Hemicolectomy performed 02/07. Periop management per surgery - Await return of bowel function - epidural/pain management per anesthesia - IV fluids while NPO Iron deficiency anemia: - IV iron Diabetes - Basal/bolus insulin CKD II: - stable Prophylaxis: SCDs DC planning: Likely to home pending surgery clearance Result Diagram: 02/10/19 0424 02/10/19 0425 Subjective 24 Hr Interval Summary Free Text/Dictation No acute overnight events. Pain adequately controlled Had copious NGT output yesterday but minimal today. Exam/Review of Systems Exam Vitals Vital Signs Date Temp Pulse Resp B/P (MAP) Pulse Ox O2 O2 Flow FiO2 Time Delivery Rate 02/11/19 98.2 83 18 108/60 98 Room Air 14:30 (76) 02/07/19 2.0 22:45 Intake and Output 02/10/19 02/10/19 02/11/19 1515:00 23:00 07:00 IntakeIntake Total 900 ml 400 ml OutputOutput Total 720 ml 890 ml 1140 ml BalanceBalance -720 ml 10 ml -740 ml Exam GENERAL: Well-nourished, well-developed gentleman lying in bed no acute distress HEENT: Moist mucous membranes. NG tube in place. CARDIAC: S1, S2, no added sounds or murmurs. CHEST: Clear to auscultation bilaterally ABDOMEN: Soft, nondistended. Nontender to mild palpation. R GONZALES drain with some output, dressing c/d/i. EXTREMITIES: No cyanosis, clubbing. Results Results 24hrs Laboratory Tests Test 02/10/19 17:54 02/10/19 21:26 02/11/19 01:27 02/11/19 05:59 Bedside Glucose 84 77 103 91 Test 02/11/19 08:45 02/11/19 13:46 Bedside Glucose 75 80 Medications Medication Current Medications IV Flush (NS 3 ml) 3 ml PER PROTOCOL IV ; Start 01/28/19 at 00:00 Zolpidem Tartrate (Ambien) 10 mg QHS PRN PO .INSOMNIA Last administered on 02/07/19at 01:14; Admin Dose 10 MG; Start 01/28/19 at 00:00 Albuterol/ Ipratropium (Duoneb) 3 ml Q2H RESP THERAPY PRN HHN SHORTNESS OF BREATH; Start 01/28/19 at 00:00 Miscellaneous Information 1 ea NOTE XX ; Start 01/28/19 at 00:00 Glucose (Glutose) 15 gm Q15M PRN PO DECREASED GLUCOSE; Start 01/28/19 at 00:00 Glucose (Glutose) 22.5 gm Q15M PRN PO DECREASED GLUCOSE; Start 01/28/19 at 00:00 Dextrose (D50w Syringe) 25 ml Q15M PRN IV DECREASED GLUCOSE; Start 01/28/19 at 00:00 Dextrose (D50w Syringe) 50 ml Q15M PRN IV DECREASED GLUCOSE; Start 01/28/19 at 00:00 Glucagon (Glucagen) 1 mg Q15M PRN IM DECREASED GLUCOSE; Start 01/28/19 at 00:00 Glucose (Glutose) 15 gm Q15M PRN BUCCAL DECREASED GLUCOSE; Start 01/28/19 at 00:00 Insulin Aspart (Novolog Insulin Pen) 8 unit WITH MEALS SC Last administered on 02/06/19at 17:58; Admin Dose 8 UNIT; Start 02/04/19 at 18:00 Hydromorphone HCl (Dilaudid) 1 mg Q4H PRN IV SEVERE PAIN LEVEL 7-10 Last administered on 02/11/19at 12:44; Admin Dose 1 MG; Start 02/06/19 at 17:00 Insulin Aspart (Novolog Insulin Pen) NOVOLOG *MODERATE* ALGORITHM Q4 SC Last administered on 02/08/19at 17:02; Admin Dose 4 UNIT; Start 02/07/19 at 09:00 Sodium Chloride 1,000 ml @ 50 mls/hr Q20H IV Last administered on 02/10/19at 21:26; Admin Dose 50 MLS/HR; Start 02/07/19 at 10:00 Morphine Sulfate (morphine) 2 mg Q2H PRN IV breakthrough pain; Start 02/07/19 at 18:30 Acetaminophen/ Hydrocodone Bitart ([place] (5/325)) 1 tab Q6H PRN PO PAIN LEVEL 6-10; Start 02/07/19 at 18:30 Acetaminophen (Tylenol Tab) 650 mg Q6H PRN PO MILD PAIN(1-3)OR ELEVATED TEMP; Start 02/07/19 at 18:30 Ibuprofen (Motrin) 600 mg Q6H PRN PO PAIN LEVEL 1-5; Start 02/07/19 at 18:30 Ondansetron HCl (Zofran Inj) 4 mg Q6H PRN IV NAUSEA AND/OR VOMITING Last administered on 02/11/19at 05:41; Admin Dose 4 MG; Start 02/07/19 at 18:30 Miscellaneous Information (* Miscellaneous Pharmacy Order) DURAMORPH: 5 MG EPIDU... GIVEN NEURAXIAL XX ; Start 02/07/19 at 21:00 Phenol (Chloraseptic Throat [place]) 2 spray Q2H PRN MT SORE THROAT Last administered on 02/10/19at 23:50; Admin Dose 2 SPRAY; Start 02/08/19 at 17:30 Hydromorphone HCl (Dilaudid) 0.4 mg Q10MIN PRN IV SEVERE PAIN LEVEL 7-10 Last administered on 02/10/19at 00:06; Admin Dose 0.4 MG; Start 02/09/19 at 08:30 Naloxone HCl (Narcan) 0.2 mg Q2M PRN IV .RESP RATE; Start 02/09/19 at 10:30 Fentanyl/ Ropivacaine 100 ml CONT EPIDURAL EPI Last administered on 02/11/19at 1 1:08; Admin Dose 100 ML; Start 02/10/19 at 10:15 Zolpidem Tartrate (Ambien) 5 mg HS PRN PO INSOMNIA Last administered on 02/10/19at 21:25; Admin Dose 5 MG; Start 02/10/19 at 16:00 Insulin Glargine (Lantus) 15 units DAILY@0800 SC ; Start 02/12/19 at 08:00 KAYLEIGH SIDDIQI MD Feb 11, 2019 15:57
[2019-02-11] MEDS: SOD CHLORIDE 0.9% 1,000 ML IV SCH (17:32)
[2019-02-11 19:35] VITALS: BP 123/73; PULSE 71; RESP 20
[2019-02-11] MEDS: PHENOL 1.4% SOLN 180 ML BTL MT PRN (21:48)
[2019-02-11] MEDS: ZOLPIDEM 5 MG TAB PO PRN (22:03)
[2019-02-12] MEDS: INSULIN ASPART [NOVOLOG] 3 ML PEN SC SCH ×8 (01:00→21:00)
[2019-02-12 02:50] VITALS: BP 116/72; PULSE 79; RESP 20
[2019-02-12] MEDS: HYDROmorphONE 1 MG/ML SYG IV PRN ×5 (03:46→23:11)
[2019-02-12] MEDS: FENTAnyl 2MCG/ML-ROPIV 0.2% 100 ML BAG EPI SCH ×3 (05:14→22:09)
[2019-02-12] MEDS: ONDANSETRON 4 MG INJ IV PRN ×2 (06:14→12:38)
[2019-02-12] MEDS: INSULIN GLARGINE [LANTus] (100 UNITS/ML) SYG SC SCH (08:00)
[2019-02-12 08:12] VITALS: BP 127/77; PULSE 86; RESP 20
--- NOTE | 2019-02-12 09:52 | CONS ---
Consult Date/Type/Reason Admit Date/Time Jan 27, 2019 at 20:38 Initial Consult Date 02/05/19 Requesting Provider: YOSELYN GILL MD Date/Time of Note DATE: 02/12/19 TIME: 09:49 Subjective NO acute events - pt stable - no CP now - con't post op care - still abd discomfort - pt NPO. ROS: No fever, no chills, no nausea, no vomiting, no diarrhea/constipation No recent weight changes No chest pain, no PND, no orthopnea + abdom discomfort No dizziness, blurred vision No thirst, no heat or cold intolerance Objective Vitals Vital Signs Date Temp Pulse Resp B/P (MAP) Pulse Ox O2 O2 Flow FiO2 Time Delivery Rate 02/12/19 98.1 86 20 127/77 97 Room Air 08:12 (94) Intake and Output 02/11/19 02/11/19 02/12/19 1515:00 23:00 07:00 IntakeIntake Total 1080 ml 600 ml OutputOutput Total 1400 ml 845 ml BalanceBalance -320 ml -245 ml Exam General: WN/WD/NAD, AOx 3 HEENT: Unicetric/atraumatic/EOMI (follows commands) NECK: JVD elevated, no thyromegaly Lymph: no lymphadenopathy HEART: regular with no S3, II/ systolic murmur at apex LUNGS: Coarse sounds ABD: soft, NT, ND, +BS - post op, NGT in : Intact Neuro: non focal SKIN: chronic changes EXT: trace edema Results/Medications Result Diagram: 02/12/19 0420 02/12/19 0420 Results 24 hrs Laboratory Tests Test 02/11/19 13:46 02/11/19 17:42 02/11/19 17:43 02/11/19 21:49 Bedside Glucose 80 69 L 74 84 Test 02/12/19 01:13 02/12/19 04:20 02/12/19 05:16 02/12/19 09:33 Bedside Glucose 97 104 134 White Blood Count 8.0 Red Blood Count 4.05 L Hemoglobin 10.1 L Hematocrit 33.1 L Mean Corpuscular 81.7 L Volume Mean Corpuscular 24.9 L Hemoglobin Mean Corpuscular 30.5 L Hemoglobin Concent Red Cell 16.8 H Distribution Width Platelet Count 354 # Mean Platelet Volume 9.7 Immature 0.700 H Granulocytes % Neutrophils % 65.4 Lymphocytes % 25.9 Monocytes % 5.6 Eosinophils % 2.2 Basophils % 0.2 Nucleated Red Blood 0.0 Cells % Immature 0.060 H Granulocytes # Neutrophils # 5.2 Lymphocytes # 2.1 Monocytes # 0.5 Eosinophils # 0.2 Basophils # 0.0 Nucleated Red Blood 0.0 Cells # Sodium Level 137 Potassium Level 4.3 Chloride Level 104 Carbon Dioxide Level 19 L Anion Gap 14 H Blood Urea Nitrogen 11 Creatinine 0.91 Est Glomerular > 60 Filtrat Rate mL/min Glucose Level 103 Calcium Level 9.1 Phosphorus Level 4.1 Magnesium Level 1.6 L Total Bilirubin 0.1 L Direct Bilirubin 0.00 Indirect Bilirubin 0.1 Aspartate Amino 14 L Transf (AST/SGOT) Alanine 10 L Aminotransferase (AL T/SGPT) Alkaline Phosphatase 76 Total Protein 6.6 Albumin 3.3 Globulin 3.30 H Albumin/Globulin 1.00 Ratio Medications Current Medications IV Flush (NS 3 ml) 3 ml PER PROTOCOL IV ; Start 01/28/19 at 00:00 Zolpidem Tartrate (Ambien) 10 mg QHS PRN PO .INSOMNIA Last administered on 02/07/19at 01:14; Admin Dose 10 MG; Start 01/28/19 at 00:00 Albuterol/ Ipratropium (Duoneb) 3 ml Q2H RESP THERAPY PRN HHN SHORTNESS OF BREATH; Start 01/28/19 at 00:00 Miscellaneous Information 1 ea NOTE XX ; Start 01/28/19 at 00:00 Glucose (Glutose) 15 gm Q15M PRN PO DECREASED GLUCOSE; Start 01/28/19 at 00:00 Glucose (Glutose) 22.5 gm Q15M PRN PO DECREASED GLUCOSE; Start 01/28/19 at 00:00 Dextrose (D50w Syringe) 25 ml Q15M PRN IV DECREASED GLUCOSE; Start 01/28/19 at 00:00 Dextrose (D50w Syringe) 50 ml Q15M PRN IV DECREASED GLUCOSE; Start 01/28/19 at 00:00 Glucagon (Glucagen) 1 mg Q15M PRN IM DECREASED GLUCOSE; Start 01/28/19 at 00:00 Glucose (Glutose) 15 gm Q15M PRN BUCCAL DECREASED GLUCOSE; Start 01/28/19 at 00:00 Insulin Aspart (Novolog Insulin Pen) 8 unit WITH MEALS SC Last administered on 02/06/19 17:58; Admin Dose 8 UNIT; Start 02/04/19 at 18:00 Hydromorphone HCl (Dilaudid) 1 mg Q4H PRN IV SEVERE PAIN LEVEL 7-10 Last administered on 02/12/19 09:07; Admin Dose 1 MG; Start 02/06/19 at 17:00 Insulin Aspart (Novolog Insulin Pen) NOVOLOG *MODERATE* ALGORITHM Q4 SC Last administered on 02/08/19 17:02; Admin Dose 4 UNIT; Start 02/07/19 at 09:00 Sodium Chloride 1,000 ml @ 50 mls/hr Q20H IV Last administered on 02/11/19 17:32; Admin Dose 50 MLS/HR; Start 02/07/19 at 10:00 Morphine Sulfate (morphine) 2 mg Q2H PRN IV breakthrough pain; Start 02/07/19 at 18:30 Acetaminophen/ Hydrocodone Bitart ([place] (5/325)) 1 tab Q6H PRN PO PAIN LEVEL 6-10; Start 02/07/19 at 18:30 Acetaminophen (Tylenol Tab) 650 mg Q6H PRN PO MILD PAIN(1-3)OR ELEVATED TEMP; Start 02/07/19 at 18:30 Ibuprofen (Motrin) 600 mg Q6H PRN PO PAIN LEVEL 1-5; Start 02/07/19 at 18:30 Ondansetron HCl (Zofran Inj) 4 mg Q6H PRN IV NAUSEA AND/OR VOMITING Last administered on 02/12/19 06:14; Admin Dose 4 MG; Start 02/07/19 at 18:30 Miscellaneous Information (* Miscellaneous Pharmacy Order) DURAMORPH: 5 MG EPIDU... GIVEN NEURAXIAL XX ; Start 02/07/19 at 21:00 Phenol (Chloraseptic Throat [place]) 2 spray Q2H PRN MT SORE THROAT Last administered on 02/11/19at 21:48; Admin Dose 2 SPRAY; Start 02/08/19 at 17:30 Hydromorphone HCl (Dilaudid) 0.4 mg Q10MIN PRN IV SEVERE PAIN LEVEL 7-10 Last administered on 02/10/19at 00:06; Admin Dose 0.4 MG; Start 02/09/19 at 08:30 Naloxone HCl (Narcan) 0.2 mg Q2M PRN IV .RESP RATE; Start 02/09/19 at 10:30 Fentanyl/ Ropivacaine 100 ml CONT EPIDURAL EPI Last administered on 02/12/19at 05:14; Admin Dose 100 ML; Start 02/10/19 at 10:15 Zolpidem Tartrate (Ambien) 5 mg HS PRN PO INSOMNIA Last administered on 02/11/19at 22:03; Admin Dose 5 MG; Start 02/10/19 at 16:00 Insulin Glargine (Lantus) 15 units DAILY@0800 SC ; Start 02/12/19 at 08:00 Magnesium Sulfate 50 ml @ 25 mls/hr ONCE ONCE IVPB ; Start 02/12/19 at 10:00; Stop 02/12/19 at 11:59 Assessment/Plan Hospital Course (Demo Recall) 1. Preoperative evaluation in a patient prior to colectomy that has multiple cardiac risk factors and possible prior stent apparently placed approximately 2 to 3 years prior.-neg trop x 2. Doing well post op - con't surgical care. 2. Low BP - better now, OK to hydrate as needed. BETTER now. 3. History of possible prior stent placements 2 to 3 years prior per chart biopsy. Tolerated procedure well. 4. Dyslipidemia. 5. Adenocarcinoma of the colon, newly diagnosed - post resection. 6. Abdominal pain secondary to adenocarcinoma of the colon. 7. Diabetes mellitus- on meds. 8. Anemia- H/H stable. 9. Renal failure insufficiency- CR 0.91 - will follow. KESHIA LUCAS MD Feb 12, 2019 09:52
[2019-02-12] MEDS ORDERED: MAGNESIUM SULFATE 2 GM/50 ML 50 ML IVPB ONE (10:00)
[2019-02-12 14:15] VITALS: BP 127/76; PULSE 87; RESP 18
--- NOTE | 2019-02-12 14:23 | PN ---
Date/Time of Note Date/Time of Note DATE: 02/12/19 TIME: 14:21 Assessment/Plan VTE Prophylaxis Risk score (from Ns)>0 risk: 8 SCD applied (from [facility] [place]): Yes Pharmacological prophylaxis: NA/contraindicated Pharm contraindication: surgical contra Lines/Catheters [facility] [place] Urinary Cath still in place: No Assessment/Plan Assessment/Plan 58 yo male with DM who presented with hematochezia. Workup has revealed colon adenocarcinoma. No w s/p open hemicolectomy POD 2 Colon adenocarcinoma: - Bone scan negative for mets - s/p colonoscopy with path showing adenocarcinoma - Dr Mark following s/p colectomy - Hemicolectomy performed 02/07. Periop management per surgery - Await return of bowel function - epidural/pain management per anesthesia - IV fluids while NPO - Today will order clamping trial of NG tube to eval if patient can take PO. Iron deficiency anemia: - IV iron Diabetes - Basal/bolus insulin CKD II: - stable Prophylaxis: SCDs DC planning: Likely to home pending surgery clearance Result Diagram: 02/12/19 0420 02/12/19 0420 Subjective 24 Hr Interval Summary Free Text/Dictation No acute overnight events. Continues to have green output from NG tube. About 400cc over past 24 hours. Abdominal pain adequately controlled. Exam/Review of Systems Exam Vitals Vital Signs Date Temp Pulse Resp B/P (MAP) Pulse Ox O2 O2 Flow FiO2 Time Delivery Rate 02/12/19 97.8 87 18 127/76 96 Room Air 14:15 (93) Intake and Output 02/11/19 02/11/19 02/12/19 1515:00 23:00 07:00 IntakeIntake Total 1080 ml 600 ml OutputOutput Total 1400 ml 845 ml BalanceBalance -320 ml -245 ml Exam GENERAL: Well-nourished, well-developed gentleman lying in bed no acute distr ess HEENT: Moist mucous membranes. NG tube in place. CARDIAC: S1, S2, no added sounds or murmurs. CHEST: Clear to auscultation bilaterally ABDOMEN: Soft, nondistended. Nontender to mild palpation. R GONZALES drain with some output, dressing c/d/i. EXTREMITIES: No cyanosis, clubbing. Results Results 24hrs Laboratory Tests Test 02/11/19 17:42 02/11/19 17:43 02/11/19 21:49 02/12/19 01:13 Bedside Glucose 69 L 74 84 97 Test 02/12/19 04:20 02/12/19 05:16 02/12/19 09:33 02/12/19 11:59 White Blood Count 8.0 Red Blood Count 4.05 L Hemoglobin 10.1 L Hematocrit 33.1 L Mean Corpuscular 81.7 L Volume Mean Corpuscular 24.9 L Hemoglobin Mean Corpuscular 30.5 L Hemoglobin Concent Red Cell 16.8 H Distribution Width Platelet Count 354 # Mean Platelet Volume 9.7 Immature 0.700 H Granulocytes % Neutrophils % 65.4 Lymphocytes % 25.9 Monocytes % 5.6 Eosinophils % 2.2 Basophils % 0.2 Nucleated Red Blood 0.0 Cells % Immature 0.060 H Granulocytes # Neutrophils # 5.2 Lymphocytes # 2.1 Monocytes # 0.5 Eosinophils # 0.2 Basophils # 0.0 Nucleated Red Blood 0.0 Cells # Sodium Level 137 Potassium Level 4.3 Chloride Level 104 Carbon Dioxide Level 19 L Anion Gap 14 H Blood Urea Nitrogen 11 Creatinine 0.91 Est Glomerular > 60 Filtrat Rate mL/min Glucose Level 103 Calcium Level 9.1 Phosphorus Level 4.1 Magnesium Level 1.6 L Total Bilirubin 0.1 L Direct Bilirubin 0.00 Indirect Bilirubin 0.1 Aspartate Amino 14 L Transf (AST/SGOT) Alanine 10 L Aminotransferase (AL T/SGPT) Alkaline Phosphatase 76 Total Protein 6.6 Albumin 3.3 Globulin 3.30 H Albumin/Globulin 1.00 Ratio Bedside Glucose 104 134 122 Medications Medication Current Medications IV Flush (NS 3 ml) 3 ml PER PROTOCOL IV ; Start 01/28/19 at 00:00 Zolpidem Tartrate (Ambien) 10 mg QHS PRN PO .INSOMNIA Last administered on 02/07/19at 01:14; Admin Dose 10 MG; Start 01/28/19 at 00:00 Albuterol/ Ipratropium (Duoneb) 3 ml Q2H RESP THERAPY PRN HHN SHORTNESS OF BREATH; Start 01/28/19 at 00:00 Miscellaneous Information 1 ea NOTE XX ; Start 01/28/19 at 00:00 Glucose (Glutose) 15 gm Q15M PRN PO DECREASED GLUCOSE; Start 01/28/19 at 00:00 Glucose (Glutose) 22.5 gm Q15M PRN PO DECREASED GLUCOSE; Start 01/28/19 at 00:00 Dextrose (D50w Syringe) 25 ml Q15M PRN IV DECREASED GLUCOSE; Start 01/28/19 at 00:00 Dextrose (D50w Syringe) 50 ml Q15M PRN IV DECREASED GLUCOSE; Start 01/28/19 at 00:00 Glucagon (Glucagen) 1 mg Q15M PRN IM DECREASED GLUCOSE; Start 01/28/19 at 00:00 Glucose (Glutose) 15 gm Q15M PRN BUCCAL DECREASED GLUCOSE; Start 01/28/19 at 00:00 Insulin Aspart (Novolog Insulin Pen) 8 unit WITH MEALS SC Last administered on 02/06/19at 17:58; Admin Dose 8 UNIT; Start 02/04/19 at 18:00; Status Hold Hydromorphone HCl (Dilaudid) 1 mg Q4H PRN IV SEVERE PAIN LEVEL 7-10 Last administered on 02/12/19at 13:13; Admin Dose 1 MG; Start 02/06/19 at 17:00 Insulin Aspart (Novolog Insulin Pen) NOVOLOG *MODERATE* ALGORITHM Q4 SC Last administered on 02/08/19at 17:02; Admin Dose 4 UNIT; Start 02/07/19 at 09:00 Sodium Chloride 1,000 ml @ 50 mls/hr Q20H IV Last administered on 02/11/19at 17:32; Admin Dose 50 MLS/HR; Start 02/07/19 at 10:00 Morphine Sulfate (morphine) 2 mg Q2H PRN IV breakthrough pain; Start 02/07/19 at 18:30 Acetaminophen/ Hydrocodone Bitart ([place] (5/325)) 1 tab Q6H PRN PO PAIN LEVEL 6-10; Start 02/07/19 at 18:30 Acetaminophen (Tylenol Tab) 650 mg Q6H PRN PO MILD PAIN(1-3)OR ELEVATED TEMP; Start 02/07/19 at 18:30 Ibuprofen (Motrin) 600 mg Q6H PRN PO PAIN LEVEL 1-5; Start 02/07/19 at 18:30 Ondansetron HCl (Zofran Inj) 4 mg Q6H PRN IV NAUSEA AND/OR VOMITING Last administered on 02/12/19at 12:38; Admin Dose 4 MG; Start 02/07/19 at 18:30 Miscellaneous Information (* Miscellaneous Pharmacy Order) DURAMORPH: 5 MG EPIDU... GIVEN NEURAXIAL XX ; Start 02/07/19 at 21:00 Phenol (Chloraseptic Throat [place]) 2 spray Q2H PRN MT SORE THROAT Last administered on 02/11/19at 21:48; Admin Dose 2 SPRAY; Start 02/08/19 at 17:30 Hydromorphone HCl (Dilaudid) 0.4 mg Q10MIN PRN IV SEVERE PAIN LEVEL 7-10 Last administered on 02/10/19at 00:06; Admin Dose 0.4 MG; Start 02/09/19 at 08:30 Naloxone HCl (Narcan) 0.2 mg Q2M PRN IV .RESP RATE; Start 02/09/19 at 10:30 Fentanyl/ Ropivacaine 100 ml CONT EPIDURAL EPI Last administered on 02/12/19at 13:45; Admin Dose 100 ML; Start 02/10/19 at 10:15 Zolpidem Tartrate (Ambien) 5 mg HS PRN PO INSOMNIA Last administered on 02/11/19at 22:03; Admin Dose 5 MG; Start 02/10/19 at 16:00 Insulin Glargine (Lantus) 15 units DAILY@0800 SC ; Start 02/12/19 at 08:00; Status Hold KAYLEIGH SIDDIQI MD Feb 12, 2019 14:23
[2019-02-12] MEDS ORDERED: DIATR MEGLU/DIATRIZOATE SODIUM 120 ML BTL ONE (15:16)
--- NOTE | 2019-02-12 16:43 | OPPN ---
Date/Time of Note Date/Time of Note DATE: 02/12/19 TIME: 16:41 Anesthesia Follow up Anesthesia Follow up Last documented vital signs Vital Signs Date Temp Pulse Resp B/P (MAP) Pulse Ox O2 O2 Flow FiO2 Time Delivery Rate 02/12/19 97.8 87 18 127/76 96 Room Air 14:15 (93) Respiratory function: WNL Cardiovascular function: WNL Comments POD#5 Patient is a 58 yr old with Hs of recently Dx AdenoCA of Transverse Colon, went under GETA yesterday for Laparoscopic to Open Transverse Colectomy and Lysis of Adhesion. Low Thoracic Epidural Catheter placed for post op pain management as well as Bilateral TAP block was done at the end of the surgery. Patient has a Hx of DM, HTN but otherwise stable. He moves all extremity and no weakness reported, His vital signs have been stable, he is afebrile. His pain is well controlled. The Epidural infusion running at 11cc/hr. Will continue the Epidural infusion and will follow up. He was instructed to use Spirometry more often. Epidural Catheter is intact and dressing is clean. Hyman is been removed and he is able to void without problem. Plan Epidural Catheter will DC as soon as the patient would have bowel motility to avoid potential side effects of using narcotic for pain control after the Epidural taken out. He complains of dry mouth and discomfort of NG tube, he is sitting at bed side and otherwise had no pain. SARA AVILES MD Feb 12, 2019 16:43
[2019-02-12 19:48] VITALS: BP 116/58; PULSE 90; RESP 18
[2019-02-12] MEDS: SOD CHLORIDE 0.9% 1,000 ML IV SCH (21:14)
--- NOTE | 2019-02-12 22:29 | PN ---
Date/Time of Note Date/Time of Note DATE: 02/11/19 TIME: 22:23 Assessment/Plan Lines/Catheters IV Catheter Type (from Nrs): Peripheral IV Pérez in Place (from Nrs): No Assessment/Plan Chief Complaint/Hosp Course 1. Transverse colon adenocarcinoma, Previous small bowel resection with primary anastomosis (antecolic over the cancer) and gastrojejunostomy; Ventral incisional [place] cheese type hernia: s/p Laparoscopic converted to open transverse colectomy, Revision of previous scar, Primary repair of ventral incisional [place] type hernia 02/07/19; No bowel function with paralytic ileus. -IS -oob>ambulate qid -chew gum -ice pack to abdominal wall -continue npo and ngt to liws until bowel function -incision site local care -await path -kamala drain -pain control 2. 40 pound weight loss secondary to above 3. Diabetes mellitus type 2 -Nutrition medication optimization 4. Hypertension -Nutrition medication optimization 5. Coronary artery disease with history of Plavix and aspirin -Cardiac evaluation and optimization 6. Iron deficiency anemia secondary to above -Iron transfusion per hematology -As above Thank you Late entry 02/11 Subjective 24 Hr Interval Summary No bowel fxn as of yet. NGT output significant. No fevers, chills, sob, congested cough, cp, palpitations, velasquez, dizziness, nausea, vomiting, dysuria. Labs noted. Exam/Review of Systems Vital Signs Vitals Vital Signs Date Temp Pulse Resp B/P (MAP) Pulse Ox O2 O2 Flow FiO2 Time Delivery Rate 02/12/19 98.2 90 18 116/58 96 19:48 (77) 02/12/19 Room Air 14:15 Intake and Output 02/11/19 02/11/19 02/12/19 1515:00 23:00 07:00 IntakeIntake Total 1080 ml 600 ml OutputOutput Total 1400 ml 845 ml BalanceBalance -320 ml -245 ml Exam Free Text/Dictation Constitutional: alert, oriented; No distress Psych: nl mood/affect; No anxiety Head: normocephalic, atraumatic Eyes: nl conjunctiva, EOMI, PERRL; No icteric ENMT: nl external ears & nose, mucosa pink and moist, ngt Neck: non-tender; No jvd Respiratory: normal air movement; No congested cough, No labored breathing Cardiovascular: regular rate and rhythm; No edema Gastrointestinal: soft, tender (jayden-incisional: midline staple line: dry, no erythema, kamala serous) No distended, No rebound or guarding Genitourinary - Male: nl scrotum, pérez Musculoskeletal: nl extremities to inspection, nl gait and stance; No joint tenderness Extremities: normal pulses; No calf tenderness, No edema Neurological: nl mental status, nl speech, nl strength Skin: nl turgor; No rash or lesions Lymph: nl lymph nodes Results Result Diagram: 02/12/190 02/12/19 0420 CARLYN WALDEN MD Feb 12, 2019 22:29
--- NOTE | 2019-02-12 22:31 | PN ---
Date/Time of Note Date/Time of Note DATE: 02/12/19 TIME: 22:29 Assessment/Plan Lines/Catheters IV Catheter Type (from Nrs): Peripheral IV Pérez in Place (from Nrs): No Assessment/Plan Chief Complaint/Hosp Course 1. Transverse colon adenocarcinoma, Previous small bowel resection with primary anastomosis (antecolic over the cancer) and gastrojejunostomy; Ventral incisional [place] type hernia: s/p Laparoscopic converted to open transverse colectomy, Revision of previous scar, Primary repair of ventral incisional [place] type hernia 02/07/19; No bowel function with paralytic ileus. -IS -oob>ambulate qid -chew gum -ice pack to abdominal wall -continue npo and ngt to liws until bowel function -incision site local care -await path -kamala drain -pain control 2. 40 pound weight loss secondary to above 3. Diabetes mellitus type 2 -Nutrition medication optimization 4. Hypertension -Nutrition medication optimization 5. Coronary artery disease with history of Plavix and aspirin -Cardiac evaluation and optimization 6. Iron deficiency anemia secondary to above -Iron transfusion per hematology -As above Thank you Subjective 24 Hr Interval Summary No bowel function. KAMALA decreasing. Nausea. NGT output significant. No fevers, chills, sob, congested cough, cp, palpitations, velasquez, dizziness, vomiting, dysuria. Labs noted. Exam/Review of Systems Vital Signs Vitals Vital Signs Date Temp Pulse Resp B/P (MAP) Pulse Ox O2 O2 Flow FiO2 Time Delivery Rate 02/12/19 98.2 90 18 116/58 96 19:48 (77) 02/12/19 Room Air 14:15 Intake and Output 02/11/19 02/11/19 02/12/19 1515:00 23:00 07:00 IntakeIntake Total 1080 ml 600 ml OutputOutput Total 1400 ml 845 ml BalanceBalance -320 ml -245 ml Exam Free Text/Dictation Constitutional: alert, oriented; No distress Psych: nl mood/affect; No anxiety Head: normocephalic, atraumatic Eyes: nl conjunctiva, EOMI, PERRL; No icteric ENMT: nl external ears & nose, mucosa pink and moist, ngt Neck: non-tender; No jvd Respiratory: normal air movement; No congested cough, No labored breathing Cardiovascular: regular rate and rhythm; No edema Gastrointestinal: soft, tender (jayden-incisional: midline staple line: dry, no erythema, kamala serous) No distended, No rebound or guarding Genitourinary - Male: nl scrotum, pérez Musculoskeletal: nl extremities to inspection, nl gait and stance; No joint tenderness Extremities: normal pulses; No calf tenderness, No edema Neurological: nl mental status, nl speech, nl strength Skin: nl turgor; No rash or lesions Lymph: nl lymph nodes Results Result Diagram: 02/12/1941902/12/19 0420 CARLYN WALDEN MD Feb 12, 2019 22:31
[2019-02-12] MEDS: ZOLPIDEM 5 MG TAB PO PRN (23:21)
[2019-02-13] MEDS: INSULIN ASPART [NOVOLOG] 3 ML PEN SC SCH ×6 (01:00→21:00)
[2019-02-13 02:25] VITALS: BP 117/69; PULSE 82; RESP 18
[2019-02-13] MEDS: HYDROmorphONE 1 MG/ML SYG IV PRN ×3 (03:12→10:56)
[2019-02-13] MEDS: FENTAnyl 2MCG/ML-ROPIV 0.2% 100 ML BAG EPI SCH (05:04)
[2019-02-13] MEDS: ONDANSETRON 4 MG INJ IV PRN (06:49)
[2019-02-13 07:48] VITALS: BP 121/73; PULSE 91; RESP 19
[2019-02-13] MEDS ORDERED: morphine SULFATE/PF (10 MG/10 ML) INJ ONE (07:48)
--- NOTE | 2019-02-13 08:01 | OPPN ---
Date/Time of Note Date/Time of Note DATE: 02/13/19 TIME: 07:55 Anesthesia Follow up Anesthesia Follow up Last documented vital signs Vital Signs Date Temp Pulse Resp B/P (MAP) Pulse Ox O2 O2 Flow FiO2 Time Delivery Rate 02/13/19 98.2 91 19 121/73 99 07:48 (89) 02/12/19 Room Air 14:15 Respiratory function: WNL Cardiovascular function: WNL Comments POD#6 Patient is a 58 yr old with Hs of recently Dx AdenoCA of Transverse Colon, went under GETA yesterday for Laparoscopic to Open Transverse Colectomy and Lysis of Adhesion. Low Thoracic Epidural Catheter placed for post op pain management as well as Bilateral TAP block was done at the end of the surgery. Patient has a Hx of DM, HTN but otherwise stable. He moves all extremity and no weakness reported, His vital signs have been stable, he is afebrile. His pain is well controlled. The Epidural infusion was running at 11cc/hr. He passed gas this am, Epidural catheter removed, DURAMORPH 5 MG epidurally given and also 12 ml of bolus of ropivacaine. Epidural Catheter removed the tip intact, RN witnessed. Dilaudid will be given for breakthrough pain. SARA AVILES MD Feb 13, 2019 08:01
[2019-02-13 08:23] VITALS: BP 126/74; PULSE 91; RESP 18
--- NOTE | 2019-02-13 12:27 | PN ---
Date/Time of Note Date/Time of Note DATE: 02/13/19 TIME: 12:20 Assessment/Plan Lines/Catheters IV Catheter Type (from [facility]): Peripheral IV Pérez in Place (from [facility]): No Assessment/Plan Chief Complaint/Hosp Course 1. Transverse colon adenocarcinoma, Previous small bowel resection with primary anastomosis (antecolic over the cancer) and gastrojejunostomy; Ventral incisional [place] cheese type hernia: s/p Laparoscopic converted to open transverse colectomy, Revision of previous scar, Primary repair of ventral incisional [place] cheese type hernia 02/07/19; +Bowel function. Ileus resolved. Path noted > Oncology -IS -oob>ambulate qid -chew gum -ice pack to abdominal wall -d/c ngt, kamala -incision site local care -clear liquids -oncology -pain control 2. 40 pound weight loss secondary to above 3. Diabetes mellitus type 2 -Nutrition medication optimization 4. Hypertension -Nutrition medication optimization 5. Coronary artery disease with history of Plavix and aspirin -Cardiac evaluation and optimization 6. Iron deficiency anemia secondary to above -Iron transfusion per hematology -As above Thank you Subjective 24 Hr Interval Summary Flatus and BM yesterday after SBFT. Negative SBFT. KAMALA 80 serous. No n/v. NGT output 900 bilious, however, he has gastrojejunostomy. No fevers, chills, sob, congested cough, cp, palpitations, velasquez, dizziness, vomiting, dysuria. Labs noted. Exam/Review of Systems Vital Signs Vitals Vital Signs Date Temp Pulse Resp B/P (MAP) Pulse Ox O2 O2 Flow FiO2 Time Delivery Rate 02/13/19 98.1 91 18 126/74 96 08:23 (91) 02/12/19 Room Air 14:15 Intake and Output 02/12/19 02/12/19 02/13/19 1515:00 23:00 07:00 IntakeIntake Total 200 ml 460 ml OutputOutput Total 430 ml 930 ml 720 ml BalanceBalance -430 ml -730 ml -260 ml Exam Free Text/Dictation Constitutional: alert, oriented; No distress Psych: nl mood/affect; No anxiety Head: normocephalic, atraumatic Eyes: nl conjunctiva, EOMI, PERRL; No icteric ENMT: nl external ears & nose, mucosa pink and moist, ngt Neck: non-tender; No jvd Respiratory: normal air movement; No congested cough, No labored breathing Cardiovascular: regular rate and rhythm; No edema Gastrointestinal: soft, min tender (jayden-incisional: midline staple line: dry, no erythema, kamala serous) No distended, No rebound or guarding Genitourinary - Male: nl scrotum, pérez Musculoskeletal: nl extremities to inspection, nl gait and stance; No joint tenderness Extremities: normal pulses; No calf tenderness, No edema Neurological: nl mental status, nl speech, nl strength Skin: nl turgor; No rash or lesions Lymph: nl lymph nodes Results Free Text/Dictation Pathology: A-Midline scar, excision: -- Skin with dermal fibrous scar. -- No malignancy or atypia is identified. B-Transverse colon, transverse colectomy: -- Moderately-differentiated adenocarcinoma with mucinous differentiation, invades through the muscularis propria, focally into pericolonic tissue associated with marked luminal stenosis. -- Mesenteric lymph nodes with no evidence of metastatic adenocarcinoma (0/18). -- Margins are clear of adenocarcinoma. SURGICAL PATHOLOGY CANCER CASE SUMMARY: PROCEDURE: Transverse colectomy. TUMOR SITE: Transverse colon. TUMOR SIZE: 11.0 x 6.0 x 1.5 cm. MACROSCOPIC TUMOR PERFORATION: Not identified. HISTOLOGIC TYPE: Adenocarcinoma with mucinous differentiation. HISTOLOGIC GRADE: Moderately-differentiated. TUMOR EXTENSION: Tumor invades through the muscularis propria, focally into pericolonic tissue. MARGINS: All margins are uninvolved by invasive carcinoma. Proximal margin: Clear by 8.5 cm. Distal margin: Clear by 15.5 cm. Mesenteric margin: Clear by 1.5 cm. TREATMENT EFFECT: No known presurgical therapy. LYMPH-VASCULAR INVASION: Not identified. Continued Next Page. . . PERINEURAL INVASION: Not identified. TUMOR BUDDING: Low score. TYPE OF POLYP IN WHICH INVASIVE CARCINOMA AROSE: None identified. TUMOR DEPOSIT: Not identified. LYMPH NODES: Number of lymph nodes involved: 0. Number of lymph nodes examined: 18. PATHOLOGIC STAGE CLASSIFICATION (pTNM, AJCC 8TH EDITION): pT3 pN0. Result Diagram: 02/13/19 0426 02/12/19 0420 CARLYN WALDEN MD Feb 13, 2019 12:27
--- NOTE | 2019-02-13 14:41 | CONS ---
Assessment/Plan Assessment/Plan Hospital Course (Demo Recall) IMPRESSION: 1. Preoperative evaluation in a patient prior to colectomy that has multiple cardiac risk factors and possible prior stent apparently placed approximately 2 to 3 years prior.-neg trop x 2. Now Post-op s/p surgery with clean margins by path 2. Hypotension, borderline.-ongoing today 3. History of possible prior stent placements 2 to 3 years prior per chart biopsy. 4. Dyslipidemia. 5. Adenocarcinoma of the colon, newly diagnosed. 6. Abdominal pain secondary to adenocarcinoma of the colon. 7. Diabetes mellitus. 8. Anemia. 9. Renal failure insufficiency. Recc: -Follow BP/volume status clsoely -routine post-op care -pain control -Follow BS -Oncology following Consultation Date/Type/Reason Admit Date/Time Jan 27, 2019 at 20:38 Initial Consult Date 02/05/19 Type of Consult Cardiology Reason for Consultation preop Requesting Provider: YOSELYN GILL MD Date/Time of Note DATE: 02/13/19 TIME: 14:39 Exam/Review of Systems Vital Signs Vitals Vital Signs Date Temp Pulse Resp B/P (MAP) Pulse Ox O2 O2 Flow FiO2 Time Delivery Rate 02/13/19 98.1 91 18 126/74 96 08:23 (91) 02/12/19 Room Air 14:15 Intake and Output 02/12/19 02/12/19 02/13/19 1414:59 22:59 06:59 IntakeIntake Total 200 ml 460 ml OutputOutput Total 430 ml 930 ml 720 ml BalanceBalance -430 ml -730 ml -260 ml Exam Exam Review of Systems: CONSTITUTIONAL: No fevers, chills. PULMONARY: No sob CARDIOVASCULAR: Mild abd pain GENITOURINARY: No hematuria/dysuria. MUSCULOSKELETAL: No myagias/arthalgias. PSYCHIATRIC: The patient denies depression. NEUROLOGIC: No weakness Constitutional: alert, oriented Psych: no complaints Head: normocephalic Neck: supple, jvd (9 cm water) Respiratory: diminished breath sounds (at bases/B) Cardiovascular: regular rate and rhythm Gastrointestinal: soft, tender (mild to palpation) Musculoskeletal: muscle tone (NL) Extremities: edema (none) Labs Result Diagram: 02/13/19 0426 02/12/19 0420 Results 24hrs Laboratory Tests Test 02/12/19 18:46 02/12/19 18:48 02/12/19 21:09 02/13/19 01:24 Bedside Glucose 146 160 156 131 Test 02/13/19 04:26 02/13/19 04:59 02/13/19 09:05 02/13/19 12:59 White Blood Count 8.9 Red Blood Count 4.10 L Hemoglobin 10.2 L Hematocrit 33.1 L Mean Corpuscular 80.7 L Volume Mean Corpuscular 24.9 L Hemoglobin Mean Corpuscular 30.8 L Hemoglobin Concent Red Cell 16.7 H Distribution Width Platelet Count 364 Mean Platelet Volume 9.6 Immature 0.600 H Granulocytes % Neutrophils % 71.5 Lymphocytes % 18.6 Monocytes % 7.2 Eosinophils % 1.8 Basophils % 0.3 Nucleated Red Blood 0.0 Cells % Immature 0.050 H Granulocytes # Neutrophils # 6.4 Lymphocytes # 1.7 Monocytes # 0.6 Eosinophils # 0.2 Basophils # 0.0 Nucleated Red Blood 0.0 Cells # Bedside Glucose 129 190 169 Medications Medications Current Medications IV Flush (NS 3 ml) 3 ml PER PROTOCOL IV ; Start 01/28/19 at 00:00 Zolpidem Tartrate (Ambien) 10 mg QHS PRN PO .INSOMNIA Last administered on 02/12/19at 23:21; Admin Dose 10 MG; Start 01/28/19 at 00:00 Albuterol/ Ipratropium (Duoneb) 3 ml Q2H RESP THERAPY PRN HHN SHORTNESS OF BREATH; Start 01/28/19 at 00:00 Miscellaneous Information 1 ea NOTE XX ; Start 01/28/19 at 00:00 Glucose (Glutose) 15 gm Q15M PRN PO DECREASED GLUCOSE; Start 01/28/19 at 00:00 Glucose (Glutose) 22.5 gm Q15M PRN PO DECREASED GLUCOSE; Start 01/28/19 at 00:00 Dextrose (D50w Syringe) 25 ml Q15M PRN IV DECREASED GLUCOSE; Start 01/28/19 at 00:00 Dextrose (D50w Syringe) 50 ml Q15M PRN IV DECREASED GLUCOSE; Start 01/28/19 at 00:00 Glucagon (Glucagen) 1 mg Q15M PRN IM DECREASED GLUCOSE; Start 01/28/19 at 00:00 Glucose (Glutose) 15 gm Q15M PRN BUCCAL DECREASED GLUCOSE; Start 01/28/19 at 00:00 Insulin Aspart (Novolog Insulin Pen) 8 unit WITH MEALS SC Last administered on 02/06/19at 17:58; Admin Dose 8 UNIT; Start 02/04/19 at 18:00; Status Hold Hydromorphone HCl (Dilaudid) 1 mg Q4H PRN IV SEVERE PAIN LEVEL 7-10 Last administered on 02/13/19at 10:56; Admin Dose 1 MG; Start 02/06/19 at 17:00 Sodium Chloride 1,000 ml @ 50 mls/hr Q20H IV Last administered on 02/12/19at 21:14; Admin Dose 50 MLS/HR; Start 02/07/19 at 10:00 Morphine Sulfate (morphine) 2 mg Q2H PRN IV breakthrough pain; Start 02/07/19 at 18:30 Acetaminophen/ Hydrocodone Bitart ([place] (5/325)) 1 tab Q6H PRN PO PAIN LEVEL 6-10; Start 02/07/19 at 18:30 Acetaminophen (Tylenol Tab) 650 mg Q6H PRN PO MILD PAIN(1-3)OR ELEVATED TEMP; Start 02/07/19 at 18:30 Ibuprofen (Motrin) 600 mg Q6H PRN PO PAIN LEVEL 1-5; Start 02/07/19 at 18:30 Ondansetron HCl (Zofran Inj) 4 mg Q6H PRN IV NAUSEA AND/OR VOMITING Last administered on 02/13/19at 06:49; Admin Dose 4 MG; Start 02/07/19 at 18:30 Miscellaneous Information (* Miscellaneous Pharmacy Order) DURAMORPH: 5 MG EPIDU... GIVEN NEURAXIAL XX ; Start 02/07/19 at 21:00 Phenol (Chloraseptic Throat [place]) 2 spray Q2H PRN MT SORE THROAT Last administered on 02/11/19at 21:48; Admin Dose 2 SPRAY; Start 02/08/19 at 17:30 Hydromorphone HCl (Dilaudid) 0.4 mg Q10MIN PRN IV SEVERE PAIN LEVEL 7-10 Last administered on 02/10/19at 00:06; Admin Dose 0.4 MG; Start 02/09/19 at 08:30 Naloxone HCl (Narcan) 0.2 mg Q2M PRN IV .RESP RATE; Start 02/09/19 at 10:30 Fentanyl/ Ropivacaine 100 ml CONT EPIDURAL EPI Last administered on 02/13/19at 05:04; Admin Dose 100 ML; Start 02/10/19 at 10:15 Zolpidem Tartrate (Ambien) 5 mg HS PRN PO INSOMNIA Last administered on 02/11/19at 22:03; Admin Dose 5 MG; Start 02/10/19 at 16:00 Insulin Glargine (Lantus) 15 units DAILY@0800 SC ; Start 02/12/19 at 08:00; Status Hold Insulin Aspart (Novolog Insulin Pen) NOVOLOG *MODERATE* ALGORITHM AC MEALS AND BEDTIME SC Last administered on 02/13/19at 13:03; Admin Dose 1 UNIT; Start 02/13/19 at 12:30 KAYLEIGH MARTINEZ 18, 2019 14:41
[2019-02-13 15:13] VITALS: BP 123/68; PULSE 82; RESP 19
--- NOTE | 2019-02-13 15:31 | PN ---
Date/Time of Note Date/Time of Note DATE: 02/13/19 TIME: 15:30 Assessment/Plan VTE Prophylaxis Risk score (from Ns)>0 risk: 6 SCD applied (from Ns): Yes Pharmacological prophylaxis: heparin Lines/Catheters IV Catheter Type (from Nrs): Peripheral IV Urinary Cath still in place: No Assessment/Plan Hospital Course 58 yo male with DM who presented with hematochezia. Workup has revealed colon adenocarcinoma. No w s/p open hemicolectomy POD 2 Colon adenocarcinoma: - Bone scan negative for mets - s/p colonoscopy with path showing adenocarcinoma - Dr Mark following s/p colectomy - Hemicolectomy performed 02/07. Periop management per surgery - Advanced diet to clears Iron deficiency anemia: - IV iron Diabetes - Basal/bolus insulin CKD II: - stable Prophylaxis: SCDs DC planning: Undomiciled currently, CM assistance Result Diagram: 02/13/19 0426 02/12/19 0420 Results 24hrs Laboratory Tests Test 02/12/19 18:46 02/12/19 18:48 02/12/19 21:09 02/13/19 01:24 Bedside Glucose 146 160 156 131 Test 02/13/19 04:26 02/13/19 04:59 02/13/19 09:05 02/13/19 12:59 White Blood Count 8.9 Red Blood Count 4.10 L Hemoglobin 10.2 L Hematocrit 33.1 L Mean Corpuscular 80.7 L Volume Mean Corpuscular 24.9 L Hemoglobin Mean Corpuscular 30.8 L Hemoglobin Concent Red Cell 16.7 H Distribution Width Platelet Count 364 Mean Platelet Volume 9.6 Immature 0.600 H Granulocytes % Neutrophils % 71.5 Lymphocytes % 18.6 Monocytes % 7.2 Eosinophils % 1.8 Basophils % 0.3 Nucleated Red Blood 0.0 Cells % Immature 0.050 H Granulocytes # Neutrophils # 6.4 Lymphocytes # 1.7 Monocytes # 0.6 Eosinophils # 0.2 Basophils # 0.0 Nucleated Red Blood 0.0 Cells # Bedside Glucose 129 190 169 Subjective 24 Hr Interval Summary Free Text/Dictation Epidural removed Bowel function restored, NG tube removed Clear diet Exam/Review of Systems Exam Vitals Vital Signs Date Temp Pulse Resp B/P (MAP) Pulse Ox O2 O2 Flow FiO2 Time Delivery Rate 02/13/19 98.1 82 19 123/68 98 Room Air 15:13 (86) Intake and Output 02/12/19 02/12/19 02/13/19 1515:00 23:00 07:00 IntakeIntake Total 200 ml 460 ml OutputOutput Total 430 ml 930 ml 720 ml BalanceBalance -430 ml -730 ml -260 ml Constitutional: alert, oriented, well developed Psych: no complaints, nl mood/affect Head: normocephalic, atraumatic Eyes: nl conjunctiva, EOMI, nl lids, nl sclera, PERRL ENMT: nl external ears & nose, nl lips & teeth, nl nasal mucosa & septum Neck: supple, non-tender Respiratory: clear to auscultation, normal air movement Cardiovascular: regular rate and rhythm, nl pulses Gastrointestinal: soft, nl liver, spleen, non-tender Musculoskeletal: nl extremities to inspection, nl gait and stance Extremities: normal pulses Neurological: RISK LEAD II-XII intact, nl mental status, nl speech, nl strength Skin: nl turgor; No rash or lesions Lymph: nl lymph nodes Results Results 24hrs Laboratory Tests Test 02/12/19 18:46 02/12/19 18:48 02/12/19 21:09 02/13/19 01:24 Bedside Glucose 146 160 156 131 Test 02/13/19 04:26 02/13/19 04:59 02/13/19 09:05 02/13/19 12:59 White Blood Count 8.9 Red Blood Count 4.10 L Hemoglobin 10.2 L Hematocrit 33.1 L Mean Corpuscular 80.7 L Volume Mean Corpuscular 24.9 L Hemoglobin Mean Corpuscular 30.8 L Hemoglobin Concent Red Cell 16.7 H Distribution Width Platelet Count 364 Mean Platelet Volume 9.6 Immature 0.600 H Granulocytes % Neutrophils % 71.5 Lymphocytes % 18.6 Monocytes % 7.2 Eosinophils % 1.8 Basophils % 0.3 Nucleated Red Blood 0.0 Cells % Immature 0.050 H Granulocytes # Neutrophils # 6.4 Lymphocytes # 1.7 Monocytes # 0.6 Eosinophils # 0.2 Basophils # 0.0 Nucleated Red Blood 0.0 Cells # Bedside Glucose 129 190 169 Medications Medication Current Medications IV Flush (NS 3 ml) 3 ml PER PROTOCOL IV ; Start 01/28/19 at 00:00 Zolpidem Tartrate (Ambien) 10 mg QHS PRN PO .INSOMNIA Last administered on 02/12/19at 23:21; Admin Dose 10 MG; Start 01/28/19 at 00:00 Albuterol/ Ipratropium (Duoneb) 3 ml Q2H RESP THERAPY PRN HHN SHORTNESS OF BREATH; Start 01/28/19 at 00:00 Miscellaneous Information 1 ea NOTE XX ; Start 01/28/19 at 00:00 Glucose (Glutose) 15 gm Q15M PRN PO DECREASED GLUCOSE; Start 01/28/19 at 00:00 Glucose (Glutose) 22.5 gm Q15M PRN PO DECREASED GLUCOSE; Start 01/28/19 at 00:00 Dextrose (D50w Syringe) 25 ml Q15M PRN IV DECREASED GLUCOSE; Start 01/28/19 at 00:00 Dextrose (D50w Syringe) 50 ml Q15M PRN IV DECREASED GLUCOSE; Start 01/28/19 at 00:00 Glucagon (Glucagen) 1 mg Q15M PRN IM DECREASED GLUCOSE; Start 01/28/19 at 00:00 Glucose (Glutose) 15 gm Q15M PRN BUCCAL DECREASED GLUCOSE; Start 01/28/19 at 00:00 Insulin Aspart (Novolog Insulin Pen) 8 unit WITH MEALS SC Last administered on 02/06/19at 17:58; Admin Dose 8 UNIT; Start 02/04/19 at 18:00; Status Hold Hydromorphone HCl (Dilaudid) 1 mg Q4H PRN IV SEVERE PAIN LEVEL 7-10 Last administered on 02/13/19at 10:56; Admin Dose 1 MG; Start 02/06/19 at 17:00 Sodium Chloride 1,000 ml @ 50 mls/hr Q20H IV Last administered on 02/12/19at 21:14; Admin Dose 50 MLS/HR; Start 02/07/19 at 10:00 Morphine Sulfate (morphine) 2 mg Q2H PRN IV breakthrough pain; Start 02/07/19 at 18:30 Acetaminophen/ Hydrocodone Bitart ([place] (5/325)) 1 tab Q6H PRN PO PAIN LEVEL 6-10; Start 02/07/19 at 18:30 Acetaminophen (Tylenol Tab) 650 mg Q6H PRN PO MILD PAIN(1-3)OR ELEVATED TEMP; Start 02/07/19 at 18:30 Ibuprofen (Motrin) 600 mg Q6H PRN PO PAIN LEVEL 1-5; Start 02/07/19 at 18:30 Ondansetron HCl (Zofran Inj) 4 mg Q6H PRN IV NAUSEA AND/OR VOMITING Last administered on 02/13/19 06:49; Admin Dose 4 MG; Start 02/07/19 at 18:30 Miscellaneous Information (* Miscellaneous Pharmacy Order) DURAMORPH: 5 MG EPIDU... GIVEN NEURAXIAL XX ; Start 02/07/19 at 21:00 Phenol (Chloraseptic Throat [place]) 2 spray Q2H PRN MT SORE THROAT Last administered on 02/11/19 21:48; Admin Dose 2 SPRAY; Start 02/08/19 at 17:30 Hydromorphone HCl (Dilaudid) 0.4 mg Q10MIN PRN IV SEVERE PAIN LEVEL 7-10 Last administered on 02/10/19 00:06; Admin Dose 0.4 MG; Start 02/09/19 at 08:30 Naloxone HCl (Narcan) 0.2 mg Q2M PRN IV .RESP RATE; Start 02/09/19 at 10:30 Fentanyl/ Ropivacaine 100 ml CONT EPIDURAL EPI Last administered on 02/13/19 05:04; Admin Dose 100 ML; Start 02/10/19 at 10:15 Zolpidem Tartrate (Ambien) 5 mg HS PRN PO INSOMNIA Last administered on 02/11/19 22:03; Admin Dose 5 MG; Start 02/10/19 at 16:00 Insulin Glargine (Lantus) 15 units DAILY@0800 SC ; Start 02/12/19 at 08:00; Status Hold Insulin Aspart (Novolog Insulin Pen) NOVOLOG *MODERATE* ALGORITHM AC MEALS AND BEDTIME SC Last administered on 02/13/19 13:03; Admin Dose 1 UNIT; Start 02/13/19 at 12:30 YOSELYN GILL MD Feb 13, 2019 15:31
[2019-02-13] MEDS: morphine 2 MG INJ IV PRN ×2 (15:56→21:20)
[2019-02-13] MEDS: KETOROLAC 15 MG INJ IV PRN (17:54)
[2019-02-13 19:41] VITALS: BP 115/67; RESP 18
[2019-02-14] MEDS: ZOLPIDEM 5 MG TAB PO PRN (00:48)
[2019-02-14] MEDS: morphine 2 MG INJ IV PRN ×2 (01:45→08:53)
[2019-02-14 02:36] VITALS: BP 119/70; PULSE 66; RESP 18
[2019-02-14 07:37] VITALS: BP 121/62; PULSE 81; RESP 19
[2019-02-14] MEDS: INSULIN ASPART [NOVOLOG] 3 ML PEN SC SCH ×4 (08:49→20:55)
--- NOTE | 2019-02-14 09:58 | PN ---
Date/Time of Note Date/Time of Note DATE: 02/14/19 TIME: 09:55 Assessment/Plan Lines/Catheters IV Catheter Type (from Nrs): Saline Lock Pérez in Place (from Nrs): No Assessment/Plan Chief Complaint/Hosp Course 1. Transverse colon adenocarcinoma, Previous small bowel resection with primary anastomosis (antecolic over the cancer) and gastrojejunostomy; Ventral incisional [place] cheese type hernia: s/p Laparoscopic converted to open transverse colectomy, Revision of previous scar, Primary repair of ventral incisional [place] cheese type hernia 02/07/19; +Bowel function. Ileus resolved. Path noted > Oncology -IS -oob>ambulate qid -chew gum -ice pack to abdominal wall -incision site local care -Full liquids -oncology follow-up -pain control> transition to oral 2. 40 pound weight loss secondary to above 3. Diabetes mellitus type 2 -Nutrition medication optimization 4. Hypertension -Nutrition medication optimization 5. Coronary artery disease with history of Plavix and aspirin -Cardiac evaluation and optimization 6. Iron deficiency anemia secondary to above -Iron transfusion per hematology -As above Thank you. Patient seen and examined in collaboration with Dr. Homar Taveras. Subjective 24 Hr Interval Summary Feels well. Improved abdominal pain. Tolerating clear liquids. + Bowel function. Congested cough. No fevers, chills, sob, cp, palpitations, velasquez, dizziness, nausea, vomiting, diarrhea, dysuria. Exam/Review of Systems Vital Signs Vitals Vital Signs Date Temp Pulse Resp B/P (MAP) Pulse Ox O2 O2 Flow FiO2 Time Delivery Rate 02/14/19 98.2 81 19 121/62 99 07:37 (81) 02/13/19 21 23:47 02/13/19 Room Air 15:13 Intake and Output 02/13/19 02/13/19 02/14/19 1515:00 23:00 07:00 IntakeIntake Total 1030 ml 480 ml 100 ml OutputOutput Total 420 ml BalanceBalance 610 ml 480 ml 100 ml Exam Free Text/Dictation Constitutional: alert, oriented; No distress Psych: nl mood/affect; No anxiety Head: normocephalic, atraumatic Eyes: nl conjunctiva, EOMI, PERRL; No icteric ENMT: nl external ears & nose, mucosa pink and moist Neck: non-tender; No jvd Respiratory: normal air movement; No congested cough, No labored breathing Cardiovascular: regular rate and rhythm; No edema Gastrointestinal: soft, min tender (jayden-incisional: midline staple line: dry, no erythema) No distended, No rebound or guarding Genitourinary - Male: nl scrotum, pérez Musculoskeletal: nl extremities to inspection, nl gait and stance; No joint tenderness Extremities: normal pulses; No calf tenderness, No edema Neurological: nl mental status, nl speech, nl strength Skin: nl turgor; No rash or lesions Lymph: nl lymph nodes Results Result Diagram: 02/13/19 0426 02/12/19 0420 GIBRAN GUO NP Feb 14, 2019 09:58
--- NOTE | 2019-02-14 10:34 | CONS ---
Consult Date/Type/Reason Admit Date/Time Jan 27, 2019 at 20:38 Initial Consult Date 02/05/19 Requesting Provider: YOSELYN GILL MD Date/Time of Note DATE: 02/14/19 TIME: 10:33 Subjective NO acute events - NGT out - better overall - pt ambulating. ROS: No fever, no chills, no nausea, no vomiting, no diarrhea/constipation No recent weight changes No chest pain, no PND, no orthopnea - mild SOB No dizziness, blurred vision No thirst, no heat or cold intolerance Objective Vitals Vital Signs Date Temp Pulse Resp B/P (MAP) Pulse Ox O2 O2 Flow FiO2 Time Delivery Rate 02/14/19 98.2 81 19 121/62 99 07:37 (81) 02/13/19 21 23:47 02/13/19 Room Air 15:13 Intake and Output 02/13/19 02/13/19 02/14/19 1515:00 23:00 07:00 IntakeIntake Total 1030 ml 480 ml 100 ml OutputOutput Total 420 ml BalanceBalance 610 ml 480 ml 100 ml Exam General: WN/WD/NAD, AOx 3 HEENT: Unicetric/atraumatic/EOMI (follow commands) NECK: JVD elevated, no thyromegaly Lymph: no lymphadenopathy HEART: regular with no S3, II/ systolic murmur at apex LUNGS: Coarse sounds ABD: soft, NT, ND, +BS - post op : Intact Neuro: non focal SKIN: chronic changes EXT: trace edema Results/Medications Result Diagram: 02/14/19 0949 02/12/19 0420 Results 24 hrs Laboratory Tests Test 02/13/19 12:59 02/13/19 17:50 02/13/19 21:05 02/14/19 08:40 Bedside Glucose 169 156 170 162 Test 02/14/19 09:49 White Blood Count 8.6 Red Blood Count 4.23 L Hemoglobin 10.5 L Hematocrit 33.8 L Mean Corpuscular 79.9 L Volume Mean Corpuscular 24.8 L Hemoglobin Mean Corpuscular 31.1 L Hemoglobin Concent Red Cell 17.1 H Distribution Width Platelet Count 343 Mean Platelet Volume 9.8 Immature 0.500 H Granulocytes % Neutrophils % 77.5 H Lymphocytes % 13.4 L Monocytes % 5.2 Eosinophils % 3.1 Basophils % 0.3 Nucleated Red Blood 0.0 Cells % Immature 0.040 H Granulocytes # Neutrophils # 6.7 Lymphocytes # 1.2 Monocytes # 0.5 Eosinophils # 0.3 Basophils # 0.0 Nucleated Red Blood 0.0 Cells # Medications Current Medications IV Flush (NS 3 ml) 3 ml PER PROTOCOL IV ; Start 01/28/19 at 00:00 Zolpidem Tartrate (Ambien) 10 mg QHS PRN PO .INSOMNIA Last administered on 02/14/19at 00:48; Admin Dose 10 MG; Start 01/28/19 at 00:00 Albuterol/ Ipratropium (Duoneb) 3 ml Q2H RESP THERAPY PRN HHN SHORTNESS OF B REATH; Start 01/28/19 at 00:00 Miscellaneous Information 1 ea NOTE XX ; Start 01/28/19 at 00:00 Glucose (Glutose) 15 gm Q15M PRN PO DECREASED GLUCOSE; Start 01/28/19 at 00:00 Glucose (Glutose) 22.5 gm Q15M PRN PO DECREASED GLUCOSE; Start 01/28/19 at 00:00 Dextrose (D50w Syringe) 25 ml Q15M PRN IV DECREASED GLUCOSE; Start 01/28/19 at 00:00 Dextrose (D50w Syringe) 50 ml Q15M PRN IV DECREASED GLUCOSE; Start 01/28/19 at 00:00 Glucagon (Glucagen) 1 mg Q15M PRN IM DECREASED GLUCOSE; Start 01/28/19 at 00:00 Glucose (Glutose) 15 gm Q15M PRN BUCCAL DECREASED GLUCOSE; Start 01/28/19 at 00:00 Insulin Aspart (Novolog Insulin Pen) 8 unit WITH MEALS SC Last administered on 02/06/19at 17:58; Admin Dose 8 UNIT; Start 02/04/19 at 18:00; Status Hold Acetaminophen/ Hydrocodone Bitart ([place] (5/325)) 1 tab Q6H PRN PO PAIN LEVEL 6-10; Start 02/07/19 at 18:30 Acetaminophen (Tylenol Tab) 650 mg Q6H PRN PO MILD PAIN(1-3)OR ELEVATED TEMP; Start 02/07/19 at 18:30 Ibuprofen (Motrin) 600 mg Q6H PRN PO PAIN LEVEL 1-5; Start 02/07/19 at 18:30 Ondansetron HCl (Zofran Inj) 4 mg Q6H PRN IV NAUSEA AND/OR VOMITING Last administered on 02/13/19 06:49; Admin Dose 4 MG; Start 02/07/19 at 18:30 Miscellaneous Information (* Miscellaneous Pharmacy Order) DURAMORPH: 5 MG EPIDU... GIVEN NEURAXIAL XX ; Start 02/07/19 at 21:00 Phenol (Chloraseptic Throat [place]) 2 spray Q2H PRN MT SORE THROAT Last administered on 02/11/19at 21:48; Admin Dose 2 SPRAY; Start 02/08/19 at 17:30 Naloxone HCl (Narcan) 0.2 mg Q2M PRN IV .RESP RATE; Start 02/09/19 at 10:30 Fentanyl/ Ropivacaine 100 ml CONT EPIDURAL EPI Last administered on 02/13/19 05:04; Admin Dose 100 ML; Start 02/10/19 at 10:15 Zolpidem Tartrate (Ambien) 5 mg HS PRN PO INSOMNIA Last administered on 02/11/19 22:03; Admin Dose 5 MG; Start 02/10/19 at 16:00 Insulin Glargine (Lantus) 15 units DAILY@0800 SC ; Start 02/12/19 at 08:00; Status Hold Insulin Aspart (Novolog Insulin Pen) NOVOLOG *MODERATE* ALGORITHM AC MEALS AND BEDTIME SC Last administered on 02/14/19 08:49; Admin Dose 2 UNIT; Start 02/13/19 at 12:30 Ketorolac Tromethamine (Toradol) 15 mg Q6H PRN IV PAIN Last administered on 02/13/19 17:54; Admin Dose 15 MG; Start 02/13/19 at 16:00; Stop 02/16/19 at 15:59 Morphine Sulfate (morphine) 2 mg Q8H PRN IV SEVERE PAIN LEVEL 7-10; Start 02/14/19 at 16:00 Assessment/Plan Hospital Course (Demo Recall) 1. Preoperative evaluation in a patient prior to colectomy that has multiple cardiac risk factors and possible prior stent apparently placed approximately 2 to 3 years prior.-neg trop x 2. Doing well post op - con't surgical care. Tolerate dprocedure well - better overall. 2. Low BP - better now, OK to hydrate as needed. BETTER now. 3. History of possible prior stent placements 2 to 3 years prior per chart biopsy. Tolerated procedure well. On meds. 4. Dyslipidemia. 5. Adenocarcinoma of the colon, newly diagnosed - post resection. 6. Abdominal pain secondary to adenocarcinoma of the colon - doing well post op. 7. Diabetes mellitus- on meds. 8. Anemia- H/H stable. 9. Renal failure insufficiency- CR 0.91 - will follow. KESHIA LUCAS MD Feb 14, 2019 10:34
[2019-02-14] MEDS ORDERED: MAGNESIUM SULFATE 2 GM/50 ML 50 ML IVPB ONE (12:30)
--- NOTE | 2019-02-14 13:38 | PN ---
Date/Time of Note Date/Time of Note DATE: 02/14/19 TIME: 13:37 Assessment/Plan VTE Prophylaxis Risk score (from Nsg)>0 risk: 4 SCD applied (from Ns): Yes Pharmacological prophylaxis: heparin Lines/Catheters IV Catheter Type (from Nrsg): Saline Lock Urinary Cath still in place: No Assessment/Plan Hospital Course 58 yo male with DM who presented with hematochezia. Workup has revealed colon adenocarcinoma. No w s/p open hemicolectomy POD 2 Colon adenocarcinoma: - Bone scan negative for mets - s/p hemicolectomy with clean margins - Dr Mark following s/p colectomy - Hemicolectomy performed 02/07. Periop management per surgery - Advanced diet to clears Iron deficiency anemia: - s/p IV iron Diabetes - Basal/bolus insulin CKD II: - stable Prophylaxis: SCDs DC planning: Undomiciled currently, CM assistance with placement Result Diagram: 02/14/19 0949 02/12/19 0420 Results 24hrs Laboratory Tests Test 02/13/19 17:50 02/13/19 21:05 02/14/19 08:40 02/14/19 09:49 Bedside Glucose 156 170 162 White Blood Count 8.6 Red Blood Count 4.23 L Hemoglobin 10.5 L Hematocrit 33.8 L Mean Corpuscular 79.9 L Volume Mean Corpuscular 24.8 L Hemoglobin Mean Corpuscular 31.1 L Hemoglobin Concent Red Cell 17.1 H Distribution Width Platelet Count 343 Mean Platelet Volume 9.8 Immature 0.500 H Granulocytes % Neutrophils % 77.5 H Lymphocytes % 13.4 L Monocytes % 5.2 Eosinophils % 3.1 Basophils % 0.3 Nucleated Red Blood 0.0 Cells % Immature 0.040 H Granulocytes # Neutrophils # 6.7 Lymphocytes # 1.2 Monocytes # 0.5 Eosinophils # 0.3 Basophils # 0.0 Nucleated Red Blood 0.0 Cells # Phosphorus Level 3.4 Magnesium Level 1.5 L Test 02/14/19 12:40 Bedside Glucose 219 Subjective 24 Hr Interval Summary Free Text/Dictation Tolerating PO diet Pain is controlled No complaints Exam/Review of Systems Exam Vitals Vital Signs Date Temp Pulse Resp B/P (MAP) Pulse Ox O2 O2 Flow FiO2 Time Delivery Rate 02/14/19 98.2 81 19 121/62 99 07:37 (81) 02/13/19 23:47 02/13/19 Room Air 15:13 Intake and Output 02/13/19 02/13/19 02/14/19 1515:00 23:00 07:00 IntakeIntake Total 1030 ml 480 ml 100 ml OutputOutput Total 420 ml BalanceBalance 610 ml 480 ml 100 ml Constitutional: alert, oriented, well developed Psych: no complaints, nl mood/affect Head: normocephalic, atraumatic Eyes: nl conjunctiva, EOMI, nl lids, nl sclera, PERRL ENMT: nl external ears & nose, nl lips & teeth, nl nasal mucosa & septum Neck: supple, non-tender Respiratory: clear to auscultation, normal air movement Cardiovascular: regular rate and rhythm, nl pulses Gastrointestinal: soft, nl liver, spleen, non-tender Musculoskeletal: nl extremities to inspection, nl gait and stance Extremities: normal pulses Neurological: OCCUPATIONAL THERAPIST AIDE II-XII intact, nl mental status, nl speech, nl strength Skin: nl turgor; No rash or lesions Lymph: nl lymph nodes Results Results 24hrs Laboratory Tests Test 02/13/19 17:50 02/13/19 21:05 02/14/19 08:40 02/14/19 09:49 Bedside Glucose 156 170 162 White Blood Count 8.6 Red Blood Count 4.23 L Hemoglobin 10.5 L Hematocrit 33.8 L Mean Corpuscular 79.9 L Volume Mean Corpuscular 24.8 L Hemoglobin Mean Corpuscular 31.1 L Hemoglobin Concent Red Cell 17.1 H Distribution Width Platelet Count 343 Mean Platelet Volume 9.8 Immature 0.500 H Granulocytes % Neutrophils % 77.5 H Lymphocytes % 13.4 L Monocytes % 5.2 Eosinophils % 3.1 Basophils % 0.3 Nucleated Red Blood 0.0 Cells % Immature 0.040 H Granulocytes # Neutrophils # 6.7 Lymphocytes # 1.2 Monocytes # 0.5 Eosinophils # 0.3 Basophils # 0.0 Nucleated Red Blood 0.0 Cells # Phosphorus Level 3.4 Magnesium Level 1.5 L Test 02/14/19 12:40 Bedside Glucose 219 Medications Medication Current Medications IV Flush (NS 3 ml) 3 ml PER PROTOCOL IV ; Start 01/28/19 at 00:00 Zolpidem Tartrate (Ambien) 10 mg QHS PRN PO .INSOMNIA Last administered on 02/14/19at 00:48; Admin Dose 10 MG; Start 01/28/19 at 00:00 Albuterol/ Ipratropium (Duoneb) 3 ml Q2H RESP THERAPY PRN HHN SHORTNESS OF BREATH; Start 01/28/19 at 00:00 Miscellaneous Information 1 ea NOTE XX ; Start 01/28/19 at 00:00 Glucose (Glutose) 15 gm Q15M PRN PO DECREASED GLUCOSE; Start 01/28/19 at 00:00 Glucose (Glutose) 22.5 gm Q15M PRN PO DECREASED GLUCOSE; Start 01/28/19 at 00:00 Dextrose (D50w Syringe) 25 ml Q15M PRN IV DECREASED GLUCOSE; Start 01/28/19 at 00:00 Dextrose (D50w Syringe) 50 ml Q15M PRN IV DECREASED GLUCOSE; Start 01/28/19 at 00:00 Glucagon (Glucagen) 1 mg Q15M PRN IM DECREASED GLUCOSE; Start 01/28/19 at 00:00 Glucose (Glutose) 15 gm Q15M PRN BUCCAL DECREASED GLUCOSE; Start 01/28/19 at 00:00 Insulin Aspart (Novolog Insulin Pen) 8 unit WITH MEALS SC Last administered on 02/06/19at 17:58; Admin Dose 8 UNIT; Start 02/04/19 at 18:00; Status Hold Acetaminophen/ Hydrocodone Bitart ([place] (5/325)) 1 tab Q6H PRN PO PAIN LEVEL 6-10; Start 02/07/19 at 18:30 Acetaminophen (Tylenol Tab) 650 mg Q6H PRN PO MILD PAIN(1-3)OR ELEVATED TEMP; Start 02/07/19 at 18:30 Ibuprofen (Motrin) 600 mg Q6H PRN PO PAIN LEVEL 1-5; Start 02/07/19 at 18:30 Ondansetron HCl (Zofran Inj) 4 mg Q6H PRN IV NAUSEA AND/OR VOMITING Last administered on 02/13/19at 06:49; Admin Dose 4 MG; Start 02/07/19 at 18:30 Miscellaneous Information (* Miscellaneous Pharmacy Order) DURAMORPH: 5 MG EPIDU... GIVEN NEURAXIAL XX ; Start 02/07/19 at 21:00 Phenol (Chloraseptic Throat [place]) 2 spray Q2H PRN MT SORE THROAT Last administered on 02/11/19 21:48; Admin Dose 2 SPRAY; Start 02/08/19 at 17:30 Naloxone HCl (Narcan) 0.2 mg Q2M PRN IV .RESP RATE; Start 02/09/19 at 10:30 Fentanyl/ Ropivacaine 100 ml CONT EPIDURAL EPI Last administered on 02/13/19 05:04; Admin Dose 100 ML; Start 02/10/19 at 10:15 Zolpidem Tartrate (Ambien) 5 mg HS PRN PO INSOMNIA Last administered on 02/11/19 22:03; Admin Dose 5 MG; Start 02/10/19 at 16:00 Insulin Glargine (Lantus) 15 units DAILY@0800 SC ; Start 02/12/19 at 08:00; Status Hold Insulin Aspart (Novolog Insulin Pen) NOVOLOG *MODERATE* ALGORITHM AC MEALS AND BEDTIME SC Last administered on 02/14/19 13:03; Admin Dose 4 UNIT; Start 02/13/19 at 12:30 Ketorolac Tromethamine (Toradol) 15 mg Q6H PRN IV PAIN Last administered on 02/13/19at 17:54; Admin Dose 15 MG; Start 02/13/19 at 16:00; Stop 02/16/19 at 15:59 Morphine Sulfate (morphine) 2 mg Q8H PRN IV SEVERE PAIN LEVEL 7-10; Start 02/14/19 at 16:00 Magnesium Sulfate 50 ml @ 25 mls/hr ONCE ONCE IVPB ; Start 02/14/19 at 12:30; Stop 02/14/19 at 14:29 YOSELYN GILL MD Feb 14, 2019 13:38
--- NOTE | 2019-02-14 13:46 | OPPN ---
Date/Time of Note Date/Time of Note DATE: 02/14/19 TIME: 13:44 Anesthesia Follow up Anesthesia Follow up Last documented vital signs Vital Signs Date Temp Pulse Resp B/P (MAP) Pulse Ox O2 O2 Flow FiO2 Time Delivery Rate 02/14/19 98.2 81 19 121/62 99 07:37 (81) 02/13/19 21 23:47 02/13/19 Room Air 15:13 Respiratory function: WNL Cardiovascular function: WNL Comments POD#7 Patient is a 58 yr old with Hs of recently Dx AdenoCA of Transverse Colon, went under GETA yesterday for Laparoscopic to Open Transverse Colectomy and Lysis of Adhesion. Low Thoracic Epidural Catheter placed for post op pain management as well as Bilateral TAP block was done at the end of the surgery. Patient has a Hx of DM, HTN but otherwise stable. He moves all extremity and no weakness reported, His vital signs have been stable, he is afebrile. His pain is well controlled with morphine prn. TThe Epidural catheter removed yesterday and Duramorph 5 mg was given epidurally before removing the catheter. He is doing well, ambulated and comfortable. His NG tube is been discontinued. He will start liquid diet today. will be followed by his primary team. SARA AVILES MD Feb 14, 2019 13:46
[2019-02-14] MEDS: HYDROCODONE/APAP (5/325) TAB PO PRN ×2 (14:45→21:03)
[2019-02-14 15:30] VITALS: BP 119/68; PULSE 78; RESP 19
[2019-02-14] MEDS: KETOROLAC 15 MG INJ IV PRN (15:48)
[2019-02-14] MEDS ORDERED: HYDROmorphONE 1 MG/ML SYG IV ONE (16:10)
[2019-02-14 20:04] VITALS: BP 123/71; PULSE 67; RESP 18
[2019-02-15] MEDS: ZOLPIDEM 5 MG TAB PO PRN (00:39)
[2019-02-15 01:55] VITALS: BP 119/79; PULSE 69; RESP 18
[2019-02-15] MEDS: morphine 2 MG INJ IV PRN (02:17)
[2019-02-15] MEDS: KETOROLAC 15 MG INJ IV PRN ×2 (07:40→14:04)
[2019-02-15 08:16] VITALS: BP 123/76; PULSE 66; RESP 18
[2019-02-15] MEDS: INSULIN ASPART [NOVOLOG] 3 ML PEN SC SCH ×4 (09:18→22:00)
--- NOTE | 2019-02-15 10:01 | PN ---
Date/Time of Note Date/Time of Note DATE: 02/15/19 TIME: 09:59 Assessment/Plan Lines/Catheters IV Catheter Type (from Nrs): Saline Lock Pérez in Place (from Nrs): No Assessment/Plan Chief Complaint/Hosp Course 1. Transverse colon adenocarcinoma, Previous small bowel resection with primary anastomosis (antecolic over the cancer) and gastrojejunostomy; Ventral incisional [place] cheese type hernia: s/p Laparoscopic converted to open transverse colectomy, Revision of previous scar, Primary repair of ventral incisional [place] type hernia 02/07/19; +Bowel function. Ileus resolved. Path noted > Oncology -IS -oob>ambulate qid -chew gum -ice pack to abdominal wall -incision site local care -oncology follow-up -pain control> transition to oral -soft diet -dc planning ok from surgical standpoint 2. 40 pound weight loss secondary to above 3. Diabetes mellitus type 2 -Nutrition medication optimization 4. Hypertension -Nutrition medication optimization 5. Coronary artery disease with history of Plavix and aspirin -Cardiac evaluation and optimization 6. Iron deficiency anemia secondary to above -Iron transfusion per hematology -As above Thank you. Patient seen and examined in collaboration with Dr. Homar Taveras. Subjective 24 Hr Interval Summary Feels well. Intermittent abdominal pain. No fevers, chills, sob, congested cough, cp, palpitations, velasquez, dizziness, n/v/d/dysuria. + bowel function. tolerating solid diet. Exam/Review of Systems Vital Signs Vitals Vital Signs Date Temp Pulse Resp B/P (MAP) Pulse Ox O2 O2 Flow FiO2 Time Delivery Rate 02/15/19 98.3 66 18 123/76 99 Room Air 08:16 (92) 02/13/19 21 23:47 Intake and Output 02/14/19 02/14/19 02/15/19 1515:00 23:00 07:00 IntakeIntake Total 730 ml 100 ml OutputOutput Total 2 ml BalanceBalance 728 ml 100 ml Exam Free Text/Dictation Constitutional: alert, oriented; No distress Psych: nl mood/affect; No anxiety Head: normocephalic, atraumatic Eyes: nl conjunctiva, EOMI, PERRL; No icteric ENMT: nl external ears & nose, mucosa pink and moist Neck: non-tender; No jvd Respiratory: normal air movement; No congested cough, No labored breathing Cardiovascular: regular rate and rhythm; No edema Gastrointestinal: soft, min tender (jayden-incisional: midline staple line: dry, no erythema) No distended, No rebound or guarding Genitourinary - Male: nl scrotum, pérez Musculoskeletal: nl extremities to inspection, nl gait and stance; No joint tenderness Extremities: normal pulses; No calf tenderness, No edema Neurological: nl mental status, nl speech, nl strength Skin: nl turgor; No rash or lesions Lymph: nl lymph nodes Results Result Diagram: 02/15/19 0445 02/12/19 0420 GIBRAN GUO NP Feb 15, 2019 10:01
--- NOTE | 2019-02-15 13:46 | CONS ---
Assessment/Plan Assessment/Plan Hospital Course (Demo Recall) IMPRESSION: 1. Preoperative evaluation in a patient prior to colectomy that has multiple cardiac risk factors and possible prior stent apparently placed approximately 2 to 3 years prior.-neg trop x 2. Now Post-op s/p surgery with clean margins by path 2. Hypotension, borderline.-ongoing today 3. History of possible prior stent placements 2 to 3 years prior per chart biopsy. 4. Dyslipidemia. 5. Adenocarcinoma of the colon, newly diagnosed. 6. Abdominal pain secondary to adenocarcinoma of the colon. 7. Diabetes mellitus. 8. Anemia. 9. Renal failure insufficiency. Recc: -Follow BP/volume status closely -routine post-op care -pain control -Follow BS -Oncology following Consultation Date/Type/Reason Admit Date/Time Jan 27, 2019 at 20:38 Initial Consult Date 02/05/19 Type of Consult Cardiology Reason for Consultation HTN Requesting Provider: YOSELYN GILL MD Date/Time of Note DATE: 02/15/19 TIME: 13:41 Exam/Review of Systems Vital Signs Vitals Vital Signs Date Temp Pulse Resp B/P (MAP) Pulse Ox O2 O2 Flow FiO2 Time Delivery Rate 02/15/19 98.3 66 18 123/76 99 Room Air 08:16 (92) 02/13/19 21 23:47 Intake and Output 02/14/19 02/14/19 02/15/19 1515:00 23:00 07:00 IntakeIntake Total 730 ml 100 ml OutputOutput Total 2 ml BalanceBalance 728 ml 100 ml Exam Exam Review of Systems: CONSTITUTIONAL: No fevers, chills. PULMONARY: No sob CARDIOVASCULAR: No chest pain/palpitations GASTROINTESTINAL: No nausea/vomiting. GENITOURINARY: No hematuria/dysuria. MUSCULOSKELETAL: No myagias/arthalgias. PSYCHIATRIC: The patient denies depression. NEUROLOGIC: No weakness Constitutional: alert, oriented Head: normocephalic ENMT: mucosa pink and moist Neck: supple, jvd (9 cm water) Respiratory: clear to auscultation Cardiovascular: regular rate and rhythm Gastrointestinal: soft, other (covered by drtessing) Musculoskeletal: muscle tone (normal) Extremities: edema (none) Labs Result Diagram: 02/15/19 0445 02/12/19 0420 Results 24hrs Laboratory Tests Test 02/14/19 17:55 02/14/19 20:48 02/15/19 02:16 02/15/19 04:45 Bedside Glucose 184 240 H 235 H White Blood Count 8.8 Red Blood Count 4.08 L Hemoglobin 10.1 L Hematocrit 32.3 L Mean Corpuscular 79.2 L Volume Mean Corpuscular 24.8 L Hemoglobin Mean Corpuscular 31.3 L Hemoglobin Concent Red Cell 17.0 H Distribution Width Platelet Count 357 Mean Platelet Volume 9.9 Immature 0.500 H Granulocytes % Neutrophils % 79.4 H Lymphocytes % 13.5 L Monocytes % 3.4 Eosinophils % 3.0 Basophils % 0.2 Nucleated Red Blood 0.0 Cells % Immature 0.040 H Granulocytes # Neutrophils # 7.0 Lymphocytes # 1.2 Monocytes # 0.3 Eosinophils # 0.3 Basophils # 0.0 Nucleated Red Blood 0.0 Cells # Test 02/15/19 08:49 02/15/19 13:20 Bedside Glucose 231 H 220 Medications Medications Current Medications IV Flush (NS 3 ml) 3 ml PER PROTOCOL IV Last administered on 02/14/19at 21:04; Admin Dose 3 ML; Start 01/28/19 at 00:00 Zolpidem Tartrate (Ambien) 10 mg QHS PRN PO .INSOMNIA Last administered on 02/15/19at 00:39; Admin Dose 10 MG; Start 01/28/19 at 00:00 Albuterol/ Ipratropium (Duoneb) 3 ml Q2H RESP THERAPY PRN HHN SHORTNESS OF BREATH; Start 01/28/19 at 00:00 Miscellaneous Information 1 ea NOTE XX ; Start 01/28/19 at 00:00 Glucose (Glutose) 15 gm Q15M PRN PO DECREASED GLUCOSE; Start 01/28/19 at 00:00 Glucose (Glutose) 22.5 gm Q15M PRN PO DECREASED GLUCOSE; Start 01/28/19 at 00:00 Dextrose (D50w Syringe) 25 ml Q15M PRN IV DECREASED GLUCOSE; Start 01/28/19 at 00:00 Dextrose (D50w Syringe) 50 ml Q15M PRN IV DECREASED GLUCOSE; Start 01/28/19 at 00:00 Glucagon (Glucagen) 1 mg Q15M PRN IM DECREASED GLUCOSE; Start 01/28/19 at 00:00 Glucose (Glutose) 15 gm Q15M PRN BUCCAL DECREASED GLUCOSE; Start 01/28/19 at 00:00 Insulin Aspart (Novolog Insulin Pen) 8 unit WITH MEALS SC Last administered on 02/06/19 17:58; Admin Dose 8 UNIT; Start 02/04/19 at 18:00; Status Hold Acetaminophen/ Hydrocodone Bitart ([place] (5/325)) 1 tab Q6H PRN PO PAIN LEVEL 6-10 Last administered on 02/14/19 21:03; Admin Dose 1 TAB; Start 02/07/19 at 18:30 Acetaminophen (Tylenol Tab) 650 mg Q6H PRN PO MILD PAIN(1-3)OR ELEVATED TEMP; Start 02/07/19 at 18:30 Ibuprofen (Motrin) 600 mg Q6H PRN PO PAIN LEVEL 1-5; Start 02/07/19 at 18:30 Ondansetron HCl (Zofran Inj) 4 mg Q6H PRN IV NAUSEA AND/OR VOMITING Last administered on 02/13/19 06:49; Admin Dose 4 MG; Start 02/07/19 at 18:30 Miscellaneous Information (* Miscellaneous Pharmacy Order) DURAMORPH: 5 MG EPIDU... GIVEN NEURAXIAL XX ; Start 02/07/19 at 21:00 Phenol (Chloraseptic Throat [place]) 2 spray Q2H PRN MT SORE THROAT Last admi nistered on 02/11/19at 21:48; Admin Dose 2 SPRAY; Start 02/08/19 at 17:30 Naloxone HCl (Narcan) 0.2 mg Q2M PRN IV .RESP RATE; Start 02/09/19 at 10:30 Fentanyl/ Ropivacaine 100 ml CONT EPIDURAL EPI Last administered on 02/13/19at 05:04; Admin Dose 100 ML; Start 02/10/19 at 10:15 Zolpidem Tartrate (Ambien) 5 mg HS PRN PO INSOMNIA Last administered on 02/11/19 22:03; Admin Dose 5 MG; Start 02/10/19 at 16:00 Insulin Glargine (Lantus) 15 units DAILY@0800 SC ; Start 02/12/19 at 08:00; Status Hold Insulin Aspart (Novolog Insulin Pen) NOVOLOG *MODERATE* ALGORITHM AC MEALS AND BEDTIME SC Last administered on 02/15/19 13:24; Admin Dose 4 UNIT; Start 02/13/19 at 12:30 Ketorolac Tromethamine (Toradol) 15 mg Q6H PRN IV PAIN Last administered on 02/15/19at 07:40; Admin Dose 15 MG; Start 02/13/19 at 16:00; Stop 02/16/19 at 15:59 Morphine Sulfate (morphine) 2 mg Q8H PRN IV SEVERE PAIN LEVEL 7-10 Last administered on 02/15/19at 02:17; Admin Dose 2 MG; Start 02/14/19 at 16:00 Simethicone (Mylicon) 80 mg Q8 PRN PO DISTENSION/GAS/BLOATING Last administered on 02/15/19at 06:45; Admin Dose 80 MG; Start 02/15/19 at 05:00 KAYLEIGH MARTINEZ Feb 15, 2019 13:46
[2019-02-15 15:24] VITALS: BP 115/74; PULSE 72; RESP 19
--- NOTE | 2019-02-15 16:44 | CONS ---
Assessment/Plan Assessment/Plan Hospital Course (Demo Recall) 58 yo with newly diagnosed colon adenoca -CT chest shows 4 mm noncalcified nodule in the right apex, which is nonspecific. -CT AP: Irregular bowel wall thickening / mass with adjacent stranding of the distal transverse colon, compatible with given history of colon cancer. Shotty periaortic lymph nodes. The largest is an 11 mm node with normal fatty hilum, suggestive of reactive etiology. Small nonspecific peripherally sclerotic lesion in the left iliac bone measuring 6 mm. -bone scan negative for mets -he is s/p surgery: per notes this revealed previous small bowel resection with primary anastomosis (antecolic over the cancer) and gastrojejunostomy; Ventral incisional Irish cheese type hernia: s/p Laparoscopic converted to open transverse colectomy, Revision of previous scar, Primary repair of ventral incisional [place] cheese type hernia 02/07/19 -path shows T3N0 disease, no high risk features, can consider adjuvant xeloda or 5FU. once pt is fully recovered, will discuss further his treatment options as an outpt, but overall he has a good prognosis given early stage disease Consultation Date/Type/Reason Admit Date/Time Jan 27, 2019 at 20:38 Initial Consult Date 02/01/19 Requesting Provider: YOSELYN GILL MD Date/Time of Note DATE: 02/15/19 TIME: 16:06 24 HR Interval Summary Free Text/Dictation path looks good: PROCEDURE: Transverse colectomy. TUMOR SITE: Transverse colon. TUMOR SIZE: 11.0 x 6.0 x 1.5 cm. MACROSCOPIC TUMOR PERFORATION: Not identified. HISTOLOGIC TYPE: Adenocarcinoma with mucinous differentiation. HISTOLOGIC GRADE: Moderately-differentiated. TUMOR EXTENSION: Tumor invades through the muscularis propria, focally into pericolonic tissue. MARGINS: All margins are uninvolved by invasive carcinoma. Proximal margin: Clear by 8.5 cm. Distal margin: Clear by 15.5 cm. Mesenteric margin: Clear by 1.5 cm. TREATMENT EFFECT: No known presurgical therapy. LYMPH-VASCULAR INVASION: Not identified. Continued Next Page. . . PERINEURAL INVASION: Not identified. TUMOR BUDDING: Low score. TYPE OF POLYP IN WHICH INVASIVE CARCINOMA AROSE: None identified. TUMOR DEPOSIT: Not identified. LYMPH NODES: Number of lymph nodes involved: 0. Number of lymph nodes examined: 18. PATHOLOGIC STAGE CLASSIFICATION (pTNM, AJCC 8TH EDITION): pT3 pN0. Exam/Review of Systems Exam Vitals Vital Signs Date Temp Pulse Resp B/P (MAP) Pulse Ox O2 O2 Flow FiO2 Time Delivery Rate 02/15/19 98.3 72 19 115/74 99 Room Air 15:24 (88) 02/13/19 21 23:47 Intake and Output 02/14/19 02/14/19 02/15/19 1515:00 23:00 07:00 IntakeIntake Total 730 ml 100 ml OutputOutput Total 2 ml BalanceBalance 728 ml 100 ml Constitutional: alert, oriented, well developed Psych: no complaints, nl mood/affect Head: normocephalic, atraumatic Gastrointestinal: surgical scars Results Result Diagram: 02/15/19 0445 02/12/19 0420 Results 24hrs Laboratory Tests Test 02/14/19 17:55 02/14/19 20:48 02/15/19 02:16 02/15/19 04:45 Bedside Glucose 184 240 H 235 H White Blood Count 8.8 Red Blood Count 4.08 L Hemoglobin 10.1 L Hematocrit 32.3 L Mean Corpuscular 79.2 L Volume Mean Corpuscular 24.8 L Hemoglobin Mean Corpuscular 31.3 L Hemoglobin Concent Red Cell 17.0 H Distribution Width Platelet Count 357 Mean Platelet Volume 9.9 Immature 0.500 H Granulocytes % Neutrophils % 79.4 H Lymphocytes % 13.5 L Monocytes % 3.4 Eosinophils % 3.0 Basophils % 0.2 Nucleated Red Blood 0.0 Cells % Immature 0.040 H Granulocytes # Neutrophils # 7.0 Lymphocytes # 1.2 Monocytes # 0.3 Eosinophils # 0.3 Basophils # 0.0 Nucleated Red Blood 0.0 Cells # Test 02/15/19 08:49 02/15/19 13:20 Bedside Glucose 231 H 220 Medications Medication Current Medications IV Flush (NS 3 ml) 3 ml PER PROTOCOL IV Last administered on 02/14/19at 21:04; Admin Dose 3 ML; Start 01/28/19 at 00:00 Zolpidem Tartrate (Ambien) 10 mg QHS PRN PO .INSOMNIA Last administered on 02/15/19at 00:39; Admin Dose 10 MG; Start 01/28/19 at 00:00 Albuterol/ Ipratropium (Duoneb) 3 ml Q2H RESP THERAPY PRN HHN SHORTNESS OF BREATH; Start 01/28/19 at 00:00 Miscellaneous Information 1 ea NOTE XX ; Start 01/28/19 at 00:00 Glucose (Glutose) 15 gm Q15M PRN PO DECREASED GLUCOSE; Start 01/28/19 at 00:00 Glucose (Glutose) 22.5 gm Q15M PRN PO DECREASED GLUCOSE; Start 01/28/19 at 00:00 Dextrose (D50w Syringe) 25 ml Q15M PRN IV DECREASED GLUCOSE; Start 01/28/19 at 00:00 Dextrose (D50w Syringe) 50 ml Q15M PRN IV DECREASED GLUCOSE; Start 01/28/19 at 00:00 Glucagon (Glucagen) 1 mg Q15M PRN IM DECREASED GLUCOSE; Start 01/28/19 at 00:00 Glucose (Glutose) 15 gm Q15M PRN BUCCAL DECREASED GLUCOSE; Start 01/28/19 at 00:00 Insulin Aspart (Novolog Insulin Pen) 8 unit WITH MEALS SC Last administered on 02/06/19at 17:58; Admin Dose 8 UNIT; Start 02/04/19 at 18:00; Status Hold Acetaminophen/ Hydrocodone Bitart ([place] (5/325)) 1 tab Q6H PRN PO PAIN LEVEL 6-10 Last administered on 02/14/19at 21:03; Admin Dose 1 TAB; Start 02/07/19 at 18:30 Acetaminophen (Tylenol Tab) 650 mg Q6H PRN PO MILD PAIN(1-3)OR ELEVATED TEMP; Start 02/07/19 at 18:30 Ibuprofen (Motrin) 600 mg Q6H PRN PO PAIN LEVEL 1-5; Start 02/07/19 at 18:30 Ondansetron HCl (Zofran Inj) 4 mg Q6H PRN IV NAUSEA AND/OR VOMITING Last administered on 02/13/19at 06:49; Admin Dose 4 MG; Start 02/07/19 at 18:30 Miscellaneous Information (* Miscellaneous Pharmacy Order) DURAMORPH: 5 MG EPIDU... GIVEN NEURAXIAL XX ; Start 02/07/19 at 21:00 Phenol (Chloraseptic Throat [place]) 2 spray Q2H PRN MT SORE THROAT Last administered on 02/11/19 21:48; Admin Dose 2 SPRAY; Start 02/08/19 at 17:30 Naloxone HCl (Narcan) 0.2 mg Q2M PRN IV .RESP RATE; Start 02/09/19 at 10:30 Fentanyl/ Ropivacaine 100 ml CONT EPIDURAL EPI Last administered on 02/13/19 05:04; Admin Dose 100 ML; Start 02/10/19 at 10:15 Zolpidem Tartrate (Ambien) 5 mg HS PRN PO INSOMNIA Last administered on 02/11/19 22:03; Admin Dose 5 MG; Start 02/10/19 at 16:00 Insulin Glargine (Lantus) 15 units DAILY@0800 SC ; Start 02/12/19 at 08:00; Status Hold Insulin Aspart (Novolog Insulin Pen) NOVOLOG *MODERATE* ALGORITHM AC MEALS AND BEDTIME SC Last administered on 02/15/19 13:24; Admin Dose 4 UNIT; Start 02/13/19 at 12:30 Ketorolac Tromethamine (Toradol) 15 mg Q6H PRN IV PAIN Last administered on 02/15/19 14:04; Admin Dose 15 MG; Start 02/13/19 at 16:00; Stop 02/16/19 at 15:59 Morphine Sulfate (morphine) 2 mg Q8H PRN IV SEVERE PAIN LEVEL 7-10 Last administered on 02/15/19 02:17; Admin Dose 2 MG; Start 02/14/19 at 16:00 Simethicone (Mylicon) 80 mg Q8 PRN PO DISTENSION/GAS/BLOATING Last administered on 02/15/19 06:45; Admin Dose 80 MG; Start 02/15/19 at 05:00 DOMENICO ABBASI Feb 15, 2019 16:16
--- NOTE | 2019-02-15 17:12 | PN ---
Date/Time of Note Date/Time of Note DATE: 02/15/19 TIME: 17:08 Assessment/Plan VTE Prophylaxis Risk score (from Nsg)>0 risk: 4 SCD applied (from Nsg): Yes Pharmacological prophylaxis: heparin Lines/Catheters IV Catheter Type (from Nrsg): Saline Lock Urinary Cath still in place: No Assessment/Plan Hospital Course 58 yo male with DM who presented with hematochezia. Workup has revealed colon adenocarcinoma. No w s/p open hemicolectomy POD 2 Colon adenocarcinoma: - Bone scan negative for mets - s/p hemicolectomy with clean margins - Dr Mark following s/p colectomy - Hemicolectomy performed 02/07. Periop management per surgery - Advanced diet to clears Iron deficiency anemia: - s/p IV iron Diabetes - Basal/bolus insulin CKD II: - stable Prophylaxis: SCDs DC planning: Undomiciled currently, CM told patient he needs to leave Wednesday Result Diagram: 02/15/19 0445 02/12/19 0420 Results 24hrs Laboratory Tests Test 02/14/19 17:55 02/14/19 20:48 02/15/19 02:16 02/15/19 04:45 Bedside Glucose 184 240 H 235 H White Blood Count 8.8 Red Blood Count 4.08 L Hemoglobin 10.1 L Hematocrit 32.3 L Mean Corpuscular 79.2 L Volume Mean Corpuscular 24.8 L Hemoglobin Mean Corpuscular 31.3 L Hemoglobin Concent Red Cell 17.0 H Distribution Width Platelet Count 357 Mean Platelet Volume 9.9 Immature 0.500 H Granulocytes % Neutrophils % 79.4 H Lymphocytes % 13.5 L Monocytes % 3.4 Eosinophils % 3.0 Basophils % 0.2 Nucleated Red Blood 0.0 Cells % Immature 0.040 H Granulocytes # Neutrophils # 7.0 Lymphocytes # 1.2 Monocytes # 0.3 Eosinophils # 0.3 Basophils # 0.0 Nucleated Red Blood 0.0 Cells # Test 02/15/19 08:49 02/15/19 13:20 Bedside Glucose 231 H 220 Subjective 24 Hr Interval Summary Free Text/Dictation Patient's pain is controlled Told he needs to be discharged as insurance no longer paying. Begged not to be discharged. Told he can stay until Wednesday Exam/Review of Systems Exam Vitals Vital Signs Date Temp Pulse Resp B/P (MAP) Pulse Ox O2 O2 Flow FiO2 Time Delivery Rate 02/15/19 98.3 72 19 115/74 99 Room Air 15:24 (88) 02/13/19 21 23:47 Intake and Output 02/14/19 02/14/19 02/15/19 1515:00 23:00 07:00 IntakeIntake Total 730 ml 100 ml OutputOutput Total 2 ml BalanceBalance 728 ml 100 ml Constitutional: alert, oriented, well developed Psych: no complaints, nl mood/affect Head: normocephalic, atraumatic Eyes: nl conjunctiva, EOMI, nl lids, nl sclera, PERRL ENMT: nl external ears & nose, nl lips & teeth, nl nasal mucosa & septum Neck: supple, non-tender Respiratory: clear to auscultation, normal air movement Cardiovascular: regular rate and rhythm, nl pulses Gastrointestinal: soft, nl liver, spleen, non-tender Musculoskeletal: nl extremities to inspection, nl gait and stance Extremities: normal pulses Neurological: MANAGER CARGO II-XII intact, nl mental status, nl speech, nl strength Skin: nl turgor; No rash or lesions Lymph: nl lymph nodes Results Results 24hrs Laboratory Tests Test 02/14/19 17:55 02/14/19 20:48 02/15/19 02:16 02/15/19 04:45 Bedside Glucose 184 240 H 235 H White Blood Count 8.8 Red Blood Count 4.08 L Hemoglobin 10.1 L Hematocrit 32.3 L Mean Corpuscular 79.2 L Volume Mean Corpuscular 24.8 L Hemoglobin Mean Corpuscular 31.3 L Hemoglobin Concent Red Cell 17.0 H Distribution Width Platelet Count 357 Mean Platelet Volume 9.9 Immature 0.500 H Granulocytes % Neutrophils % 79.4 H Lymphocytes % 13.5 L Monocytes % 3.4 Eosinophils % 3.0 Basophils % 0.2 Nucleated Red Blood 0.0 Cells % Immature 0.040 H Granulocytes # Neutrophils # 7.0 Lymphocytes # 1.2 Monocytes # 0.3 Eosinophils # 0.3 Basophils # 0.0 Nucleated Red Blood 0.0 Cells # Test 02/15/19 08:49 02/15/19 13:20 Bedside Glucose 231 H 220 Medications Medication Current Medications IV Flush (NS 3 ml) 3 ml PER PROTOCOL IV Last administered on 02/14/19at 21:04; Admin Dose 3 ML; Start 3/2/19 at 00:00 Zolpidem Tartrate (Ambien) 10 mg QHS PRN PO .INSOMNIA Last administered on 02/15/19at 00:39; Admin Dose 10 MG; Start 01/28/19 at 00:00 Albuterol/ Ipratropium (Duoneb) 3 ml Q2H RESP THERAPY PRN HHN SHORTNESS OF BREATH; Start 01/28/19 at 00:00 Miscellaneous Information 1 ea NOTE XX ; Start 01/28/19 at 00:00 Glucose (Glutose) 15 gm Q15M PRN PO DECREASED GLUCOSE; Start 01/28/19 at 00:00 Glucose (Glutose) 22.5 gm Q15M PRN PO DECREASED GLUCOSE; Start 01/28/19 at 00:00 Dextrose (D50w Syringe) 25 ml Q15M PRN IV DECREASED GLUCOSE; Start 01/28/19 at 00:00 Dextrose (D50w Syringe) 50 ml Q15M PRN IV DECREASED GLUCOSE; Start 01/28/19 at 00:00 Glucagon (Glucagen) 1 mg Q15M PRN IM DECREASED GLUCOSE; Start 01/28/19 at 00:00 Glucose (Glutose) 15 gm Q15M PRN BUCCAL DECREASED GLUCOSE; Start 01/28/19 at 00:00 Insulin Aspart (Novolog Insulin Pen) 8 unit WITH MEALS SC Last administered on 02/06/19at 17:58; Admin Dose 8 UNIT; Start 02/04/19 at 18:00; Status Hold Acetaminophen/ Hydrocodone Bitart ([place] (5/325)) 1 tab Q6H PRN PO PAIN LEVEL 6-10 Last administered on 02/14/19at 21:03; Admin Dose 1 TAB; Start 02/07/19 at 18:30 Acetaminophen (Tylenol Tab) 650 mg Q6H PRN PO MILD PAIN(1-3)OR ELEVATED TEMP; Start 02/07/19 at 18:30 Ibuprofen (Motrin) 600 mg Q6H PRN PO PAIN LEVEL 1-5; Start 02/07/19 at 18:30 Ondansetron HCl (Zofran Inj) 4 mg Q6H PRN IV NAUSEA AND/OR VOMITING Last administered on 02/13/19at 06:49; Admin Dose 4 MG; Start 02/07/19 at 18:30 Miscellaneous Information (* Miscellaneous Pharmacy Order) DURAMORPH: 5 MG EPIDU... GIVEN NEURAXIAL XX ; Start 02/07/19 at 21:00 Phenol (Chloraseptic Throat [place]) 2 spray Q2H PRN MT SORE THROAT Last administered on 02/11/19 21:48; Admin Dose 2 SPRAY; Start 02/08/19 at 17:30 Naloxone HCl (Narcan) 0.2 mg Q2M PRN IV .RESP RATE; Start 02/09/19 at 10:30 Fentanyl/ Ropivacaine 100 ml CONT EPIDURAL EPI Last administered on 02/13/19 05:04; Admin Dose 100 ML; Start 02/10/19 at 10:15 Zolpidem Tartrate (Ambien) 5 mg HS PRN PO INSOMNIA Last administered on 02/11/19 22:03; Admin Dose 5 MG; Start 02/10/19 at 16:00 Insulin Glargine (Lantus) 15 units DAILY@0800 SC ; Start 02/12/19 at 08:00 Insulin Aspart (Novolog Insulin Pen) NOVOLOG *MODERATE* ALGORITHM AC MEALS AND BEDTIME SC Last administered on 02/15/19 13:24; Admin Dose 4 UNIT; Start 02/13/19 at 12:30 Ketorolac Tromethamine (Toradol) 15 mg Q6H PRN IV PAIN Last administered on 02/15/19 14:04; Admin Dose 15 MG; Start 02/13/19 at 16:00; Stop 02/16/19 at 15:59 Morphine Sulfate (morphine) 2 mg Q8H PRN IV SEVERE PAIN LEVEL 7-10 Last administered on 02/15/19 02:17; Admin Dose 2 MG; Start 02/14/19 at 16:00 Simethicone (Mylicon) 80 mg Q8 PRN PO DISTENSION/GAS/BLOATING Last administered on 02/15/19 06:45; Admin Dose 80 MG; Start 02/15/19 at 05:00 YOSELYN GILL MD Feb 15, 2019 17:12
[2019-02-15] MEDS: POLYETHYLENE GLYCOL 17 GM PACKET PO PRN (18:44)
[2019-02-15 19:20] VITALS: BP 121/78; PULSE 66; RESP 16
[2019-02-15] MEDS: IBUPROFEN 600 MG TAB PO PRN (20:24)
[2019-02-16] MEDS: INSULIN ASPART [NOVOLOG] 3 ML PEN SC SCH ×5 (07:20→21:00)
[2019-02-16] MEDS: IBUPROFEN 600 MG TAB PO PRN ×2 (09:05→17:50)
[2019-02-16] MEDS: KETOROLAC 15 MG INJ IV PRN (10:31)
[2019-02-16] MEDS: INSULIN GLARGINE [LANTus] (100 UNITS/ML) SYG SC SCH (10:31)
[2019-02-16 10:56] VITALS: BP 111/66; PULSE 60; RESP 18
--- NOTE | 2019-02-16 11:44 | PN ---
Date/Time of Note Date/Time of Note DATE: 02/16/19 TIME: 11:42 Assessment/Plan Lines/Catheters IV Catheter Type (from Nrsg): Saline Lock Pérez in Place (from Nrsg): No Assessment/Plan Chief Complaint/Hosp Course 1. Transverse colon adenocarcinoma, Previous small bowel resection with primary anastomosis (antecolic over the cancer) and gastrojejunostomy; Ventral incisional [place] type hernia: s/p Laparoscopic converted to open transverse colectomy, Revision of previous scar, Primary repair of ventral incisional [place] type hernia 02/07/19; +Bowel function. Ileus resolved. Path noted > Oncology -IS -oob>ambulate qid -ice pack to abdominal wall -incision site local care> DC francie today -oncology follow-up -pain control> transition to oral -soft diet -dc ok from surgical standpoint. To follow in office in 1-2 weeks. Patient to call and make appointment. 2. 40 pound weight loss secondary to above 3. Diabetes mellitus type 2 -Nutrition medication optimization 4. Hypertension -Nutrition medication optimization 5. Coronary artery disease with history of Plavix and aspirin -Cardiac evaluation and optimization 6. Iron deficiency anemia secondary to above -Iron transfusion per hematology -As above 7. Hyperglycemia: -glucose optimization Thank you. Patient seen and examined in collaboration with Dr. Homar Taveras. Subjective 24 Hr Interval Summary Some abdominal pain. Improved with pain medication. Tolerating diet. No fevers, chills, sob, congested cough, cp, palpitations, velasquez, dizziness, nausea, vomiting, diarrhea, dysuria. Exam/Review of Systems Vital Signs Vitals Vital Signs Date Temp Pulse Resp B/P (MAP) Pulse Ox O2 O2 Flow FiO2 Time Delivery Rate 02/16/19 98.9 60 18 111/66 94 10:56 (81) 02/15/19 Room Air 15:24 02/13/19 21 23:47 Intake and Output 02/15/19 02/15/19 02/16/19 1515:00 23:00 07:00 IntakeIntake Total 300 ml BalanceBalance 300 ml Exam Free Text/Dictation Constitutional: alert, oriented; No distress Psych: nl mood/affect; No anxiety Head: normocephalic, atraumatic Eyes: nl conjunctiva, EOMI, PERRL; No icteric ENMT: nl external ears & nose, mucosa pink and moist Neck: non-tender; No jvd Respiratory: normal air movement; No congested cough, No labored breathing Cardiovascular: regular rate and rhythm; No edema Gastrointestinal: soft, min tender (jayden-incisional: midline staple line: dry, no erythema) No distended, No rebound or guarding Genitourinary - Male: nl scrotum, pérez Musculoskeletal: nl extremities to inspection, nl gait and stance; No joint tenderness Extremities: normal pulses; No calf tenderness, No edema Neurological: nl mental status, nl speech, nl strength Skin: nl turgor; No rash or lesions Lymph: nl lymph nodes Results Result Diagram: 02/16/1941902/12/19419 GIBRAN GUO NP Feb 16, 2019 11:44
--- NOTE | 2019-02-16 12:44 | PN ---
Date/Time of Note Date/Time of Note DATE: 02/16/19 TIME: 12:42 Assessment/Plan VTE Prophylaxis Risk score (from Ns)>0 risk: 9 SCD applied (from Ns): Yes Pharmacological prophylaxis: heparin Lines/Catheters IV Catheter Type (from Nrs): Saline Lock Urinary Cath still in place: No Assessment/Plan Hospital Course 58 yo male with DM who presented with hematochezia. Workup has revealed colon adenocarcinoma. No w s/p open hemicolectomy POD 2 Colon adenocarcinoma: - Bone scan negative for mets - s/p hemicolectomy with clean margins - Dr Mark following s/p colectomy - Hemicolectomy performed 02/07. Periop management per surgery - Advanced diet to clears Iron deficiency anemia: - s/p IV iron Diabetes - Basal/bolus insulin CKD II: - stable Prophylaxis: SCDs DC planning: Undomiciled currently, CM told patient he needs to leave Wednesday Result Diagram: 02/16/19 0420 02/12/19 0420 Results 24hrs Laboratory Tests Test 02/15/19 13:20 02/15/19 17:57 02/16/19 04:19 02/16/19 04:20 Bedside Glucose 220 259 H Phosphorus Level 3.9 Magnesium Level 1.7 White Blood Count 5.4 # Red Blood Count 3.84 L Hemoglobin 9.8 L Hematocrit 30.5 L Mean Corpuscular 79.4 L Volume Mean Corpuscular 25.5 L Hemoglobin Mean Corpuscular 32.1 Hemoglobin Concent Red Cell 16.9 H Distribution Width Platelet Count 285 # Mean Platelet Volume 10.3 Immature 0.200 Granulocytes % Neutrophils % 59.9 Lymphocytes % 26.3 Monocytes % 6.9 Eosinophils % 6.3 Basophils % 0.4 Nucleated Red Blood 0.0 Cells % Immature 0.010 Granulocytes # Neutrophils # 3.2 Lymphocytes # 1.4 Monocytes # 0.4 Eosinophils # 0.3 Basophils # 0.0 Nucleated Red Blood 0.0 Cells # Test 02/16/19 08:51 02/16/19 10:28 Bedside Glucose 301 H 331 H Subjective 24 Hr Interval Summary Free Text/Dictation Patinet on a "hunger strike" after being told he needs to leave the hospital and insurance no longer approving admission. Also refusing medicaionts He is very concerned he is "not better yet". I asked him in what way, he refers to incision francie still present. I told him we would take them out today and he needs to be discharged tomorrow Exam/Review of Systems Exam Vitals Vital Signs Date Temp Pulse Resp B/P (MAP) Pulse Ox O2 O2 Flow FiO2 Time Delivery Rate 02/16/19 98.9 60 18 111/66 94 10:56 (81) 02/15/19 Room Air 15:24 02/13/19 21 23:47 Intake and Output 02/15/19 02/15/19 02/16/19 1515:00 23:00 07:00 IntakeIntake Total 300 ml BalanceBalance 300 ml Constitutional: alert, oriented, well developed Psych: no complaints, nl mood/affect Head: normocephalic, atraumatic Eyes: nl conjunctiva, EOMI, nl lids, nl sclera, PERRL ENMT: nl external ears & nose, nl lips & teeth, nl nasal mucosa & septum Neck: supple, non-tender Respiratory: clear to auscultation, normal air movement Cardiovascular: regular rate and rhythm, nl pulses Gastrointestinal: soft, nl liver, spleen, non-tender Musculoskeletal: nl extremities to inspection, nl gait and stance Extremities: normal pulses Neurological: ELIGIBILITY EXAMINER II-XII intact, nl mental status, nl speech, nl strength Skin: nl turgor; No rash or lesions Lymph: nl lymph nodes Results Results 24hrs Laboratory Tests Test 02/15/19 13:20 02/15/19 17:57 02/16/19 04:19 02/16/19 04:20 Bedside Glucose 220 259 H Phosphorus Level 3.9 Magnesium Level 1.7 White Blood Count 5.4 # Red Blood Count 3.84 L Hemoglobin 9.8 L Hematocrit 30.5 L Mean Corpuscular 79.4 L Volume Mean Corpuscular 25.5 L Hemoglobin Mean Corpuscular 32.1 Hemoglobin Concent Red Cell 16.9 H Distribution Width Platelet Count 285 # Mean Platelet Volume 10.3 Immature 0.200 Granulocytes % Neutrophils % 59.9 Lymphocytes % 26.3 Monocytes % 6.9 Eosinophils % 6.3 Basophils % 0.4 Nucleated Red Blood 0.0 Cells % Immature 0.010 Granulocytes # Neutrophils # 3.2 Lymphocytes # 1.4 Monocytes # 0.4 Eosinophils # 0.3 Basophils # 0.0 Nucleated Red Blood 0.0 Cells # Test 02/16/19 08:51 02/16/19 10:28 Bedside Glucose 301 H 331 H Medications Medication Current Medications IV Flush (NS 3 ml) 3 ml PER PROTOCOL IV Last administered on 02/14/19at 21:04; Admin Dose 3 ML; Start 01/28/19 at 00:00 Zolpidem Tartrate (Ambien) 10 mg QHS PRN PO .INSOMNIA Last administered on 02/15/19at 00:39; Admin Dose 10 MG; Start 01/28/19 at 00:00 Albuterol/ Ipratropium (Duoneb) 3 ml Q2H RESP THERAPY PRN HHN SHORTNESS OF BREATH; Start 01/28/19 at 00:00 Miscellaneous Information 1 ea NOTE XX ; Start 01/28/19 at 00:00 Glucose (Glutose) 15 gm Q15M PRN PO DECREASED GLUCOSE; Start 01/28/19 at 00:00 Glucose (Glutose) 22.5 gm Q15M PRN PO DECREASED GLUCOSE; Start 01/28/19 at 00:00 Dextrose (D50w Syringe) 25 ml Q15M PRN IV DECREASED GLUCOSE; Start 01/28/19 at 00:00 Dextrose (D50w Syringe) 50 ml Q15M PRN IV DECREASED GLUCOSE; Start 01/28/19 at 00:00 Glucagon (Glucagen) 1 mg Q15M PRN IM DECREASED GLUCOSE; Start 01/28/19 at 00:00 Glucose (Glutose) 15 gm Q15M PRN BUCCAL DECREASED GLUCOSE; Start 01/28/19 at 00:00 Insulin Aspart (Novolog Insulin Pen) 8 unit WITH MEALS SC Last administered on 02/06/19at 17:58; Admin Dose 8 UNIT; Start 02/04/19 at 18:00; Status Hold Acetaminophen/ Hydrocodone Bitart ([place] (5/325)) 1 tab Q6H PRN PO PAIN LEVEL 6-10 Last administered on 02/14/19at 21:03; Admin Dose 1 TAB; Start 02/07/19 at 18:30 Acetaminophen (Tylenol Tab) 650 mg Q6H PRN PO MILD PAIN(1-3)OR ELEVATED TEMP; Start 02/07/19 at 18:30 Ibuprofen (Motrin) 600 mg Q6H PRN PO PAIN LEVEL 1-5 Last administered on 02/15/19at 20:24; Admin Dose 600 MG; Start 02/07/19 at 18:30 Ondansetron HCl (Zofran Inj) 4 mg Q6H PRN IV NAUSEA AND/OR VOMITING Last admini stered on 02/13/19 06:49; Admin Dose 4 MG; Start 02/07/19 at 18:30 Miscellaneous Information (* Miscellaneous Pharmacy Order) DURAMORPH: 5 MG EPIDU... GIVEN NEURAXIAL XX ; Start 02/07/19 at 21:00 Phenol (Chloraseptic Throat [place]) 2 spray Q2H PRN MT SORE THROAT Last administered on 02/11/19 21:48; Admin Dose 2 SPRAY; Start 02/08/19 at 17:30 Naloxone HCl (Narcan) 0.2 mg Q2M PRN IV .RESP RATE; Start 02/09/19 at 10:30 Fentanyl/ Ropivacaine 100 ml CONT EPIDURAL EPI Last administered on 02/13/19 05:04; Admin Dose 100 ML; Start 02/10/19 at 10:15 Zolpidem Tartrate (Ambien) 5 mg HS PRN PO INSOMNIA Last administered on 02/11/19 22:03; Admin Dose 5 MG; Start 02/10/19 at 16:00 Insulin Glargine (Lantus) 15 units DAILY@0800 SC Last administered on 02/16/19 10:31; Admin Dose 15 UNITS; Start 02/12/19 at 08:00 Insulin Aspart (Novolog Insulin Pen) NOVOLOG *MODERATE* ALGORITHM AC MEALS AND BEDTIME SC Last administered on 02/16/19 10:30; Admin Dose 10 UNIT; Start 02/13/19 at 12:30 Ketorolac Tromethamine (Toradol) 15 mg Q6H PRN IV PAIN Last administered on 02/16/19 10:31; Admin Dose 15 MG; Start 02/13/19 at 16:00; Stop 02/16/19 at 15:59 Morphine Sulfate (morphine) 2 mg Q8H PRN IV SEVERE PAIN LEVEL 7-10 Last administered on 02/15/19 02:17; Admin Dose 2 MG; Start 02/14/19 at 16:00 Simethicone (Mylicon) 80 mg Q8 PRN PO DISTENSION/GAS/BLOATING Last administered on 3/20/19at 06:45; Admin Dose 80 MG; Start 02/15/19 at 05:00 Polyethylene Glycol (Miralax) 17 gm DAILY PRN PO constipation Last administered on 02/15/19at 18:44; Admin Dose 17 GM; Start 02/15/19 at 18:00 YOSELYN GILL MD Feb 16, 2019 12:44
[2019-02-16 13:15] VITALS: BP 113/72; PULSE 72; RESP 18
[2019-02-16] MEDS: morphine 2 MG INJ IV PRN ×2 (13:16→21:10)
[2019-02-16] MEDS: POLYETHYLENE GLYCOL 17 GM PACKET PO PRN (13:45)
--- NOTE | 2019-02-16 13:56 | CONS ---
Assessment/Plan Assessment/Plan Hospital Course (Demo Recall) 58 yo with newly diagnosed colon adenoca -CT chest shows 4 mm noncalcified nodule in the right apex, which is nonspecific. -CT AP: Irregular bowel wall thickening / mass with adjacent stranding of the distal transverse colon, compatible with given history of colon cancer. Shotty periaortic lymph nodes. The largest is an 11 mm node with normal fatty hilum, suggestive of reactive etiology. Small nonspecific peripherally sclerotic lesion in the left iliac bone measuring 6 mm. -bone scan negative for mets -he is s/p surgery: per notes this revealed previous small bowel resection with primary anastomosis (antecolic over the cancer) and gastrojejunostomy; Ventral incisional [place] cheese type hernia: s/p Laparoscopic converted to open transverse colectomy, Revision of previous scar, Primary repair of ventral incisional [place] cheese type hernia 02/07/19 -path shows T3N0 disease, no high risk features, can consider adjuvant xeloda or 5FU. once pt is fully recovered, will discuss further his treatment options as an outpt, but overall he has a good prognosis given early stage disease -pt states he may fly back to [place] as [place] one to [place] for [place] Consultation Date/Type/Reason Admit Date/Time Jan 27, 2019 at 20:38 Initial Consult Date 02/05/19 Type of Consult oncology Reason for Consultation stage II colon cancer Requesting Provider: YOSELYN GILL MD Date/Time of Note DATE: 02/16/19 TIME: 13:55 24 HR Interval Summary Free Text/Dictation pt has no where to go. still needing occasional pain medication Exam/Review of Systems Exam Vitals Vital Signs Date Temp Pulse Resp B/P (MAP) Pulse Ox O2 O2 Flow FiO2 Time Delivery Rate 02/16/19 98.6 72 18 113/72 98 13:15 (86) 02/15/19 Room Air 15:24 02/13/19 21 23:47 Intake and Output 02/15/19 02/15/19 02/16/19 1515:00 23:00 07:00 IntakeIntake Total 300 ml BalanceBalance 300 ml Constitutional: alert, oriented Psych: no complaints Head: normocephalic Eyes: nl conjunctiva ENMT: nl external ears & nose Neck: supple Respiratory: clear to auscultation Cardiovascular: regular rate and rhythm Gastrointestinal: soft Musculoskeletal: nl extremities to inspection Results Result Diagram: 02/16/19 0420 02/12/19 0420 Results 24hrs Laboratory Tests Test 02/15/19 17:57 02/16/19 04:19 02/16/19 04:20 02/16/19 08:51 Bedside Glucose 259 H 301 H Phosphorus Level 3.9 Magnesium Level 1.7 White Blood Count 5.4 # Red Blood Count 3.84 L Hemoglobin 9.8 L Hematocrit 30.5 L Mean Corpuscular 79.4 L Volume Mean Corpuscular 25.5 L Hemoglobin Mean Corpuscular 32.1 Hemoglobin Concent Red Cell 16.9 H Distribution Width Platelet Count 285 # Mean Platelet Volume 10.3 Immature 0.200 Granulocytes % Neutrophils % 59.9 Lymphocytes % 26.3 Monocytes % 6.9 Eosinophils % 6.3 Basophils % 0.4 Nucleated Red Blood 0.0 Cells % Immature 0.010 Granulocytes # Neutrophils # 3.2 Lymphocytes # 1.4 Monocytes # 0.4 Eosinophils # 0.3 Basophils # 0.0 Nucleated Red Blood 0.0 Cells # Test 02/16/19 10:28 02/16/19 13:19 Bedside Glucose 331 H 358 H Medications Medication Current Medications IV Flush (NS 3 ml) 3 ml PER PROTOCOL IV Last administered on 02/14/19at 21:04; Admin Dose 3 ML; Start 01/28/19 at 00:00 Zolpidem Tartrate (Ambien) 10 mg QHS PRN PO .INSOMNIA Last administered on 02/15/19at 00:39; Admin Dose 10 MG; Start 01/28/19 at 00:00 Albuterol/ Ipratropium (Duoneb) 3 ml Q2H RESP THERAPY PRN HHN SHORTNESS OF BREATH; Start 01/28/19 at 00:00 Miscellaneous Information 1 ea NOTE XX ; Start 01/28/19 at 00:00 Glucose (Glutose) 15 gm Q15M PRN PO DECREASED GLUCOSE; Start 01/28/19 at 00:00 Glucose (Glutose) 22.5 gm Q15M PRN PO DECREASED GLUCOSE; Start 01/28/19 at 00:00 Dextrose (D50w Syringe) 25 ml Q15M PRN IV DECREASED GLUCOSE; Start 01/28/19 at 00:00 Dextrose (D50w Syringe) 50 ml Q15M PRN IV DECREASED GLUCOSE; Start 01/28/19 at 00:00 Glucagon (Glucagen) 1 mg Q15M PRN IM DECREASED GLUCOSE; Start 01/28/19 at 00:00 Glucose (Glutose) 15 gm Q15M PRN BUCCAL DECREASED GLUCOSE; Start 01/28/19 at 00:00 Insulin Aspart (Novolog Insulin Pen) 8 unit WITH MEALS SC Last administered on 02/06/19 17:58; Admin Dose 8 UNIT; Start 02/04/19 at 18:00; Status Hold Acetaminophen/ Hydrocodone Bitart ([place] (5/325)) 1 tab Q6H PRN PO PAIN LEVEL 6-10 Last administered on 02/14/19 21:03; Admin Dose 1 TAB; Start 02/07/19 at 18:30 Acetaminophen (Tylenol Tab) 650 mg Q6H PRN PO MILD PAIN(1-3)OR ELEVATED TEMP; Start 02/07/19 at 18:30 Ibuprofen (Motrin) 600 mg Q6H PRN PO PAIN LEVEL 1-5 Last administered on 02/15/19at 20:24; Admin Dose 600 MG; Start 02/07/19 at 18:30 Ondansetron HCl (Zofran Inj) 4 mg Q6H PRN IV NAUSEA AND/OR VOMITING Last administered on 02/13/19 06:49; Admin Dose 4 MG; Start 02/07/19 at 18:30 Miscellaneous Information (* Miscellaneous Pharmacy Order) DURAMORPH: 5 MG EPIDU... GIVEN NEURAXIAL XX ; Start 02/07/19 at 21:00 Phenol (Chloraseptic Throat [place]) 2 spray Q2H PRN MT SORE THROAT Last administered on 02/11/19at 21:48; Admin Dose 2 SPRAY; Start 02/08/19 at 17:30 Naloxone HCl (Narcan) 0.2 mg Q2M PRN IV .RESP RATE; Start 02/09/19 at 10:30 Fentanyl/ Ropivacaine 100 ml CONT EPIDURAL EPI Last administered on 02/13/19 05:04; Admin Dose 100 ML; Start 02/10/19 at 10:15 Zolpidem Tartrate (Ambien) 5 mg HS PRN PO INSOMNIA Last administered on 02/11/19 22:03; Admin Dose 5 MG; Start 02/10/19 at 16:00 Insulin Glargine (Lantus) 15 units DAILY@0800 SC Last administered on 02/16/19 10:31; Admin Dose 15 UNITS; Start 02/12/19 at 08:00 Insulin Aspart (Novolog Insulin Pen) NOVOLOG *MODERATE* ALGORITHM AC MEALS AND BEDTIME SC Last administered on 02/16/19 13:38; Admin Dose 12 UNIT; Start 02/13/19 at 12:30 Ketorolac Tromethamine (Toradol) 15 mg Q6H PRN IV PAIN Last administered on 02/16/19 10:31; Admin Dose 15 MG; Start 02/13/19 at 16:00; Stop 02/16/19 at 15:59 Morphine Sulfate (morphine) 2 mg Q8H PRN IV SEVERE PAIN LEVEL 7-10 Last administered on 02/16/19 13:16; Admin Dose 2 MG; Start 02/14/19 at 16:00 Simethicone (Mylicon) 80 mg Q8 PRN PO DISTENSION/GAS/BLOATING Last administered on 02/15/19 06:45; Admin Dose 80 MG; Start 02/15/19 at 05:00 Polyethylene Glycol (Miralax) 17 gm DAILY PRN PO constipation Last administered on 02/16/19 13:45; Admin Dose 17 GM; Start 02/15/19 at 18:00 GUIDO DAS M.D. Feb 16, 2019 13:56
--- NOTE | 2019-02-16 18:31 | CONS ---
Assessment/Plan Assessment/Plan Hospital Course (Demo Recall) IMPRESSION: 1. Preoperative evaluation in a patient prior to colectomy that has multiple cardiac risk factors and possible prior stent apparently placed approximately 2 to 3 years prior.-neg trop x 2. Now Post-op s/p surgery with clean margins by path 2. Hypotension, borderline.-ongoing today 3. History of possible prior stent placements 2 to 3 years prior per chart biopsy. 4. Dyslipidemia. 5. Adenocarcinoma of the colon, newly diagnosed. 6. Abdominal pain secondary to adenocarcinoma of the colon. 7. Diabetes mellitus. 8. Anemia. 9. Renal failure insufficiency. Recc: -Follow BP/volume status closely -routine post-op care -pain control -Follow BS -Oncology following Consultation Date/Type/Reason Admit Date/Time Jan 27, 2019 at 20:38 Initial Consult Date 02/05/19 Type of Consult Cardiology Reason for Consultation HTN Requesting Provider: YOSELYN GILL MD Date/Time of Note DATE: 02/16/19 TIME: 18:30 Exam/Review of Systems Vital Signs Vitals Vital Signs Date Temp Pulse Resp B/P (MAP) Pulse Ox O2 O2 Flow FiO2 Time Delivery Rate 02/16/19 98.6 72 18 113/72 98 13:15 (86) 02/15/19 Room Air 15:24 02/13/19 21 23:47 Intake and Output 02/15/19 02/15/19 02/16/19 1515:00 23:00 07:00 IntakeIntake Total 300 ml BalanceBalance 300 ml Exam Exam Review of Systems: CONSTITUTIONAL: No fevers, chills. PULMONARY: No sob CARDIOVASCULAR: No chest pain/palpitations GASTROINTESTINAL: No nausea/vomiting. GENITOURINARY: No hematuria/dysuria. MUSCULOSKELETAL: No myagias/arthalgias. PSYCHIATRIC: The patient denies depression. NEUROLOGIC: No weakness Constitutional: alert Psych: no complaints Head: normocephalic ENMT: mucosa pink and moist Neck: supple, jvd (9 cm water) Respiratory: diminished breath sounds (at bases/B) Cardiovascular: regular rate and rhythm Gastrointestinal: soft, other (covered by dressing) Musculoskeletal: muscle tone (normal) Extremities: edema (none) Neurological: other (No focal deficits) Labs Result Diagram: 02/16/1941902/12/19 0420 Results 24hrs Laboratory Tests Test 02/16/19 04:19 02/16/19 04:20 02/16/19 08:51 02/16/19 10:28 Phosphorus Level 3.9 Magnesium Level 1.7 White Blood Count 5.4 # Red Blood Count 3.84 L Hemoglobin 9.8 L Hematocrit 30.5 L Mean Corpuscular 79.4 L Volume Mean Corpuscular 25.5 L Hemoglobin Mean Corpuscular 32.1 Hemoglobin Concent Red Cell 16.9 H Distribution Width Platelet Count 285 # Mean Platelet Volume 10.3 Immature 0.200 Granulocytes % Neutrophils % 59.9 Lymphocytes % 26.3 Monocytes % 6.9 Eosinophils % 6.3 Basophils % 0.4 Nucleated Red Blood 0.0 Cells % Immature 0.010 Granulocytes # Neutrophils # 3.2 Lymphocytes # 1.4 Monocytes # 0.4 Eosinophils # 0.3 Basophils # 0.0 Nucleated Red Blood 0.0 Cells # Bedside Glucose 301 H 331 H Test 02/16/19 13:19 02/16/19 17:51 Bedside Glucose 358 H 204 Medications Medications Current Medications IV Flush (NS 3 ml) 3 ml PER PROTOCOL IV Last administered on 02/14/19at 21:04; Admin Dose 3 ML; Start 01/28/19 at 00:00 Zolpidem Tartrate (Ambien) 10 mg QHS PRN PO .INSOMNIA Last administered on 02/15/19at 00:39; Admin Dose 10 MG; Start 01/28/19 at 00:00 Albuterol/ Ipratropium (Duoneb) 3 ml Q2H RESP THERAPY PRN HHN SHORTNESS OF BREATH; Start 01/28/19 at 00:00 Miscellaneous Information 1 ea NOTE XX ; Start 01/28/19 at 00:00 Glucose (Glutose) 15 gm Q15M PRN PO DECREASED GLUCOSE; Start 01/28/19 at 00:00 Glucose (Glutose) 22.5 gm Q15M PRN PO DECREASED GLUCOSE; Start 01/28/19 at 00:00 Dextrose (D50w Syringe) 25 ml Q15M PRN IV DECREASED GLUCOSE; Start 01/28/19 at 00:00 Dextrose (D50w Syringe) 50 ml Q15M PRN IV DECREASED GLUCOSE; Start 01/28/19 at 00:00 Glucagon (Glucagen) 1 mg Q15M PRN IM DECREASED GLUCOSE; Start 01/28/19 at 00:00 Glucose (Glutose) 15 gm Q15M PRN BUCCAL DECREASED GLUCOSE; Start 01/28/19 at 00:00 Insulin Aspart (Novolog Insulin Pen) 8 unit WITH MEALS SC Last administered on 02/06/19 17:58; Admin Dose 8 UNIT; Start 02/04/19 at 18:00; Status Hold Acetaminophen/ Hydrocodone Bitart ([place] (5/325)) 1 tab Q6H PRN PO PAIN LEVEL 6-10 Last administered on 02/14/19 21:03; Admin Dose 1 TAB; Start 02/07/19 at 18:30 Acetaminophen (Tylenol Tab) 650 mg Q6H PRN PO MILD PAIN(1-3)OR ELEVATED TEMP; Start 02/07/19 at 18:30 Ibuprofen (Motrin) 600 mg Q6H PRN PO PAIN LEVEL 1-5 Last administered on 02/16/19 17:50; Admin Dose 600 MG; Start 02/07/19 at 18:30 Ondansetron HCl (Zofran Inj) 4 mg Q6H PRN IV NAUSEA AND/OR VOMITING Last administered on 02/13/19 06:49; Admin Dose 4 MG; Start 02/07/19 at 18:30 Miscellaneous Information (* Miscellaneous Pharmacy Order) DURAMORPH: 5 MG EPIDU... GIVEN NEURAXIAL XX ; Start 02/07/19 at 21:00 Phenol (Chloraseptic Throat [place]) 2 spray Q2H PRN MT SORE THROAT Last a dministered on 02/11/19at 21:48; Admin Dose 2 SPRAY; Start 02/08/19 at 17:30 Naloxone HCl (Narcan) 0.2 mg Q2M PRN IV .RESP RATE; Start 02/09/19 at 10:30 Fentanyl/ Ropivacaine 100 ml CONT EPIDURAL EPI Last administered on 02/13/19 05:04; Admin Dose 100 ML; Start 02/10/19 at 10:15 Zolpidem Tartrate (Ambien) 5 mg HS PRN PO INSOMNIA Last administered on 02/11/19 22:03; Admin Dose 5 MG; Start 02/10/19 at 16:00 Insulin Glargine (Lantus) 15 units DAILY@0800 SC Last administered on 02/16/19at 10:31; Admin Dose 15 UNITS; Start 02/12/19 at 08:00 Insulin Aspart (Novolog Insulin Pen) NOVOLOG *MODERATE* ALGORITHM AC MEALS AND BEDTIME SC Last administered on 02/16/19 17:55; Admin Dose 4 UNIT; Start 02/13/19 at 12:30 Morphine Sulfate (morphine) 2 mg Q8H PRN IV SEVERE PAIN LEVEL 7-10 Last administered on 02/16/19 13:16; Admin Dose 2 MG; Start 02/14/19 at 16:00 Simethicone (Mylicon) 80 mg Q8 PRN PO DISTENSION/GAS/BLOATING Last administered on 02/16/19 14:51; Admin Dose 80 MG; Start 02/15/19 at 05:00 Polyethylene Glycol (Miralax) 17 gm DAILY PRN PO constipation Last administered on 02/16/19 13:45; Admin Dose 17 GM; Start 02/15/19 at 18:00 KAYLEIGH MARTINEZ Feb 16, 2019 18:31
[2019-02-16 20:27] VITALS: BP 116/77; PULSE 72; RESP 19
[2019-02-17] MEDS: ZOLPIDEM 5 MG TAB PO PRN (00:17)
[2019-02-17] MEDS: HYDROCODONE/APAP (5/325) TAB PO PRN ×2 (00:22→16:00)
[2019-02-17 02:30] VITALS: BP 121/72; PULSE 76; RESP 18
[2019-02-17] MEDS: morphine 2 MG INJ IV PRN (06:49)
[2019-02-17 07:21] VITALS: BP 102/64; PULSE 68; RESP 19
--- NOTE | 2019-02-17 08:32 | CONS ---
Assessment/Plan Assessment/Plan Hospital Course (Demo Recall) 58 yo with newly diagnosed colon adenoca -CT chest shows 4 mm noncalcified nodule in the right apex, which is nonspecific. -CT AP: Irregular bowel wall thickening / mass with adjacent stranding of the distal transverse colon, compatible with given history of colon cancer. Shotty periaortic lymph nodes. The largest is an 11 mm node with normal fatty hilum, suggestive of reactive etiology. Small nonspecific peripherally sclerotic lesion in the left iliac bone measuring 6 mm. -bone scan negative for mets -he is s/p surgery: per notes this revealed previous small bowel resection with primary anastomosis (antecolic over the cancer) and gastrojejunostomy; Ventral incisional [place] cheese type hernia: s/p Laparoscopic converted to open transverse colectomy, Revision of previous scar, Primary repair of ventral incisional [place] cheese type hernia 02/07/19 -path shows T3N0 disease, no high risk features, can consider adjuvant xeloda or 5FU. once pt is fully recovered, will discuss further his treatment options as an outpt, but overall he has a good prognosis given early stage disease -pt states he may fly back to [place] as [place] one to care for [place] #DM -continue lantus #Anemia -2/2 iron deficiency -will start IV iron # Consultation Date/Type/Reason Admit Date/Time Jan 27, 2019 at 20:38 Initial Consult Date 02/05/19 Type of Consult oncology Reason for Consultation colon cancer Requesting Provider: YOSELYN GILL MD Date/Time of Note DATE: 02/17/19 TIME: 08:27 24 HR Interval Summary Free Text/Dictation no acute overnight events Exam/Review of Systems Exam Vitals Vital Signs Date Temp Pulse Resp B/P (MAP) Pulse Ox O2 O2 Flow FiO2 Time Delivery Rate 02/17/19 98.2 68 19 102/64 99 07:21 (77) 02/15/19 Room Air 15:24 02/13/19 21 23:47 Intake and Output 02/16/19 02/16/19 02/17/19 1414:59 22:59 06:59 IntakeIntake Total 400 ml 200 ml BalanceBalance 400 ml 200 ml Constitutional: alert, oriented Psych: no complaints Head: normocephalic Eyes: nl conjunctiva ENMT: nl external ears & nose Neck: supple Respiratory: clear to auscultation Cardiovascular: regular rate and rhythm Gastrointestinal: soft Musculoskeletal: nl extremities to inspection Extremities: normal pulses Results Result Diagram: 02/16/19 0420 Results 24hrs Laboratory Tests Test 02/16/19 08:51 02/16/19 10:28 02/16/19 13:19 02/16/19 17:51 Bedside Glucose 301 H 331 H 358 H 204 Test 02/16/19 20:17 Bedside Glucose 117 Medications Medication Current Medications IV Flush (NS 3 ml) 3 ml PER PROTOCOL IV Last administered on 02/14/19at 21:04; Admin Dose 3 ML; Start 01/28/19 at 00:00 Zolpidem Tartrate (Ambien) 10 mg QHS PRN PO .INSOMNIA Last administered on 02/17/19at 00:17; Admin Dose 10 MG; Start 01/28/19 at 00:00 Albuterol/ Ipratropium (Duoneb) 3 ml Q2H RESP THERAPY PRN HHN SHORTNESS OF IGNACIO ATH; Start 01/28/19 at 00:00 Miscellaneous Information 1 ea NOTE XX ; Start 01/28/19 at 00:00 Glucose (Glutose) 15 gm Q15M PRN PO DECREASED GLUCOSE; Start 01/28/19 at 00:00 Glucose (Glutose) 22.5 gm Q15M PRN PO DECREASED GLUCOSE; Start 01/28/19 at 00:00 Dextrose (D50w Syringe) 25 ml Q15M PRN IV DECREASED GLUCOSE; Start 01/28/19 at 00:00 Dextrose (D50w Syringe) 50 ml Q15M PRN IV DECREASED GLUCOSE; Start 01/28/19 at 00:00 Glucagon (Glucagen) 1 mg Q15M PRN IM DECREASED GLUCOSE; Start 01/28/19 at 00:00 Glucose (Glutose) 15 gm Q15M PRN BUCCAL DECREASED GLUCOSE; Start 01/28/19 at 00:00 Insulin Aspart (Novolog Insulin Pen) 8 unit WITH MEALS SC Last administered on 02/06/19at 17:58; Admin Dose 8 UNIT; Start 02/04/19 at 18:00; Status Hold Acetaminophen/ Hydrocodone Bitart ([place] (5/325)) 1 tab Q6H PRN PO PAIN LEVEL 6-10 Last administered on 02/17/19at 00:22; Admin Dose 1 TAB; Start 02/07/19 at 18:30 Acetaminophen (Tylenol Tab) 650 mg Q6H PRN PO MILD PAIN(1-3)OR ELEVATED TEMP; Start 02/07/19 at 18:30 Ibuprofen (Motrin) 600 mg Q6H PRN PO PAIN LEVEL 1-5 Last administered on 02/16/19 17:50; Admin Dose 600 MG; Start 02/07/19 at 18:30 Ondansetron HCl (Zofran Inj) 4 mg Q6H PRN IV NAUSEA AND/OR VOMITING Last administered on 02/13/19 06:49; Admin Dose 4 MG; Start 02/07/19 at 18:30 Miscellaneous Information (* Miscellaneous Pharmacy Order) DURAMORPH: 5 MG EPIDU... GIVEN NEURAXIAL XX ; Start 02/07/19 at 21:00 Phenol (Chloraseptic Throat [place]) 2 spray Q2H PRN MT SORE THROAT Last administered on 02/11/19 21:48; Admin Dose 2 SPRAY; Start 02/08/19 at 17:30 Naloxone HCl (Narcan) 0.2 mg Q2M PRN IV .RESP RATE; Start 02/09/19 at 10:30 Fentanyl/ Ropivacaine 100 ml CONT EPIDURAL EPI Last administered on 02/13/19 05:04; Admin Dose 100 ML; Start 02/10/19 at 10:15 Zolpidem Tartrate (Ambien) 5 mg HS PRN PO INSOMNIA Last administered on 02/11/19 22:03; Admin Dose 5 MG; Start 02/10/19 at 16:00 Insulin Glargine (Lantus) 15 units DAILY@0800 SC Last administered on 02/16/19 10:31; Admin Dose 15 UNITS; Start 02/12/19 at 08:00 Insulin Aspart (Novolog Insulin Pen) NOVOLOG *MODERATE* ALGORITHM AC MEALS AND BEDTIME SC Last administered on 02/16/19 17:55; Admin Dose 4 UNIT; Start 02/13/19 at 12:30 Morphine Sulfate (morphine) 2 mg Q8H PRN IV SEVERE PAIN LEVEL 7-10 Last administered on 02/17/19 06:49; Admin Dose 2 MG; Start 02/14/19 at 16:00 Simethicone (Mylicon) 80 mg Q8 PRN PO DISTENSION/GAS/BLOATING Last administered on 02/16/19at 14:51; Admin Dose 80 MG; Start 02/15/19 at 05:00 Polyethylene Glycol (Miralax) 17 gm DAILY PRN PO constipation Last administered on 02/16/19at 13:45; Admin Dose 17 GM; Start 02/15/19 at 18:00 GUIDO DAS M.D. Feb 17, 2019 08:32
[2019-02-17] MEDS: INSULIN ASPART [NOVOLOG] 3 ML PEN SC SCH ×3 (09:08→18:11)
[2019-02-17] MEDS: INSULIN GLARGINE [LANTus] (100 UNITS/ML) SYG SC SCH (09:09)
[2019-02-17] MEDS: POLYETHYLENE GLYCOL 17 GM PACKET PO PRN (09:09)
[2019-02-17] MEDS ORDERED: SOD FERRIC GLUC COMPLX 125 MG in SOD CHLORIDE 0.9% 100 ML IVPB SCH (13:00)
--- NOTE | 2019-02-17 13:52 | DS ---
Date/Time of Note Date/Time of Note DATE: 02/17/19 TIME: 13:48 Discharge Summary Admission/Discharge Info Admit Date/Time Jan 27, 2019 at 20:38 Discharge Date/Time Discharge Diagnosis Colon adenocarcinoma Patient Condition: Stable Hospital Course 58 yo male with DM who presented with hematochezia. He was found to have iron deficiency anemia and tranfused PRBCs and IV iron. He underwent colonscopy revealing a mass in the transverse colon. Pathology revealed adenocarcinoma. CT imaging of chest, abdomen, and pelvis revealed no evidence of metastatic disease. He then underwent surgical resection with report as follows: "Patient was brought into the operating room, placed supine on the operating table, SCDs were placed, both arms were tucked, all pressure points were well- padded, preoperative antibiotics administered, and after induction of anes thesia, patient was placed in the lithotomy. Hyman was inserted. Patient was then prepped and draped in usual sterile fashion, and timeout was performed. Incision was made in the right upper quadrant, and using an Optiview port and 5 mm 0 scope abdomen was safely entered and insufflated to 15 mmHg with CO2. Laparoscopy was performed and no injuries were identified. There were si gnificant adhesions in the upper abdomen. Under direct visualization 2 more fives were placed in the right lower and left lower quadrants. No tattoo ink was identified. No mass was identified. However there was fullness in left upper quadrant. Investigation identified small bowel resection in mid abdomen with primary anastomosis. There was also significant adhesions of small bowel to the left upper quadrant to the liver and possible stomach. The liver was plastered to the abdominal wall. Local anesthetic injection was performed at all surgical sites initially. Extensive lysis of adhesions was undertaken laparoscopically however I was not being very successful to identify the structures easily and decision was made to convert to open. Midline incision was made and the previous scar was fully excised since it was large thickened and abnormal. Abdomen was entered. Further extensive lysis of adhesions were performed and I was able to identify that patient also had a gastrojejunostomy with a loop of bowel brought antecolic and anastomosis to the stomach. I was able to separate the omentum and small bowel from each other from the colon. I made sure to preserve the gastrojejunostomy throughout the surgery. I was able to separate the colon that was underneath the gastrojejunostomy from the loop of jejunum on both sides. The colon was mobilized on both sides off of the wall along the left descending and right ascending colon. Hepatic flexure was gently and meticulously mobilized with care taken not to injure the duodenum or any vasculature. Splenic mobilization was much more difficult due to the significant adhesions. This was the area where the mass was also identified within the colon. Very meticulous tedious and gentle dissection was taken to separate the colon from the small bowel and from the spleen preserving all structures. Posterior stomach was also plastered on the colon and the area of the mass and this was very gently shaved off using blunt dissection. Several of the short gastrics had to be taken using LigaSure to be able to free up enough space and identified the structures. Once again this dissection was very tedious difficult and not long. After fully identifying all structures and fully mobilizing the transverse colon left and right colon with the flexures. Mass was identified to be large about half to two th[address] of the transverse colon. Decision was made to proceed with transverse colectomy. The mesentery was divided using LigaSure middle colic was taken using LigaSure as well. Colon was transected and distal ascending and mid descending and the specimen was fully mobilized and exteriorized. Suture was placed proximally. There was redundant sigmoid colon which was mobilized to be able to bring the left colon retrocrural gastrojejunostomy and to do a staple [id number] colonic anastomosis. Stay sutures were placed posteriorly. Crotch suture was placed. Anastomosis was made with a 75 blue load stapler. Open end was closed with a TA blue 60 followed by a 3-year-old Lembert silk sutures. Possible internal hernia defect at this site were closed with silk sutures however to further secure the area and help with healing 10 x 15 cm xenograft biologic was placed over the anastomosis and posterior to the gastrojejunostomy. FloSeal was placed in left upper and right upper quadrants and there was complete hemostasis. Abdomen was irrigated with 5 L of warm water to clear suctioning fluid. There was no omentum left. Part of omentum was also excised using LigaSure and sent to pathology. Abdominal wall fascia was closed with #1 looped PDS sutures and also the hernia was were repaired primarily. Wound was thoroughly irrigated and interrupted 2-0 Vicryl subcutaneous sutures were placed to close off space. Skin francie were applied. Betadine was applied. Dressing was placed." The patient remained hosptialized for the following week for pain control. Pathology of the mass revealed: "-Transverse colon, transverse colectomy: -- Moderately-differentiated adenocarcinoma with mucinous differentiation, invades through the muscularis propria, focally into pericolonic tissue associated with marked luminal stenosis. -- Mesenteric lymph nodes with no evidence of metastatic adenocarcinoma (0/18). -- Margins are clear of adenocarcinoma. SURGICAL PATHOLOGY CANCER CASE SUMMARY: PROCEDURE: Transverse colectomy. TUMOR SITE: Transverse colon. TUMOR SIZE: 11.0 x 6.0 x 1.5 cm. MACROSCOPIC TUMOR PERFORATION: Not identified. HISTOLOGIC TYPE: Adenocarcinoma with mucinous differentiation. HISTOLOGIC GRADE: Moderately-differentiated. TUMOR EXTENSION: Tumor invades through the muscularis propria, focally into pericolonic tissue. MARGINS: All margins are uninvolved by invasive carcinoma." He has been seen by oncology who do not recommend any additional therapy at this time. He is planning to return to [facility] after discharge from the hosptial. I have advised him he will need to check in regularly with a doctor for surveillance and will need to have a colonsocopy in the next year. Primary Care Provider Not On Staff Doctor Pending Labs Laboratory Tests Test 02/16/19 17:51 02/16/19 20:17 02/17/19 09:04 02/17/19 13:00 Bedside 204 117 234 280 Glucose mg/dL (70-220) mg/dL (70-220) mg/dL (70-220) mg/dL (70-220) YOSELYN GILL MD Feb 17, 2019 13:52
[2019-02-17 15:06] VITALS: BP 119/62; PULSE 78; RESP 18
--- NOTE | 2019-02-17 16:11 | CONS ---
Assessment/Plan Assessment/Plan Hospital Course (Demo Recall) IMPRESSION: 1. Preoperative evaluation in a patient prior to colectomy that has multiple cardiac risk factors and possible prior stent apparently placed approximately 2 to 3 years prior.-neg trop x 2. Now Post-op s/p surgery with clean margins by path 2. Hypotension, borderline.-ongoing today 3. History of possible prior stent placements 2 to 3 years prior per chart biopsy. 4. Dyslipidemia. 5. Adenocarcinoma of the colon, newly diagnosed. 6. Abdominal pain secondary to adenocarcinoma of the colon. 7. Diabetes mellitus. 8. Anemia. 9. Renal failure insufficiency. Recc: -Follow BP/volume status closely -routine post-op care -pain control -Follow BS -Oncology following Consultation Date/Type/Reason Admit Date/Time Jan 27, 2019 at 20:38 Initial Consult Date 02/05/19 Type of Consult Cardiology Reason for Consultation Preop Requesting Provider: YOSELYN GILL MD Date/Time of Note DATE: 02/17/19 TIME: 16:09 Exam/Review of Systems Vital Signs Vitals Vital Signs Date Temp Pulse Resp B/P (MAP) Pulse Ox O2 O2 Flow FiO2 Time Delivery Rate 02/17/19 97.2 78 18 119/62 96 15:06 (81) 02/15/19 Room Air 15:24 02/13/19 21 23:47 Intake and Output 02/16/19 02/16/19 02/17/19 1515:00 23:00 07:00 IntakeIntake Total 400 ml 200 ml BalanceBalance 400 ml 200 ml Exam Exam Review of Systems: CONSTITUTIONAL: No fevers, chills. PULMONARY: No sob CARDIOVASCULAR: No chest pain/palpitations GASTROINTESTINAL: No nausea/vomiting. GENITOURINARY: No hematuria/dysuria. MUSCULOSKELETAL: No myagias/arthalgias. PSYCHIATRIC: The patient denies depression. NEUROLOGIC: No weakness Constitutional: alert Psych: no complaints Head: normocephalic ENMT: mucosa pink and moist Neck: supple, jvd (9 cm water) Respiratory: clear to auscultation Cardiovascular: regular rate and rhythm Gastrointestinal: soft, non-tender Musculoskeletal: muscle tone (normal) Extremities: edema (none) Neurological: other (No focal deficits) Labs Result Diagram: 02/16/19 0420 Results 24hrs Laboratory Tests Test 02/16/19 17:51 02/16/19 20:17 02/17/19 09:04 02/17/19 13:00 Bedside Glucose 204 117 234 H 280 H Medications Medications Current Medications IV Flush (NS 3 ml) 3 ml PER PROTOCOL IV Last administered on 02/14/19at 21:04; Admin Dose 3 ML; Start 01/28/19 at 00:00 Zolpidem Tartrate (Ambien) 10 mg QHS PRN PO .INSOMNIA Last administered on 02/17/19 00:17; Admin Dose 10 MG; Start 01/28/19 at 00:00 Albuterol/ Ipratropium (Duoneb) 3 ml Q2H RESP THERAPY PRN HHN SHORTNESS OF BREATH; Start 01/28/19 at 00:00 Miscellaneous Information 1 ea NOTE XX ; Start 01/28/19 at 00:00 Glucose (Glutose) 15 gm Q15M PRN PO DECREASED GLUCOSE; Start 01/28/19 at 00:00 Glucose (Glutose) 22.5 gm Q15M PRN PO DECREASED GLUCOSE; Start 01/28/19 at 00:00 Dextrose (D50w Syringe) 25 ml Q15M PRN IV DECREASED GLUCOSE; Start 01/28/19 at 00:00 Dextrose (D50w Syringe) 50 ml Q15M PRN IV DECREASED GLUCOSE; Start 01/28/19 at 00:00 Glucagon (Glucagen) 1 mg Q15M PRN IM DECREASED GLUCOSE; Start 01/28/19 at 00:00 Glucose (Glutose) 15 gm Q15M PRN BUCCAL DECREASED GLUCOSE; Start 01/28/19 at 00:00 Insulin Aspart (Novolog Insulin Pen) 8 unit WITH MEALS SC Last administered on 02/06/19at 17:58; Admin Dose 8 UNIT; Start 02/04/19 at 18:00; Status Hold Acetaminophen/ Hydrocodone Bitart ([place] (5/325)) 1 tab Q6H PRN PO PAIN LEVEL 6-10 Last administered on 02/17/19at 16:00; Admin Dose 1 TAB; Start 02/07/19 at 18:30 Acetaminophen (Tylenol Tab) 650 mg Q6H PRN PO MILD PAIN(1-3)OR ELEVATED TEMP; Start 02/07/19 at 18:30 Ibuprofen (Motrin) 600 mg Q6H PRN PO PAIN LEVEL 1-5 Last administered on 02/16/19 17:50; Admin Dose 600 MG; Start 02/07/19 at 18:30 Ondansetron HCl (Zofran Inj) 4 mg Q6H PRN IV NAUSEA AND/OR VOMITING Last administered on 02/13/19 06:49; Admin Dose 4 MG; Start 02/07/19 at 18:30 Miscellaneous Information (* Miscellaneous Pharmacy Order) DURAMORPH: 5 MG EPIDU... GIVEN NEURAXIAL XX ; Start 02/07/19 at 21:00 Phenol (Chloraseptic Throat [place]) 2 spray Q2H PRN MT SORE THROAT Last administered on 02/11/19 21:48; Admin Dose 2 SPRAY; Start 02/08/19 at 17:30 Naloxone HCl (Narcan) 0.2 mg Q2M PRN IV .RESP RATE; Start 02/09/19 at 10:30 Fentanyl/ Ropivacaine 100 ml CONT EPIDURAL EPI Last administered on 02/13/19 05:04; Admin Dose 100 ML; Start 02/10/19 at 10:15 Zolpidem Tartrate (Ambien) 5 mg HS PRN PO INSOMNIA Last administered on 02/11/19 at 22:03; Admin Dose 5 MG; Start 02/10/19 at 16:00 Insulin Glargine (Lantus) 15 units DAILY@0800 SC Last administered on 02/17/19 09:09; Admin Dose 15 UNITS; Start 02/12/19 at 08:00 Insulin Aspart (Novolog Insulin Pen) NOVOLOG *MODERATE* ALGORITHM AC MEALS AND BEDTIME SC Last administered on 02/17/19 13:04; Admin Dose 8 UNIT; Start 02/13/19 at 12:30 Morphine Sulfate (morphine) 2 mg Q8H PRN IV SEVERE PAIN LEVEL 7-10 Last administered on 02/17/19 06:49; Admin Dose 2 MG; Start 02/14/19 at 16:00 Simethicone (Mylicon) 80 mg Q8 PRN PO DISTENSION/GAS/BLOATING Last administered on 02/16/19 14:51; Admin Dose 80 MG; Start 02/15/19 at 05:00 Polyethylene Glycol (Miralax) 17 gm DAILY PRN PO constipation Last administered on 02/17/19 09:09; Admin Dose 17 GM; Start 02/15/19 at 18:00 Ferric Sodium Gluconate Complex 125 mg/Sodium Chloride 110 ml @ 110 mls/hr DAILY@1300 IVPB Last administered on 02/17/19at 13:50; Admin Dose 110 MLS/HR; Start 02/17/19 at 13:00; Stop 02/21/19 at 13:59 KAYLEIGH MARTINEZ Feb 17, 2019 16:11
--- NOTE | 2019-02-17 16:39 | PN ---
Date/Time of Note Date/Time of Note DATE: 02/17/19 TIME: 16:34 Assessment/Plan Lines/Catheters IV Catheter Type (from Nrsg): Saline Lock Pérez in Place (from Nrsg): No Assessment/Plan Chief Complaint/Hosp Course 1. Transverse colon adenocarcinoma, Previous small bowel resection with primary anastomosis (antecolic over the cancer) and gastrojejunostomy; Ventral incisional [place] cheese type hernia: s/p Laparoscopic converted to open transverse colectomy, Revision of previous scar, Primary repair of ventral incisional [place] cheese type hernia 02/07/19; +Bowel function. Ileus resolved. Path noted > Oncology -IS -oob>ambulate qid -ice pack to abdominal wall -incision site local care> s/p DC francie, now with noted open area> local wound care for this area (wound care education to be provided by nursing staff are to discharge) -oncology follow-up -pain control> transition to oral -soft diet -dc ok from surgical standpoint. To follow in office in 1-2 weeks. Patient to call and make appointment. 2. 40 pound weight loss secondary to above 3. Diabetes mellitus type 2 -Nutrition medication optimization 4. Hypertension -Nutrition medication optimization 5. Coronary artery disease with history of Plavix and aspirin -Cardiac evaluation and optimization 6. Iron deficiency anemia secondary to above -Iron transfusion per hematology -As above 7. Hyperglycemia: -glucose optimization Thank you. Patient seen and examined in collaboration with Dr. Homar Taveras. Subjective 24 Hr Interval Summary Feels well. Open area noted in midline incision. No fevers, chills, sob, congested cough, cp, palpitations, velasquez, dizziness, n/v/d/dysuria. Exam/Review of Systems Vital Signs Vitals Vital Signs Date Temp Pulse Resp B/P (MAP) Pulse Ox O2 O2 Flow FiO2 Time Delivery Rate 02/17/19 97.2 78 18 119/62 96 15:06 (81) 02/15/19 Room Air 15:24 02/13/19 21 23:47 Intake and Output 02/16/19 02/16/19 02/17/19 1515:00 23:00 07:00 IntakeIntake Total 400 ml 200 ml BalanceBalance 400 ml 200 ml Exam Free Text/Dictation Constitutional: alert, oriented; No distress Psych: nl mood/affect; No anxiety Head: normocephalic, atraumatic Eyes: nl conjunctiva, EOMI, PERRL; No icteric ENMT: nl external ears & nose, mucosa pink and moist Neck: non-tender; No jvd Respiratory: normal air movement; No congested cough, No labored breathing Cardiovascular: regular rate and rhythm; No edema Gastrointestinal: soft, min tender (jayden-incisional: midline incision: dry, no erythema, small open area) No distended, No rebound or guarding Genitourinary - Male: nl scrotum, pérez Musculoskeletal: nl extremities to inspection, nl gait and stance; No joint tenderness Extremities: normal pulses; No calf tenderness, No edema Neurological: nl mental status, nl speech, nl strength Skin: nl turgor; No rash or lesions Lymph: nl lymph nodes Results Result Diagram: 02/16/19 0420 GIBRAN GUO NP Feb 17, 2019 16:39
== END 2019-02-17 18:50 | disposition home or self-care (01) | DRG 330 ==
LOC: 6WM 20:38 → 2NE 01-31 16:02 → MS1 02-08 00:23
PROVIDERS: ADMIT Hospitalist; ATTEND Internal Medicine
PROC: 0DBL8ZX Excision of Transverse Colon, Via Natural or Artificial Opening Endoscopic, Diagnostic (ICD-10-PCS; 2019-01-27)
PROC: 0DN80ZZ Release Small Intestine, Open Approach (ICD-10-PCS; 2019-02-07)
PROC: 0DNE0ZZ Release Large Intestine, Open Approach (ICD-10-PCS; 2019-02-07)
PROC: 0DNU0ZZ Release Omentum, Open Approach (ICD-10-PCS; 2019-02-07)
PROC: 0DN84ZZ Release Small Intestine, Percutaneous Endoscopic Approach (ICD-10-PCS; 2019-02-07)
PROC: 0WQF0ZZ Repair Abdominal Wall, Open Approach (ICD-10-PCS; 2019-02-07)
PROC: 0DU Gastrointestinal System, Supplement (ICD-10-PCS; 2019-02-07)
PROC: 00HU33Z Insertion of Infusion Device into Spinal Canal, Percutaneous Approach (ICD-10-PCS; 2019-02-07)
PROC: 3E0R3BZ Introduction of Anesthetic Agent into Spinal Canal, Percutaneous Approach (ICD-10-PCS; 2019-02-07)
PROC: 30233N1 Transfusion of Nonautologous Red Blood Cells into Peripheral Vein, Percutaneous Approach (ICD-10-PCS; 2019-02-07)
PROC: 0DTL0ZZ Resection of Transverse Colon, Open Approach (ICD-10-PCS; principal; 2019-02-07 15:30)
DX: C18.4 Malignant neoplasm of transverse colon (principal); K62.5 Hemorrhage of anus and rectum; K43.9 Ventral hernia without obstruction or gangrene; F17.200 Nicotine dependence, unspecified, uncomplicated; R63.4 Abnormal weight loss; Z68.23 Body mass index [BMI] 23.0-23.9, adult; D50.9 Iron deficiency anemia, unspecified; I25.10 Atherosclerotic heart disease of native coronary artery without angina pectoris; I12.9 Hypertensive chronic kidney disease with stage 1 through stage 4 chronic kidney disease, or unspecified chronic kidney disease; N18.2 Chronic kidney disease, stage 2 (mild); E78.5 Hyperlipidemia, unspecified; E10.22 Type 1 diabetes mellitus with diabetic chronic kidney disease; E10.65 Type 1 diabetes mellitus with hyperglycemia
CPT/HCPCS: 36430; 36600; 71260; 74018; 74177; 74250; 76775; 78306; 78452; 80048; 80053; 80061; 81003; 82378; 82728; 82803; 82962; 83036; 83540; 83735; 84100; 84484; 85025; 85049; 85610; 85670; 85730; 86850; 86900; 86901; 86920; 87086; 88304; 88305; 88309; 90686; 93005; 93017; 93306; 93971; 97161; A9503; A9500; A9505; J0690; J1100; J1170; J1815; J1885; J2250; J2270; J2274; J2370; J2405; J2765; J2785; J2795; J2916; J3010; J3475; J7030; P9016; P9045; Q4166; Q9967